=== PATIENT | female | born 1940 | race Caucasian/White ===

== ENCOUNTER 2023-04-16 09:01 | Outpatient (OUT) | payer MEDICARE, SELFPAY ==
--- NOTE | 2023-04-16 09:15 | XR_ITS ---
The [address] [address] Patient Name: JESUS ESTEVEZ MRN: [id number] date: 1940 Sex: F Assigned Patient Location: [facility] Current Patient Location: [facility] Accession/Order Number: [id number] Exam Date: 04/16/2023 09:25 Report Date: 04/16/2023 09:42 At the request of: BETY GARSIA Procedure: XR chest 2V EXAM: XR chest 2V HISTORY: Chronic bronchitis J42, Chronic Cough R05.3 COMPARISON: Chest study dated 03/23/2022 TECHNIQUE: PA and lateral views of the chest were obtained. FINDINGS: Heart and mediastinal contours are unremarkable in appearance. No acute infiltrate or consolidations are seen. No obvious pneumothorax. A few small calcific densities on the left laterally compatible with calcified granulomas. Moderate size hiatal hernia similar to the prior study. Mild degenerative changes in the dorsal spine with mild convexity of the lower dorsal spine to the right. Height loss of lower thoracic and upper lumbar vertebral bodies similar to prior study. XR/XR chest 2V IMPRESSION: No acute process seen in the chest. Electronically authenticated by: RICO BLANCO Date: 04/16/2023 09:42
== END 2023-04-16 09:02 | disposition home or self-care (01) ==
LOC: LAB 09:08 → RAD 09:09
PROVIDERS: PCP Internal Medicine; Visit Provider Physician Assistant
DX: J42 Unspecified chronic bronchitis (principal); R05.3 Chronic cough
CPT/HCPCS: 71046

== ENCOUNTER 2023-11-26 11:20 | Outpatient (OUT) | payer MEDICARE, SELFPAY ==
--- OUTSIDE RECORDS SUMMARY | 2023-11-26 11:36 | XMS_ITS | CCD ---
Author Organization [facility] ion [facility] Care Team Providers Care Physical Therapy Supervisor Name Role Phone ISACC, DR CHOE Consulting Unavailable DEXTER, DR CHOE Primary Care Unavailable DEXTER, DR CHOE Attending Unavailable DEXTER, DR CHOE Admitting Unavailable ZIEBER, DR MERCED Hope Consulting Unavailable DEXTER, DR CHOE Primary Care Unavailable HEMMER, DR LONI Ugarte Attending Unavailable HEMMER, DR LONI Ugarte Admitting Unavailable HEMMER, DR LONI Ugarte Consulting Unavailable WEST, DR MONTSERRAT Bray Admitting Unavailable WEST, DR MONTSERRAT Bray Attending Unavailable DEXTER, DR CHOE Primary Care Unavailable WEST, DR MONTSERRAT Bray Consulting Unavailable ZIEBER, DR MERCED Hope Consulting Unavailable ZIEBER, DR MERCED Hope Consulting Unavailable DEXTER, DR CHOE Primary Care Unavailable HEMMER, DR LONI Ugarte Attending Unavailable HEMMER, DR LONI Ugarte Admitting Unavailable HEMMER, DR LONI Ugarte Consulting Unavailable DEXTER, DR CHOE Consulting Unavailable DEXTER, DR CHOE Primary Care Unavailable DEXTER, DR CHOE Attending Unavailable DEXTER, DR CHOE Admitting Unavailable MISC, DR ROSENTHAL Consulting Unavailable DEXTER, DR CHOE Primary Care Unavailable MISC, DR ROSENTHAL Attending Unavailable MISC, DR ROSENTHAL Admitting Unavailable WEST, DR MONTSERRAT Bray Admitting Unavailable WEST, DR MONTSERRAT Bray Attending Unavailable DEXTER, DR CHOE Primary Care Unavailable WEST, DR MOTNSERRAT Bray Consulting Unavailable WEST, DR MONTSERRAT Bray Admitting Unavailable WEST, DR MONTSERRAT Bray Attending Unavailable DEXTER, DR CHOE Primary Care Unavailable WEST, DR MONTSERRAT Bray Consulting Unavailable WEST, DR MONTSERRAT Bray Admmanuel Unavailable WEST, DR MONTSERRAT Bray Attending Unavailable DEXTER, DR CHOE Primary Care Unavailable WEST, DR MONTSERRAT Bray Consulting Unavailable WEST, DR MONTSERRAT Bray Admmanuel Unavailable WEST, DR MONTSERRAT Bray Attending Unavailable DEXTER, DR CHOE Primary Care Unavailable HEMMER, DR LONI Ugarte Consulting Unavailable HEMMER, DR LONI Ugarte Admitting Unavailable HEMMER, DR LONI Ugarte Attending Unavailable DEXTER, DR CHOE Primary Care Unavailable WEST, DR MONTSERRAT Bray Consulting Unavailable HEMMER, DR LONI Ugarte Consulting Unavailable WEST, DR MONTSERRAT Bray Admitting Unavailable WEST, DR MONTSERRAT Bray Attending Unavailable DEXTER, DR CHOE Primary Care Unavailable WEST, DR MONTSERRAT Bray Consulting Unavailable ZIEBER, DR MERCED Hope Consulting Unavailable WEST, DR MONTSERRAT Bray Consulting Unavailable DEXTER, DR CHOE Primary Care Unavailable WEST, DR MONTSERRAT Bray Attending Unavailable WEST, DR MONTSERRAT Bray Admitting Unavailable DEXTER, DR CHOE Consulting Unavailable DEXTER, DR CHOE Primary Care Unavailable HEMMER, DR LONI Ugarte Attending Unavailable HEMMER, DR LONI Ugarte Admitting Unavailable HEMMER, DR LONI Ugarte Consulting Unavailable PAY, DR SANABRIA Consulting Unavailable PAY, DR SANABRIA Attending Unavailable PAY, DR SANABRIA Admitting Unavailable DEXTER, DR CHOE Primary Care Unavailable FALVO, FAITH Consulting Unavailable WEST, DR MONTSERRAT Bray Admitting Unavailable WEST, DR MONTSERRAT Bray Attending Unavailable DEXTER, DR CHOE Primary Care Unavailable WEST, DR MONTSERRAT Bray Consulting Unavailable ZIEBER, DR MERCED Hope Consulting Unavailable ZIEBER, DR MERCED Hope Consulting Unavailable DEXTER, DR CHOE Primary Care Unavailable HEMMER, DR LONI Ugarte Attending Unavailable HEMMER, DR LONI Ugarte Admitting Unavailable HEMMER, DR LONI Ugarte Consulting Unavailable Dexter, II Quentin Primary Care Provider ROSEANNA Cruz Attending Provider MARGA Garsia Referring Provider [phone] Isacc, II Quentin Primary Care Provider [phone] ROSEANNA Cruz Attending Provider MARGA Garsia Referring Provider [phone] MD Trista Davis Attending Provider Isacc, II Quentin Primary Care Provider ROSEANNA Cruz Attending Provider MD Trista Davis Referring Provider [phone] Isacc, II Quentin Primary Care Provider [phone] MD Trista Davis Attending Provider ROSEANNA Cruz Attending Provider MD Trista Davis Referring Provider DO Alex Lee Admit Provider DO Alex Lee Attending Provider TERRY Rivera Other Provider Unavailable TERRY Keller Other Provider Unavailable TERRY Esquivel Other Provider Unavailable TERRY Mac Other Provider Unavailable TERRY Barrow Other Provider Unavailable TERRY Patterson Other Provider Unavailable MD Karthik Rico Other Provider ROSEANNA Enriquez Other Provider [phone] DO Venessa Taylor Other Provider MD Miguel Izquierdo Other Provider DO Leonidas Pink Other Provider [phone] MD Lucas Serrano Other Provider [phone] MD Maribel Torres Other Provider Shadia, ANP- Tayler Other Provider MD Lori Crespo Other Provider [phone] MD Daniele Burdick Other Provider MD Pepito Jordan Other Provider MD Arsenio Mills Other Provider DO Nestor Loomis Other Provider [phone] MD Rosalia Sol Other Provider MD Aime Ortiz Other Provider CONNIE Cruz Other Provider [phone] MD Levon Cruz Other Provider MD Kwasi Blake Other Provider MD Jose Zarate Other Provider DO Carmen Jade Other Provider DO Ronal Osman Other Provider DO Masoud Hilton Other Provider ROSEANNA Bishop Other Provider DO Adrian Santiago Other Provider MD Medhat Aaron M Other Provider ROSEANNA Wade Other Provider ROSEANNA Spence Other Provider [phone] TERRY Gomez Other Provider Unavailable DO Lisandro Almaraz Other Provider McGuinjosue II, Dr. Geovany Sanchez Attending Unavailable McGuinn II, Dr. Geovany Sanchez Attending Unavailable McGuinn II, Dr. Geovany Sanchez Attending Unavailable McGuinn II, Dr. Geovany Sanchez Attending Unavailable McGuinn II, Dr. Geovany Sanchez Attending Unavailable McGuinn II, Dr. Geovany Sanchez Attending Unavailable McGuinn II, Dr. Geovany Sanchez Attending Unavailable EUGENE Dexter Primary Care Provider MD Geovany Serrano Attending Provider ROSEANNA Cruz Attending Provider MD Trista Davis Referring Provider Qeuntin Dexter Unavailable Unavailable Unavailable Quentin Dexter MD Primary Care Provider EUGENE Dexter Primary Care Provider [phone] MD Trista Davis Referring Provider [phone] MD Suzanne Paredes Attending Provider EUGENE Dexter Primary Care Provider MD Trista Davis Referring Provider MD Suzanne Paredes Attending Provider [phone] Quentin Dexter Primary Care Unavailable Suzanne Paredes Admitting Unavailable Suzanne Paredes Attending Unavailable Trista Davis Referring Unavailable RUIZ HERNANDEZ Attending Unavailable LONI GARSIA Attending Unavailable ALEX LEE Attending Unavailable QUENTIN DEXTER Referring Unavailable RUIZ HERNANDEZ Attending Unavailable МАРИЯ BASHIR Attending Unavailable LONI GARSIA Attending Unavailable RUIZ HERNANDEZ Attending Unavailable LONI GARSIA Attending Unavailable LONI GARSIA Attending Unavailable GEOVANY SERRANO Attending Unavailable QUENTIN DEXTER Primary Care Unavailable GEOVANY SERRANO Attending Unavailable GEOVANY SERRANO Referring Unavailable QUENTIN DEXTER Primary Care Unavailable Allergies Allergy Classification Reported Allergen(s) Allergy Type Date of Onset Reaction(s) Facility (5 sources) Amoxicillin; Translations: [AMOXICILLIN] Drug Allergy 4 Unknown Reaction [facility] (1 source) Sulfamethoxazole / Trimethoprim Drug Allergy 4 [facility] (1 source) Sulfonamides (Antibiotic) Drug allergy (disorder) 4 [facility] (2 sources) Sulfamethoxazole; Translations: [sulfa] Drug Allergy [facility] y 250 DO Work Phone: (1 source) Amoxicillin Drug Allergy 3 Unknown [facility] (2 sources) Doxycycline; Translations: [DOXYCYCLINE] Drug Allergy 3 [facility] Work Phone: (5 sources) Sulfonamides (Antibiotic); Translations: [SULFA (SULFONAMIDE ANTIBIOTICS)] Drug Allergy 3 [facility] Work Phone: (4 sources) Sulfur; Translations: [sulfur] Drug Allergy 4 Unknown Reaction [facility] (1 source) Amoxicillin Drug Allergy 4 [facility] (1 source) Sulfonamides (Antibiotic) Drug allergy (disorder) 4 [facility] Medications Current Medications Medication Drug Class(es) Dates Sig (Normalized) Sig (Original) biotin 10 mg oral capsule (18 sources) Start: 05-12-2022 take 77201 ug by mouth once daily Biotin Active 84472 MCG PO Daily May 12, 2022 1:00am Start: 04-28-2022 End: 05-04-2022 take 1000 ug by mouth once daily Biotin Discontinued 1000 MCG PO Daily April 28, 2022 1:00am May 04, 2022 3:09pm take 1 tablet by jenifer th once daily biotin 10 mg tablet Take 1 tablet (10 mg) by mouth once daily. 0 Active Biotin CAPS 10,0 00 mgs Quantity: 0 Refills: 0 Ordered: 21-Sep-2022 DO Active 120 actuat budesonide 0.16 mg/actuat / formoterol fumarate 0.0048 mg/actuat / glycopyrrolate 0.009 mg/actuat metered dose inhaler (20 sources) Corticosteroid, beta2-Adrenergic Agonist Start: 01-26-2023 take 2 puff(s) by inhalation twice daily Breztri Aerosphere 160-9-4.8 mcg/actuation HFA aerosol inhaler Inhale 2 puffs twice a day. 0 01/26/2023 Active Start: 05-12-2022 Budesonide-Gly copyr-Formoterol (Breztri Aerosphere) 160-9-4.8 mcg/actuation HFA aerosol inhaler Active 2 INH INHALATION Twice daily September 09, 2023 12:00am Start: 04-28-2022 End: 05-04-2022 Crukdytaxs-Vuglnanw-Hcwlctbe ol (Breztri Aerosphere) 160-9-4.8 mcg/actuation Hfa Aerosol Inhaler Discontinued 2 INH INHALATION Twice daily April 28, 2022 1:00am May 04, 2022 3:09pm take 2 puff(s) by inhalation twice daily Breztri Aerosphere 160-9-4.8 MCG/ACT Inhalation Aerosol INHALE 2 PUFFS Twice daily Quantity: 0 Refills: 0 Ordered: 21-Sep-2022 DO Active calcium citrate 1190 mg / cholecalciferol 0.005 mg oral tablet (12 sources) Vitamin D Start: 07-21-2022 take 1 tablet by mouth three times daily Calcium Citrate-Vitamin D3 (Citracal Plus D) 250 mg-5 mcg (200 unit) Tablet Active 1 TAB PO Three times daily July 21, 2022 12:00am Start: 01-13-2017 End: 04-28-2022 take 2 tablets by mouth three times daily Calcium Citrate-Vitamin D3 (Citracal + D Maximum) 315-250 mg-unit Tablet Discontinued 2 TAB PO Three times daily January 13, 2017 12:00am April 28, 2022 3:31pm dofetilide 0.25 mg oral capsule (9 sources) Antiarrhythmic Start: 04-07-2023 End: 04-06-2024 take 1 capsule by mouth every twelve hours dofetilide (Tikosyn) 250 mcg capsule Indications: Paroxysmal atrial fibrillation (CMS/HCC) Take 1 capsule (250 mcg) by mouth every 12 hours. 180 capsule 3 04/07/2023 04/06/2024 Active Start: 07-10-2022 End: 04-07-2023 take 250 ug by mouth twice daily Dofetilide Active 250 MCG PO Twice daily 60 30 July 10, 2022 12:00am take 1 capsule by mo [facility] once daily Dofetilide 250 MCG Oral Capsule TAKE 1 CAPSULE Daily Quantity: 0 Refills: 0 Ordered: 21-Sep-2022 DO Active ferrous sulfate 325 mg oral tablet (11 sources) Start: 12-08-2022 take 1 tablet by mouth every week ferrous sulfate, 325 mg ferrous sulfate, tablet Take 1 tablet by mouth 1 (one) time per week. 0 12/08/2022 Active Start: 04-28-2022 take 325 mg by mouth once richar y Ferrous Sulfate Active 325 MG PO Daily April 28, 2022 1:00am Ferrous Sulfate 325 MG CAPS TAKE 1 CAPSULE Daily Quantity: 0 Refills: 0 Ordered: 21-Sep-2022 DO Active folic acid/multivit-min/lutein (CENTRUM SILVER ORAL) (1 source) take 1 tablet by mouth once daily folic acid/multivit-min/lutein (CENTRUM SILVER ORAL) Take 1 tablet by mouth once daily. 0 Active gabapentin 300 mg oral capsule (11 sources) Anti-epilept ic Agent Start : 04-28 take 1 capsule by mouth three times daily Gabapentin (Neurontin) 300 mg Capsule Active 300 MG PO Three times daily April 28, 2022 1:00am levothyroxine sodium 0.025 m g oral capsule (3 sources) l-Thyroxine Start : 06-30 take 25 ug by mouth once daily Levothyroxine Active 25 MCG PO Daily July 01, 2023 12:00am 24 hr metoprolol succinate 5 0 mg extended release oral tablet (13 sources) beta-Adrener gic Cindy Start : 09-09 End: 04-06 take 50 mg by mouth once daily Metoprolol Succinate Active 50 MG PO Daily September 09, 2022 12:00am Start: 07-10-2022 End: 07-21-2022 take 1 tablet by mouth once daily Metoprolol Succinate (Toprol Xl) 50 mg tablet extended release 24 hr Discontinued 50 MG PO Daily 30 July 10, 2022 12:00am July 21, 2022 2:41pm Multivitamin (Multiple Vitamin) Tablet (3 sources) Start: 04-28-2022 take 1 tablet by mouth once daily Multivitamin (Multiple Vitamin) Tablet Active 1 TAB PO Daily April 28, 2022 12:00am Multivitamin preparation (13 sources) Start: 04-28-2022 take 1 tablet by mouth once daily Multivitamin Active 1 TAB PO Daily April 28, 2022 1:00am Start: 02-20-2019 End: 04-28-2022 take 1 capsule by mouth once daily Multivitamin Discontinued 1 CAP PO Daily February 20, 2019 1:00am April 28, 2022 3:31pm Start: 02-20-2019 End: 04-28-2022 take 1 capsule by mouth once daily Multivitamin Discontinued 1 CAP PO Daily February 20, 2019 12:00am April 28, 2022 2:31pm ondansetron 4 mg oral tablet (4 sources) Serotonin-3 Receptor Antagonist Start: 08-11-2022 take 4 mg by mouth every eight hours Ondansetron Hcl Active 4 MG PO Q8H August 11, 2022 9:43am pantoprazole 40 mg delayed release oral tablet (19 sources) Proton Pump Inhibitor Start: 01-13-2017 End: 04-28-2022 take 40 mg by mouth once daily Pantoprazole Active 40 MG PO Daily April 28, 2022 1:00am rivaroxaban 2.5 mg oral tablet (12 sources) Factor Xa Inhibitor Start: 04-28-2022 End: 04-06-2024 take 1 tablet by mouth twice daily Rivaroxaban (Xarelto) 2.5 mg Tablet Active 2.5 MG PO Twice daily April 28, 2022 1:00am spironolactone 25 mg oral tablet (16 sources) Aldosterone Antagonist Start: 09-29-2022 End: 04-06-2024 take 1 tablet by mouth every other day spironolactone (Aldactone) 25 mg tablet Indications: Primary hypertension Take 1 tablet (25 mg) by mouth every other day. 45 tablet 3 04/07/2023 04/06/2024 Active Start: 09-21-2022 take 1 tablet by jenifer th every other day Spironolactone 25 MG Oral Tablet TAKE 1 TABLET EVERY OTHER DAY Quantity: 90 Refills: 3 Ordered: 21-Sep-2022 Geovany Serrano MD Start : 21-Sep-2022 Active Start: 09-09-2022 take 12.5 mg by mout h once daily Spironolactone Active 12.5 MG PO Daily September 09, 2022 12:00am Start: 07-10-2022 End: 07-21-2022 take 12.5 mg by mouth once daily Spironolactone Discontinued 12.5 MG PO Daily July 10, 2022 12:00am July 21, 2022 2:41pm End: 04-07-2023 take 0.5 tablet by mouth once daily spironolactone (Aldactone) 25 mg tablet Take 0.5 tablets (12.5 mg) by mouth once daily. 0 04/07/2023 Discontinued (Other) verapamil hydrochloride 180 mg extended release oral tablet (12 sources) Calcium Channel Cindy Start: 09-09-2022 take 180 mg by mouth once daily Verapamil Active 180 MG PO Daily September 09, 2022 12:00am Start: 07-10-2022 End: 07-21-2022 take 180 mg by mouth once daily Verapamil Discontinued 180 MG PO Daily July 10, 2022 12:00am July 21, 2022 2:41pm Completed/Discontinued Medications Medication Drug Class(es) Dates Sig (Normalized) Sig (Original) acetaminophen 325 mg / HYDROcodone bitartrate 5 mg oral tablet (13 sources) Opioid Agonist Start: 07-10-2022 End: 07-21-2022 take 1 tablet by mouth every six hours Hydrocodone-Acetami nophen Discontinued 1 TAB PO Q6H 01 11July 10, 2022 July 21, 2022 2:41pm Start: 01-13-2017 End: 02-20-2019 take 1 tablet by mouth twice daily Hydrocodone-Acetaminophen Discontinued 1 TAB PO Twice daily January 13, 2017 12:00am February 20, 2019 12:45pm [id number] 200 actuat albuterol 0.09 mg/actuat metered dose inhaler (12 sources) beta2-Adrenergic Agonist Start: 07-21-2022 End: 09-09-2023 take 1 puff(s) by inhalation four times daily Albuterol Sulfate (Proair Hfa) 90 mcg/actuation Hfa Aerosol Inhaler Discontinued 2 PUFF INHALATION Four times daily July 21, 2022 12:00am September 09, 2023 2:02pm Start: 04-28-2022 End: 05-04-2022 take 1 puff(s) by inhalation every four hours Albuterol Sulfate Discontinued 2 PUFF INHALATION Q4H April 28, 2022 1:00am May 04, 2022 3:09pm Albuterol Sulfate (Proair Hfa) 90 mcg/actuation Hfa Aerosol Inhaler (8 sources) Start: 01-13-2017 End: 04-28-2022 take 1 puff(s) by inhalation every four hours Albuterol Sulfate (Proair Hfa) 90 mcg/actuation Hfa Aerosol Inhaler Discontinued 2 PUFF INHALATION Every 4 hours January 13, 2017 12:00am April 28, 2022 3:31pm Start: 01-13-2017 End: 04-28-2022 take 1 puff(s) by inhalation every four hours Albuterol Sulfate (Proair Hfa) 90 mcg/actuation Hfa Aerosol Inhaler Discontinued 2 PUFF INHALATION Every 4 hours January 12, 2017 11:00pm April 28, 2022 2:31pm aspirin 81 mg delayed release oral tablet (8 sources) Platelet Aggregation Inhibitor, Nonsteroidal Anti-inflammatory Drug Start: 07-10-2022 End: 07-21-2022 take 81 mg by mouth once daily Aspirin Discontinued 81 MG PO Daily July 10, 2022 12:00am July 21, 2022 2:42pm Calcium Phos,Dibas-Ciara min D3 (5 sources) Start: 07-01-2022 End: 07-21-2022 take 2 tablets by mouth once daily Calcium Phos,Dibas-Vitamin D3 Discontinued 2 TAB PO Daily July 01, 2022 12:00am July 21, 2022 2:42pm Start: 07-01-2022 take 2 tablets by mo ut once daily Calcium Phos,Dibas-Vitamin D3 Active 2 TAB PO Daily July 01, 2022 12:00am capecitabine 500 mg oral tablet (20 sources) Nucleoside Metabolic Inhibitor Start: 10-22-2022 End: 04-07-2023 capecitabine (Xeloda) 500 mg tablet Take two (2) tablets (1000mg) by mouth twice daily Wednesday through Wednesday only for 14 days per 21-day cycle; must administer with water 30 minutes after a meal 40 tablet 2 01/15/2023 04/07/2023 Discontinued (Other) Start: 07-22-2022 End: 03-04-2023 take 1 tablet by mouth twice daily 30 minutes after mealtime Capecitabine (Xeloda) 500 mg Tablet Discontinued 1000 MG PO Twice daily 40 March 01, 2023 12:46pm March 04, 2023 10:31am wed-wed only for 14 days per 21-day cycle; must administer with water 30 minutes after a meal take 3 tablets by mo uth twice daily Capecitabine 500 MG Oral Tablet take 3 tablets twice daily five days weekly. Quantity: 0 Refills: 0 Ordered: 21-Sep-2022 DO Active cyclobenzaprine hydrochloride 5 mg oral tablet (13 sources) Muscle Relaxant Start: 07-01-2022 End: 09-09-2022 take 5 mg by mouth at bedtime Cyclobenzaprine Discontinued 5 MG PO Bedtime July 01, 2022 12:00am September 09, 2022 11:23am Start: 04-28-2022 End: 05-04-2022 take 5 mg by mouth twice daily Cyclobenzaprine Discontinued 5 MG PO Twice daily April 28, 2022 1:00am May 04, 2022 3:09pm 1 ml denosumab 60 mg/ml prefilled syringe (12 sources) RANK Ligand Inhibitor Start: 07-21-2022 End: 07-22-2022 Denosumab (Prolia) 60 mg/mL Syringe Discontinued 60 MG SUBCUT EVERY 6 MONTHS July 21, 2022 12:00am July 22, 2022 11:12am Start: 04-28-2022 End: 05-04-2022 Denosumab (Prolia) 60 mg/mL Syringe Discontinued 60 MG SUBCUT EVERY 6 MONTHS April 28, 2022 1:00am May 04, 2022 3:09pm folic acid 1 mg oral tablet (8 sources) Start: 01-13-2017 End: 04-28-2022 take 1 tablet by mouth once daily Folic Acid Discontinued 1 TAB PO Daily January 13, 2017 12:00am April 28, 2022 3:31pm hydroCHLOROthiazide 50 mg / triamterene 75 mg oral tablet (8 sources) Potassium-sparing Diuretic, Thiazide Diuretic Start: 01-13-2017 End: 04-28-2022 take 0.5 tablet by mouth once daily Triamterene-Hydrochlo rothiazid (Maxzide) 75-50 mg Tablet Discontinued 0.5 TAB PO Daily January 13, 2017 12:00am April 28, 2022 3:31pm methylPREDNISolone 4 mg oral tablet (8 sources) Corticosteroid Start: 01-13-2017 End: 04-28-2022 take 1 tablet by mouth once Methylprednisolone Discontinued 1 TAB PO every Wednesday, Wednesday, and Friday January 13, 2017 12:00am April 28, 2022 3:31pm on hold d/t bolus prednisone dosing Multi Vitamin Oral Tablet (2 sources) take 1 tablet by mouth once daily Multi Vitamin Oral Tablet TAKE 1 TABLET DAILY. Quantity: 0 Refills: 0 Ordered: 21-Sep-2022 DO Active potassium chloride 20 meq powder for oral solution (20 sources) Start: 01-26-2023 End: 04-07-2023 take 40 mEq by mouth once daily potassium chloride (Klor-Con) 20 mEq packet Take 40 mEq by mouth once daily. 0 01/26/2023 04/07/2023 Discontinued (Therapy completed) Start: 07-10-2022 End: 07-01-2023 Potassium Chloride (Klor-Con M20) 20 mEq Tablet,Er Particles/Crystals Discontinued 40 MEQ PO Daily 60 30 July 10, 2022 12:00am July 01, 2023 10:52am Start: 04-28-2022 End: 07-12-2022 take 20 mEq by mouth three times daily Potassium Chloride Discontinued 20 MEQ PO Three times daily April 28, 2022 1:00am July 12, 2022 11:39am Start: 04-28-2022 take 2 tablets by mo uth every six hours Potassium Chloride Active 10 MEQ PO As Directed April 28, 2022 12:00am 2 tablets orally q6h Start: 01-13-2017 End: 04-28-2022 Potassium Chloride (Klor-Con 10) 10 mEq Tablet Extended Release Discontinued 10 MEQ PO Four times daily January 13, 2017 12:00am April 28, 2022 3:31pm take 2 tablets by [facility] once daily Potassium Chloride Steffany ER 20 MEQ Oral Tablet Extended Release TAKE 2 TABLET Daily Quantity: 0 Refills: 0 Ordered: 21-Sep-2022 DO Active predniSONE 20 mg oral tablet (8 sources) Start: 02-20-2019 End: 04-28-2022 take 40 mg by mouth once daily Prednisone Discontinued 40 MG PO Daily February 20, 2019 1:00am April 28, 2022 3:31pm pregabalin (8 sources) Start: 01-13-2017 End: 04-28-2022 take 1 capsule by mouth once daily Pregabalin Discontinued 1 CAP PO Daily January 13, 2017 12:00am April 28, 2022 3:31pm Start: 01-13-2017 End: 04-28-2022 take 1 capsule by mouth once daily Pregabalin Discontinued 1 CAP PO Daily January 12, 2017 11:00pm April 28, 2022 2:31pm Risankizumab-Rzaa (8 sources) Start: 04-28-2022 End: 07-12-2022 Risankizumab-Rzaa (Skyrizi) 150 mg/mL Syringe Discontinued 150 MG SUBCUT EVERY 12 WEEKS April 28, 2022 1:00am July 12, 2022 11:39am Start: 04-28-2022 Risankizumab-R zaa (Skyrizi) 150 mg/mL Syringe Active 150 MG SUBCUT EVERY 12 WEEKS April 28, 2022 12:00am torsemide 20 mg oral tablet (12 sources) Loop Diuretic Start: 07-21-2022 End: 07-22-2022 take 20 mg by mouth once daily Torsemide Discontinued 20 MG PO Daily July 21, 2022 12:00am July 22, 2022 11:14am Start: 04-28-2022 End: 07-12-2022 take 20 mg by mouth once daily Torsemide Discontinued 20 MG PO Daily April 28, 2022 1:00am July 12, 2022 11:39am 7 actuat umeclidinium 0.0625 mg/actuat / vilanterol 0.025 mg/actuat dry powder inhaler (8 sources) Anticholinergic, beta2-Adrenergic Agonist Start: 02-20-2019 End: 04-28-2022 Umeclidinium-Vilanterol (Anoro Ellipta) 62.5-25 mcg/actuation Blister With Device Discontinued 1 INH INHALATION Q24H February 20, 2019 1:00am April 28, 2022 3:31pm Vitamin D (Cholecalciferol) CAPS (2 sources) Vitamin D (Regina calciferol) CAPS TAKE 1 CAPSULE Daily Quantity: 0 Refills: 0 Ordered: 21-Sep-2022 DO Active Problems Active Problems Problem Classification Problem Date Documented Da te Episodic/Chronic Administrative/social admission (14 sources) Patient encounter status; Translations: [Other specified counseling] 05-15-2022 Episodic Allergic reactions (10 sources) Acral erythema; Translations: [Localized skin eruption due to drugs and medicaments taken internally] 11-13-2022 Episodic Cancer of colon (20 sources) Malignant tumor of cecum; 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] Onset: 4 07-01-2022 Chronic Cardiac dysrhythmias (20 sources) Multifocal atrial tachycardia; 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] Onset: 3 07-08-2022 Chronic Chronic obstructive pulmonary disease and bronchiectasis (2 sources) Chronic obstructive pulmonary disease with (acute) exacerbation; Translations: [Chronic obstructive pulmonary disease, unspecified] Onset: 2 Chronic Deficiency and other anemia (11 sources) Iron deficiency anemia, unspecified; Translations: [Iron deficiency anemia, unspecified] Onset: 2 Episodic Deficiency and other anemia (7 sources) Iron deficiency anemia; Translations: [Iron deficiency anemia, unspecified] 05-05-2022 Episodic Essential hypertension (7 sources) Benign essential hypertension; Translations: [Benign essential hypertension] Onset: 3 04-07-2023 Chronic Fluid and electrolyte disorders (8 sources) Hypokalemia; Translations: [Hypokalemia] Onset: 2 07-10-2022 Episodic Gout and other crystal arthropathies (7 sources) Acute gout; Translations: [Gout, unspecified] 07-11-2022 Chronic Maintenance chemotherapy; radiotherapy (8 sources) Patient encounter status; Translations: [Encounter for antineoplastic chemotherapy] 07-23-2022 Chronic Menopausal disorders (4 sources) Other primary ovarian failure; Translations: [OTHER PRIMARY OVARIAN FAILURE] Onset: 2 Chronic Osteoporosis (1 source) Age-related osteoporosis without current pathological fracture; Translations: [AGE-REL OSTEOPOR W/O CURR PATH FX] Onset: 2 Chronic Other aftercare (1 source) Treatment changed; Translations: [Other retirement (current) drug therapy] 04-07-2023 Episodic Other and ill-defined heart disease (1 source) Other ill-defined heart diseases; Translations: [OTHER ILL-DEFINED HEART DISEASES] Onset: 2 Chronic Other circulatory disease (1 source) Other specified disorders of arteries and arterioles; Translations: [OTH SPEC D/O ARTERIES AND ARTERIOLES] Onset: 2 Chronic Other circulatory disease (4 sources) Other specified symptoms and signs involving the circulatory and respiratory systems; Translations: [OTH SPEC SX SIGNS INVLV CIRC RS] Onset: 2 Episodic Other connective tissue disease (5 sources) Monoparesis - leg; Translations: [Other symptoms and signs involving the musculoskeletal system] 07-05-2022 Episodic Other connective tissue disease (5 sources) Muscle weakness of limb; Translations: [Other symptoms and signs involving the musculoskeletal system] 07-05-2022 Episodic Other connective tissue disease (4 sources) Other symptoms and signs involving the musculoskeletal system; Translations: [Other musculoskeletal symptoms referable to limbs] 07-12-2022 Episodic Other hematologic conditions (3 sources) H/O: anemia - iron deficient; Translations: [Personal history of diseases of the blood and blood-forming organs and certain disorders involving the immune mechanism] 03-04-2023 Episodic Other hematologic conditions (7 sources) Personal history of diseases of the blood and blood-forming organs and certain disorders involving the immune mechanism; Translations: [Personal history of diseases of blood and blood-forming organs] 07-01-2023 Episodic Other inflammatory condition of skin (4 sources) Psoriasis vulgaris; Translations: [PSORIASIS VULGARIS] Onset: 2 Chronic Other nervous system disorders (1 source) Polyneuropathy, unspecified; Translations: [POLYNEUROPATHY UNSPECIFIED] Onset: 2 Chronic Other nutritional; endocrine; and metabolic disorders (2 sources) Body mass index (BMI) 25.0-25.9, adult; Translations: [Body mass index (BMI) 25.0-25.9, adult] Onset: 4 Episodic Phlebitis; thrombophlebitis and thromboembolism (3 sources) Chronic deep venous thrombosis of lower extremity; Translations: [Chronic venous embolism and thrombosis of deep vessels of distal lower extremity] Onset: 3 03-30-2023 Chronic Phlebitis; thrombophlebitis and thromboembolism (20 sources) Personal history of other venous thrombosis and embolism; Translations: [Phlebitis and thrombophlebitis of superficial vessels of lower extremities, bilateral] Onset: 2 Episodic Residual codes; unclassified (2 sources) Body mass index 20-24 - normal; Translations: [Body Mass Index between 19-24, adult] Episodic Screening and history of mental health and substance abuse codes (5 sources) Personal history of nicotine dependence; Translations: [Ex-smoker] Onset: 2 Episodic Systemic lupus erythematosus and connective tissue disorders (7 sources) Lupus erythematosus; Translations: [Systemic lupus erythematosus, unspecified] 07-01-2022 Chronic Unclassified (1 source) COUGH, UNSPECIFIED; Translations: [COUGH, UNSPECIFIED] Onset: 2 Past or Other Problems Problem Classification Problem Date Documented Da te Episodic/Chronic Other aftercare (3 sources) Other retirement (current) drug therapy; Translations: [OTH CORRECTION CURRENT DRUG THERAPY] Onset: 11-18-2021 Episodic Other aftercare (1 source) detention (current) use of anticoagulants; Translations: [CORRECTION CURRNT USE ANTICOAGULANTS] Onset: 11-14-2021 Episodic Other connective tissue disease (1 source) Myalgia, other site; Translations: [MYALGIA OTHER SITE] Onset: 11-14-2021 Episodic Other diseases of veins and lymphatics (4 sources) Compression of vein; Translations: [COMPRESSION OF VEIN] Onset: 06-04-2021 Episodic Other lower respiratory disease (1 source) Personal history of pneumonia (recurrent); Translations: [PERSONAL HX OF PNEUMONIA RECURRENT] Onset: 11-14-2021 Episodic Other screening for suspected conditions (not mental disorders or infectious disease) (4 sources) Encounter for screening, unspecified; Translations: [ENCOUNTER FOR SCREENING UNSPECIFIED] Onset: 05-12-2021 Episodic Residual codes; unclassified (4 sources) Edema, unspecified; Translations: [EDEMA UNSPECIFIED] Onset: 10-23-2021 Episodic Spondylosis; intervertebral disc disorders; other back problems (4 sources) Cervicalgia; Translations: [CERVICALGIA] Onset: 11-12-2021 Episodic Unclassified (1 source) Onset: 04-07-2023 04-07-2023 Varicose veins of lower extremity (4 sources) Varicose veins of bilateral lower extremities with pain; Translations: [VARICOSE VNS GERRY LOW EXTREM W/PAIN] Onset: 08-11-2021 Episodic Results Test Name Value Interpretation Reference Range Facility Alanine aminotransferase [En zymatic activity/volume] in Serum or PlasmaOrdered By: Suzanne Paredes on 09-06-2023 ALT [Catalytic activity/Vol] 16 U/L Normal 7-52 [facility] Comment on above: Performed By: #### C BC, CMP #### [facility] [address] [place] [address] Albumin [Mass/volume] in Ser um or Plasma by Bromocresol green (BCG) dye binding methoOrdered By: Suzanne Paredes on 09-06-2023 Albumin BCG dye [Mass/Vol] 4.2 g/dL 3.5-5.7 [facility] Alkaline phosphatase [Enzyma tic activity/volume] in Serum or PlasmaOrdered By: Suzanne Paredes on 09-06-2023 ALP [Catalytic activity/Vol] 75 U/L Normal 34-104 [facility] Comment on above: Performed By: #### C BC, CMP #### [facility] [address] [place] [address] Aspartate aminotransferase [ Enzymatic activity/volume] in Serum or PlasmaOrdered By: Suzanne Paredes on 09-06-2023 AST [Catalytic activity/Vol] 24 U/L Normal 13-39 [facility] Comment on above: Performed By: #### C BC, CMP #### [facility] [address] [place] [address] Automated basophil %Ordered By: Suzanne Paredes on 09-06-2023 Basophils/100 WBC (Bld) 1.2 % Normal . [facility] Comment on above: Performed By: #### C BC, CMP #### [address] Automated basophil countOrde red By: Suzanne Reggie on 09-06-2023 Basophils (Bld) [#/Vol] 0.1 10*3/uL Normal 0.0-0.2 [facility] Comment on above: Result Comment: PERF ORMED BY: [place] [id number] PATHOLOGIST [employer] WORKER ROSALEE PICKETT M.D. Performed By: #### C BC, CMP #### [address] Automated blood monocyte cou ntOrdered By: Suzanne Paredes on 09-06-2023 Monocytes (Bld) [#/Vol] 0.5 10*3/uL Normal 0.0-0.8 [facility] Comment on above: Performed By: #### C BC, CMP #### [address] Automated eosinophil %Ordere d By: Suzanne Paredes on 09-06-2023 Eosinophils/100 WBC (Bld) 2.1 % Normal . [facility] Comment on above: Performed By: #### C BC, CMP #### [address] Automated eosinophil countOr dered By: Suzanne Paredes on 09-06-2023 Eosinophils (Bld) [#/Vol] 0.1 10*3/uL Normal 0.0-0.45 [facility] Comment on above: Performed By: #### C BC, CMP #### [address] Automated monocyte %Ordered By: Suzanne Paredes on 09-06-2023 Monocytes/100 WBC (Bld) 9.9 % Normal . [facility] Comment on above: Performed By: #### C BC, CMP #### [address] Automated neutrophil %Ordere d By: Suzanne Paredes on 09-06-2023 Neutrophils/100 WBC (Bld) 60.7 % Normal . [facility] Comment on above: Performed By: #### C BC, CMP #### [address] Bilirubin.total [Mass/volume ] in Serum or PlasmaOrdered By: Suzanne Paredes on 09-06-2023 Bilirubin [Mass/Vol] 0.5 mg/dL Normal 0.3-1.0 [facility] Comment on above: Performed By: #### C BC, CMP #### [address] Calcium [Mass/volume] in Ser um or PlasmaOrdered By: Suzanne Paredes on 09-06-2023 Calcium [Mass/Vol] 9.2 mg/dL Normal 8.6-10.3 [facility] Comment on above: Performed By: #### C BC, CMP #### [address] Carbon dioxide, total [Moles /volume] in Serum or PlasmaOrdered By: Suzanne Paredes on 09-06-2023 CO2 [Moles/Vol] 30.0 mmol/L Normal 21.0-31.0 [facility] Comment on above: Performed By: #### C BC, CMP #### [address] Chloride [Moles/volume] in S abril or PlasmaOrdered By: Suzanne Paredes on 09-06-2023 Chloride [Moles/Vol] 99 mmol/L Normal 98-107 [facility] Comment on above: Performed By: #### C BC, CMP #### [address] Complete Blood Count Auto Di ffon 09-06-2023 Mean Corpuscular HGB Conc 34.1 g/dL Normal 32.0-35.0 [facility] Comment on above: Performed By: #### C BC, CMP #### [address] NRBC% 0.0 /100{WBC} Normal 0-0.5 [facility] Comment on above: Performed By: #### C BC, CMP #### [address] Comprehensive Metabolic Pane estefania 09-06-2023 Albumin [Mass/Vol] 4.2 g/dL Normal 3.5-5.7 [facility] Comment on above: Performed By: #### C BC, CMP #### [address] Creatinine Clr Calc Pharmacy 54.99 Normal [facility] Comment on above: Result Comment: PERF ORMED BY: [place] [id number] PATHOLOGIST [employer] WORKER ROSALEE PICKETT M.D. Performed By: #### C BC, CMP #### [address] GFR/1.73 sq M.predicted MDRD (S/P/Bld) [Vol rate/Area] mL/min/{1.73_m2} Normal [facility] Comment on above: Performed By: #### C BC, CMP #### [address] Creatinine [Mass/volume] in Serum or PlasmaOrdered By: Suzanne Paredes on 09-06-2023 Creatinine [Mass/Vol] 0.79 mg/dL Normal 0.60-1.20 [facility] Comment on above: Performed By: #### C BC, CMP #### [address] Erythrocyte distribution wid th [Ratio] by Automated countOrdered By: Suzanne Paredes on 09-06-2023 Erythrocyte distribution width (RBC) [Ratio] 12.9 % Normal 11.9-15.3 [facility] Comment on above: Performed By: #### C BC, CMP #### [address] Erythrocytes [#/volume] in B lood by Automated countOrdered By: Suzanne Paredes on 09-06-2023 RBC (Bld) [#/Vol] 4.41 10*6/uL Normal 3.60-5.00 [facility] Comment on above: Performed By: #### C KEVAN, CMP #### [address] Glucose [Mass/volume] in Ser um or PlasmaOrdered By: Suzanne Paredes on 09-06-2023 Glucose [Mass/Vol] 99 mg/dL Normal 70-100 [facility] Comment on above: ADA recommended refe rence rangeRandom Glucose Reference Range is dependent on time and content of last meal. Glucose of more than 200 mg/dL in a nonstressed, ambulatory subject supports the diagnosis of Diabetes Mellitus. Result Comment: [place] Glucose Reference Range is dependent on time and content of last meal. Glucose of more than 200 mg/dL in a nonstressed, ambulatory subject supports the diagnosis of Diabetes Mellitus. ADA recommended reference range Performed By: #### C KEVAN, CMP #### [address] Hematocrit [Volume Fraction] of Blood by Automated countOrdered By: Suzanne Paredes on 09-06-2023 Hematocrit (Bld) [Volume fraction] 39.9 % Normal 34.0-46.4 [facility] Comment on above: Performed By: #### C KEVAN, CMP #### [address] Hemoglobin [Mass/volume] in BloodOrdered By: Suzanne Paredes on 09-06-2023 Hemoglobin (Bld) [Mass/Vol] 13.6 g/dL Normal 11.8-15.4 [facility] Comment on above: Performed By: #### C KEVAN, CMP #### [address] Leukocytes [#/volume] correc evelio for nucleated erythrocytes in Blood by Automated counOrdered By: Suzanne Paredes on 09-06-2023 WBC corrected for nucl RBC Auto (Bld) [#/Vol] 5.2 10*3/uL 3.8-11.6 [facility] Leukocytes [#/volume] in Blo od by Automated countOrdered By: Suzanne Paredes on 09-06-2023 WBC (Bld) [#/Vol] 5.2 10*3/uL Normal 3.8-11.6 [facility] Comment on above: Performed By: #### C BC, CMP #### [address] Lymphocytes [#/volume] in Bl ood by Automated countOrdered By: Suzanne Paredes on 09-06-2023 Lymphocytes (Bld) [#/Vol] 1.4 10*3/uL Normal 1.00-4.8 [facility] Comment on above: Performed By: #### C BC, CMP #### [address] Lymphocytes/100 leukocytes i n Blood by Automated countOrdered By: Suzanne Paredes on 09-06-2023 Lymphocytes/100 WBC (Bld) 26.1 % Normal . [facility] Comment on above: Performed By: #### C BC, CMP #### [address] MCH [Entitic mass] by Automa evelio countOrdered By: Suzanne Paredes on 09-06-2023 MCH (RBC) [Entitic mass] 30.9 pg Normal 24.7-34.3 [facility] Comment on above: Performed By: #### C BC, CMP #### [address] MCHC Auto (RBC) [Mass/Vol]Or dered By: Suzanne Paredes on 09-06-2023 MCHC (RBC) [Mass/Vol] 34.1 g/dL 32.0-35.0 [facility] MCV [Entitic volume] by Auto mated countOrdered By: Suzanne Paredes on 09-06-2023 MCV (RBC) [Entitic vol] 90.5 fL Normal 80-[address] [facility] Comment on above: Performed By: #### C BC, CMP #### [address] Neutrophils [#/volume] in Bl ood by Automated countOrdered By: Suzanne Paredes on 09-06-2023 Neutrophils (Bld) [#/Vol] 3.1 10*3/uL Normal 1.8-7.7 [facility] Comment on above: Performed By: #### C BC, CMP #### [address] No Panel InformationOrdered By: Suzanne Paredes on 09-06-2023 Estimated GFR (CKD-EPI) > 60.0 mL/Min [facility] Creatinine Clearance (Chem 54.99 [facility] Nucleated erythrocytes [Pres ence] in Blood by Automated countOrdered By: Suzanne Paredes on 09-06-2023 Nucleated RBC Auto Ql (Bld) 0.0 /100{WBC} 0-0.5 [facility] Platelet mean volume [Entiti c volume] in Blood by Automated countOrdered By: Suzanne Paredes on 09-06-2023 Platelet mean volume (Bld) [Entitic vol] 7.9 fL Normal 6.3-10.7 [facility] Comment on above: Performed By: #### C BC, CMP #### [place] [address] [place] Platelets [#/volume] in Bloo d by Automated countOrdered By: Suzanne Paredes on 09-06-2023 Platelets (Bld) [#/Vol] 176 10*3/uL Normal 150-450 [facility] Comment on above: Performed By: #### C BC, CMP #### [address] Potassium [Moles/volume] in Serum or PlasmaOrdered By: Suzanne Paredes on 09-06-2023 Potassium [Moles/Vol] 3.9 mmol/L Normal 3.5-5.1 [facility] Comment on above: Performed By: #### C BC, CMP #### [place] [address] [place] Protein [Mass/volume] in Ser um or PlasmaOrdered By: Suzanne Paredes on 09-06-2023 Protein [Mass/Vol] 6.6 g/dL Normal 6.4-8.9 [facility] Comment on above: Performed By: #### C BC, CMP #### [address] Serum globulin measurement b y calculation (mass/volume)Ordered By: Suzanne Paredes on 09-06-2023 Globulin (S) [Mass/Vol] 2.4 g/dL Normal [facility] Comment on above: Performed By: #### C BC, CMP #### [facility] [address] Serum or plasma albumin/glob ulin mass ratioOrdered By: Suzanne Paredes on 09-06-2023 Albumin/Globulin [Mass ratio] 1.8 {ratio} Normal [facility] Comment on above: Performed By: #### C BC, CMP #### [facility] [address] Serum or plasma anion gap de terminationOrdered By: Suzanne Paredes on 09-06-2023 Anion gap [Moles/Vol] 9.9 mmol/L Normal 6.0-15.0 [facility] Comment on above: Performed By: #### C BC, CMP #### [place] [address] [place] Sodium [Moles/volume] in Ser um or PlasmaOrdered By: Suzanne Paredes on 09-06-2023 Sodium [Moles/Vol] 135 mmol/L Low 136-145 [facility] Comment on above: Performed By: #### C BC, CMP #### [place] [address] [place] Urea nitrogen [Mass/volume] in Serum or PlasmaOrdered By: Suzanne Paredes on 09-06-2023 Urea nitrogen [Mass/Vol] 13 mg/dL Normal 10-27 [facility] Comment on above: Performed By: #### C BC, CMP #### [facility] [address] [place] [address] [place] Alanine aminotransferase [En zymatic activity/volume] in Serum or PlasmaOrdered By: Suzanne Paredes on 06-29-2023 ALT [Catalytic activity/Vol] 14 U/L Normal [facility] Comment on above: Order Comment: STAT FOR CT Performed By: #### C MP, CBC ####[facility] [address] Albumin [Mass/volume] in Ser um or Plasma by Bromocresol green (BCG) dye binding methoOrdered By: Suzanne Reggie on 06-29-2023 Albumin BCG dye [Mass/Vol] 4.4 g/dL 3.5-5.7 [facility] Alkaline phosphatase [Enzyma tic activity/volume] in Serum or PlasmaOrdered By: Suzanne Reggie on 06-29-2023 ALP [Catalytic activity/Vol] 73 U/L Normal 34-104 [facility] Comment on above: Order Comment: STAT FOR CT Performed By: #### C MP, CBC ####[place] [address] [address] Aspartate aminotransferase [ Enzymatic activity/volume] in Serum or PlasmaOrdered By: Suzanne Paredes on 06-29-2023 AST [Catalytic activity/Vol] 21 U/L Normal 13-39 [facility] Comment on above: Order Comment: STAT FOR CT Performed By: #### C MP, CBC ####[place] [address] Automated basophil %Ordered By: Suzanne Paredes on 06-29-2023 Basophils/100 WBC (Bld) 1.3 % Normal . [facility] Comment on above: Order Comment: STAT FOR CT Performed By: #### C MP, CBC ####[address] Automated basophil countOrde red By: Suzanne Paredes on 06-29-2023 Basophils (Bld) [#/Vol] 0.0 10*3/uL Normal 0.0-0.2 [facility] Comment on above: Order Comment: STAT FOR CT Result Comment: PERF ORMED BY: [facility] [address] [place] [address] PATHOLOGIST [employer] WORKER ROSALEE PICKETT M.D. Performed By: #### C MP, CBC ####[place] [address] Automated blood monocyte cou ntOrdered By: Suzanne Paredes on 06-29-2023 Monocytes (Bld) [#/Vol] 0.4 10*3/uL Normal 0.0-0.8 [facility] Comment on above: Order Comment: STAT FOR CT Performed By: #### C MP, CBC ####[address] Automated eosinophil %Ordere d By: Suzanne Paredes on 06-29-2023 Eosinophils/100 WBC (Bld) 4.2 % Normal . [facility] Comment on above: Order Comment: STAT FOR CT Performed By: #### C MP, CBC ####[address] Automated eosinophil countOr dered By: Suzanne Paredes on 06-29-2023 Eosinophils (Bld) [#/Vol] 0.2 10*3/uL Normal 0.0-0.45 [facility] Comment on above: Order Comment: STAT FOR CT Performed By: #### C MP, CBC ####[address] Automated monocyte %Ordered By: Suzanne Chavirase on 06-29-2023 Monocytes/100 WBC (Bld) 11.6 % Normal . [facility] Comment on above: Order Comment: STAT FOR CT Performed By: #### C MP, CBC ####[address] Automated neutrophil %Ordere d By: Suzanne Paredes on 06-29-2023 Neutrophils/100 WBC (Bld) 52.2 % Normal . [facility] Comment on above: Order Comment: STAT FOR CT Performed By: #### C MP, CBC ####[address] Bilirubin.total [Mass/volume ] in Serum or PlasmaOrdered By: Suzanne Chavirase on 06-29-2023 Bilirubin [Mass/Vol] 0.5 mg/dL Normal 0.3-1.0 [facility] Comment on above: Order Comment: STAT FOR CT Performed By: #### C MP, CBC ####[place] [id number] 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 COMPARISON: CT abdomen and pelvis 11/09/2022 TECHNIQUE: Spiral images were obtained through the abdomen and pelvis following the administration of intravenous contrast. This CT exam was performed using one or more following dose reduction techniques: Automated exposure control, adjustment of the mA and/or kV according to patient size, or use of iterative reconstruction technique. FINDINGS: Lung Bases: [Mild lung scarring.] Organs:Gallbladder has been removed. Subcentimeter low attenuating lesions are seen within the liver, too small for accurate characterization but appear grossly unchanged from the prior study. Splenic granulomas. Pancreas and adrenal glands appear unremarkable. No enhancing renal mass or hydronephrosis. Subcentimeter low attenuating lesions are seen involving the kidneys, too small for accurate characterization. Abdominal aorta appears normal in caliber.[ GI: Moderate size hiatal hernia. Distal stomach is grossly unremarkable. Duodenal diverticulum. Right hemicolectomy changes. Remaining colon demonstrates no acute findings.[ Pelvis:[Partially calcified fibroid uterus. No adnexal mass. Urinary bladder is unremarkable.] Peritoneum/Retroperit oneum:No free air, free fluid or lymphadenopathy.[ Abd wall/Bones:Abdominal wall demonstrates no acute findings. Lower abdominal wall collateral vessels are seen[osseous structures demonstrate degenerative changes. Multilevel compression deformities grossly unchanged from the prior study. Scoliosis. CT/CT abdomen pelvis w con IMPRESSION: No definitive CT evidence of tumor recurrence or metastatic disease. Impression dictated by: Nas Helms Jr. D.OCrisotpher06/29/2023 2:09 PM Dictation Location: [place] [address] Transcribed By: FRANKLIN 06/29/23 1409 Dictated By: Nas Helms Jr, DO 06/29/23 1405 Signed By: 06/29/23 1409 Normal [facility] Calcium [Mass/volume] in Ser um or PlasmaOrdered By: Suzanne Paredes on 06-29-2023 Calcium [Mass/Vol] 9.3 mg/dL Normal 8.6-10.3 [facility] Comment on above: Order Comment: STAT FOR CT Performed By: #### C MP, CBC ####[place] [address] [place] [id number] [facility] Carbon dioxide, total [Moles /volume] in Serum or PlasmaOrdered By: Suzanne Paredes on 06-29-2023 CO2 [Moles/Vol] 32.3 mmol/L High 21.0-31.0 [facility] Comment on above: Order Comment: STAT FOR CT Performed By: #### C MP, CBC ####[place] [id number] [facility] Chloride [Moles/volume] in S abril or PlasmaOrdered By: Suzanne Paredes on 06-29-2023 Chloride [Moles/Vol] 104 mmol/L Normal 98-107 [facility] Comment on above: Order Comment: STAT FOR CT Performed By: #### C MP, CBC ####[place] [id number] [facility] Complete Blood Count Auto Di ffon 06-29-2023 Mean Corpuscular HGB Conc 34.0 g/dL Normal 32.0-35.0 [facility] Comment on above: Order Comment: STAT FOR CT Performed By: #### C MP, CBC ####[place] [address] [place] [id number] [facility] NRBC% 0.2 /100{WBC} Normal 0-0.5 [facility] Comment on above: Order Comment: STAT FOR CT Performed By: #### C MP, CBC ####[place] [id number] [facility] Comprehensive Metabolic Pane estefania 06-29-2023 Albumin [Mass/Vol] 4.4 g/dL Normal 3.5-5.7 [facility] Comment on above: Order Comment: STAT FOR CT Performed By: #### C MP, CBC ####[place] [id number] [facility] Creatinine Clr Calc Pharmacy 55.25 Normal [facility] Comment on above: Order Comment: STAT FOR CT Result Comment: PERF ORMED BY: [facility] [address] [place] [id number] PATHOLOGIST SORT LINE WORKER ROSALEE PICKETT M.D. Performed By: #### C MP, CBC ####[place] [id number] [facility] GFR/1.73 sq M.predicted MDRD (S/P/Bld) [Vol rate/Area] mL/min/{1.73_m2} Normal [facility] Comment on above: Order Comment: STAT FOR CT Performed By: #### C MP, CBC ####[address] Creatinine [Mass/volume] in Serum or PlasmaOrdered By: Suzanne Paredes on 06-29-2023 Creatinine [Mass/Vol] 0.81 mg/dL Normal 0.60-1.20 [facility] Comment on above: Order Comment: STAT FOR CT Performed By: #### C MP, CBC ####[address] Erythrocyte distribution wid th [Ratio] by Automated countOrdered By: Suzanne Paredes on 06-29-2023 Erythrocyte distribution width (RBC) [Ratio] 12.8 % Normal 11.9-15.3 [facility] Comment on above: Order Comment: STAT FOR CT Performed By: #### C MP, CBC ####[place] [id number] [facility] Erythrocytes [#/volume] in B lood by Automated countOrdered By: Suzanne Paredes on 06-29-2023 RBC (Bld) [#/Vol] 4.43 10*6/uL Normal 3.60-5.00 [facility] Comment on above: Order Comment: STAT FOR CT Performed By: #### C MP, CBC ####[place] [id number] [address] Glucose [Mass/volume] in Ser um or PlasmaOrdered By: Suzanne Paredes on 06-29-2023 Glucose [Mass/Vol] 75 mg/dL Normal 70-100 [facility] Comment on above: ADA recommended refe rence rangeRandom Glucose Reference Range is dependent on time and content of last meal. Glucose of more than 200 mg/dL in a nonstressed, ambulatory subject supports the diagnosis of Diabetes Mellitus. Order Comment: STAT FOR CT Result Comment: [place] Glucose Reference Range is dependent on time and content of last meal. Glucose of more than 200 mg/dL in a nonstressed, ambulatory subject supports the diagnosis of Diabetes Mellitus. ADA recommended reference range Performed By: #### C MP, CBC ####[address] Hematocrit [Volume Fraction] of Blood by Automated countOrdered By: Suzanne Paredes on 06-29-2023 Hematocrit (Bld) [Volume fraction] 40.2 % Normal 34.0-46.4 [facility] Comment on above: Order Comment: STAT FOR CT Performed By: #### C MP, CBC ####[address] Hemoglobin [Mass/volume] in BloodOrdered By: Suzanne Paredes on 06-29-2023 Hemoglobin (Bld) [Mass/Vol] 13.7 g/dL Normal 11.8-15.4 [facility] Comment on above: Order Comment: STAT FOR CT Performed By: #### C MP, CBC ####[place] [id number] [facility] Leukocytes [#/volume] correc evelio for nucleated erythrocytes in Blood by Automated counOrdered By: Suzanne Paredes on 06-29-2023 WBC corrected for nucl RBC Auto (Bld) [#/Vol] 3.6 10*3/uL 3.8-11.6 [facility] Leukocytes [#/volume] in Blo od by Automated countOrdered By: Suzanne Paredes on 06-29-2023 WBC (Bld) [#/Vol] 3.6 10*3/uL Low 3.8-11.6 [facility] Comment on above: Order Comment: STAT FOR CT Performed By: #### C MP, CBC ####[address] Lymphocytes [#/volume] in Bl ood by Automated countOrdered By: Suzanne Paredes on 06-29-2023 Lymphocytes (Bld) [#/Vol] 1.1 10*3/uL Normal 1.00-4.8 [facility] Comment on above: Order Comment: STAT FOR CT Performed By: #### C MP, CBC ####[address] Lymphocytes/100 leukocytes i n Blood by Automated countOrdered By: Suzanne Paredes on 06-29-2023 Lymphocytes/100 WBC (Bld) 30.7 % Normal . [facility] Comment on above: Order Comment: STAT FOR CT Performed By: #### C MP, CBC ####[address] MCH [Entitic mass] by Automa evelio countOrdered By: Suzanne Paredes on 06-29-2023 MCH (RBC) [Entitic mass] 30.9 pg Normal 24.7-34.3 [facility] Comment on above: Order Comment: STAT FOR CT Performed By: #### C MP, CBC ####[address] MCHC Auto (RBC) [Mass/Vol]Or dered By: Suzanne Paredes on 06-29-2023 MCHC (RBC) [Mass/Vol] 34.0 g/dL 32.0-35.0 [facility] MCV [Entitic volume] by Auto mated countOrdered By: Suzanne Paredes on 06-29-2023 MCV (RBC) [Entitic vol] 90.7 fL Normal 80-[address] [facility] Comment on above: Order Comment: STAT FOR CT Performed By: #### C MP, CBC ####[address] Neutrophils [#/volume] in Bl ood by Automated countOrdered By: Suzanne Paredes on 06-29-2023 Neutrophils (Bld) [#/Vol] 1.9 10*3/uL Normal 1.8-7.7 [facility] Comment on above: Order Comment: STAT FOR CT Performed By: #### C MP, CBC ####[place] [id number] [facility] No Panel InformationOrdered By: Suzanne Paredes on 06-29-2023 Estimated GFR (CKD-EPI) > 60.0 mL/Min [facility] Creatinine Clearance (Chem 55.25 [facility] Nucleated erythrocytes [Pres ence] in Blood by Automated countOrdered By: Suzanne Paredes on 06-29-2023 Nucleated RBC Auto Ql (Bld) 0.2 /100{WBC} 0-0.5 [facility] Platelet mean volume [Entiti c volume] in Blood by Automated countOrdered By: Suzanne Paredes on 06-29-2023 Platelet mean volume (Bld) [Entitic vol] 7.7 fL Normal 6.3-10.7 [facility] Comment on above: Order Comment: STAT FOR CT Performed By: #### C MP, CBC ####[place] [id number] [place] Platelets [#/volume] in Bloo d by Automated countOrdered By: Suzanne Paredes on 06-29-2023 Platelets (Bld) [#/Vol] 163 10*3/uL Normal 150-450 [facility] Comment on above: Order Comment: STAT FOR CT Performed By: #### C MP, CBC ####[place] [id number] [facility] Potassium [Moles/volume] in Serum or PlasmaOrdered By: Suzanne Paredes on 06-29-2023 Potassium [Moles/Vol] 4.0 mmol/L Normal 3.5-5.1 [facility] Comment on above: Order Comment: STAT FOR CT Performed By: #### C MP, CBC ####[place] [id number] [place] Protein [Mass/volume] in Ser um or PlasmaOrdered By: Suzanne Paredes on 06-29-2023 Protein [Mass/Vol] 7.0 g/dL Normal 6.4-8.9 [facility] Comment on above: Order Comment: STAT FOR CT Performed By: #### C MP, CBC ####[address] Serum globulin measurement b y calculation (mass/volume)Ordered By: Suzanne Paredes on 06-29-2023 Globulin (S) [Mass/Vol] 2.6 g/dL Normal [facility] Comment on above: Order Comment: STAT FOR CT Performed By: #### C MP, CBC ####[address] Serum or plasma albumin/glob ulin mass ratioOrdered By: Suzanne Paredes on 06-29-2023 Albumin/Globulin [Mass ratio] 1.7 {ratio} Normal [facility] Comment on above: Order Comment: STAT FOR CT Performed By: #### C MP, CBC ####[address] Serum or plasma anion gap de terminationOrdered By: Suzanne Paredes on 06-29-2023 Anion gap [Moles/Vol] 7.7 mmol/L Normal 6.0-15.0 [facility] Comment on above: Order Comment: STAT FOR CT Performed By: #### C MP, CBC ####[address] Sodium [Moles/volume] in Ser um or PlasmaOrdered By: Suzanne Paredes on 06-29-2023 Sodium [Moles/Vol] 140 mmol/L Normal 136-145 [facility] Comment on above: Order Comment: STAT FOR CT Performed By: #### C MP, CBC ####[address] Urea nitrogen [Mass/volume] in Serum or PlasmaOrdered By: Suzanne Paredes on 06-29-2023 Urea nitrogen [Mass/Vol] 13 mg/dL Normal 7-25 [facility] Comment on above: Order Comment: STAT FOR CT Performed By: #### C MP, CBC ####[facility] [id number] ECG 12 [place] 04-07-2023 Sinus rhythm with first-degree AV block Left axis deviation Left ventricular hypertrophy with QRS widening Small but notable loss of lateral forces suggestive of lateral infarct QTc 468 ms [facility] Work Phone: Complete Blood Count Auto Di ffon 03-01-2023 Basophils (Bld) [#/Vol] 0.0 10*3/uL Normal 0.0-0.2 [facility] Comment on above: Result Comment: PERF ORMED BY: [place] [id number] PATHOLOGIST SORT LINE WORKER ROSALEE PICKETT M.D. Performed By: #### C MP, CBC #### [address] Basophils/100 WBC (Bld) 1.0 % Normal . T misty [facility] Comment on above: Performed By: #### C MP, CBC #### [address] Eosinophils (Bld) [#/Vol] 0.1 10*3/uL Normal 0.0-0.45 [facility] Comment on above: Performed By: #### C MP, CBC #### [address] Eosinophils/100 WBC (Bld) 2.2 % Normal . [facility] Comment on above: Performed By: #### C MP, CBC #### [address] Erythrocyte distribution width (RBC) [Ratio] 15.2 % Normal 11.9-15.3 [facility] Comment on above: Performed By: #### C MP, CBC #### [address] Hematocrit (Bld) [Volume fraction] 39.7 % Normal 34.0-46.4 [facility] Comment on above: Performed By: #### C MP, CBC #### [place] [address] Hemoglobin (Bld) [Mass/Vol] 13.5 g/dL Normal 11.8-15.4 [facility] Comment on above: Performed By: #### C MP, CBC #### [address] Lymphocytes (Bld) [#/Vol] 1.3 10*3/uL Normal 1.00-4.8 [facility] Comment on above: Performed By: #### C MP, CBC #### [address] Lymphocytes/100 WBC (Bld) 25.6 % Normal . [facility] Comment on above: Performed By: #### C MP, CBC #### [address] MCH (RBC) [Entitic mass] 33.8 pg Normal 24.7-34.3 [facility] Comment on above: Performed By: #### C MP, CBC #### [address] MCV (RBC) [Entitic vol] 99.1 fL Normal 80-100 [facility] Comment on above: Performed By: #### C MP, CBC #### [address] Mean Corpuscular HGB Conc 34.1 g/dL Normal 32.0-35.0 [facility] Comment on above: Performed By: #### C MP, CBC #### [address] Monocytes (Bld) [#/Vol] 0.5 10*3/uL Normal 0.0-0.8 [facility] Comment on above: Performed By: #### C MP, CBC #### [address] Monocytes/100 WBC (Bld) 9.3 % Normal . [facility] Comment on above: Performed By: #### C MP, CBC #### [address] Neutrophils (Bld) [#/Vol] 3.0 10*3/uL Normal 1.8-7.7 [facility] Comment on above: Performed By: #### C MP, CBC #### [address] Neutrophils/100 WBC (Bld) 61.9 % Normal . [facility] Comment on above: Performed By: #### C MP, CBC #### [address] NRBC% 0.1 /100{WBC} Normal 0-0.5 [facility] Comment on above: Performed By: #### C MP, CBC #### [address] Platelet mean volume (Bld) [Entitic vol] 7.9 fL Normal 6.3-10.7 [facility] Comment on above: Performed By: #### C MP, CBC #### [address] Platelets (Bld) [#/Vol] 162 10*3/uL Normal 150-450 [facility] Comment on above: Performed By: #### C MP, CBC #### [address] RBC (Bld) [#/Vol] 4.01 10*6/uL Normal 3.60-5.00 [facility] Comment on above: Performed By: #### C MP, CBC #### [address] WBC (Bld) [#/Vol] 4.9 10*3/uL Normal 3.8-11.6 [facility] Comment on above: Performed By: #### C MP, CBC #### [address] Comprehensive Metabolic Pane estefania 03-01-2023 Albumin [Mass/Vol] 4.3 g/dL Normal 3.5-5.7 [facility] Comment on above: Performed By: #### C MP, CBC #### [address] Albumin/Globulin [Mass ratio] 1.8 {ratio} Normal [facility] Comment on above: Performed By: #### C MP, CBC #### [address] ALP [Catalytic activity/Vol] 69 U/L Normal 34-104 [facility] Comment on above: Performed By: #### C MP, CBC #### [address] ALT [Catalytic activity/Vol] 18 U/L Normal 7-52 [facility] Comment on above: Performed By: #### C MP, CBC #### [address] Anion gap [Moles/Vol] 11.3 mmol/L Normal 6.0-15.0 [facility] Comment on above: Performed By: #### C MP, CBC #### [address] AST [Catalytic activity/Vol] 26 U/L Normal 13-39 [facility] Comment on above: Performed By: #### C MP, CBC #### [address] Bilirubin [Mass/Vol] 0.7 mg/dL Normal 0.3-1.0 [facility] Comment on above: Performed By: #### C MP, CBC #### [address] Calcium [Mass/Vol] 9.2 mg/dL Normal 8.6-10.3 [facility] Comment on above: Performed By: #### C MP, CBC #### [place] [address] [place] Chloride [Moles/Vol] 103 mmol/L Normal 98-107 [facility] Comment on above: Performed By: #### C MP, CBC #### [place] [address] [place] CO2 [Moles/Vol] 26.3 mmol/L Normal 21.0-31.0 [facility] Comment on above: Performed By: #### C MP, CBC #### [address] Creatinine [Mass/Vol] 0.76 mg/dL Normal 0.60-1.20 [facility] Comment on above: Performed By: #### C MP, CBC #### [address] Creatinine Clr Calc Pharmacy 51.63 Normal [facility] Comment on above: Result Comment: PERF ORMED BY: [place] [address] PATHOLOGIST SORT LINE WORKER ROSALEE PICKETT M.D. Performed By: #### C MP, CBC #### [address] GFR/1.73 sq M.predicted MDRD (S/P/Bld) [Vol rate/Area] mL/min/{1.73_m2} Normal [facility] Comment on above: Performed By: #### C MP, CBC #### [address] Globulin (S) [Mass/Vol] 2.4 g/dL Normal T [facility] Comment on above: Performed By: #### C MP, CBC #### [address] Glucose [Mass/Vol] 80 mg/dL Normal 70-100 [facility] Comment on above: Result Comment: [place] Glucose Reference Range is dependent on time and content of last meal. Glucose of more than 200 mg/dL in a nonstressed, ambulatory subject supports the diagnosis of Diabetes Mellitus. ADA recommended reference range Performed By: #### C MP, CBC #### [address] Potassium [Moles/Vol] 4.6 mmol/L Normal 3.5-5.1 [facility] Comment on above: Performed By: #### C MP, CBC #### [place] [id number] [place] Protein [Mass/Vol] 6.7 g/dL Normal 6.4-8.9 [facility] Comment on above: Performed By: #### C MP, CBC #### [address] Sodium [Moles/Vol] 136 mmol/L Normal 136-145 [facility] Comment on above: Performed By: #### C MP, CBC #### [address] Urea nitrogen [Mass/Vol] 12 mg/dL Normal 7-25 [facility] Comment on above: Performed By: #### C MP, CBC #### [address] Complete Blood Count Auto Di ffon 12-21-2022 Basophils (Bld) [#/Vol] 0.1 10*3/uL Normal 0.0-0.2 [facility] Comment on above: Result Comment: PERF ORMED BY: [place] [id number] PATHOLOGIST SORT LINE WORKER ROSALEE PICKETT M.D. Performed By: #### C BC, CMP #### [address] Basophils/100 WBC (Bld) 1.1 % Normal . T misty [facility] Comment on above: Performed By: #### C BC, CMP #### [address] Eosinophils (Bld) [#/Vol] 0.1 10*3/uL Normal 0.0-0.45 [facility] Comment on above: Performed By: #### C BC, CMP #### [address] Eosinophils/100 WBC (Bld) 2.1 % Normal . [facility] Comment on above: Performed By: #### C BC, CMP #### [address] Erythrocyte distribution width (RBC) [Ratio] 16.3 % High 11.9-15.3 [facility] Comment on above: Performed By: #### C BC, CMP #### [address] Hematocrit (Bld) [Volume fraction] 38.7 % Normal 34.0-46.4 [facility] Comment on above: Performed By: #### C BC, CMP #### [address] Hemoglobin (Bld) [Mass/Vol] 13.3 g/dL Normal 11.8-15.4 [facility] Comment on above: Performed By: #### C BC, CMP #### [address] Lymphocytes (Bld) [#/Vol] 1.1 10*3/uL Normal 1.00-4.8 [facility] Comment on above: Performed By: #### C BC, CMP #### [address] Lymphocytes/100 WBC (Bld) 22.3 % Normal . [facility] Comment on above: Performed By: #### C BC, CMP #### [address] MCH (RBC) [Entitic mass] 34.2 pg Normal 24.7-34.3 [facility] Comment on above: Performed By: #### C BC, CMP #### [address] MCV (RBC) [Entitic vol] 99.9 fL Normal 80-100 T [facility] Comment on above: Performed By: #### C BC, CMP #### [address] Mean Corpuscular HGB Conc 34.2 g/dL Normal 32.0-35.0 [facility] Comment on above: Performed By: #### C BC, CMP #### [address] Monocytes (Bld) [#/Vol] 0.6 10*3/uL Normal 0.0-0.8 [facility] Comment on above: Performed By: #### C BC, CMP #### [facility] [address] [place] [address] [place] Monocytes/100 WBC (Bld) 11.2 % Normal . [facility] Comment on above: Performed By: #### C BC, CMP #### [facility] [address] [place] [address] [place] Neutrophils (Bld) [#/Vol] 3.1 10*3/uL Normal 1.8-7.7 [facility] Comment on above: Performed By: #### C BC, CMP #### [facility] [address] [place] [address] [place] Neutrophils/100 WBC (Bld) 63.3 % Normal . [facility] Comment on above: Performed By: #### C BC, CMP #### [facility] [address] [place] [address] [place] NRBC% 0.1 /100{WBC} Normal 0-0.5 [facility] Comment on above: Performed By: #### C BC, CMP #### [facility] [address] [place] [address] [place] Platelet mean volume (Bld) [Entitic vol] 7.5 fL Normal 6.3-10.7 [facility] Comment on above: Performed By: #### C BC, CMP #### [facility] [address] [place] [id number] [place] Platelets (Bld) [#/Vol] 170 10*3/uL Normal 150-450 [facility] Comment on above: Performed By: #### C BC, CMP #### [facility] [address] [place] [address] [place] RBC (Bld) [#/Vol] 3.88 10*6/uL Normal 3.60-5.00 [facility] Comment on above: Performed By: #### C BC, CMP #### [facility] [address] [place] [phone] [place] WBC (Bld) [#/Vol] 4.9 10*3/uL Normal 3.8-11.6 [facility] Comment on above: Performed By: #### C BC, CMP #### [facility] [address] [place] [phone] [facility] Comprehensive Metabolic Pane estefania 12-21-2022 Albumin [Mass/Vol] 4.2 g/dL Normal 3.5-5.7 [facility] Comment on above: Performed By: #### C BC, CMP ####[place] [id number] [facility] Albumin/Globulin [Mass ratio] 1.8 {ratio} Normal [facility] Comment on above: Performed By: #### C BC, CMP ####[place] [phone] [facility] ALP [Catalytic activity/Vol] 87 U/L Normal 34-104 [facility] Comment on above: Performed By: #### C BC, CMP ####[place] [phone] [facility] ALT [Catalytic activity/Vol] 33 U/L Normal 7-52 [facility] Comment on above: Performed By: #### C BC, CMP ####[place] [id number] [facility] Anion gap [Moles/Vol] 6.6 mmol/L Normal 6.0-15.0 [facility] Comment on above: Performed By: #### C BC, CMP ####[place] [id number] [facility] AST [Catalytic activity/Vol] 43 U/L High 13-39 [facility] Comment on above: Performed By: #### C BC, CMP ####[place] [id number] [facility] Bilirubin [Mass/Vol] 0.6 mg/dL Normal 0.3-1.0 [facility] Comment on above: Performed By: #### C BC, CMP ####[place] [id number] [facility] Calcium [Mass/Vol] 9.2 mg/dL Normal 8.6-10.3 [facility] Comment on above: Performed By: #### C BC, CMP ####[address] [facility] Chloride [Moles/Vol] 103 mmol/L Normal 98-107 [facility] Comment on above: Performed By: #### C BC, CMP ####[place] [address] [place] [address] [facility] CO2 [Moles/Vol] 32.9 mmol/L High 21.0-31.0 The [facility] Comment on above: Performed By: #### C BC, CMP ####[address] [facility] Creatinine [Mass/Vol] 0.86 mg/dL Normal 0.60-1.20 [facility] Comment on above: Performed By: #### C BC, CMP ####[address] [facility] Creatinine Clr Calc Pharmacy 48.03 Normal [facility] Comment on above: Result Comment: PERF ORMED BY: [facility] [address] [facility] [place] [address] PATHOLOGIST S[employer] LINE WORKER ROSALEE PICKETT M.D. Performed By: #### C BC, CMP ####[address] [facility] GFR/1.73 sq M.predicted MDRD (S/P/Bld) [Vol rate/Area] mL/min/{1.73_m2} Normal [facility] Comment on above: Performed By: #### C BC, CMP ####[address] [facility] Globulin (S) [Mass/Vol] 2.4 g/dL Normal T [facility] Comment on above: Performed By: #### C BC, CMP ####[place] [id number] [facility] Glucose [Mass/Vol] 73 mg/dL Normal 70-100 [facility] Comment on above: Result Comment: [place] Glucose Reference Range is dependent on time and content of last meal. Glucose of more than 200 mg/dL in a nonstressed, ambulatory subject supports the diagnosis of Diabetes Mellitus. ADA recommended reference range Performed By: #### C BC, CMP ####[address] Potassium [Moles/Vol] 4.5 mmol/L Normal 3.5-5.1 [facility] Comment on above: Performed By: #### C BC, CMP ####[address] Protein [Mass/Vol] 6.6 g/dL Normal 6.4-8.9 [facility] Comment on above: Performed By: #### C BC, CMP ####[address] Sodium [Moles/Vol] 138 mmol/L Normal 136-145 [facility] Comment on above: Performed By: #### C KEVAN, CMP ####[address] Urea nitrogen [Mass/Vol] 10 mg/dL Normal 7-25 [facility] Comment on above: Performed By: #### C KEVAN, CMP ####[address] abdomen pelvis w conon CT abdomen pelvis w con [facility] Main [place] [address] [place] [address] CT Scan Report Signed Patient: Stella Garcia MR#: [id number] : 1940 Acct:[id number] Age/Sex: 82 / F ADM Date: 11/09/22 Loc: Room: [facility] Attending Dr: Bella Cruz APRN Copies to: MD Bella Martinez APRN Ordering Provider: Suzanne Paredes MD Date of Service: 11/09/22 CT/CT abdomen pelvis w con: restaging CT ABDOMEN AND PELVIS WITH INTRAVENOUS CONTRAST: CLINICAL HISTORY: Restage colon cancer COMPARISON: CT abdomen and pelvis 05/12/2022 TECHNIQUE: Spiral images were obtained through the abdomen and pelvis following the administration of intravenous contrast. This CT exam was performed using one or more following dose reduction techniques: Automated exposure control, adjustment of the mA and/or kV according to patient size, or use of iterative reconstruction technique. FINDINGS: Lung Bases: [Calcified granulomas left lower lobe.] Bibasilar scarring Organs:Gallbladder has been removed. Subcentimeter low attenuating lesions are seen within the liver, too small for accurate characterization but appear grossly unchanged from the prior study. Splenic granulomas. Pancreas and adrenal glands appear unremarkable. No enhancing renal mass or hydronephrosis. Abdominal aorta appears normal in caliber.[ GI: Moderate size hiatal hernia. Distal stomach is grossly unremarkable. Duodenal diverticulum. Right hemicolectomy changes. Remaining colon demonstrates no acute findings.[ Pelvis:[Partially calcified fibroid uterus. No adnexal mass. Urinary bladder demonstrates a punctate amount of air seen within its lumen.] Peritoneum/Retroperit oneum:No free air, free fluid or lymphadenopathy.[ Abd wall/Bones:Abdominal wall demonstrates no acute findings. Lower abdominal wall collateral vessels are seen[osseous structures demonstrate degenerative changes. Multilevel compression deformities grossly unchanged from the prior study. Scoliosis. CT/CT abdomen pelvis w con IMPRESSION: No CT evidence of progression disease within the chest, abdomen or pelvis. Punctate amount of intraluminal air seen within the urinary bladder. Correlation with urinalysis is suggested. Impression dictated by: Nas Helms Jr., D.O.11/09/2022 2:20 PM Dictation Location: [place] [address] Transcribed By: [facility] 11/09/22 1420 Dictated By: Nas Helms Jr, DO 11/09/22 1415 Signed By: 11/09/22 1420 Normal [facility] Comprehensive Metabolic Pane estefania 11-09-2022 Albumin [Mass/Vol] 4.4 g/dL Normal 3.5-5.7 [facility] Comment on above: Order Comment: STAT FOR CT Performed By: #### C MP #### [facility] [address] Albumin/Globulin [Mass ratio] 1.6 {ratio} Normal [facility] Comment on above: Order Comment: STAT FOR CT Performed By: #### C MP #### [facility] [address] [place] [id number] [facility] ALP [Catalytic activity/Vol] 74 U/L Normal 34-104 [facility] Comment on above: Order Comment: STAT FOR CT Performed By: #### C MP #### [facility] [address] [place] [id number] [facility] ALT [Catalytic activity/Vol] 17 U/L Normal 7-52 [facility] Comment on above: Order Comment: STAT FOR CT Performed By: #### C MP #### [facility] [address] [place] [id number] [facility] Anion gap [Moles/Vol] 7.7 mmol/L Normal 6.0-15.0 [facility] Comment on above: Order Comment: STAT FOR CT Performed By: #### C MP #### [address] AST [Catalytic activity/Vol] 29 U/L Normal 13-39 [facility] Comment on above: Order Comment: STAT FOR CT Performed By: #### C MP #### [address] Bilirubin [Mass/Vol] 0.6 mg/dL Normal 0.3-1.0 [facility] Comment on above: Order Comment: STAT FOR CT Performed By: #### C MP #### [place] [id number] [place] Calcium [Mass/Vol] 9.3 mg/dL Normal 8.6-10.3 [facility] Comment on above: Order Comment: STAT FOR CT Performed By: #### C MP #### [place] [id number] [place] Chloride [Moles/Vol] 106 mmol/L Normal 98-107 [facility] Comment on above: Order Comment: STAT FOR CT Performed By: #### C MP #### [facility] [address] [place] [address] [place] CO2 [Moles/Vol] 30.2 mmol/L Normal 21.0-31.0 [facility] Comment on above: Order Comment: STAT FOR CT Performed By: #### C MP #### [address] Creatinine [Mass/Vol] 0.81 mg/dL Normal 0.60-1.20 [facility] Comment on above: Order Comment: STAT FOR CT Performed By: #### C MP #### [address] Creatinine Clr Calc Pharmacy 50.99 Normal [facility] Comment on above: Order Comment: STAT FOR CT Result Comment: PERF ORMED BY: [place] [id number] PATHOLOGIST S[employer] LINE WORKER ROSALEE PICKETT M.D. Performed By: #### C MP #### [address] GFR/1.73 sq M.predicted MDRD (S/P/Bld) [Vol rate/Area] mL/min/{1.73_m2} Normal [facility] Comment on above: Order Comment: STAT FOR CT Performed By: #### C MP #### [address] Globulin (S) [Mass/Vol] 2.8 g/dL Normal T [facility] Comment on above: Order Comment: STAT FOR CT Performed By: #### C MP #### [address] Glucose [Mass/Vol] 80 mg/dL Normal 70-100 [facility] Comment on above: Order Comment: STAT FOR CT Result Comment: [place] Glucose Reference Range is dependent on time and content of last meal. Glucose of more than 200 mg/dL in a nonstressed, ambulatory subject supports the diagnosis of Diabetes Mellitus. ADA recommended reference range Performed By: #### C MP #### [address] Potassium [Moles/Vol] 3.9 mmol/L Normal 3.5-5.1 [facility] Comment on above: Order Comment: STAT FOR CT Performed By: #### C MP #### [address] Protein [Mass/Vol] 7.2 g/dL Normal 6.4-8.9 [facility] Comment on above: Order Comment: STAT FOR CT Performed By: #### C MP #### [address] Sodium [Moles/Vol] 140 mmol/L Normal 136-145 [facility] Comment on above: Order Comment: STAT FOR CT Performed By: #### C MP #### [address] Urea nitrogen [Mass/Vol] 10 mg/dL Normal 7-25 [facility] Comment on above: Order Comment: STAT FOR CT Performed By: #### C MP #### [address] Complete Blood Count Auto Di ffon 10-20-2022 Basophils (Bld) [#/Vol] 0.0 10*3/uL Normal 0.0-0.2 [facility] Comment on above: Result Comment: PERF ORMED BY: [place] [id number] PATHOLOGIST S[employer] LINE WORKER ROSALEE PICKETT M.D. Performed By: #### C BC, CMP #### [address] Basophils/100 WBC (Bld) 0.9 % Normal . T [facility]y [facility] Comment on above: Performed By: #### C BC, CMP #### [address] Eosinophils (Bld) [#/Vol] 0.1 10*3/uL Normal 0.0-0.45 [facility] Comment on above: Performed By: #### C BC, CMP #### [place] [address] [place] Eosinophils/100 WBC (Bld) 1.9 % Normal . [facility] Comment on above: Performed By: #### C BC, CMP #### [address] Erythrocyte distribution width (RBC) [Ratio] 21.7 % High 11.9-15.3 [facility] Comment on above: Performed By: #### C BC, CMP #### [address] Hematocrit (Bld) [Volume fraction] 40.2 % Normal 34.0-46.4 [facility] Comment on above: Performed By: #### C BC, CMP #### [address] Hemoglobin (Bld) [Mass/Vol] 13.6 g/dL Normal 11.8-15.4 [facility] Comment on above: Performed By: #### C BC, CMP #### [address] Lymphocytes (Bld) [#/Vol] 1.1 10*3/uL Normal 1.00-4.8 [facility] Comment on above: Performed By: #### C BC, CMP #### [address] Lymphocytes/100 WBC (Bld) 19.8 % Normal . [facility] Comment on above: Performed By: #### C BC, CMP #### [address] MCH (RBC) [Entitic mass] 32.6 pg Normal 24.7-34.3 [facility] Comment on above: Performed By: #### C BC, CMP #### [address] MCV (RBC) [Entitic vol] 96.5 fL Normal 80-100 T [facility] Comment on above: Performed By: #### C BC, CMP #### [address] Mean Corpuscular HGB Conc 33.8 g/dL Normal 32.0-35.0 [facility] Comment on above: Performed By: #### C BC, CMP #### [address] Monocytes (Bld) [#/Vol] 0.5 10*3/uL Normal 0.0-0.8 [facility] Comment on above: Performed By: #### C BC, CMP #### [facility] [address] [place] [address] [place] Monocytes/100 WBC (Bld) 9.0 % Normal . T [facility] Comment on above: Performed By: #### C BC, CMP #### [facility] [address] [place] [address] [place] Neutrophils (Bld) [#/Vol] 3.6 10*3/uL Normal 1.8-7.7 [facility] Comment on above: Performed By: #### C BC, CMP #### [facility] [address] [place] [address] [place] Neutrophils/100 WBC (Bld) 68.4 % Normal . [facility] Comment on above: Performed By: #### C BC, CMP #### [facility] [address] [place] [address] [place] NRBC% 0.1 /100{WBC} Normal 0-0.5 [facility] Comment on above: Performed By: #### C BC, CMP #### [facility] [address] [place] [address] [place] Platelet mean volume (Bld) [Entitic vol] 7.3 fL Normal 6.3-10.7 [facility] Comment on above: Performed By: #### C BC, CMP #### [facility] [address] [place] [address] [place] Platelets (Bld) [#/Vol] 179 10*3/uL Normal 150-450 [facility] Comment on above: Performed By: #### C BC, CMP #### [facility] [address] [place] [address] [place] RBC (Bld) [#/Vol] 4.17 10*6/uL Normal 3.60-5.00 [facility] Comment on above: Performed By: #### C BC, CMP #### [facility] [address] [place] [address] [place] WBC (Bld) [#/Vol] 5.3 10*3/uL Normal 3.8-11.6 [facility] Comment on above: Performed By: #### C BC, CMP #### [address] Comprehensive Metabolic Pane estefania 10-20-2022 Albumin [Mass/Vol] 4.6 g/dL Normal 3.5-5.7 [facility] Comment on above: Performed By: #### C BC, CMP #### [address] Albumin/Globulin [Mass ratio] 2.0 {ratio} Normal [facility] Comment on above: Performed By: #### C BC, CMP #### [address] ALP [Catalytic activity/Vol] 83 U/L Normal 34-104 [facility] Comment on above: Performed By: #### C BC, CMP #### [address] ALT [Catalytic activity/Vol] 12 U/L Normal 7-52 [facility] Comment on above: Performed By: #### C BC, CMP #### [address] Anion gap [Moles/Vol] 9.2 mmol/L Normal 6.0-15.0 [facility] Comment on above: Performed By: #### C BC, CMP #### [address] AST [Catalytic activity/Vol] 20 U/L Normal 13-39 [facility] Comment on above: Performed By: #### C BC, CMP #### [address] Bilirubin [Mass/Vol] 0.6 mg/dL Normal 0.3-1.0 [facility] Comment on above: Performed By: #### C BC, CMP #### [address] Calcium [Mass/Vol] 9.4 mg/dL Normal 8.6-10.3 [facility] Comment on above: Performed By: #### C BC, CMP #### [address] Chloride [Moles/Vol] 102 mmol/L Normal 98-107 [facility] Comment on above: Performed By: #### C BC, CMP #### [facility] [address] CO2 [Moles/Vol] 31.8 mmol/L High 21.0-31.0 [facility] Comment on above: Performed By: #### C BC, CMP #### [address] Creatinine [Mass/Vol] 0.87 mg/dL Normal 0.60-1.20 [facility] Comment on above: Performed By: #### C BC, CMP #### [address] Creatinine Clr Calc Pharmacy 47.48 Normal [facility] Comment on above: Result Comment: PERF ORMED BY: [place] [id number] PATHOLOGIST S[employer] LINE WORKER ROSALEE PICKETT M.D. Performed By: #### C BC, CMP #### [address] GFR/1.73 sq M.predicted MDRD (S/P/Bld) [Vol rate/Area] mL/min/{1.73_m2} Normal [facility] Comment on above: Performed By: #### C BC, CMP #### [place] [address] [place] Globulin (S) [Mass/Vol] 2.3 g/dL Normal T he [facility] Comment on above: Performed By: #### C BC, CMP #### [address] Glucose [Mass/Vol] 88 mg/dL Normal 70-100 [facility] Comment on above: Result Comment: [place] Glucose Reference Range is dependent on time and content of last meal. Glucose of more than 200 mg/dL in a nonstressed, ambulatory subject supports the diagnosis of Diabetes Mellitus. ADA recommended reference range Performed By: #### C BC, CMP #### [facility] [address] Potassium [Moles/Vol] 4.0 mmol/L Normal 3.5-5.1 [facility] Comment on above: Performed By: #### C BC, CMP #### [facility] [address] [place] [id number] [facility] Protein [Mass/Vol] 6.9 g/dL Normal 6.4-8.9 [facility] Comment on above: Performed By: #### C BC, CMP #### [facility] [address] Sodium [Moles/Vol] 139 mmol/L Normal 136-145 [facility] Comment on above: Performed By: #### C BC, CMP #### [facility] [address] Urea nitrogen [Mass/Vol] 13 mg/dL Normal 7-25 [facility] Comment on above: Performed By: #### C BC, CMP #### [facility] [address] Tobacco Screening.on 023 Adult depression screening assessment No [facility] y 250 DO Work Phone: Fall risk assessment a) No falls within the last year [facility] y 250 DO Work Phone: Tobacco use status CP b) No [facility] y 250 DO Work Phone: Alanine aminotransferase [En zymatic activity/volume] in Serum or PlasmaOrdered By: Suzanne Paredes on 09-07-2022 ALT [Catalytic activity/Vol] 11 U/L 7- [facility] Albumin [Mass/volume] in Ser um or Plasma by Bromocresol green (BCG) dye binding methoOrdered By: Suzanne Paredes on 09-07-2022 Albumin BCG dye [Mass/Vol] 3.7 g/dL 3.5-5.7 [facility] Alkaline phosphatase [Enzyma tic activity/volume] in Serum or PlasmaOrdered By: Suzanne Paredes on 09-07-2022 ALP [Catalytic activity/Vol] 74 U/L 34-104 [facility] Aspartate aminotransferase [ Enzymatic activity/volume] in Serum or PlasmaOrdered By: Suzanne Paredes on 09-07-2022 AST [Catalytic activity/Vol] 20 U/L 13-39 [facility] Basophils Auto (Bld) [#/Vol] Ordered By: Suzanne Paredes on 09-07-2022 Basophils (Bld) [#/Vol] 0.0 10*3/uL 0.0-0.2 [facility] Basophils/100 WBC Auto (Bld) Ordered By: Suzanne Paredes on 09-07-2022 Basophils/100 WBC (Bld) 1.3 % . F [facility] Bilirubin.total [Mass/volume ] in Serum or PlasmaOrdered By: Suzanne Paredes on 09-07-2022 Bilirubin [Mass/Vol] 0.7 mg/dL 0.3-1.0 [facility] Calcium [Mass/volume] in Ser um or PlasmaOrdered By: Suzanne Paredes on 09-07-2022 Calcium [Mass/Vol] 8.7 mg/dL 8.6-10.3 [facility] Carbon dioxide, total [Moles /volume] in Serum or PlasmaOrdered By: Suzanne Paredes on 09-07-2022 CO2 [Moles/Vol] 29.3 mmol/L 21.0-31.0 [facility] Chloride [Moles/volume] in S abril or PlasmaOrdered By: Suzanne Paredes on 09-07-2022 Chloride [Moles/Vol] 104 mmol/L 98-107 [facility] Creatinine [Mass/volume] in Serum or PlasmaOrdered By: Suzanne Paredes on 09-07-2022 Creatinine [Mass/Vol] 0.62 mg/dL 0.60-1.20 [facility] Eosinophils Auto (Bld) [#/Vo l]Ordered By: Suzanne Paredes on 09-07-2022 Eosinophils (Bld) [#/Vol] 0.1 10*3/uL 0.0-0.45 [facility] Eosinophils/100 WBC Auto (Bl d)Ordered By: Suzanne Paredes on 09-07-2022 Eosinophils/100 WBC (Bld) 2.2 % . [facility] Erythrocyte distribution wid th Auto (RBC) [Ratio]Ordered By: Suzanne Paredes on 09-07-2022 Erythrocyte distribution width (RBC) [Ratio] 17.7 % 11.9-15.3 [facility] Ferritin [Mass/volume] in Se rum or PlasmaOrdered By: Suzanne Paredes on 09-07-2022 Ferritin [Mass/Vol] 83.7 ng/mL 11.0-306.8 [facility] Globulin Calc (S) [Mass/Vol] Ordered By: Suzanne Paredes on 09-07-2022 Globulin (S) [Mass/Vol] 2.5 g/dL [facility] Glucose [Mass/volume] in Ser um or PlasmaOrdered By: Suzanne Paredes on 09-07-2022 Glucose [Mass/Vol] 64 mg/dL 70-100 [facility] Comment on above: ADA recommended refe rence rangeRandom Glucose Reference Range is dependent on time and content of last meal. Glucose of more than 200 mg/dL in a nonstressed, ambulatory subject supports the diagnosis of Diabetes Mellitus. Hematocrit Auto (Bld) [Volum e fraction]Ordered By: Suzanne Paredes on 09-07-2022 Hematocrit (Bld) [Volume fraction] 34.2 % 34.0-46.4 [facility] Hemoglobin [Mass/volume] in BloodOrdered By: Suzanne Paredes on 09-07-2022 Hemoglobin (Bld) [Mass/Vol] 11.5 g/dL 11.8-15.4 [facility] Iron [Mass/volume] in Serum or PlasmaOrdered By: Suzanne Paredes on 09-07-2022 Iron [Mass/Vol] 178 ug/dL 50-212 [facility] Iron binding capacity [Mass/ volume] in Serum or PlasmaOrdered By: Suzanne Paredes on 09-07-2022 Iron binding capacity [Mass/Vol] 297 ug/dL 255-450 [facility] Iron saturation [Mass Fracti on] in Serum or PlasmaOrdered By: Suzanne Paredes on 09-07-2022 Iron saturation [Mass fraction] 59.9 % 20-50 [facility] Leukocytes [#/volume] correc evelio for nucleated erythrocytes in Blood by Automated counOrdered By: Suzanne Paredes on 09-07-2022 WBC corrected for nucl RBC Auto (Bld) [#/Vol] 3.1 10*3/uL 3.8-11.6 [facility] Lymphocytes Auto (Bld) [#/Vo l]Ordered By: Suzanne Paredes on 09-07-2022 Lymphocytes (Bld) [#/Vol] 0.8 10*3/uL 1.00-4.8 [facility] Lymphocytes/100 WBC Auto (Bl d)Ordered By: Suzanne Paredes on 09-07-2022 Lymphocytes/100 WBC (Bld) 24.7 % . [facility] MCH Auto (RBC) [Entitic mass ]Ordered By: Suzanne Paredes on 09-07-2022 MCH (RBC) [Entitic mass] 30.0 pg 24.7-34.3 [facility] MCHC Auto (RBC) [Mass/Vol]Or dered By: Suzanne Paredes on 09-07-2022 MCHC (RBC) [Mass/Vol] 33.7 g/dL 32.0-35.0 [facility] MCV Auto (RBC) [Entitic vol] Ordered By: Suzanne Paredes on 09-07-2022 MCV (RBC) [Entitic vol] 89.1 fL 80-[address] [facility] Monocytes Auto (Bld) [#/Vol] Ordered By: Suzanne Paredes on 09-07-2022 Monocytes (Bld) [#/Vol] 0.4 10*3/uL 0.0-0.8 [facility] Monocytes/100 WBC Auto (Bld) Ordered By: Suzanne Paredes on 09-07-2022 Monocytes/100 WBC (Bld) 11.8 % . [facility] Neutrophils Auto (Bld) [#/Vo l]Ordered By: Suzanne Paredes on 09-07-2022 Neutrophils (Bld) [#/Vol] 1.9 10*3/uL 1.8-7.7 [facility] Neutrophils/100 WBC Auto (Bl d)Ordered By: Suzanne Paredes on 09-07-2022 Neutrophils/100 WBC (Bld) 60.0 % . [facility] No Panel InformationOrdered By: Suzanne Paredes on 09-07-2022 Estimated GFR (CKD-EPI) > 60.0 mL/Min [facility] Creatinine Clearance (Chem 51.63 [facility] Nucleated erythrocytes [Pres ence] in Blood by Automated countOrdered By: Suzanne Paredes on 09-07-2022 Nucleated RBC Auto Ql (Bld) 0.2 /100{WBC} 0-0.5 [facility] Platelet mean volume Auto (B ld) [Entitic vol]Ordered By: Suzanne Paredes on 09-07-2022 Platelet mean volume (Bld) [Entitic vol] 7.3 fL 6.3-10.7 [facility] Platelets Auto (Bld) [#/Vol] Ordered By: Suzanne Paredes on 09-07-2022 Platelets (Bld) [#/Vol] 156 10*3/uL 150-450 [facility] Potassium [Moles/volume] in Serum or PlasmaOrdered By: Suzanne Paredes on 09-07-2022 Potassium [Moles/Vol] 4.4 mmol/L 3.5-5.1 [facility] Protein [Mass/volume] in Ser um or PlasmaOrdered By: Suzanne Paredes on 09-07-2022 Protein [Mass/Vol] 6.2 g/dL 6.4-8.9 [facility] RBC Auto (Bld) [#/Vol]Ordere d By: Suzanne Paredes on 09-07-2022 RBC (Bld) [#/Vol] 3.84 10*6/uL 3.60-5.00 [facility] Serum or plasma albumin/glob ulin mass ratioOrdered By: Suzanne Paredes on 09-07-2022 Albumin/Globulin [Mass ratio] 1.5 {ratio} [facility] Serum or plasma anion gap de terminationOrdered By: Suzanne Paredes on 09-07-2022 Anion gap [Moles/Vol] 9.1 mmol/L 6.0-15.0 [facility] Sodium [Moles/volume] in Ser um or PlasmaOrdered By: Suzanne Paredes on 09-07-2022 Sodium [Moles/Vol] 138 mmol/L 136-145 [facility] Transferrin [Mass/volume] in Serum or PlasmaOrdered By: Suzanne Paredes on 09-07-2022 Transferrin [Mass/Vol] 212 mg/dL 203-362 [facility] Urea nitrogen [Mass/volume] in Serum or PlasmaOrdered By: Suzanne Paredes on 09-07-2022 Urea nitrogen [Mass/Vol] 11 mg/dL 7- [facility] WBC Auto (Bld) [#/Vol]Ordere d By: Suzanne Paredes on 09-07-2022 WBC (Bld) [#/Vol] 3.1 10*3/uL 3.8-11.6 [facility] Anisocytosis LM Ql (Bld)Orde red By: Bella Cruz on 08-19-2022 Anisocytosis Ql (Bld) Moderate [facility] Microcytes LM Ql (Bld)Ordere d By: Bella Cruz on 08-19-2022 Microcytes Ql (Bld) Moderate [facility] Ovalocyte detectionOrdered B y: Bella Cruz on 08-19-2022 Ovalocytes LM Ql (Bld) Slight Fi [facility] Platelet adequacy [Presence] in Blood by Light microscopyOrdered By: Bella Cruz on 08-19-2022 Platelets LM Ql (Bld) Normal Normal [facility] Platelet morphology finding [Identifier] in BloodOrdered By: Bella Cruz on 08-19-2022 Platelet morphology finding Nom (Bld) Normal Normal [facility] Poikilocytosis [Presence] in Blood by Light microscopyOrdered By: Bella Cruz on 08-19-2022 Poikilocytosis LM Ql (Bld) Slight [facility] RBC morphologyOrdered By: Pati Cruz on 08-19-2022 RBC morphology finding Nom (Bld) N/A [facility] Alanine aminotransferase [En zymatic activity/volume] in Serum or PlasmaOrdered By: Suzanne Paredes on 08-11-2022 ALT [Catalytic activity/Vol] 11 U/L 7-52 [facility] Albumin [Mass/volume] in Ser um or Plasma by Bromocresol green (BCG) dye binding methoOrdered By: Suzanne Paredes on 08-11-2022 Albumin BCG dye [Mass/Vol] 4.0 g/dL 3.5-5.7 [facility] Alkaline phosphatase [Enzyma tic activity/volume] in Serum or PlasmaOrdered By: Suzanne Paredes on 08-11-2022 ALP [Catalytic activity/Vol] 82 U/L 34-104 [facility] Aspartate aminotransferase [ Enzymatic activity/volume] in Serum or PlasmaOrdered By: Suzanne Paredes on 08-11-2022 AST [Catalytic activity/Vol] 21 U/L 13-39 [facility] Basophils Auto (Bld) [#/Vol] Ordered By: Suzanne Paredes on 08-11-2022 Basophils (Bld) [#/Vol] 0.0 10*3/uL 0.0-0.2 [facility] Basophils/100 WBC Auto (Bld) Ordered By: Suzanne Paredes on 08-11-2022 Basophils/100 WBC (Bld) 1.1 % . [facility] Bilirubin.total [Mass/volume ] in Serum or PlasmaOrdered By: Suzanne Paredes on 08-11-2022 Bilirubin [Mass/Vol] 0.5 mg/dL 0.3-1.0 [facility] Calcium [Mass/volume] in Ser um or PlasmaOrdered By: Suzanne Paredes on 08-11-2022 Calcium [Mass/Vol] 8.5 mg/dL 8.6-10.3 [facility] Carbon dioxide, total [Moles /volume] in Serum or PlasmaOrdered By: Suzanne Paredes on 08-11-2022 CO2 [Moles/Vol] 27.1 mmol/L 21.0-31.0 [facility] Chloride [Moles/volume] in S abril or PlasmaOrdered By: Suzanne Paredes on 08-11-2022 Chloride [Moles/Vol] 102 mmol/L 98-107 [facility] Creatinine [Mass/volume] in Serum or PlasmaOrdered By: Suzanne Paredes on 08-11-2022 Creatinine [Mass/Vol] 0.79 mg/dL 0.60-1.20 [facility] Eosinophils Auto (Bld) [#/Vo l]Ordered By: Suzanne Paredes on 08-11-2022 Eosinophils (Bld) [#/Vol] 0.1 10*3/uL 0.0-0.45 [facility] Eosinophils/100 WBC Auto (Bl d)Ordered By: Suzanne Paredes on 08-11-2022 Eosinophils/100 WBC (Bld) 3.3 % . [facility] Erythrocyte distribution wid th Auto (RBC) [Ratio]Ordered By: Suzanne Paredes on 08-11-2022 Erythrocyte distribution width (RBC) [Ratio] 17.1 % 11.9-15.3 [facility] Globulin Calc (S) [Mass/Vol] Ordered By: Suzanne Paredes on 08-11-2022 Globulin (S) [Mass/Vol] 2.3 g/dL [facility] Glucose [Mass/volume] in Ser um or PlasmaOrdered By: Suzanne Paredes on 08-11-2022 Glucose [Mass/Vol] 90 mg/dL 70-100 [facility] Comment on above: ADA recommended refe rence rangeRandom Glucose Reference Range is dependent on time and content of last meal. Glucose of more than 200 mg/dL in a nonstressed, ambulatory subject supports the diagnosis of Diabetes Mellitus. Hematocrit Auto (Bld) [Volum e fraction]Ordered By: Suzanne Paredes on 08-11-2022 Hematocrit (Bld) [Volume fraction] 37.9 % 34.0-46.4 [facility] Hemoglobin [Mass/volume] in BloodOrdered By: Suzanne Paredes on 08-11-2022 Hemoglobin (Bld) [Mass/Vol] 12.5 g/dL 11.8-15.4 [facility] Leukocytes [#/volume] correc evelio for nucleated erythrocytes in Blood by Automated counOrdered By: Suzanne Paredes on 08-11-2022 WBC corrected for nucl RBC Auto (Bld) [#/Vol] 4.2 10*3/uL 3.8-11.6 [facility] Lymphocytes Auto (Bld) [#/Vo l]Ordered By: Suzanne Paredes on 08-11-2022 Lymphocytes (Bld) [#/Vol] 0.9 10*3/uL 1.00-4.8 [facility] Lymphocytes/100 WBC Auto (Bl d)Ordered By: Suzanne Paredes on 08-11-2022 Lymphocytes/100 WBC (Bld) 22.1 % . [facility] MCH Auto (RBC) [Entitic mass ]Ordered By: Suzanne Paredes on 08-11-2022 MCH (RBC) [Entitic mass] 28.0 pg 24.7-34.3 [facility] MCHC Auto (RBC) [Mass/Vol]Or dered By: Suzanne Paredes on 08-11-2022 MCHC (RBC) [Mass/Vol] 32.9 g/dL 32.0-35.0 [facility] MCV Auto (RBC) [Entitic vol] Ordered By: Suzanne Paredes on 08-11-2022 MCV (RBC) [Entitic vol] 85.0 fL 80-[address] [facility] Monocytes Auto (Bld) [#/Vol] Ordered By: Suzanne Paredes on 08-11-2022 Monocytes (Bld) [#/Vol] 0.4 10*3/uL 0.0-0.8 [facility] Monocytes/100 WBC Auto (Bld) Ordered By: Suzanne Paredes on 08-11-2022 Monocytes/100 WBC (Bld) 10.4 % . [facility] Neutrophils Auto (Bld) [#/Vo l]Ordered By: Suzanne Paredes on 08-11-2022 Neutrophils (Bld) [#/Vol] 2.6 10*3/uL 1.8-7.7 [facility] Neutrophils/100 WBC Auto (Bl d)Ordered By: Suzanne Paredes on 08-11-2022 Neutrophils/100 WBC (Bld) 63.1 % . [facility] No Panel InformationOrdered By: Suzanne Paredes on 08-11-2022 Estimated GFR (CKD-EPI) > 60.0 mL/Min [facility] Creatinine Clearance (Chem N/A [facility] Nucleated erythrocytes [Pres ence] in Blood by Automated countOrdered By: Suzanne Paredes on 08-11-2022 Nucleated RBC Auto Ql (Bld) 0.3 /100{WBC} 0-0.5 [facility] Platelet mean volume Auto (B ld) [Entitic vol]Ordered By: Suzanne Paredes on 08-11-2022 Platelet mean volume (Bld) [Entitic vol] 7.8 fL 6.3-10.7 [facility] Platelets Auto (Bld) [#/Vol] Ordered By: Suzanne Paredes on 08-11-2022 Platelets (Bld) [#/Vol] 176 10*3/uL 150-450 [facility] Potassium [Moles/volume] in Serum or PlasmaOrdered By: Suzanne Paredes on 08-11-2022 Potassium [Moles/Vol] 4.0 mmol/L 3.5-5.1 [facility] Protein [Mass/volume] in Ser um or PlasmaOrdered By: Suzanne Paredes on 08-11-2022 Protein [Mass/Vol] 6.3 g/dL 6.4-8.9 [facility] RBC Auto (Bld) [#/Vol]Ordere d By: Suzanne Paredes on 08-11-2022 RBC (Bld) [#/Vol] 4.46 10*6/uL 3.60-5.00 [facility] Serum or plasma albumin/glob ulin mass ratioOrdered By: Suzanne Paredes on 08-11-2022 Albumin/Globulin [Mass ratio] 1.7 {ratio} [facility] Serum or plasma anion gap de terminationOrdered By: Suzanne Paredes on 08-11-2022 Anion gap [Moles/Vol] 11.9 mmol/L 6.0-15.0 [facility] Sodium [Moles/volume] in Ser um or PlasmaOrdered By: Suzanne Paredes on 08-11-2022 Sodium [Moles/Vol] 137 mmol/L 136-145 [facility] Urea nitrogen [Mass/volume] in Serum or PlasmaOrdered By: Suzanne Paredes on 08-11-2022 Urea nitrogen [Mass/Vol] 11 mg/dL 7-25 [facility] WBC Auto (Bld) [#/Vol]Ordere d By: Suzanne Paredes on 08-11-2022 WBC (Bld) [#/Vol] 4.2 10*3/uL 3.8-11.6 [facility] Magnesium [Mass/volume] in S abril or PlasmaOrdered By: Levon Cruz on 07-10-2022 Magnesium [Mass/Vol] 1.6 mg/dL 1.9-2.7 [facility] Anisocytosis LM Ql (Bld)Orde red By: Alex Lee on 07-09-2022 Anisocytosis Ql (Bld) Moderate [facility] Basophils Auto (Bld) [#/Vol] Ordered By: Alex Lee on 07-09-2022 Basophils (Bld) [#/Vol] 0.1 10*3/uL 0.0-0.2 [facility] Basophils/100 WBC Auto (Bld) Ordered By: Alex Lee on 07-09-2022 Basophils/100 WBC (Bld) 1.1 % . [facility] Salix cells [Presence] in Blo od by Light microscopyOrdered By: Alex Lee on 07-09-2022 Salix cells LM Ql (Bld) Slight [facility] Carbon dioxide, total [Moles /volume] in Serum or PlasmaOrdered By: Alex Lee on 07-09-2022 CO2 [Moles/Vol] 27.8 mmol/L 21.0-31.0 [facility] Chloride [Moles/volume] in S abril or PlasmaOrdered By: Alex Lee on 07-09-2022 Chloride [Moles/Vol] 102 mmol/L 98-107 [facility] Creatinine [Mass/volume] in Serum or PlasmaOrdered By: Alex Lee on 07-09-2022 Creatinine [Mass/Vol] 0.51 mg/dL 0.60-1.20 [facility] Eosinophils Auto (Bld) [#/Vo l]Ordered By: Alex Lee on 07-09-2022 Eosinophils (Bld) [#/Vol] 0.3 10*3/uL 0.0-0.45 [facility] Eosinophils/100 WBC Auto (Bl d)Ordered By: Alex Lee on 07-09-2022 Eosinophils/100 WBC (Bld) 5.5 % . [facility] Erythrocyte distribution wid th Auto (RBC) [Ratio]Ordered By: Alex Lee on 07-09-2022 Erythrocyte distribution width (RBC) [Ratio] 21.1 % 11.9-15.3 [facility] Helmet cell detectionOrdered By: Alex Lee on 07-09-2022 Helmet cells LM Ql (Bld) Slight [facility] Hematocrit Auto (Bld) [Volum e fraction]Ordered By: Alex Lee on 07-09-2022 Hematocrit (Bld) [Volume fraction] 30.8 % 34.0-46.4 [facility] Hemoglobin [Mass/volume] in BloodOrdered By: Alex Lee on 07-09-2022 Hemoglobin (Bld) [Mass/Vol] 10.2 g/dL 11.8-15.4 [facility] Leukocytes [#/volume] correc evelio for nucleated erythrocytes in Blood by Automated counOrdered By: Alex Lee on 07-09-2022 WBC corrected for nucl RBC Auto (Bld) [#/Vol] 4.9 10*3/uL 3.8-11.6 [facility] Lymphocytes Auto (Bld) [#/Vo l]Ordered By: Alex Lee on 07-09-2022 Lymphocytes (Bld) [#/Vol] 0.8 10*3/uL 1.00-4.8 [facility] Lymphocytes/100 WBC Auto (Bl d)Ordered By: Alex Lee on 07-09-2022 Lymphocytes/100 WBC (Bld) 16.6 % . [facility] MCH Auto (RBC) [Entitic mass ]Ordered By: Alex Lee on 07-09-2022 MCH (RBC) [Entitic mass] 26.6 pg 24.7-34.3 [facility] MCHC Auto (RBC) [Mass/Vol]Or dered By: Alex Lee on 07-09-2022 MCHC (RBC) [Mass/Vol] 33.2 g/dL 32.0-35.0 [facility] MCV Auto (RBC) [Entitic vol] Ordered By: Alex Lee on 07-09-2022 MCV (RBC) [Entitic vol] 80.1 fL 80-[address] [facility] Microcytes LM Ql (Bld)Ordere d By: Alex Lee on 07-09-2022 Microcytes Ql (Bld) Moderate [facility] Monocytes Auto (Bld) [#/Vol] Ordered By: Alex Lee on 07-09-2022 Monocytes (Bld) [#/Vol] 0.9 10*3/uL 0.0-0.8 [facility] Monocytes/100 WBC Auto (Bld) Ordered By: Alex Lee on 07-09-2022 Monocytes/100 WBC (Bld) 18.3 % . [facility] Neutrophils Auto (Bld) [#/Vo l]Ordered By: Alex Lee on 07-09-2022 Neutrophils (Bld) [#/Vol] 2.9 10*3/uL 1.8-7.7 [facility] Neutrophils/100 WBC Auto (Bl d)Ordered By: Alex Lee on 07-09-2022 Neutrophils/100 WBC (Bld) 58.5 % . [facility] No Panel InformationOrdered By: Alex Lee on 07-09-2022 Estimated GFR (CKD-EPI) > 60.0 mL/Min [facility] Creatinine Clearance (Chem 52.51 [facility] Nucleated erythrocytes [Pres ence] in Blood by Automated countOrdered By: Alex Lee on 07-09-2022 Nucleated RBC Auto Ql (Bld) 0.1 /100{WBC} 0-0.5 [facility] Ovalocyte detectionOrdered B y: Alex Lee on 07-09-2022 Ovalocytes LM Ql (Bld) [facility] Platelet adequacy [Presence] in Blood by Light microscopyOrdered By: Alex Lee on 07-09-2022 Platelets LM Ql (Bld) Normal Normal [facility] Platelet mean volume Auto (B ld) [Entitic vol]Ordered By: Alex Lee on 07-09-2022 Platelet mean volume (Bld) [Entitic vol] 7.5 fL 6.3-10.7 [facility] Platelet morphology finding [Identifier] in BloodOrdered By: Alex Lee on 07-09-2022 Platelet morphology finding Nom (Bld) Normal Normal [facility] Platelets Auto (Bld) [#/Vol] Ordered By: Alex Lee on 07-09-2022 Platelets (Bld) [#/Vol] 244 10*3/uL 150-450 [facility] Poikilocytosis [Presence] in Blood by Light microscopyOrdered By: Alex Lee on 07-09-2022 Poikilocytosis LM Ql (Bld) Slight [facility] Polychromasia [Presence] in Blood by Light microscopyOrdered By: Alex Lee on 07-09-2022 Polychromasia LM Ql (Bld) Moderate [facility] Potassium [Moles/volume] in Serum or PlasmaOrdered By: Alex Lee on 07-09-2022 Potassium [Moles/Vol] 3.5 mmol/L 3.5-5.1 [facility] RBC Auto (Bld) [#/Vol]Ordere d By: Alex Lee on 07-09-2022 RBC (Bld) [#/Vol] 3.85 10*6/uL 3.60-5.00 [facility] RBC morphologyOrdered By: Ramon Lee on 07-09-2022 RBC morphology finding Nom (Bld) N/A [facility] Serum or plasma anion gap de terminationOrdered By: Alex Lee on 07-09-2022 Anion gap [Moles/Vol] 10.7 mmol/L 6.0-15.0 [facility] Sodium [Moles/volume] in Ser um or PlasmaOrdered By: Alex Lee on 07-09-2022 Sodium [Moles/Vol] 137 mmol/L 136-145 [facility] Teardrop cell detectionOrder ed By: Alex Lee on 07-09-2022 Dacrocytes LM Ql (Bld) Slight [facility] Thyrotropin [Units/volume] i n Serum or PlasmaOrdered By: Geovany Serrano on 07-09-2022 TSH Qn 4.04 m[IU]/L 0.45-5.33 [facility] Urea nitrogen [Mass/volume] in Serum or PlasmaOrdered By: Alex Lee on 07-09-2022 Urea nitrogen [Mass/Vol] 9 mg/dL 7-25 [facility] WBC Auto (Bld) [#/Vol]Ordere d By: Alex Lee on 07-09-2022 WBC (Bld) [#/Vol] 4.9 10*3/uL 3.8-11.6 [facility] Automated erythrocytes count in urine sediment (number/area)Ordered By: Alex Lee on 07-06-2022 RBC Auto (Urine sed) [#/Area] 0-1 [HPF] 0-4 [facility] Automated leukocytes count i n urine sediment (number/area)Ordered By: Alex Lee on 07-06-2022 WBC Auto (Urine sed) [#/Area] 0-1 [HPF] 0-4 [facility] Bacterial blood cultureOrder ed By: Alex Lee on 07-06-2022 Bacteria identified Cx Nom (Bld) NO GROWTH 5 DAYS [facility] Bilirubin Test strip Ql (U)O rdered By: Alex Lee on 07-06-2022 Bilirubin Ql (U) Negative Negative [facility] Calcium [Mass/volume] in Ser um or PlasmaOrdered By: Levon Cruz on 07-06-2022 Calcium [Mass/Vol] 8.5 mg/dL 8.6-10.3 [facility] Color Auto (U)Ordered By: Ramon Lee on 07-06-2022 Color (U) Yellow Yellow [facility] Glucose [Mass/volume] in Ser um or PlasmaOrdered By: Levon Cruz on 07-06-2022 Glucose [Mass/Vol] 99 mg/dL 70-100 [facility] Comment on above: ADA recommended refe rence rangeRandom Glucose Reference Range is dependent on time and content of last meal. Glucose of more than 200 mg/dL in a nonstressed, ambulatory subject supports the diagnosis of Diabetes Mellitus. Ketones Auto test strip (U) [Mass/Vol]Ordered By: Alex Lee on 07-06-2022 Ketones (U) [Mass/Vol] 4+ Negative [facility] Laboratory - UrinalysisOrder ed By: Alex Lee on 07-06-2022 Hyaline casts LM Ql (Urine sed) 0-8 [LPF] 0-8 [facility] Nitrite Test strip Ql (U)Ord ered By: Alex Lee on 07-06-2022 Nitrite Ql (U) Negative Negative [facility] Protein Auto test strip (U) [Mass/Vol]Ordered By: Alex Lee on 07-06-2022 Protein (U) [Mass/Vol] 100 mg/dL Negative Fi [facility] Schistocytes [Presence] in B lood by Light microscopyOrdered By: Alex Lee on 07-06-2022 Schistocytes LM Ql (Bld) Slight [facility] Specific gravity Auto test s trip (U) [Rel density]Ordered By: Alex Lee on 07-06-2022 Specific gravity (U) [Rel density] 1.015 1.001-1.030 [facility] Squamous epithelial cells de tection in urine sediment by light microscopyOrdered By: Alex Lee on 07-06-2022 Epithelial cells.squamous LM Ql (Urine sed) 0-1 [HPF] 0-2 [facility] Urate [Mass/volume] in Serum or PlasmaOrdered By: Bg Stockton on 07-06-2022 Urate [Mass/Vol] 2.4 mg/dL 2.3-6.6 [facility] Urine bacteria detection by automated methodOrdered By: Alex Lee on 07-06-2022 Bacteria Auto Ql (U) None seen None Seen [facility] Urine clarity by refractomet ry automatedOrdered By: Alex Lee on 07-06-2022 Clarity Refractometry automated (U) Clear Clear [facility] Urine culture routineOrdered By: Alex Lee on 07-06-2022 Bacteria identified Cx Nom (U) No Growth 2 Days [facility] Urine glucose measurement by automated test strip (mass/volume)Ordered By: Alex Lee on 07-06-2022 Glucose Auto test strip (U) [Mass/Vol] Normal mg/dL Normal [facility] Urine hemoglobin detection b y automated test stripOrdered By: Alex Lee on 07-06-2022 Hemoglobin Auto test strip Ql (U) Trace Negative [facility] Urine leukocyte esterase det ection by automated test stripOrdered By: Alex Lee on 07-06-2022 Leukocyte esterase Auto test strip Ql (U) Negative Negative [facility] Urobilinogen Auto test strip (U) [Mass/Vol]Ordered By: Alex Lee on 07-06-2022 Urobilinogen (U) [Mass/Vol] Normal mg/dL Normal [facility] pH Auto test strip (U)Ordere d By: Alex Lee on 07-06-2022 pH (U) 6.0 [pH] 5.0-9.0 [facility] Cholesterol [Mass/volume] in Serum or PlasmaOrdered By: Jose Zarate on 07-05-2022 Cholesterol [Mass/Vol] 93 mg/dL 140-200 [facility] Comment on above: Chol less than 200 m g/dl low riskChol 201-239 mg/dl borderline riskChol 240 mg/dl and greater high risk Cholesterol in LDL Calc [Mas s/Vol]Ordered By: Jose Zarate on 07-05-2022 Cholesterol in LDL [Mass/Vol] 45 mg/dL 0-100 [facility] Comment on above: LDL ATP III CLASSIFI CATIONLDL less than 100 mg/dL OptimalLDL 100-129 mg/dL Near or above optimalLDL 130-159 mg/dL Borderline highLDL 160-189 mg/dL HighLDL greater than 189 mg/dL Very high Cholesterol in VLDL Calc [Ma ss/Vol]Ordered By: oJse Zarate on 07-05-2022 Cholesterol in VLDL [Mass/Vol] 9 mg/dL [facility] Serum or plasma high density lipoprotein (HDL) cholesterol measurementOrdered By: Jose Zarate on 07-05-2022 Cholesterol in HDL [Mass/Vol] 39 mg/dL 35-85 [facility] Comment on above: HDL CHOL ATP-III CLA SSIFICATION Cardiovascular RiskHDL > or equal to 60 mg/dL LOWHDL < 40 mg/dL HIGH Serum or plasma total choles terol/high density lipoprotein (HDL) cholesterol mass ratOrdered By: Jose Zarate on 07-05-2022 Cholesterol.total/Regina sterol in HDL [Mass ratio] 2.4 {ratio} <5.0 [facility] Triglyceride [Mass/volume] i n Serum or PlasmaOrdered By: Jose Zarate on 07-05-2022 Triglyceride [Mass/Vol] 46 mg/dL 0-149 [facility] Comment on above: TRIG ATP III CLASSIF ICATIONTRIG less than 150 mg/dL NormalTRIG 150-199 mg/dL Borderline highTRIG 200-500 mg/dL High TRIG greater than 500 mg/dL Very highStandard traceable to the Center for Disease Conrtrol and Prevention (CDC) test method. Activated partial thrombopla stin time (aPTT) in platelet poor plasma by coagulation aOrdered By: Kailey Tanner on 07-04-2022 aPTT Coag (PPP) [Time] 37.9 s 25.1-36.5 [facility] Glucose Glucometer (BldC) [M ass/Vol]Ordered By: Alex Lee on 07-04-2022 Glucose [Mass/Vol] 144 mg/dL [facility] Comment on above: Random Glucose Refer ence Range is dependent on time and content of last meal. Glucose of more than 200 mg/dL in a nonstressed, ambulatory subject supports the diagnosis of Diabetes Mellitus. Glucose mean value [Mass/vol ume] in Blood Estimated from glycated hemoglobinOrdered By: Jose Zarate on 07-04-2022 Average glucose Estimated from glycated hemoglobin (Bld) [Mass/Vol] 111 mg/dL [facility] Hemoglobin A1c percentageOrd ered By: Jose Zarate on 07-04-2022 HbA1c (Bld) [Mass fraction] 5.5 % 4.3-5.6 [facility] Comment on above: Increased risk for d iabetes: 5.7 - 6.4diabetes: >6.4glycemic control for adults with diabetes: <7.0 Troponin I.cardiac [Mass/vol ume] in Serum or Plasma by Detection limit <= 0.01 ng/Ordered By: Kailey Tanner on 07-04-2022 Troponin I.cardiac DL <= 0.01 ng/mL [Mass/Vol] 19.3 pg/mL 0.0-15.0 [facility] Anisocytosis LM Ql (Bld)Orde red By: Suzanne Paredes on 06-24-2022 Anisocytosis Ql (Bld) Moderate [facility] Basophils Auto (Bld) [#/Vol] Ordered By: Suzanne Paredes on 06-24-2022 Basophils (Bld) [#/Vol] 0.1 10*3/uL 0.0-0.2 [facility] Basophils/100 WBC Auto (Bld) Ordered By: Suzanne Paredes on 06-24-2022 Basophils/100 WBC (Bld) 1.1 % . [facility] Eosinophils Auto (Bld) [#/Vo l]Ordered By: Suzanne Paredes on 06-24-2022 Eosinophils (Bld) [#/Vol] 0.1 10*3/uL 0.0-0.45 [facility] Eosinophils/100 WBC Auto (Bl d)Ordered By: Suzanne Paredes on 06-24-2022 Eosinophils/100 WBC (Bld) 2.4 % . [facility] Erythrocyte distribution wid th Auto (RBC) [Ratio]Ordered By: Suzanne Paredes on 06-24-2022 Erythrocyte distribution width (RBC) [Ratio] 24.3 % 11.9-15.3 [facility] Hematocrit Auto (Bld) [Volum e fraction]Ordered By: Suzanne Paredes on 06-24-2022 Hematocrit (Bld) [Volume fraction] 37.7 % 34.0-46.4 [facility] Hemoglobin [Mass/volume] in BloodOrdered By: Suzanne Paredes on 06-24-2022 Hemoglobin (Bld) [Mass/Vol] 12.2 g/dL 11.8-15.4 [facility] Leukocytes [#/volume] correc evelio for nucleated erythrocytes in Blood by Automated counOrdered By: Suzanne Paredes on 06-24-2022 WBC corrected for nucl RBC Auto (Bld) [#/Vol] 4.9 10*3/uL 3.8-11.6 [facility] Lymphocytes Auto (Bld) [#/Vo l]Ordered By: Suzanne Paredes on 06-24-2022 Lymphocytes (Bld) [#/Vol] 1.0 10*3/uL 1.00-4.8 [facility] Lymphocytes/100 WBC Auto (Bl d)Ordered By: Suzanne Paredes on 06-24-2022 Lymphocytes/100 WBC (Bld) 20.4 % . [facility] MCH Auto (RBC) [Entitic mass ]Ordered By: Suzanne Paredes on 06-24-2022 MCH (RBC) [Entitic mass] 25.7 pg 24.7-34.3 [facility] MCHC Auto (RBC) [Mass/Vol]Or dered By: Suzanne Paredes on 06-24-2022 MCHC (RBC) [Mass/Vol] 32.5 g/dL 32.0-35.0 [facility] MCV Auto (RBC) [Entitic vol] Ordered By: Suzanne Paredes on 06-24-2022 MCV (RBC) [Entitic vol] 79.1 fL 80-[address] [facility] Microcytes LM Ql (Bld)Ordere d By: Suzanne Paredes on 06-24-2022 Microcytes Ql (Bld) Moderate [facility] Monocytes Auto (Bld) [#/Vol] Ordered By: Suzanne Paredes on 06-24-2022 Monocytes (Bld) [#/Vol] 0.6 10*3/uL 0.0-0.8 [facility] Monocytes/100 WBC Auto (Bld) Ordered By: Suzanne Paredes on 06-24-2022 Monocytes/100 WBC (Bld) 13.0 % . [facility] Neutrophils Auto (Bld) [#/Vo l]Ordered By: Suzanne Paredes on 06-24-2022 Neutrophils (Bld) [#/Vol] 3.1 10*3/uL 1.8-7.7 [facility] Neutrophils/100 WBC Auto (Bl d)Ordered By: Suzanne Paredes on 06-24-2022 Neutrophils/100 WBC (Bld) 63.1 % . [facility] Nucleated erythrocytes [Pres ence] in Blood by Automated countOrdered By: Suzanne Paredes on 06-24-2022 Nucleated RBC Auto Ql (Bld) 0.1 /100{WBC} 0-0.5 [facility] Ovalocyte detectionOrdered B y: Suzanne Paredes on 06-24-2022 Ovalocytes LM Ql (Bld) Slight [facility] Platelet adequacy [Presence] in Blood by Light microscopyOrdered By: Suzanne Paredes on 06-24-2022 Platelets LM Ql (Bld) Normal Normal [facility] Platelet mean volume Auto (B ld) [Entitic vol]Ordered By: Suzanne Paredes on 06-24-2022 Platelet mean volume (Bld) [Entitic vol] 7.3 fL 6.3-10.7 [facility] Platelet morphology finding [Identifier] in BloodOrdered By: Suzanne Paredes on 06-24-2022 Platelet morphology finding Nom (Bld) Normal Normal [facility] Platelets Auto (Bld) [#/Vol] Ordered By: Suzanne Paredes on 06-24-2022 Platelets (Bld) [#/Vol] 222 10*3/uL 150-450 [facility] Platelets Large [Presence] i n Blood by Light microscopyOrdered By: Suzanne Paredes on 06-24-2022 Platelets Large LM Ql (Bld) Slight [facility] Poikilocytosis [Presence] in Blood by Light microscopyOrdered By: Suzanne Paredes on 06-24-2022 Poikilocytosis LM Ql (Bld) Slight [facility] Polychromasia [Presence] in Blood by Light microscopyOrdered By: Suzanne Paredes on 06-24-2022 Polychromasia LM Ql (Bld) Moderate [facility] RBC Auto (Bld) [#/Vol]Ordere d By: Suzanne Paredes on 06-24-2022 RBC (Bld) [#/Vol] 4.76 10*6/uL 3.60-5.00 [facility] RBC morphologyOrdered By: Levy Paredes on 06-24-2022 RBC morphology finding Nom (Bld) N/A [facility] WBC Auto (Bld) [#/Vol]Ordere d By: Suzanne Paredes on 06-24-2022 WBC (Bld) [#/Vol] 4.9 10*3/uL 3.8-11.6 [facility] Absolute reticulocyte countO rdered By: Bella Cruz on 05-15-2022 Reticulocytes (Bld) [#/Vol] N/A [facility] Albumin [Mass/volume] in Ser um or PlasmaOrdered By: Bella Cruz on 05-15-2022 Albumin [Mass/Vol] 3.8 g/dL 3.2-5.5 [facility] Alkaline phosphatase [Enzyma tic activity/volume] in Serum or PlasmaOrdered By: Bella Cruz on 05-15-2022 ALP [Catalytic activity/Vol] 80 U/L 32-92 [facility] Aspartate aminotransferase [ Enzymatic activity/volume] in Serum or PlasmaOrdered By: Bella Cruz on 05-15-2022 AST [Catalytic activity/Vol] 26 U/L 10-42 [facility] Bilirubin.total [Mass/volume ] in Serum or PlasmaOrdered By: Bella Cruz on 05-15-2022 Bilirubin [Mass/Vol] 0.5 mg/dL 0.3-1.2 [facility] Jessee cells [Presence] in Blo od by Light microscopyOrdered By: Bella Cruz on 05-15-2022 Salix cells LM Ql (Bld) Slight Fi [facility] CT biopsyOrdered By: Bella Cruz on 05-15-2022 Transferrin [Mass/Vol] 245 mg/dL 180-380 [facility] Calcium [Mass/volume] in Ser um or PlasmaOrdered By: Bella Cruz on 05-15-2022 Calcium [Mass/Vol] 9.0 mg/dL 8.2-10.2 [facility] Carbon dioxide, total [Moles /volume] in Serum or PlasmaOrdered By: Bella Cruz on 05-15-2022 CO2 [Moles/Vol] 28.6 mmol/L 22.0-30.0 [facility] Chloride [Moles/volume] in S abril or PlasmaOrdered By: Bella Cruz on 05-15-2022 Chloride [Moles/Vol] 102 mmol/L 95-114 [facility] Creatinine and Glomerular fi ltration rate.predicted panel (S/P/Bld)Ordered By: Bella Cruz on 05-15-2022 Creatinine [Mass/Vol] 0.71 mg/dL 0.44-1.03 [facility] Estimated glomerular filtrat ion rate (GFR) non- AmericanOrdered By: Bella Cruz on 05-15-2022 GFR/1.73 sq M.predicted among non-blacks MDRD (S/P/Bld) [Vol rate/Area] > 60 mL/Min [facility] Ferritin [Mass/volume] in Se rum or PlasmaOrdered By: Bella Cruz on 05-15-2022 Ferritin [Mass/Vol] 18.8 ng/mL 11-306.8 [facility] Folate [Mass/volume] in Seru m or PlasmaOrdered By: Bella Cruz on 05-15-2022 Folate [Mass/Vol] ng/mL >5.9 [facility] Comment on above: Folate reference ran ge: >5.9 ng/mlThe WHO technical consultation on folate and vitamin [id number] has determined that folate concentrations lessthan 4 ng/ml are considered deficient. Globulin Calc (S) [Mass/Vol] Ordered By: Bella Cruz on 05-15-2022 Globulin (S) [Mass/Vol] 2.4 g/dL [facility] Glucose [Mass/volume] in Ser um or PlasmaOrdered By: Bella Cruz on 05-15-2022 Glucose [Mass/Vol] 68 mg/dL 70-100 [facility] Comment on above: ADA recommended refe rence rangeRandom Glucose Reference Range is dependent on time and content of last meal. Glucose of more than 200 mg/dL in a nonstressed, ambulatory subject supports the diagnosis of Diabetes Mellitus. Hypochromia LM Ql (Bld)Order ed By: Bella Cruz on 05-15-2022 Hypochromia Ql (Bld) Slight [facility] Iron [Mass/volume] in Serum or PlasmaOrdered By: Bella Cruz on 05-15-2022 Iron [Mass/Vol] 24 ug/dL 40-150 [facility] Iron binding capacity [Mass/ volume] in Serum or PlasmaOrdered By: Bella Cruz on 05-15-2022 Iron binding capacity [Mass/Vol] 343 ug/dL 255-450 [facility] Iron saturation [Mass Fracti on] in Serum or PlasmaOrdered By: Bella Cruz on 05-15-2022 Iron saturation [Mass fraction] 7.0 % 20-50 [facility] Laboratory - Chemistry and C hemistry - challengeOrdered By: Bella Cruz on 05-15-2022 Cobalamin (Vitamin B12) [Mass/Vol] 875 pg/mL 180-914 [facility] No Panel InformationOrdered By: Bella Cruz on 05-15-2022 Estimated GFR () > 60 mL/Min [facility] Comment on above: GFR estimated refere nce range: According to KDOQI guidelines, <60 ml/min/1.73m2 is sufficient to diagnose a patient with chronic kidney disease. Pharmacy Creatinine Clearance (Chem 58.07 [facility] Potassium [Moles/volume] in Serum or PlasmaOrdered By: Bella Cruz on 05-15-2022 Potassium [Moles/Vol] 3.7 mmol/L 3.5-5.1 [facility] Protein [Mass/volume] in Ser um or PlasmaOrdered By: Bella Cruz on 05-15-2022 Protein [Mass/Vol] 6.2 g/dL 6.1-7.9 [facility] Reticulocytes/100 RBC Auto ( Bld)Ordered By: Bella Cruz on 05-15-2022 Reticulocytes/100 RBC (Bld) 1.2 % 0.5-1.5 [facility] Schistocytes [Presence] in B lood by Light microscopyOrdered By: Bella Cruz on 05-15-2022 Schistocytes LM Ql (Bld) Slight [facility] Serum or plasma alanine martel otransferase measurement without P-5'-P (enzymatic activiOrdered By: Bella Cruz on 05-15-2022 ALT No additional P-5'-P [Catalytic activity/Vol] 19 U/L 10-60 [facility] Serum or plasma albumin/glob ulin mass ratioOrdered By: Bella Cruz on 05-15-2022 Albumin/Globulin [Mass ratio] 1.6 {ratio} [facility] Serum or plasma anion gap de terminationOrdered By: Bella Cruz on 05-15-2022 Anion gap [Moles/Vol] 10.1 mmol/L 6.0-15.0 [facility] Sodium [Moles/volume] in Ser um or PlasmaOrdered By: Bella Cruz on 05-15-2022 Sodium [Moles/Vol] 137 mmol/L 136-146 [facility] Urea nitrogen [Mass/volume] in Serum or PlasmaOrdered By: Bella Cruz on 05-15-2022 Urea nitrogen [Mass/Vol] 5 mg/dL 9-23 [facility] Creatinine and Glomerular fi ltration rate.predicted panel (S/P/Bld)Ordered By: Trista Davis on 05-12-2022 Creatinine [Mass/Vol] 0.76 mg/dL 0.44-1.03 [facility] Estimated glomerular filtrat ion rate (GFR) non- AmericanOrdered By: Trista Davis on 05-12-2022 GFR/1.73 sq M.predicted among non-blacks MDRD (S/P/Bld) [Vol rate/Area] > 60 mL/Min [facility] No Panel InformationOrdered By: Trista Davis on 05-12-2022 Estimated GFR () > 60 mL/Min [facility] Comment on above: GFR estimated refere nce range: According to KDOQI guidelines, <60 ml/min/1.73m2 is sufficient to diagnose a patient with chronic kidney disease. Pharmacy Creatinine Clearance (Chem 58.33 [facility] Serum or plasma anion gap de terminationOrdered By: Trista Davis on 05-12-2022 Anion gap [Moles/Vol] 11.9 mmol/L 6.0-15.0 [facility] Serum or plasma calcium lukasz urement (mass/volume)Ordered By: Trista Davis on 05-12-2022 Calcium [Mass/Vol] 8.8 mg/dL 8.2-10.2 [facility] Serum or plasma carcinoembry onic antigen measurement (mass/volume)Ordered By: Trista Davis on 05-12-2022 Carcinoembryonic Ag [Mass/Vol] 1.0 ng/mL 0.0-3.0 [facility] Serum or plasma chloride jose surement (moles/volume)Ordered By: Trista Davis on 05-12-2022 Chloride [Moles/Vol] 102 mmol/L 95-114 [facility] Serum or plasma glucose lukasz urement (mass/volume)Ordered By: [facility] on 05-12-2022 Glucose [Mass/Vol] 91 mg/dL 70-100 [facility] Comment on above: ADA recommended refe rence rangeRandom Glucose Reference Range is dependent on time and content of last meal. Glucose of more than 200 mg/dL in a nonstressed, ambulatory subject supports the diagnosis of Diabetes Mellitus. Serum or plasma potassium me asurement (moles/volume)Ordered By: [facility] on 05-12-2022 Potassium [Moles/Vol] 3.7 mmol/L 3.5-5.1 [facility] Serum or plasma sodium measu rement (moles/volume)Ordered By: [facility] on 05-12-2022 Sodium [Moles/Vol] 136 mmol/L 136-146 [facility] Serum or plasma total carbon dioxide measurement (moles/volume)Ordered By: [facility] on 05-12-2022 CO2 [Moles/Vol] 25.8 mmol/L 22.0-30.0 [facility] Serum or plasma urea nitroge n measurement (mass/volume)Ordered By: [facility] on 05-12-2022 Urea nitrogen [Mass/Vol] 7 mg/dL 9-23 [facility] PRBC LEUKOREDUCEDon 04-02-20 22 ABO and Rh group Nom (Bld) Cross Match Result Compatible Unit Blood Type B Neg Unit Number [id number] Status Information Transfused Product ID Red Blood Cells Product Code [id number] Cross Match Result Compatible Unit Blood Type B Neg Unit Number [id number] Status Information Transfused Product ID Red Blood Cells Product Code [id number] Normal [facility] Comment on above: Performed By: #### P RBC, TNS ####[facility] [id number] [place], [place] [address]IhCristopher Cohen ANTIBODY ID PANELon 03-30-20 22 ANTIBODY ID PANEL Antibody ID Non-specific [facility] Notes [facility] Comment on above: Performed By: #### A BID ####[facility] [id number] [place], [place] [address]MlDr. Kaitlynn Cohen ABO RH RETYPEon 03-25-2022 ABO and Rh group Nom (Bld) DONE Normal [facility] Comment on above: Performed By: #### R ETYPE #### [facility] [address] [place] [address] [address] Kaitlynn Cohen CBC AUTO DIFFon 03-25-2022 BASO # 0.0 103/ul Normal 0.0-0.[address] [facility] Comment on above: Performed By: #### C BC #### [facility] [address] [address] [address] Kaitlynn Cohen Basophils/100 WBC (Bld) 0.8 % Normal 0.2-2.0 [facility] Comment on above: Performed By: #### C BC #### [facility] [address] [address] [address] Kaitlynn Cohen EO # 0.1 103/ul Normal 0.0-0.[address] [facility] Comment on above: Performed By: #### C BC #### [facility] [address] [address] [address] Kaitlynn Cohen Eosinophils/100 WBC (Bld) 2.2 % Normal 0.9-7.[address] [facility] Comment on above: Performed By: #### C BC #### [facility] [address] [address] [address] Kaitlynn Cohen Erythrocyte distribution width (RBC) [Ratio] 15.0 % Normal 11.0-15.[address] [facility] Comment on above: Performed By: #### C BC #### [facility] [address] [address] [address] Kaitlynn Cohen Hematocrit (Bld) [Volume fraction] 22.9 % Critically low 36.0-48.[address] [facility] Comment on above: Performed By: #### C BC #### [facility] [address] [address] [address] Kiatlynn Cohen Hemoglobin (Bld) [Mass/Vol] 6.4 g/dL Critically low 12.0-16.[address] [facility] Comment on above: Performed By: #### C BC #### [facility] [address] [address] [address] Kaitlynn Cohen IG # 0.02 10e3/ul Normal 0.00-0.[address] [facility] Comment on above: Performed By: #### C BC #### [facility] [address] [address] [address] Kaitlynn Cohen IG % 0.4 % Normal 0.0-0.[address] [facility] Comment on above: Performed By: #### C BC #### [facility] [address] [address] [address] Kaitlynn Cohen LYMPH # 1.1 103/ul Critically low 1.2-3.8 [facility] Comment on above: Performed By: #### C BC #### [facility] [address] [place] [address] Dr. Kaitlynn Cohen Lymphocytes/100 WBC (Bld) 21.2 % Normal 20.5-60.[address] [facility] Comment on above: Performed By: #### C BC #### [facility] [address] [place] [address] [address] Kaitlynn Cohen MANUAL DIFF REQ NO Normal [facility] Comment on above: Performed By: #### C BC #### [facility] [address] [place] [address] Dr. Kaitlynn Cohen MCH (RBC) [Entitic mass] 20.1 pg Critically low 26.7-34.[address] [facility] Comment on above: Performed By: #### C BC #### [facility] [address] [place] [address] Dr. Kaitlynn Cohen MCHC (RBC) [Mass/Vol] 27.9 g/dL Critically low 29.9-35.[address] [facility] Comment on above: Performed By: #### C BC #### [facility] [address] [place] [address] Dr. Kaitlynn Cohen MCV (RBC) [Entitic vol] 72.0 fL Critically low 81.0-99. [address] [facility] Comment on above: Performed By: #### C BC #### [facility] [address] [address] [address] Kaitlynn Cohen MONO # 0.5 103/ul Normal 0.3-0.[address] [facility] Comment on above: Performed By: #### C BC #### [facility] [address] [address] [address] Kaitlynn Cohen Monocytes/100 WBC (Bld) 10.2 % Normal 1.7-12.0 [facility] Comment on above: Performed By: #### C BC #### [facility] [address] [place] [address] [address] Kaitlynn Cohen NEUT # 3.3 103/ul Normal 1.4-6.[address] [facility] Comment on above: Performed By: #### C BC #### [facility] [address] [address] [address] Kaitlynn Cohen Neutrophils/100 WBC (Bld) 65.2 % Normal 43.0-75.[address] [facility] Comment on above: Performed By: #### C BC #### [facility] [address] [address] [address] Kaitlynn Cohen Platelet mean volume (Bld) [Entitic vol] 9.3 fL Critically low 9.5-13.[address] [facility] Comment on above: Performed By: #### C BC #### [facility] [address] [place] [address] [address] Kaitlynn Cohen PLT 273 103/ul Normal 150-450 [facility] Comment on above: Performed By: #### C BC #### [facility] [address] [address] [address] Kaitlynn Cohen RBC 3.18 106/ul Critically low 4.20-5.40 [facility] Comment on above: Performed By: #### C BC #### [facility] [address] [address] [address] Kaitlynn Cohen WBC 5.0 103/ul Normal 4.0-11.0 [facility] Comment on above: Performed By: #### C BC #### [facility] [address] [place], [place] [address] Dr. Kaitlynn Cohen TYPE AND SCREENon 03-25-2022 TYPE AND SCREEN Negative Normal [facility] Comment on above: Performed By: #### P RBC, TNS ####[facility] [id number] [place], [place] [address]MwDr. Kaitlynn Cohen XR CHEST 2 Von 03-24-2022 XR CHEST 2 V EXAMINATION: XR CHES T 2 V HISTORY: Chronic obstructive lung disease COMPARISON: XR chest 08/20/2021 FINDINGS: LUNGS: Mild haziness within lateral lung bases. VASCULATURE: No increased pulmonary vasculature. PLEURA: No pneumothorax, effusion, or pleural thickening. CARDIAC: No cardiomegaly or cardiac silhouette abnormality. MEDIASTINUM: No visible mass or adenopathy. BONES: Multilevel moderate marked compression fractures of the lower thoracic spine. OTHER: Negative. IMPRESSION: 1. Trace amount of bibasilar atelectasis or possibly infiltrates. 2. Multilevel moderate-marked lower thoracic compression fractures, not appreciably changed. Electronically authenticated by: MERCED RAMACHANDRAN Date: 2022-03-24 00:[address] [facility] XR DEXA BONE DENSITYon 11-21 XR DEXA BONE DENSITY EXAMINATION: XR DEX A BONE DENSITY, 11/21/2021 12:56 PM EDT HISTORY: Primary ovarian failure COMPARISON: DEXA bone densitometry 11/10/2019 TECHNIQUE: Dual-energy X-ray absorptiometry (DEXA) bone density study performed for the axial skeleton. FINDINGS: FOREARM ANALYSIS: Average bone mineral density is 0.531 g/cm2. T-score (standard deviation relative to young adult mean): -2.6 . +8.3% change since prior study. HIP ANALYSIS: Lowest bone mineral density is within the femoral trochanter, 0.5 x 5 g/cm2. T-score (standard deviation relative to young adult mean): -2.2 . -5.1% change since prior study. IMPRESSION: [employer] Classification: Osteoporosis - High Fracture Risk Electronically authenticated by: MERCED RAMACHANDRAN Date: 2021-11-21 15:[address] [facility] QUANTIFERON TB GOLD PLUSon 0 11-18-2021 QuantiFERON Criteria Comment Normal [facility] Comment on above: Result Comment: Casrto tiFERON-TB Gold Plus is a qualitative indirect test for M tuberculosis infection (including disease) and is intended for use in conjunction with risk assessment, radiography, and other medical and diagnostic evaluations. The QuantiFERON-TB Gold Plus result is determined by subtracting the Nil value from either TB antigen (Ag) value. The Mitogen tube serves as a control for the test. Performed By: #### Q NTTB #### [facility] [address] [place] [address] Dr. Kaitlynn Cohen QuantiFERON Incubation Incubation performed. Normal [facility] Comment on above: Performed By: #### Q NTTB #### [facility] [address] [place] [address] Dr. Kaitlynn Cohen QuantiFERON Mitogen Value 0.50 IU/mL Normal [facility] Comment on above: Performed By: #### Q NTTB #### [facility] [address] [place] [address] Dr. Kaitlynn Cohen QuantiFERON Nil Value 0.09 IU/mL Normal [facility] Comment on above: Performed By: #### Q NTTB #### [facility] [address] [place] [address] Dr. Kaitlynn Cohen QuantiFERON TB1 Ag Value 0.09 IU/mL Normal [facility] Comment on above: Performed By: #### Q NTTB #### [facility] [address] [place] [address] Dr. Kaitlynn Cohen QuantiFERON TB2 Ag Value 0.08 IU/mL Normal [facility] Comment on above: Performed By: #### Q NTTB #### [facility] [address] [place] [address] Dr. Kaitlynn Cohen QuantiFERON-TB Gold Plus Indeterminate Abnormal Negative [facility] Comment on above: Result Comment: Sihvam gen (positive control) gave low response. This may occur due to suboptimal pre-analytical handling. Chemiluminescence immunoassay methodology Performed By: #### Q NTTB #### [facility] [address] [place] [address] Dr. Kaitlynn Cohen CBC AUTO DIFFon 11-12-2021 BASO # 0.0 103/ul Normal 0.0-0.[address] [facility] Comment on above: Performed By: #### C BC #### [facility] [address] [place] [address] [address] Kaitlynn Cohen Basophils/100 WBC (Bld) 0.3 % Normal 0.2-2.0 [facility] Comment on above: Performed By: #### C BC #### [facility] [address] [place] [address] Dr. Kaitlynn Cohen EO # 0.0 103/ul Normal 0.0-0.[address] [facility] Comment on above: Performed By: #### C BC #### [facility] [address] [place] [address] Dr. Kaitlynn Cohen Eosinophils/100 WBC (Bld) 0.1 % Critically low 0.9-7.[address] [facility] Comment on above: Performed By: #### C BC #### [facility] [address] [place] [address] Dr. Kaitlynn Cohen Erythrocyte distribution width (RBC) [Ratio] 14.4 % Normal 11.0-15.[address] [facility] Comment on above: Performed By: #### C BC #### [facility] [address] [place] [address] Dr. Kaitlynn Cohen Hematocrit (Bld) [Volume fraction] 35.9 % Critically low 36.0-48.[address] [facility] Comment on above: Performed By: #### C BC #### [facility] [address] [place] [address] Dr. Kaitlynn Cohen Hemoglobin (Bld) [Mass/Vol] 11.3 g/dL Critically low 12.0-16.[address] [facility] Comment on above: Performed By: #### C BC #### [facility] [address] [place] [address] Dr. Kaitlynn Cohen IG # 0.02 10e3/ul Normal 0.00-0.[address] [facility] Comment on above: Performed By: #### C BC #### [facility] [address] [place] [address] Dr. Kaitlynn Cohen IG % 0.3 % Normal 0.0-0.[address] [facility] Comment on above: Performed By: #### C BC #### [facility] [address] [place] [address] [address] Kaitlynn Cohen LYMPH # 0.6 103/ul Critically low 1.2-3.8 [facility] Comment on above: Performed By: #### C BC #### [facility] [address] [place] [address] [address] Kaitlynn Cohen Lymphocytes/100 WBC (Bld) 8.7 % Critically low 20.5-60.[address] [facility] Comment on above: Performed By: #### C BC #### [facility] [address] [place] [address] [address] Kaitlynn Cohen MANUAL DIFF REQ NO Normal [facility] Comment on above: Performed By: #### C BC #### [facility] [address] [place] [address] Dr. Kaitlynn Cohen MCH (RBC) [Entitic mass] 24.7 pg Critically low 26.7-34.[address] [facility] Comment on above: Performed By: #### C BC #### [facility] [address] [place] [address] Dr. Kaitlynn Cohen MCHC (RBC) [Mass/Vol] 31.5 g/dL Normal 29.9-35.[address] [facility] Comment on above: Performed By: #### C BC #### [facility] [address] [place] [address] Dr. Kaitlynn Cohen MCV (RBC) [Entitic vol] 78.6 fL Critically low 81.0-99. [address] [facility] Comment on above: Performed By: #### C BC #### [facility] [address] [place] [address] [address] Kaitlynn Cohen MONO # 0.8 103/ul Normal 0.3-0.[address] [facility] Comment on above: Performed By: #### C BC #### [facility] [address] [place] [address] Dr. Kaitlynn Cohen Monocytes/100 WBC (Bld) 11.0 % Normal 1.7-12.0 [facility] Comment on above: Performed By: #### C BC #### [facility] [address] [place] [address] Dr. Kaitlynn Cohen NEUT # 5.6 103/ul Normal 1.4-6.[address] [facility] Comment on above: Performed By: #### C BC #### [facility] [address] [place] [address] Dr. Kaitlynn Cohen Neutrophils/100 WBC (Bld) 79.6 % Critically high 43.0-75.[address] [facility] Comment on above: Performed By: #### C BC #### [facility] [address] [place] [address] Dr. Kaitlynn Cohen Platelet mean volume (Bld) [Entitic vol] 9.3 fL Critically low 9.5-13.[address] [facility] Comment on above: Performed By: #### C BC #### [facility] [address] [place] [address] Dr. Kaitlynn Cohen PLT 223 103/ul Normal 150-[address] [facility] Comment on above: Performed By: #### C BC #### [facility] [address] [place] [address] Dr. Kaitlynn Cohen RBC 4.57 106/ul Normal 4.20-5.[address] [facility] Comment on above: Performed By: #### C BC #### [facility] [address] [place] [address] Dr. Kaitlynn Cohen WBC 7.0 103/ul Normal 4.0-11.[address] [facility] Comment on above: Performed By: #### C BC #### [facility] [address] [place] [address] Dr. Kaitlynn Cohen CTA NECK WO W CONon 11-13-19 22 CTA NECK WO W CON EXAMINATION: CTA NEC K WO W CON, CTA HEAD WO W CON HISTORY: HEADACHE, neck pain COMPARISON: None. TECHNIQUE: Contrast enhanced head and neck CT arteriogram was performed. Scanning performed during the arterial phase from the thoracic inlet to the akut[place] of Yun. 3D reconstructions were rendered on a separate 3D workstation to evaluate vascular anatomy. Dose reduction techniques were achieved by using automated exposure control and/or adjustment of mA and/or kV according to patient size and/or use of iterative reconstruction technique. Carotid stenosis was measured utilizing NASCET criteria. FINDINGS: VASCULATURE FINDINGS: Arch AND Subclavian Arteries: Standard three vessel arch. Subclavian arteries are normal bilaterally. Common Carotids: Normal bilaterally. ICAs: Patent bilaterally to the carotid terminus. MCAs: Normal bilaterally. ACAs: Normal bilaterally. P-Comms: Visualized on the left. Vertebral arteries: Normal to the confluence with the basilar artery. Basilar artery: Normal. logistics director: Normal bilaterally. Aneurysm: None. Dural venous sinuses: Patent. NECK FINDINGS: No acute soft tissue abnormalities in the neck. Airway is patent. Visualized lungs are clear. Multilevel cervicothoracic spondylotic changes. No noncontrast CT of head was performed prior to injection of contrast. IMPRESSION: No large vessel arterial occlusion, high-grade narrowing, or substantial luminal irregularity in the head or neck. Electronically authenticated by: FAITH MOSELEY Date: 2021-11-12 13:51 Normal [facility] PROF CHEM 8 (BAS METB)on Anion gap [Moles/Vol] 11.2 mmol/L Normal [facility] Comment on above: Performed By: #### B AURA HSTROPN #### [facility] [address] [place] [address] Dr. Kaitlynn Cohen Calcium [Mass/Vol] 9.2 mg/dL Normal 8.5-10.1 [facility] Comment on above: Performed By: #### B AURA HSTROPN #### [facility] [address] [address] [address] Kaitlynn Cohen Chloride [Moles/Vol] 99 mmol/L Normal 98-[address] [facility] Comment on above: Performed By: #### B AURA HSTROPN #### [facility] [address] [address] [address] Kaitlynn Cohen CO2 [Moles/Vol] 30.0 mmol/L Normal 21.0-32.0 [facility] Comment on above: Performed By: #### B AURA HSTROPN #### [facility] [address] [address] [address] Kaitlynn Cohen Creatinine [Mass/Vol] 0.79 mg/dL Normal 0.55-1.[address] [facility] Comment on above: Performed By: #### B AURA, HSTROPN #### [facility] [address] [address] [address] Kaitlynn Cohen EGFR-AF GUATEMALAN >60 Normal >=60 [facility] Comment on above: Performed By: #### B AURA, HSTROPN #### [facility] [address] [address] [address] Kaitlynn Cohen EGFR-NON AF GUATEMALAN >60 Normal >=[address] [facility] Comment on above: Performed By: #### B AURA, HSTROPN #### [facility] [address] [place] [address] Dr. Kaitlynn Cohen Glucose [Mass/Vol] 134 mg/dL Critically high 74-106 [facility] Comment on above: Performed By: #### B AURA, HSTROPN #### [facility] [address] [address] [address] Kaitlynn Cohen Potassium [Moles/Vol] 3.2 mmol/L Critically low 3.5-5.[address] [facility] Comment on above: Performed By: #### B AURA, HSTROPN #### [facility] [address] [place] [address] Dr. Kaitlynn Cohen Sodium [Moles/Vol] 137 mmol/L Normal 136-145 [facility] Comment on above: Performed By: #### B AURA, HSTROPN #### [facility] [address] [place] [address] Dr. Kaitlynn Cohen Urea nitrogen [Mass/Vol] 9.0 mg/dL Normal 7.0-18.[address] [facility] Comment on above: Performed By: #### B AURA, HSTROPN #### [facility] [address] [place] [address] Dr. Kaitlynn Cohen Urea nitrogen/Creatinine [Mass ratio] 11.4 mg/mg Normal [facility] Comment on above: Performed By: #### B AURA, HSTROPN #### [facility] [address] [place], [place] [address] Dr. Kaitlynn Cohen TROPONIN, HIGH SENSITIVITYon 11-12-2021 HSTROP 9.4 pg/mL Normal 4.0-51.3 [facility] Comment on above: Result Comment: CUT- OFF POINTS HAVE BEEN ESTABLISHED BASED ON THE FOURTH UNIVERSAL DEFINITIONS OF MYOCARDIAL INFARCTION. THE UPPER REFERENCE LIMIT (URL) OF TROPONIN, DEFINED THE 99TH PERCENTILE OF cTnI DISTRIBUTION IN A REFERENCE POPULATION, HAS BEEN CONFIRMED THE DECISION THRESHOLD FOR [place] DIAGNOSIS. Performed By: #### B MP, HSTROPN #### [facility] [address] [place], [place] [address] Dr. Kaitlynn Cohen ECHOCARDIO M/2D COMPLETEon 0 10-23-2021 ECHOCARDIO M/2D COMPLETE Patient: STELLA GARCIA Exam Date: 10/23/2021 : 1940 Gender:F Ordering : DR QUENTIN DEXTER M.D. Admission #: [id number] Family : Order #: [id number] CLICK HERE TO VIEW EXAM ECHOCARDIOGRAM REPORT PROCEDURE: CARDIO PULMONARY ECHOCARDIO M/2D COMP INDICATIONS: Diastolic dysfunction, edema COMPARISON: None. DESCRIPTION: COMPLETE ECHOCARDIOGRAM Real-time transthoracic echocardiography with 2D, M-mode, spectral and color flow Doppler performed. QUALITY: Technical quality was good. 66 175# BP 148/78 HR 81 LEFT VENTRICLE: Normal chamber size. Thickened septal wall. LV EF: Normal left ventricular ejection fraction, (>55%). DIASTOLIC: Grade II diastolic dysfunction. ATRIAL SEPTUM: Inadequately seen. LEFT ATRIUM: Mild dilatation. RIGHT ATRIUM: Mild dilatation. RIGHT VENTRICLE: Normal chamber size. Normal right ventricular systolic function. TRICUSPID VALVE: Normal mobility and thickness. No stenosis with trivial regurgitation. Doppler studies reveal mildly (35-45) elevated right sided pressures. RVSP 40 mmHg MITRAL VALVE: Normal mobility and thickness. No evidence of mitral valve stenosis. There is no mitral annular calcification. Trivial mitral regurgitation. AORTIC VALVE: Normal trileaflet appearance. Mildly calcified aortic valve. Normal leaflet mobility. No evidence of aortic valve stenosis. Trivial aortic regurgitation. AORTIC ROOT: Normal diameter and appearance. Aortic arch is normal in size. PULMONIC VALVE: Normal thickness and mobility. No stenosis. Trivial regurgitation. PERICARDIUM: No evidence of pericardial effusion. IVC: Collapses with inspirations. IVC is normal in size. CONCLUSION: Global left ventricular systolic function is normal; visually estimated ejection fraction 55 to 60%. No significant wall motion abnormalities. Grade 2, moderate diastolic dysfunction. Biatrial enlargement. The right ventricle is normal in size and systolic function. Mildly elevated right-sided pressures. No significant valvular abnormalities. Dictated by: Gerardo Cardenas M.D. on 10/23/2021 at 15:04 Approved by: Gerardo Cardenas M.D. on 10/23/2021 at 15:30 Normal [facility] BNPon 10-07-2021 Natriuretic peptide B (Bld) [Mass/Vol] 321.0 pg/mL Normal <=1,800.0 [facility] Comment on above: Performed By: #### C MP, BNP, TSH ####[facility] [address] [address]Dr. Kaitlynn Cohen CBC AUTO DIFFon 10-07-2021 BASO # 0.1 103/ul Normal 0.0-0.[address] [facility] Comment on above: Performed By: #### C BC ####[facility] [address] [place], [place] [address]Dr. Kaitlynn Cohen Basophils/100 WBC (Bld) 0.7 % Normal 0.2-2.0 [facility] Comment on above: Performed By: #### C BC ####[facility] [address] [place], [place] [address]Dr. Kaitlynn Cohen EO # 0.1 103/ul Normal 0.0-0.[address] [facility] Comment on above: Performed By: #### C BC ####[facility] [address] [place], [place] [address]Dr. Kaitlynn Cohen Eosinophils/100 WBC (Bld) 1.0 % Normal 0.9-7.[address] [facility] Comment on above: Performed By: #### C BC ####[facility] [address] [place], [place] [address]Dr. Kaitlynn Cohen Erythrocyte distribution width (RBC) [Ratio] 13.2 % Normal 11.0-15.[address] [facility] Comment on above: Performed By: #### C BC ####[facility] [address] [address]Dr. Kaitlynn Cohen Hematocrit (Bld) [Volume fraction] 37.3 % Normal 36.0-48.[address] [facility] Comment on above: Performed By: #### C BC ####[facility] [address] [address]Dr. Kaitlynn Cohen Hemoglobin (Bld) [Mass/Vol] 11.5 g/dL Critically low 12.0-16.0 [facility] Comment on above: Performed By: #### C BC ####[facility] [address] [place], [place] [address]Dr. Kaitlynn Cohen IG # 0.02 10e3/ul Normal 0.00-0.[address] [facility] Comment on above: Performed By: #### C BC ####[facility] [address] [place], [place] [address]Dr. Kaitlynn Cohen IG % 0.3 % Normal 0.0-0.5 [facility] Comment on above: Performed By: #### C BC ####[facility] [address] [place], [place] [address]Dr. Kaitlynn Cohen LYMPH # 0.8 103/ul Critically low 1.2-3.8 [facility] Comment on above: Performed By: #### C BC ####[facility] [address] [place], [place] [address]Dr. Kaitlynn Cohen Lymphocytes/100 WBC (Bld) 12.1 % Critically low 20.5-60.0 [facility] Comment on above: Performed By: #### C BC ####[facility] [address] [place], [place] [address]Dr. Kaitlynn Cohen MANUAL DIFF REQ NO Normal [facility] Comment on above: Performed By: #### C BC ####[facility] [address] [place], [place] [address]Dr. Kaitlynn Cohen MCH (RBC) [Entitic mass] 24.5 pg Critically low 26.7-34.0 [facility] Comment on above: Performed By: #### C BC ####[facility] [address] [id number]. Kaitlynn Noel MCHC (RBC) [Mass/Vol] 30.8 g/dL Normal 29.9-35.2 [facility] Comment on above: Performed By: #### C BC ####[facility] [address] [id number]. Kaitlynn Cohen MCV (RBC) [Entitic vol] 79.4 fL Critically low 81.0-99. 0 [facility] Comment on above: Performed By: #### C BC ####[facility] [address] [place], [place] [address]Dr. Kaitlynn Cohen MONO # 1.2 103/ul Critically high 0.3-0.8 [facility] Comment on above: Performed By: #### C BC ####[facility] [address] [place], [place] [address]Dr. Kaitlynn Cohen Monocytes/100 WBC (Bld) 16.5 % Critically high 1.7-12. 0 [facility] Comment on above: Performed By: #### C BC ####[facility] [address] [place], [place] [address]Dr. Yueraffaele Noel NEUT # 4.8 103/ul Normal 1.4-6.5 [facility] Comment on above: Performed By: #### C BC ####[facility] [address] [place], [place] [address]Dr. Kaitlynn Cohen Neutrophils/100 WBC (Bld) 69.4 % Normal 43.0-75.0 [facility] Comment on above: Performed By: #### C BC ####[facility] [address] [place], [place] [address]Dr. Kaitlynn Cohen Platelet mean volume (Bld) [Entitic vol] 9.7 fL Normal 9.5-13.5 [facility] Comment on above: Performed By: #### C BC ####[facility] [address] [place], [place] [address]Dr. Kaitlynn Cohen PLT 245 103/ul Normal 150-450 [facility] Comment on above: Performed By: #### C BC ####[facility] [address] [id number]. Kaitlynn Cohen RBC 4.70 106/ul Normal 4.20-5.[address] [facility] Comment on above: Performed By: #### C BC ####[facility] [address] [id number]. Kaitlynn Cohen WBC 7.0 103/ul Normal 4.0-11.[address] [facility] Comment on above: Performed By: #### C BC ####[facility] [address] [address]Dr. Kaitlynn Cohen PROF 14(COMP METB)on 022 Albumin [Mass/Vol] 4.0 g/dL Normal 3.4-5.0 [facility] Comment on above: Performed By: #### C MP, BNP, TSH ####[facility] [address] [address]Dr. Kaitlynn Cohen Albumin/Globulin [Mass ratio] 1.0 {ratio} Normal [facility] Comment on above: Performed By: #### C MP, BNP, TSH ####[facility] [address] [address]Dr. Kaitlynn Cohen ALP [Catalytic activity/Vol] 113 U/L Normal 46-[address] [facility] Comment on above: Performed By: #### C MP, BNP, TSH ####[facility] [address] [address]Dr. Kaitlynn Cohen ALT [Catalytic activity/Vol] 23 U/L Normal 14-[address] [facility] Comment on above: Performed By: #### C MP, BNP, TSH ####[facility] [address] [address]Dr. Kaitlynn Cohen Anion gap [Moles/Vol] 10.1 mmol/L Normal [facility] Comment on above: Performed By: #### C MP, BNP, TSH ####[facility] [address] [address]Dr. Kaitlynn Cohen AST [Catalytic activity/Vol] 28 U/L Normal 15-[address] [facility] Comment on above: Performed By: #### C MP, BNP, TSH ####[facility] [address] [address]Dr. Kaitlynn Cohen Bilirubin [Mass/Vol] 0.7 mg/dL Normal 0.2-1.[address] [facility] Comment on above: Performed By: #### C MP, BNP, TSH ####[facility] [address] [address]Dr. Kaitlynn Cohen Calcium [Mass/Vol] 9.8 mg/dL Normal 8.5-10.1 [facility] Comment on above: Performed By: #### C MP, BNP, TSH ####[facility] [address] [place], [place] [address]Dr. Kaitlynn Cohen Chloride [Moles/Vol] 89 mmol/L Critically low 98-107 [facility] Comment on above: Performed By: #### C MP, BNP, TSH ####[facility] [address] [place], [place] [address]Dr. Kaitlynn Cohen CO2 [Moles/Vol] 38.1 mmol/L Critically high 21.0-32.0 [facility] Comment on above: Performed By: #### C MP, BNP, TSH ####[facility] [address] [place], [place] [address]Dr. Kaitlynn Cohen Creatinine [Mass/Vol] 1.35 mg/dL Critically high 0.55-1.[address] [facility] Comment on above: Performed By: #### C MP, BNP, TSH ####[facility] [address] [address]Dr. Kaitlynn Cohen EGFR-AF GUATEMALAN 46 mL/min/1.73m2 Critically low >=60 [facility] Comment on above: Performed By: #### C MP, BNP, TSH ####[facility] [address] [address]Dr. Kaitlynn Cohen EGFR-NON AF GUATEMALAN 38 mL/min/1.73m2 Critically low >=60 [facility] Comment on above: Performed By: #### C MP, BNP, TSH ####[facility] [address] [address]Dr. Kaitlynn Cohen Globulin (S) [Mass/Vol] 4.1 g/dL Normal [facility] Comment on above: Performed By: #### C MP, BNP, TSH ####[facility] [address] [address]Dr. Kaitlynn Cohen Glucose [Mass/Vol] 112 mg/dL Critically high 74-106 [facility] Comment on above: Performed By: #### C MP, BNP, TSH ####[facility] [address] [address]Dr. Kaitlynn Cohen Potassium [Moles/Vol] 2.2 mmol/L Critically low 3.5-5.[address] [facility] Comment on above: Performed By: #### C MP, BNP, TSH ####[facility] [address] [address]Dr. Kaitlynn Cohen Protein [Mass/Vol] 8.1 g/dL Normal 6.4-8.2 [facility] Comment on above: Performed By: #### C MP, BNP, TSH ####[facility] [address] [address]Dr. Kaitlynn Cohen Sodium [Moles/Vol] 134 mmol/L Critically low 136-145 [facility] Comment on above: Performed By: #### C MP, BNP, TSH ####[facility] [address] [address]Dr. Kaitlynn Cohen Urea nitrogen [Mass/Vol] 31.0 mg/dL Critically high 7.0-18.[address] [facility] Comment on above: Performed By: #### C MP, BNP, TSH ####[facility] [address] [address]Dr. Kaitlynn Cohen Urea nitrogen/Creatinine [Mass ratio] 23.0 mg/mg Normal [facility] Comment on above: Performed By: #### C MP, BNP, TSH ####[facility] [address] [place], [place] [address]Dr. Kaitlynn Cohen TSHon 10-07-2021 TSH 3.049 uIU/mL Normal 0.358-3.740 [facility] Comment on above: Performed By: #### C MP, BNP, TSH ####[facility] [address] [address]Dr. Kaitlynn Cohen RESPIRATORY PANEL PLUSon Adenovirus Not detected Normal NOT DETECTED [facility] Comment on above: Performed By: #### R SPLUS #### [facility] [address] [place] [address] Dr. Kaitlynn Shields. Parapertusis Not detected Normal NOT DETECTED [facility] Comment on above: Performed By: #### R SPLUS #### [facility] [address] [place] [address] Dr. Kaitlynn Mcgregor Pertussis Not detected Normal NOT DETECTED [facility] Comment on above: Performed By: #### R SPLUS #### [facility] [address] [place] [address] Dr. Kaitlynn Cohen Chlamydia Pneumoniae Not detected Normal NOT DETECTED [facility] Comment on above: Performed By: #### R SPLUS #### [facility] [address] [place] [address] Dr. Kaitlynn Cohen Coronavirus 229E Not detected Normal NOT DETECTED [facility] Comment on above: Performed By: #### R SPLUS #### [facility] [address] [place] [address] Dr. Kaitlynn Cohen Coronavirus HKU1 Not detected Normal NOT DETECTED [facility] Comment on above: Performed By: #### R SPLUS #### [facility] [address] [place] [address] Dr. Kaitlynn Cohen Coronavirus NL63 Not detected Normal NOT DETECTED [facility] Comment on above: Performed By: #### R SPLUS #### [facility] [address] [place] [address] Dr. Kaitlynn Cohen Coronavirus OC43 Not detected Normal NOT DETECTED [facility] Comment on above: Performed By: #### R SPLUS #### [facility] [address] [place] [address] Dr. Kaitlynn Cohen Influenza A H1 2009 Not detected Normal NOT DETECTED [facility] Comment on above: Performed By: #### R SPLUS #### [facility] [address] [address] [address] Kaitlynn Cohen Influenza A H3 Not detected Normal NOT DETECTED [facility] Comment on above: Performed By: #### R SPLUS #### [facility] [address] [place] [address] Dr. Kaitlynn Cohen Influenza B Not detected Normal NOT DETECTED [facility] Comment on above: Performed By: #### R SPLUS #### [facility] [address] [place] [address] Dr. Kaitlynn Cohen Metapneumovirus Not detected Normal NOT DETECTED [facility] Comment on above: Performed By: #### R SPLUS #### [facility] [address] [place] [address] Dr. Kaitlynn Cohen Mycoplas. Pneumoniae Not detected Normal NOT DETECTED [facility] Comment on above: Performed By: #### R SPLUS #### [facility] [address] [place] [address] Dr. Kaitlynn Cohen Parainfluenza 1 Not detected Normal NOT DETECTED [facility] Comment on above: Performed By: #### R SPLUS #### [facility] [address] [place] [address] Dr. Kaitlynn Cohen Parainfluenza 2 Not detected Normal NOT DETECTED [facility] Comment on above: Performed By: #### R SPLUS #### [facility] [address] [place] [address] Dr. Kaitlynn Cohen Parainfluenza 3 Not detected Normal NOT DETECTED [facility] Comment on above: Performed By: #### R SPLUS #### [facility] [address] [place] [address] Dr. Kaitlynn Cohen Parainfluenza 4 Not detected Normal NOT DETECTED [facility] Comment on above: Performed By: #### R SPLUS #### [facility] [address] [place] [address] Dr. Kaitlynn Cohen Rhino/Enterovirus Not detected Normal NOT DETECTED [facility] Comment on above: Performed By: #### R SPLUS #### [facility] [address] [address] [address] Kaitlynn Cohen RP2 Header 1 RESPIRATORY PANEL: VIRUSES Normal [facility] Comment on above: Performed By: #### R SPLUS #### [facility] [address] [address] [address] Kaitlynn Cohen RP2 Header 2 RESPIRATORY PANEL: BACTERIA Normal [facility] Comment on above: Performed By: #### R SPLUS #### [facility] [address] [address] [address] Kaitlynn Cohen RSV Not detected Normal NOT DETECTED [facility] Comment on above: Performed By: #### R SPLUS #### [facility] [address] [place] [address] Dr. Kaitlynn Cohen SARS-CoV-2 (COVID-19) RNA JANE+probe Ql (Unsp spec) Not detected Normal NOT DETECTED [facility] Comment on above: Performed By: #### R SPLUS #### [facility] [address] [place] [address] Dr. Kaitlynn Cohen XR CHEST 2 Von 08-20-2021 XR CHEST 2 V EXAMINATION: XR CHES T 2 V HISTORY: Cough COMPARISON: CT chest 02/07/2019 FINDINGS: LUNGS: Trace amount stranding within right lateral costophrenic angle. VASCULATURE: No increased pulmonary vasculature. PLEURA: No pneumothorax, effusion, or pleural thickening. CARDIAC: No cardiomegaly or cardiac silhouette abnormality. MEDIASTINUM: No visible mass or adenopathy. BONES: Chronic T11 marked compression fracture. OTHER: Negative. IMPRESSION: 1. Low lung volume examination with trace amount of right basilar atelectasis or infiltrates. Electronically authenticated by: MERCED RAMACHANDRAN Date: 2021-08-20 13:16 Normal [facility] VC CONSULT FOLLOWUPon 2021 VC CONSULT FOLLOWUP Patient: STELLA GARCIA Exam Date: 2021 : 1940 Gender:F Ordering : DR MONTSERRAT FAUST M.D. Admission #: [id number] Family : Order #: [id number] CLICK HERE TO VIEW EXAM RADIOLOGY REPORT PROCEDURE: VEIN CENTER CONSULTATION FOLLOWUP VEIN CENTER - OFFICE VISIT FOLLOW UP COMPARISON: VC CONSULT FOLLOWUP, 08/06/2021. VC CONSULT FOLLOWUP, 07/23/2021. PROGRESS NOTES: The patient reports no significant difficulties following micro foam chemical ablation of the right leg. The patient did wear her compression stockings. The patient did not require oral analgesics. The patient has partially followed our recommendations to walk 20-30 minutes once or twice per day since the procedure. The patient reports marked improvement in her initial presenting symptoms, however she does complain of increased swelling in the left leg below the knee. The patient has had asymmetric swelling of the left leg ever since she had deep vein thrombus. Physical exam demonstrates asymmetric swelling of the left leg below the knee most significant along the ankle. I do not feel this is related to venous disease. 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 I counseled the patient on increasing her exercise which she has decreased during these treatments, with no limitations from a vein standpoint. I also encouraged her to wear compression stockings and elevate the legs as necessary. Review of the ultrasound performed the same day demonstrates occlusive thrombus extending throughout the treated right leg varicose veins. Stable 12 cm segment of deep vein thrombus in the left posterior tibial vein with no clot propagation. No acute left deep vein thrombus. Ultrasound demonstrates mildly dilated right accessory great saphenous vein, no reflux could be demonstrated and treatment is not needed. The patient did not want treatment of reticular and spider veins. IMPRESSION: 1. Successful ablation of incompetent right leg varicose veins 2. Persistent bilateral reticular and spider veins, the patient does not want these treated PLAN: Consider follow-up in 1-2 years, sooner if needed Nurse notes, history and physical were reviewed and confirmed, see attached forms. The nurse was present throughout the physical exam and consultation Dictated by: Montserrat Faust MD on 2021 at 12:15 Approved by: Montserrat Faust MD on 2021 at 12:19 [facility] VC EXT VENOUS GERRY LIMITEDon 2021 VC EXT VENOUS GERRY LIMITED Patient: STELLA GARCIA Exam Date: 2021 : 1940 Gender:F Ordering : DR MONTSERRAT FAUST M.D. Admission #: [id number] Family : Order #: [id number] CLICK HERE TO VIEW EXAM RADIOLOGY REPORT PROCEDURE: VEIN CENTER EXTREMITY VENOUS BILATERAL LIMITED COMPARISON: None. INDICATIONS: Phlebitis and thrombophlebitis of superficial veins of bilateral lower extremity I80.03 TECHNIQUE: Lower extremity adame scale and Duplex Doppler evaluation of the deep venous system from the inguinal ligament through the calf veins. FINDINGS: REGION: Right lower extremity. THROMBI: Chemically induced thrombus in multiple varicose veins distal to mid lower leg as well as two perforators in lower medial leg. COMPRESSIBILITY: Noncompressibility corresponding to thrombus FLOW: Absent flow corresponding to thrombus OTHER: Patent possible accessory GSV that arises from GSV/carroting machine operator proximal thigh and extends to the distal lower leg. Measures 4.3 mm distal. REGION: Left lower extremity. THROMBI: Stable chronic thrombus in CFV and distal FV. Stable thrombus in PTV in a 12 cm segment from mid to distal calf. COMPRESSIBILITY: Noncompressibility corresponding to thrombus FLOW: Decreased and absent flow corresponding to thrombus OTHER: No patent varicose veins remain. *Exam performed in accordance with [facility] practice guidelines- Peripheral venous ultrasound, June 29, 2009. CONCLUSION: 1. Post ablation occlusion of right leg varicose veins 2. Stable 12 cm segment of deep vein thrombus left posterior tibial vein Dictated by: Montserrat Faust MD on 2021 at 12:05 Approved by: Montserrat Faust MD on 2021 at 12:[address] [facility] VC CONSULT FOLLOWUPon 2021 VC CONSULT FOLLOWUP Patient: STELLA GARCIA Exam Date: 08/06/2021 : 1940 Gender:F Ordering : DR MONTSERRAT FAUST M.D. Admission #: [id number] Family : Order #: [id number] CLICK HERE TO VIEW EXAM RADIOLOGY REPORT PROCEDURE: VEIN CENTER CONSULTATION FOLLOWUP VEIN CENTER - OFFICE VISIT FOLLOW UP COMPARISON: VC CONSULT FOLLOWUP, 07/23/2021. PROGRESS NOTES: The patient reports no pain or swelling following micro foam chemical ablation of left leg incompetent tributaries/varicose veins. The patient did not require oral analgesics. The patient did wear her compression stockings but has difficulty with mobility and therefore did not walk much. Physical exam demonstrates scattered thrombosed varicose veins. No areas of erythema or warmth to suggest cellulitis or thrombophlebitis. No areas of active ulceration Review of the ultrasound performed the same day demonstrates occlusive thrombus extending throughout the treated left leg varicose veins. There is occlusive deep vein thrombus identified in a 12 cm segment of the mid left posterior tibial vein related to an incompetent carroting machine operator vein connecting the treated veins with a deep vein, the perforating vein is also occluded. This was discussed with the patient and I recommended 325 milligram enteric coated aspirin once per day for 30 days with a follow-up in 10-14 days. The patient expressed a desire to proceed with treatment of right leg incompetent branch saphenous tributaries/varicose veins with micro foam chemical ablation IMPRESSION: 1. Successful ablation left leg incompetent varicose veins 2. Small segment of deep vein thrombus left posterior tibial vein associated with an incompetent carroting machine operator vein PLAN: 1. 325 milligram enteric coated aspirin 1 q.d. For 30 days 2. Follow-up ultrasound 10-14 days 3. Micro foam chemical ablation right leg Nurse notes, history and physical were reviewed and confirmed, see attached forms. The nurse was present throughout the physical exam and consultation Dictated by: Montserrat Faust MD on 08/06/2021 at 12:04 Approved by: Montserrat Faust MD on 08/06/2021 at 12:[address] [facility] VC EXT VENOUS LT LIMITEDon 0 08-06-2021 VC EXT VENOUS LT LIMITED Patient: STELLA GARCIA Exam Date: 08/06/2021 : 1940 Gender:F Ordering : DR MONTSERRAT FAUST M.D. Admission #: [id number] Family : Order #: [id number] CLICK HERE TO VIEW EXAM RADIOLOGY REPORT PROCEDURE: VEIN CENTER EXTREMITY VENOUS LEFT LIMITED COMPARISON: None. INDICATIONS: Phlebitis and thrombophlebitis of superficial veins of left lower extremity I80.02 TECHNIQUE: Lower extremity adame scale and Duplex Doppler evaluation of the deep venous system from the inguinal ligament through the calf veins. FINDINGS: REGION: Left lower extremity. THROMBI: Positive for DVT. Chemically induced thrombus multiple varicose veins distal lower leg/foot/ankle and in the PTV 12 cm segment with associated carroting machine operator. Chronic partial thrombus in distal femoral vein. COMPRESSIBILITY: Noncompressibility corresponding to thrombus. FLOW: Absent flow corresponding to thrombus OTHER: *Exam performed in accordance with [employer] practice guidelines- Peripheral venous ultrasound, June 29, 2009. CONCLUSION: 1. Deep vein thrombus identified in a 12 cm segment of the posterior tibial vein corresponding to a carroting machine operator vein which communicates with treated varicose veins 2. Post ablation occlusion of incompetent branch saphenous tributaries/varicose veins Dictated by: Montserrat Faust MD on 08/06/2021 at 11:51 Approved by: Montserrat Faust MD on 08/06/2021 at 11:[address] [facility] VC INJ FOAM SCLERO W US MLTI on 07-30-2021 VC INJ FOAM SCLERO W US MLTI Patient: STELLA GARCIA Exam Date: 07/30/2021 : 1940 Gender:F Ordering : DR MONTSERRAT FAUST M.D. Admission #: [id number] Family : Order #: [id number] CLICK HERE TO VIEW EXAM RADIOLOGY REPORT PROCEDURE: VEIN CENTER INJECTION FOAM SCLEROSING SOLUTION WITH ULTRASOUND MULTIPLE VEINS COMPARISON: None. Pre-operative Diagnosis: CEAP class C4a venous insufficiency with pain, tenderness, edema and incompetent left great saphenous vein and saphenous tributaries/varicose veins, chronic venous insufficiency left leg secondary to venous incompetence Post-operative Diagnosis: CEAP class C4a venous insufficiency with pain, tenderness, edema and incompetent left great saphenous vein and saphenous tributaries/varicose veins, chronic venous insufficiency left leg secondary to venous incompetence Procedure Performed: 1. Ultrasound-guided microfoam chemical ablation with Varithena(r) 2. Intraoperative ultrasound guidance Physician: Montserrat Faust M.D. Anesthesia: Non Indications for Procedure: 80-year-old female who presents with a 20 year history of lower extremity pain swelling and varicose veins with multiple prior treatments. The patient has multiple episodes of cellulitis requiring IV antibiotics and hospitalization. The patient failed conservative medical therapy including medical compression stockings, exercise and analgesics. No prior procedure at our institution Multiple incompetent varicosities of the left leg. Duplex scan showed reflux and enlarged diameters up to 5 mm. The patient underwent informed consent including management options where the complications of infection, bleeding, pain, and skin injury were discussed. Particular attention was spent discussing thrombus extension and deep vein thrombosis as well as the possibility of pulmonary embolus and treatment with oral or injectable blood thinners. Procedure: The patient walked to the procedure room. All applicable staff donned appropriate apparel. A procedure timeout was performed to confirm correct patient, correct extremity, correct procedure, and correct room set-up including presence of all applicable supplies, devices, and drugs. A duplex ultrasound, performed by myself confirmed the location and incompetence of incompetent left leg varicose veins and their course marked on the skin together with the dilated tributaries. The extent of treatment of the vein and the associated varicosities was determined through ultrasound mapping. The patient was placed on the operating room table. The limb was prepped. The skin was punctured with a butterfly needle through the skin with the venous access needle and advanced under ultrasound guidance. The target limb was positioned at 45 degrees of elevation in relation to the torso utilizing a foam pad. The Varithena(r) canister was activated and the canister was primed and purged as required in the instructions for use. The following injections were made: 8 mL aliquot of Varithena(r) was drawn into a sterile syringe. Injection into a 5 mm varicose vein distal medial lower leg/ankle. This was a tributary of the great saphenous vein inserting at the level of the upper to mid calf 2 mL aliquot of Varithena(r) was drawn into a sterile syringe. Injection into a 3 mm varicose vein medial ankle 2mL aliquot of Varithena(r) was drawn into a sterile syringe. Injection into a 3 mm varicose vein medial foot Varithena(r) was slowly administered at 0.5-1.0 cc/second with close observation by ultrasound of its course in the injected veins. A total volume of 12 mL of Varithena(r) was used. During administration of Varithena(r), the patient was asked to dorsiflex the ankle to limit flow of Varithena(r) into perforating veins. Once appropriate spasm had been confirmed in the treated veins, the vascular catheter was removed from the leg and light pressure was applied over the puncture site for hemostasis The common femoral and deep superficial veins were then evaluated for flow and compressibility prior to dressing placement. The lower extremity was kept elevated at 45 degrees above the horizontal and cording material was applied over the saphenous segments and tributaries to allow for eccentric compression over the target vessels including the targeted saphenous vein(s). A multilayer dressing was applied consisting of foam pads, coban and thigh-high 20-30 mm Hg compression elastic support hose were placed on the patient. The leg was lowered only after compression had been applied and the patient was immediately ambulatory. The patient ambulated 10 minutes under supervision and was without apparent concerns at time of release Post-care instructions include advising patient to keep post-treatment bandages in place and dry for 48 hours, avoid extended periods of inactivity, avoid heavy exercise for one week, wear compression stockings on the treated leg cont (more content not included)... Normal [facility] VC CONSULT FOLLOWUPon 2021 VC CONSULT FOLLOWUP Patient: STELLA GARCIA Exam Date: 07/23/2021 : 1940 Gender:F Ordering : DR MONTSERRAT FAUST M.D. Admission #: [id number] Family : Order #: [id number] CLICK HERE TO VIEW EXAM RADIOLOGY REPORT PROCEDURE: VEIN CENTER CONSULTATION FOLLOWUP VEIN CENTER - OFFICE VISIT FOLLOW UP COMPARISON: None. PROGRESS NOTES: The patient reports tenderness in medial upper right thigh by end of the day, most notable after walking. There has been interval reduction in varicosities. The patient has followed our recommendations to walk 20-30 minutes once or twice per day since the procedure. Physical exam demonstrates decrease in no erythema, swelling, or significant bruising of the upper right leg. Persistent superficial varicosities are identified along the legs bilaterally. Review of the ultrasound performed the same day demonstrates occlusive thrombus extending throughout the treated vein, see separate report, consistent with a successful ablation. No thrombus extending into or beyond the saphenofemoral junction. The patient expressed a desire to proceed with treatment of incompetent branch saphenous varicosities bilaterally. The patient was informed that treatment was a process and would require several procedures/sessions. IMPRESSION: 1. Successful ablation of the right great saphenous vein(s). 2. Persistent incompetent varicose veins and bilateral leg symptoms PLAN: Microfoam chemical ablation of left leg incompetent varicosities followed by right leg. Nurse notes, history and physical were reviewed and confirmed, see attached forms. The nurse was present throughout the physical exam and consultation Dictated by: Merced Ramachandran M.D. on 07/23/2021 at 12:10 Approved by: Merced Ramachandran M.D. on 07/23/2021 at 12:[address] [facility] VC EXT VENOUS RT LIMITEDon 0 07-23-2021 VC EXT VENOUS RT LIMITED Patient: STELLA GARCIA Exam Date: 07/23/2021 : 1940 Gender:F Ordering : DR MONTSERRAT FAUST M.D. Admission #: [id number] Family : Order #: [id number] CLICK HERE TO VIEW EXAM RADIOLOGY REPORT PROCEDURE: VEIN CENTER EXTREMITY VENOUS RIGHT LIMITED COMPARISON: None. INDICATIONS: Phlebitis and thrombophlebitis of superficial veins of right lower extremity I80.01 TECHNIQUE: Lower extremity adame scale and Duplex Doppler evaluation of the deep venous system from the inguinal ligament through the calf veins. FINDINGS: REGION: Right lower extremity. THROMBI: Negative for DVT. Heat induced thrombus in right GSV 4.1 cm from the SFJ and extends to the mid/distal calf. Thrombus in gastroc vein and carroting machine operator proximal calf. COMPRESSIBILITY: Non-compressible segments. FLOW: Areas of no flow. OTHER: *Exam performed in accordance with [facility] practice guidelines- Peripheral venous ultrasound, June 29, 2009. CONCLUSION: 1. Successful post ablation occlusion of right great saphenous vein. Dictated by: Merced Ramachandran M.D. on 07/23/2021 at 12:00 Approved by: Merced Ramachandran M.D. on 07/23/2021 at 12:[address] [facility] VC ENDOVENOUS ABL 1ST V RTon 07-16-2021 VC ENDOVENOUS ABL 1ST V RT Patient: STELLA GARCIA Exam Date: 07/16/2021 : 1940 Gender:F Ordering : DR MONTSERRAT FAUST M.D. Admission #: [id number] Family : Order #: [id number] CLICK HERE TO VIEW EXAM RADIOLOGY REPORT PROCEDURE: VEIN CENTER ENDOVENOUS ABLATION FIRST VEIN RIGHT GREAT SAPHENOUS VEIN COMPARISON: None. INDICATIONS: Pain co-occurrent and due to varicose veins of bilateral legs I83.813 OPERATIVE REPORT: The risks and benefits of the procedure had been previously discussed, and were rediscussed at length. Informed written consent was obtained by and Roberto zavala. Time out procedure was performed. The right lower extremity was prepared and draped in the usual sterile fashion to allow knee flexion in the sterile field. Duplex ultrasound probe was draped in a sterile cover, sterile transmission gel was used. Venous mapping was performed with the areas of dilation and large tributaries marked. The total length was 16 cm from the entry mid thigh to 3 cm below the saphenofemoral junction. The diameter of the greater saphenous vein ranged from 4-16 mm. A 30 gauge needle and 1% buffered lidocaine was used to anesthetize the entry site. A 4 mm incision was made with a scalpel and the saphenous vein was entered percutaneously under direct ultrasound guidance with a micropuncture set, a single stick was successful in gaining access. A micro-guide wire was inserted and the needle removed. A micro-set including a dilator was inserted over the microwire and the needle and dilator were removed. A 0.018 guide wire was inserted through the micro-set and threaded through the saphenous vein to the saphenofemoral junction. The dilator was removed and an introducer sheath was inserted over the wire until the end of the sheath entered the saphenofemoral junction. The dilator and wire were removed and the 600 micron fiber was introduced and placed and positioned so that it extended beyond the sheath and was 3 cm peripheral to the saphenofemoral femoral junction. Final position of the fiber was determined by ultrasound guidance and duplex imaging. Tumescent anesthetic was delivered by ultrasound guidance. 225 cc of fluid was delivered along the entire course of the saphenous vein. The solution consisted of 500 cc of normal saline with 20mL of 1% lidocaine and 10 mL of sodium bicarbonate. A final positioning check was made. The energy source was turned on by means of the foot pedal and the fiber and sheath were withdrawn. The total number of Joules delivered was 1158. The laser was active for 145 seconds under continuous pulse, average laser use of 8 J. Laser start time 12:17 p.m. July 16, 2021. Laser stop time 12:19 p.m. July 16, 2021. A duplex ultrasound revealed compressibility and flow at the saphenofemoral junction immediately after the procedure. Hemostasis at the access site was achieved. The skin incision of the saphenous vein was closed with a 4 x 4. A compression stocking was applied. Postop instructions were given. A follow up appointment was recommended and scheduled. The patient tolerated the procedure well and was discharged in good condition. CONCLUSION: 1. Technically successful endovenous laser ablation of the right great saphenous vein. Dictated by: Montserrat Faust MD on 07/16/2021 at 12:21 Approved by: Montserrat Faust MD on 07/16/2021 at 12:[address] [facility] CREATININEon 06-04-2021 Creatinine [Mass/Vol] 0.95 mg/dL Normal 0.52-1.[address] [facility] Comment on above: Performed By: #### C TORI #### [facility] [address] [address] [address] Kaitlynn Cohen EGFR-AF GUATEMALAN >60 Normal >=60 [facility] Comment on above: Performed By: #### C TORI #### [facility] [address] [place] [address] Dr. Kaitlynn Cohen EGFR-NON AF GUATEMALAN 57 mL/min/1.73m2 Critically low >=[address] [facility] Comment on above: Performed By: #### C TORI #### [facility] [address] [place] [address] Dr. Kaitlynn Cohen CTA ABD/PELVIS WO W CONon CTA ABD/PELVIS WO W CON EXAMINATION: CTA ABD/PELVIS WO W CON HISTORY: Compression of vein ; May-Thurner syndrome, rule out central venous obstruction COMPARISON: No relevant comparison available. TECHNIQUE: Axial, Coronal, and Sagittal CT images without and with IV contrast. Multi-planar/3-D imaging to optimize visualization of vascular anatomy. Dose reduction techniques were achieved by using automated exposure control and/or adjustment of mA and/or kV according to patient size and/or use of iterative reconstruction technique. FINDINGS: AORTA/VASCULAR: No aneurysm or dissection. CELIAC ARTERY: Normal celiac vessels. SMA: Normal mesenteric vessels. RENAL ARTERIES: Normal renal vessels. VEINS: Very small left common and external iliac vein. Markedly dilated collateral vessel within the subcutaneous fat of the lower anterior pelvis connecting the left common femoral vein to the right common femoral vein. LUNG BASES: No visible pulmonary or pleural disease. LIVER: No enlargement, atrophy, abnormal density, or significant focal lesion. BILIARY: Cholecystectomy. PANCREAS: No lesion, fluid collection, ductal dilatation, or atrophy. SPLEEN: No enlargement or focal lesion. ADRENALS: No mass or enlargement. KIDNEYS: Moderate cortical thinning bilaterally. No mass, obstruction, or calcification. BOWEL/MESENTERY: Large hiatal hernia. No visible mass, obstruction, or bowel wall thickening. RETROPERITONEUM: No mass or adenopathy. LYMPH NODES: No adenopathy. URINARY BLADDER: No visible focal wall thickening, lesion, or calculus. PELVIC ORGANS: No visible mass. Pelvic organs appropriate for patient age. ABDOMINAL WALL: No mass or hernia. BONES: Marked scoliosis and degenerative changes of the lumbar spine. Moderate marked compression fractures of T11, L2, and L5. OTHER: Negative. IMPRESSION: 1. 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 Thrombosis and collapse of the vein secondary to external pressure from passing posterior to the right common iliac artery cannot be excluded. There is well-established collateral flow through dilated vessel within the subcutaneous fat of the lower anterior pelvic wall connecting the right and left common femoral veins. 2. Large hiatal hernia with majority of the stomach above the diaphragm. 3. Multilevel compression fractures and marked scoliosis and degenerative changes of the lumbar spine. No prior studies for comparison. Electronically authenticated by: MERCED RAMACHANDRAN Date: 2021-06-04 16:[address] [facility] VC COMP CONSULTATIONon 05-21 VC COMP CONSULTATION Patient: STELLA BLANCHARD. Exam Date: 05/21/2021 : 1940 Gender:F Ordering : DR LONI NAVARRO Admission #: [id number] Family : Order #: [id number] CLICK HERE TO VIEW EXAM RADIOLOGY REPORT PROCEDURE: VC VEIN CENTER CONSULTATION VEIN CENTER - OFFICE VISIT INITIAL COMPARISON: None. PROGRESS NOTES: 80-year-old female who presents with a 20 year history of lower extremity pain swelling and varicose veins. The patient was previously seen by Dr. Pickard in [place] approximately 15 years ago. The patient was previously offered vein stripping which she declined. The patient's symptoms have significantly increased in the past 5 years resulting in 2 episodes cellulitis 1 on the left leg 5 years ago 1 on the right leg 2 years ago both requiring admission to the hospital for IV antibiotics. The patient rates the pain as a 10 on a scale of 1-10. The pain significantly affects her ability to walk, she does walk with a cane. The patient symptoms are exacerbated by prolonged sitting or standing. The patient's symptoms are minimally relieved by rest, leg elevation, over the counter ibuprofen and compression stockings which she has worn for many years. The patient's initial symptoms began after her . The patient denies any signs and symptoms to suggest arterial ischemia. The patient's does exercise daily. Patient has maintained her weight. The patient describes a family history significant for varicose veins in a paternal grandmother. Heart disease in her father. Type 2 diabetes in both parents. The patient does not smoke drink or use any illicit drugs. 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 Past medical history is significant for lap cholecystectomy, right knee replacement, back surgery and left great toe surgery. No history of deep venous thrombus or pulmonary embolus. See separate history and physical for medication list. No prior treatment for varicose or spider veins. Nursing notes were reviewed. After history and physical exam I discussed at length the pathophysiology of venous hypertension and possible treatments, therapies and strategies available. We discussed at length the importance of elevating the lower extremities above the level of the heart, increased physical activity and compression stocking use. We discussed alternatives of conservative therapy with bilateral thigh-high compression stockings. Surgical interventions including ligation and stripping and phlebectomy. We discussed intravenous laser ablation ablation and injection sclerotherapy at length. The risks and benefits were discussed. The patient's questions were answered. Ultrasound venous reflux study performed same day was discussed at length with the patient. The report demonstrates severe right great saphenous vein venous insufficiency. Marked dilation and incompetence in the left epigastric vein. Mild left great saphenous vein venous insufficiency. Bilateral incompetent carroting machine operator veins. Extensive incompetent bilateral branch saphenous tributaries/varicose veins PHYSICAL EXAM: The right leg demonstrates extensive varicose veins most significant along the medial leg extending from the thigh to the ankle. Moderate diffuse reticular, spider and pre hemorrhagic veins. Moderate subcutaneous edema below the knee. Extensive circumferential hemosiderin staining mid to distal calf The left leg demonstrates moderate scattered varicose veins. Moderate diffuse reticular, spider in pre hemorrhagic veins. Moderate subcutaneous edema below the knee. Moderate to extensive circumferential hemosiderin staining mid to distal calf Both thighs, legs and feet were symmetrically warm to the touch. Good posterior tibial and dorsalis pedis pulses were present bilaterally. IMPRESSION: 1. Chronic venous insufficiency . Severe venous insufficiency right great saphenous vein. Moderate venous insufficiency proximal left great saphenous vein 2. Bilateral incompetent carroting machine operator veins 3. Dilated incompetent left epigastric vein, central vein stenosis is suspected 4. Severe right and moderate left varicose veins and pre hemorrhagic veins 5. Moderate bilateral subcutaneous edema 6. Moderate to large amount of bilateral hemosiderin staining, left greater than right 7. No definite 8. CEAP: C4a, Ep, Asp, Pr PLAN: 1. Intravenous laser ablation right great saphenous vein 2. CT angiogram/CT venogram of the abdomen and pelvis to evaluate for central venous occlusion 3. Possible intravenous laser ablation of incompetent carroting machine operator vein 4. Micro foam chemical ablation bilateral incompetent branch saphenous tributaries/varicose veins 5. Injection sclerotherapy bilateral reticular and pre hemorrhagic veins 6. Long-term use of bilateral thigh-high 20-30 mm compre (more content not included)... Normal [facility] VC VENOUS REFLUX GERRY LMTon 0 05-21-2021 VC VENOUS REFLUX GERRY LMT Patient: STELLA GARCIA Exam Date: 05/21/2021 : 1940 Gender:F Ordering : DR LONI GARSIA PA Admission #: [id number] Family : DR MONTSERRAT FAUST M.D. Order #: [id number] CLICK HERE TO VIEW EXAM RADIOLOGY REPORT PROCEDURE: VEIN CENTER ULTRASOUND VENOUS REFLUX BILATERAL LIMTED COMPARISON: None. INDICATIONS: Pain co-occurrent and due to varicose veins of bilateral legs I83.813 TECHNIQUE: Duplex imaging of the lower extremity to assess the deep and superficial venous system for the presence of deep or superficial venous incompetence and to document the location and severity of disease. The study includes evaluation of the great saphenous vein (GSV), anterior accessory saphenous vein (AASV) and small saphenous vein (SSV). Patient scanned in reverse Trendelenburg and standing. FINDINGS: RIGHT LOWER EXTREMITY: Saphenofemoral Junction Reflux: Yes 15.4mm 6.1 sec GSV: Diam (mm) Reflux/ Time (sec) Proximal Thigh 16.0 Yes 5.8 Mid Thigh 8.6 Yes 3.6 Distal Thigh 2.4 No Prox Calf 1.6 No Mid Calf 5.5 Yes 1.0 Saphenopopliteal Junction Reflux: 3.5mm No SSV: Proximal Calf 2.0 No Mid Calf 4.3 No AASV: Proximal Thigh 2.0 No Mid Thigh 2.0 No Distal Thigh Thrombi: None. Compressibility: Normal. Flow: Normal. Preforator: Mid thigh measures 5.7 mm with 2.7 seconds of reflux. Multiple incompetent perforators in calf. Tech Note: Reflux noted in femoral and popliteal veins. Incompetent varicose vein off of GSV mid/distal thigh measures 12.5 mm with 4.2 seconds of reflux. Incompetent varicose vein distal calf medial measures 3.7 mm with 1.0 seconds reflux. Mid calf varicosity off GSV measures 5.2 mm with 2.3 seconds of reflux. LEFT LOWER EXTREMITY: Saphenofemoral Junction Reflux: Yes 12.2 mm 5.9 sec GSV: Diam (mm) Reflux/Time (sec) Proximal Thigh 6.2 Yes 1.1 Mid Thigh 5.2 No Distal Thigh 3.8 No Prox Calf 3.0 No Mid Calf 3.3 No Saphenopopliteal Junction Relux: 2.9 mm No SSV: Proximal Calf 2.2 No Mid Calf 2.3 No AASV: Not present Thrombi: Thrombus peroneal vein mid calf. Compressibility: Non-compressible segement mid calf peroneal. Flow: No flow in area of thrombus. [employer] Field Supervisor: Distal calf measures 4.2 mm with 0.9 seconds reflux. Tech Note: Reflux noted in iliac vein, DFV, femoral vein, and popliteal vein. Incompetent epigastric vein measures 11.0 mm with 3.1 seconds of reflux. Incompetent varicose vein mid/medial calf off carroting machine operator measures 3.3 mm with 1.6 seconds of reflux. Anterior lower leg varicose vein measures 3.2 mm with 0.7 seconds of reflux. CONCLUSION: 1. Moderate to severe venous insufficiency right great saphenous vein 2. Moderate to severe venous insufficiency left epigastric vein 3. Bilateral incompetent carroting machine operator veins 4. 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 Vital Signs Date Time Vital Sign Value Performing Clinician Facility 09-09-2023 13:58-0400 Body temperature 97.8 [degF] II Quentin Dexter Work Phone: [facility] 09-09-2023 13:58-0400 Body weight 71.21 kg II Quentin Dexter Work Phone: [facility] 09-09-2023 13:58-0400 Diastolic blood pressure 67 mm[Hg] II Quentin Dexter Work Phone: [facility] 09-09-2023 13:58-0400 Heart rate 58 /min II Quentin Dexter Work Phone: [facility] 09-09-2023 13:58-0400 Respiratory rate 16 /min II Quentin Dexter Work Phone: [facility] 09-09-2023 13:58-0400 SaO2% (BldA) [Mass fraction] 98 % II Quentin Dexter Work Phone: [facility] 09-09-2023 13:58-0400 Systolic blood pressure 111 mm[Hg] II Quentin Dexter Work Phone: [facility] 07-01-2023 10:53-0400 Body height 167.64 cm II Quentin Dexter Work Phone: [facility] 07-01-2023 10:53-0400 Body mass index (BMI) [Ratio] 25.4 kg/m2 II Quentin Dexter Work Phone: [facility] 07-01-2023 10:53-0400 Body temperature 97.9 [degF] II Quentin Dexter Work Phone: [facility] 07-01-2023 10:53-0400 Body weight 71.66 kg II Quentin Dexter Work Phone: [facility] 07-01-2023 10:53-0400 Diastolic blood pressure 78 mm[Hg] II Quentin Dexter Work Phone: [facility] 07-01-2023 10:53-0400 Heart rate 54 /min II Quentin Dexter Work Phone: [facility] 07-01-2023 10:53-0400 Respiratory rate 16 /min II Quentin Dexter Work Phone: [facility] 07-01-2023 10:53-0400 SaO2% (BldA) [Mass fraction] 98 % II Quentin Dexter Work Phone: [facility] 07-01-2023 10:53-0400 Systolic blood pressure 123 mm[Hg] II Quentin Dexter Work Phone: [facility] 04-07-2023 15:34-0500 Body height 167.6 cm Geovany Serrano MD Work Phone: [facility] 04-07-2023 15:34-0500 Body mass index (BMI) [Ratio] 24.86 kg/m2 Geovany Serrano MD Work Phone: [facility] 04-07-2023 15:34-0500 Body weight 69.85 kg Geovany Serrano MD Work Phone: [facility] 04-07-2023 15:34-0500 Diastolic blood pressure 64 mm[Hg] Geovany Serrano MD Work Phone: [facility] 04-07-2023 15:34-0500 Heart rate 63 /min Geovany Serrano MD Work Phone: [facility] 04-07-2023 15:34-0500 Systolic blood pressure 124 mm[Hg] Geovany Serrano MD Work Phone: [facility] 03-03-2023 14:00-0500 Body temperature 97.8 [degF] II Quentin Dexter Work Phone: [facility] 03-03-2023 14:00-0500 Diastolic blood pressure 57 mm[Hg] II Quentin Dexter Work Phone: [facility] 03-03-2023 14:00-0500 Heart rate 60 /min II Quentindanilo Dexter Work Phone: [facility] 03-03-2023 14:00-0500 Respiratory rate 16 /min II Quentin Dexter Work Phone: [facility] 03-03-2023 14:00-0500 SaO2% (BldA) [Mass fraction] 98 % II Quentin Dexter Work Phone: [facility] 03-03-2023 14:00-0500 Systolic blood pressure 157 mm[Hg] II Quentindanilo Dexter Work Phone: [facility] 09-21-2022 09:24-0400 Body height 167.64 cm Quentin Dexter Work Phone: [facility] 250 DO Work Phone: 09-21-2022 09:24-0400 Body mass index (BMI) [Ratio] 24.53 kg/m2 Quentin Dexter Work Phone: [facility] 250 DO Work Phone: 09-21-2022 09:24-0400 Body surface area Derived from formula 1.78 m2 Quentin Dexter Work Phone: [facility] 250 DO Work Phone: 09-21-2022 09:24-0400 Body weight 68.95 kg Quentin Dexter Work Phone: [facility] 250 DO Work Phone: 09-21-2022 09:24-0400 Diastolic blood pressure 62 mm[Hg] Quentin Dexter Work Phone: [facility] 250 DO Work Phone: 09-21-2022 09:24-0400 Heart rate 60 /min Quentin Dexter Work Phone: [facility] 250 DO Work Phone: 09-21-2022 09:24-0400 Systolic blood pressure 118 mm[Hg] Quentin Dxeter Work Phone: [facility] 250 DO Work Phone: 09-09-2022 11:24-0400 Body temperature 98 [degF] II Quentin Dexter Work Phone: [facility] 09-09-2022 11:24-0400 Body weight 69.12 kg II Quentin Dexter Work Phone: [facility] 09-09-2022 11:24-0400 Diastolic blood pressure 61 mm[Hg] II Quentin Dexter Work Phone: [facility] 09-09-2022 11:24-0400 Heart rate 60 /min II Quentin Dexter Work Phone: [facility] 09-09-2022 11:24-0400 Respiratory rate 20 /min II Quentin Dexter Work Phone: [facility] 09-09-2022 11:24-0400 SaO2% (BldA) [Mass fraction] 96 % II Quentin Dexter Work Phone: [facility] 09-09-2022 11:24-0400 Systolic blood pressure 106 mm[Hg] II Quentin Dexter Work Phone: [facility] 07-12-2022 11:33-0400 Body temperature 98.2 [degF] II Quentin Dexter Work Phone: [facility] 07-12-2022 11:33-0400 Diastolic blood pressure 63 mm[Hg] II Quentin Dexter Work Phone: [facility] 07-12-2022 11:33-0400 Heart rate 80 /min II Quentin Dexter Work Phone: [facility] 07-12-2022 11:33-0400 Respiratory rate 20 /min II Quentin Dexter Work Phone: [facility] 07-12-2022 11:33-0400 SaO2% (BldA) [Mass fraction] 98 % II Quentin Dexter Work Phone: [facility] 07-12-2022 11:33-0400 Systolic blood pressure 115 mm[Hg] II Quentin Dexter Work Phone: [facility] 07-12-2022 06:00-0400 Body weight 68.5 kg II Quentin Dexter Work Phone: [facility] 07-07-2022 16:13-0400 Body height 167.64 cm II Quentin Dexter Work Phone: [facility] 07-05-2022 07:58-0400 Inhaled oxygen flow rate 1 L/min II Quentin Dexter Work Phone: [facility] 07-01-2022 15:59-0400 Body mass index (BMI) [Ratio] 26.1 kg/m2 II Quentin Dexter Work Phone: [facility] 05-15-2022 11:06-0500 Body temperature 97.6 [degF] II Quentin Dexter Work Phone: [facility] 05-15-2022 11:06-0500 Body weight 75 kg II Quentin Dexter Work Phone: [facility] 05-15-2022 11:06-0500 Diastolic blood pressure 82 mm[Hg] II Quentin Dexter Work Phone: [facility] 05-15-2022 11:06-0500 Heart rate 82 /min II Quentin Dexter Work Phone: [facility] 05-15-2022 11:06-0500 Respiratory rate 20 /min II Quentin Dexter Work Phone: [facility] 05-15-2022 11:06-0500 SaO2% (BldA) [Mass fraction] 97 % II Quentin Dexter Work Phone: [facility] 05-15-2022 11:06-0500 Systolic blood pressure 148 mm[Hg] II Quentin Dexter Work Phone: [facility] 05-12-2022 12:30-0500 Diastolic blood pressure 64 mm[Hg] II Quentin Dexter Work Phone: [facility] 05-12-2022 12:30-0500 Heart rate 74 /min II Quentin Dexter Work Phone: [facility] 05-12-2022 12:30-0500 Respiratory rate 18 /min II Quentin Dexter Work Phone: [facility] 05-12-2022 12:30-0500 SaO2% (BldA) [Mass fraction] 98 % II Quentin Dexter Work Phone: [facility] 05-12-2022 12:30-0500 Systolic blood pressure 124 mm[Hg] II Quentin Dexter Work Phone: [facility] 05-12-2022 09:49-0500 Body height 167.64 cm II Quentin Dexter Work Phone: [facility] 05-12-2022 09:49-0500 Body temperature 98 [degF] II Quentin Dexter Work Phone: [facility] 05-12-2022 09:49-0500 Body weight 75.74 kg II Quentin Dexter Work Phone: [facility] 05-04-2022 14:17-0500 Body temperature 97 [degF] II Quentin Dexter Work Phone: [facility] 05-04-2022 14:17-0500 Body weight 76 kg II Quentin Dexter Work Phone: [facility] 05-04-2022 14:17-0500 Diastolic blood pressure 65 mm[Hg] II Quentin Dexter Work Phone: [facility] 05-04-2022 14:17-0500 Heart rate 100 /min II Quentin Dexter Work Phone: [facility] 05-04-2022 14:17-0500 Respiratory rate 20 /min II Quentin Dexter Work Phone: [facility] 05-04-2022 14:17-0500 SaO2% (BldA) [Mass fraction] 100 % II Quentin Dexter Work Phone: [facility] 05-04-2022 14:17-0500 Systolic blood pressure 150 mm[Hg] II Quentin Dexter Work Phone: [facility] 05-04-2022 14:10-0500 Body height 167.64 cm II Quentin Dexter Work Phone: [facility] Encounters Encounter Date Encounter Type Care Provider Facility Start: 11-23-2023 End: 11-23-2023 ambulatory LONI GARSIA Not Available Start: 10-15-2023 End: 10-15-2023 ambulatory RUIZ A MARY Not Available Start: 10-13-2023 End: 10-13-2023 ambulatory [facility] Ambulatory Start: 10-12-2023 End: 10-12-2023 ambulatory LONI GARSIA Not Available Start: 09-13-2023 End: 09-13-2023 ambulatory МАРИЯ BASHIR Not Available Start: 09-09-2023 End: 09-09-2023 Patient encounter procedure II Quentin Dexter [facility] Work Phone: Start: 09-09-2023 Coordination of care plan II Quentin Dexter Work Phone: [facility] Work Phone: Start: 09-09-2023 End: 09-09-2023 ambulatory II Quentin Dexter Work Phone: [facility] Work Phone: Start: 08-16-2023 End: 08-16-2023 ambulatory RUIZ A PETITTI Not Available Start: 07-20-2023 End: 07-20-2023 ambulatory ALEX LEE Not Available Start: 07-01-2023 End: 07-01-2023 ambulatory II Quentin Dexter Work Phone: [facility] Work Phone: Start: 07-01-2023 End: 07-01-2023 Patient encounter procedure II Quentin Dexter Work Phone: [facility] Work Phone: Start: 07-01-2023 Coordination of care plan II Quentin Dexter Work Phone: [facility] Work Phone: Start: 04-13-2023 End: 04-13-2023 ambulatory LONI GARSIA Not Available Start: 04-09-2023 End: 04-09-2023 ambulatory RUIZ HERNANDEZ Not Available Start: 04-07-2023 End: 04-07-2023 Office outpatient visit 25 minutes Geovany Serrano MD Work Phone: [facility] Comment on above: Essential hypertensi on (Primary Dx); Paroxysmal atrial fibrillation (CMS/HCC); Primary hypertension; Medication course changed Start: 04-07-2023 End: 04-07-2023 ambulatory GEOVANY SERRANO [facility] Ambulatory Start: 03-23-2023 End: 03-23-2023 ambulatory LONI GARSIA Not Available Start: 09-21-2022 Office outpatient vi sit 25 minutes Quentin Cronelius Isacc Work Phone: [facility] 250 DO Work Phone: Start: 09-09-2022 End: 09-09-2022 ambulatory II Quentin Dexter Work Phone: [facility] Work Phone: Start: 09-09-2022 End: 09-09-2022 Registered Recurring II Quentin Dexter Work Phone: [facility] Work Phone: Start: 08-11-2022 End: 08-11-2022 Patient encounter procedure II Quentin Dexter Work Phone: [facility] [place] Work Phone: Start: 07-10-[address] Geovany Serrano II Facility:[id number] Start: 04-06-[address] Geovany Serrano II Facility:[id number] Start: 07-08-[address] Geovany Serrano II Facility:[id number] Start: 07-07-[address] Geovany Serrano II Facility:[id number] Start: 07-06-[address] Geovany Serrano II Facility:[id number] Start: 07-05-[address] Geovany Serrano II Facility:[id number] Start: 07-04-[address] Geovany Lowery II Facility:[id number] Start: 07-04-[address] Geovany Serrano II Facility:[id number] Start: 07-01-2022 End: 07-12-2022 Evaluation and management of inpatient II Quentin Dexter Work Phone: [facility] Work Phone: Start: 06-24-2022 Registered Recurring II Quentin Dexter Work Phone: [facility] Work Phone: Start: 05-15-2022 End: 05-15-2022 ambulatory II Quentin Dexter Work Phone: [facility] Work Phone: Start: 05-15-2022 End: 05-15-2022 Registered Recurring II Quentin Dexter Work Phone: [facility] Work Phone: Start: 05-12-2022 End: 05-12-2022 Admission to same day surgery center II Quentindanilo Dexter Work Phone: [facility] Work Phone: Start: 05-12-2022 End: 05-12-2022 ambulatory II Quentin Dexter Work Phone: [facility] Work Phone: Start: 05-04-2022 End: 05-04-2022 ambulatory II Quentin Dexter Work Phone: [facility] Work Phone: Start: 05-04-2022 End: 05-04-2022 Registered Recurring II Quentin Dexter Work Phone: [facility] Work Phone: Start: 05-04-2022 Registered Recurring II Quentin Dexter Work Phone: [facility] Work Phone: Start: 04-01-2022 End: 04-01-[address] QUENTIN DEXTER Facility:H1 Start: 03-23-2022 End: 03-24-[address] MERCED RAMACHANDRAN Facility:H1 Start: 11-21-2021 End: 11-22-[address] MERCED RAMACHANDRAN Facility:H1 Start: 11-14-2021 End: 11-15-[address] DOCTOR VELASCO Facility:H1 Start: 11-12-2021 End: 11-12-[address] DANIELE HUMPHREY Facility:H1 Start: 10-23-2021 End: 10-24-[address] QUENTIN DEXTER Facility:H1 Start: 10-07-2021 End: 10-08-[address] QUENTIN DEXTER Facility:H1 Start: 08-20-2021 End: 08-21-[address] MERCED RAMACHANDRAN Facility:H1 Start: 2021 End: 08-19-[address] MONTSERRAT FAUST Facility:H1 Start: 08-11-2021 End: 08-12-[address] MONTSERRAT FAUST Facility:H1 Start: 08-06-2021 End: 08-07-[address] MONTSERRAT FAUST Facility:H1 Start: 07-30-2021 End: 07-31-[address] MONTSERRAT FAUST Facility:H1 Start: 07-23-2021 End: 07-24-[address] MONTSERRAT FAUST Facility:H1 Start: 07-16-2021 End: 07-17-[address] MONTSERRAT FAUST Facility:[facility]1 Start: 06-04-2021 End: 06-05-[address] MONTSERRAT FAUST Facility:[facility]1 Start: 05-21-2021 End: 05-22-[address] LONI GARSIA Facility:[facility]1 Start: 05-12-2021 End: 05-13-[address] MONTSERRAT FAUST Facility:[facility]1 Procedures Date Procedure Procedure Detail Performing Clinician Start: 06-29-2023 Computed tomography of abdomen and pelvis with contrast II Quentin Dexter Work Phone: Start: 04-07-2023 ECG 12-LEAD GEOVANY LOWERY Start: 04-07-2023 Ecg routine ecg w/le ast 12 lds w/i&r Geovany Serrano MD Work Phone: Start: 11-09-2022 Computed tomography of abdomen and pelvis with contrast II Quentin Dexter Work Phone: Start: 07-06-2022 Duplex scan of lower limb veins II Quentin Dexter Work Phone: Start: 07-06-2022 X-ray of right ankle II Quentin Dexter Work Phone: Start: 07-06-2022 Blood culture for bacteria, including anaerobic screen II Quentin Dexter Work Phone: Start: 07-06-2022 Urine culture II Quentin Dexter Work Phone: Start: 07-06-2022 MRI of head II Quentin Dexter Work Phone: Start: 07-04-2022 Plain X-ray of right hip II Quentin Dexter Work Phone: Start: 07-04-2022 Diagnostic radiograp hy of abdomen II Quentin Dexter Work Phone: Start: 07-04-2022 CT angiography of ne ck vessels II Quentin Dexter Work Phone: Start: 07-04-2022 CT angiography of head II Quentin Dexter Work Phone: Start: 07-04-2022 CT of head without contrast II Quentin Dexter Work Phone: Start: 07-01-2022 Laparoscopic-assiste d right colectomy II Quentin Dexter Work Phone: Start: 05-12-2022 Computed tomography of abdomen and pelvis with contrast II Quentin Dexter Work Phone: Start: 05-12-2022 CT of thorax with contrast II Quentin Dexter Work Phone: Start: 05-12-2022 Screening colonoscopy I I Quentin Dexter Work Phone: Arthroplasty of knee Quentin Dexter Work Phone: Colonoscopy Quentin Dexter Work Phone: Operation on colon Quentin Dexter Work Phone: Operation on gallbladder Quinn iel Cornelius Dexter Work Phone: Plan of Treatment Date Care Activity Detail Author Start: 05-24-2024 DTaP/Tdap/Td Vaccine s (2 - Tdap) DTaP/Tdap/Td Vaccines (2 - Tdap) [facility] Start: 10-13-2023 End: 10-13-2023 Patient encounter procedure 10/13/2023 2:40 PM EDT Office Visit [facility] [address] [place] [address] Geovany Serrano MD [address] [place] [address] [facility] Start: 05-22-2023 End: 04-07-2024 Comprehensive metabolic 2000 panel - Serum or Plasma Comprehensive Metabolic Panel Lab Routine Medication course changed Expected: 05/22/2023 (Approximate), Expires: 04/07/2024 [facility] Service Area Work Phone: Comment on above: Expected: 05/22/2023 (Approximate), Expires: 04/07/2024 Start: 04-07-2023 FUV, Provider: Geovany Serrano, Status: Pen, Time: 3:30 PM FUV, Provider: Geovany Serrano, Status: Lobito, Time: 3:30 PM [facility] 250 DO Work Phone: Start: 12-04-2022 Influenza vaccination Influenza Vacc ine (#1) [facility] Start: 11-10-2022 Screening for osteoporosis Bone Density Scan [facility] Start: 07-12-2022 [facility] Start: 07-07-2022 Administration of prophylactic treatment [facility] Start: 07-04-2022 Referral to neurologist [facility] Start: 07-01-2022 Referral to clinical automatic serging machine operator [facility] Start: 07-01-2022 Inspection of Perito ronal Cavity, Percutaneous Endoscopic Approach Inspection of Peritoneal Cavity, Percutaneous Endoscopic Approach [facility] Start: 07-01-2022 Resection of Right L arge Intestine, Open Approach Resection of Right Large Intestine, Open Approach [facility] Start: 05-12-2022 [facility] Start: 05-12-2022 Computed tomography of abdomen and pelvis with contrast CT abdomen pelvis w [facility] Start: 05-12-2022 CT of thorax with contrast CT chest [facility] Start: 09-03-2020 COVID-19 Vaccine (3 - Pfizer risk series) COVID-19 Vaccine (3 - Pfizer risk series) [facility] Start: [birth year]19-1958 Diabetes mellitus screening Diabetes Screening [facility] Start: 1940 Lipid panel Lipid Panel [facility] Start: 1940 Medicare Annual Well ness Visit Medicare Annual Wellness Visit (AWV) [facility] Blood chemistry [facility] Comprehensive metabo lic 1999 panel - Serum or Plasma [facility] Comprehensive metabo lic 1999 panel - Serum or Plasma [facility] Comprehensive metabo lic 1999 panel - Serum or Plasma [facility] Comprehensive metabo lic 1999 panel - Serum or Plasma [facility] Ferritin [Mass/volum e] in Serum or Plasma [facility] Patient Education Colon Polyps [facility] Work Phone: Patient referral [facility] Work Phone: [facility] Immunizations Immunization Date Immunization Notes Care Provider Kelechi isaacs 01-14-2022 Fluzone High-Dose Quadrivalent 0.7 ML Intramuscular Suspension Prefilled Syringe Quentin Dexter Work Phone: [facility] 01-14-2022 influenza virus vacc ine, unspecified formulation Geovany Serrano MD Work Phone: [facility] Work Phone: 12-28-2020 Fluad Quadrivalent 0 .5 ML Intramuscular Prefilled Syringe [facility]entin Dex[facility] Work Phone: 12-28-2020 Seasonal, trivalent, recombinant, injectable influenza vaccine, preservative free Geovany Serrano MD Work Phone: [facility] Work Phone: 08-06-2020 COVID-19 mRNA, Comir taya (Pfizer) II Quentin Dexter Work Phone: [facility] 07-16-2020 COVID-19 mRNA, Comir taya (Pfizer) II Quentin Dexter Work Phone: [facility] 01-27-2020 Flu vaccine, quadrivalent, high-dose, preservative free, age 65y+ (FLUZONE) Geovany Serrano MD Work Phone: [facility] Work Phone: 01-27-2020 Fluad Quadrivalent 0 .5 ML Intramuscular Prefilled Syringe Quentin Dexter Work Phone: [facility] 250 DO Work Phone: 03-17-2019 Flu vaccine, quadrivalent, high-dose, preservative free, age 65y+ (FLUZONE) Geovany Serrano MD Work Phone: [facility] Work Phone: 03-17-2019 Seasonal, quadrivale nt, recombinant, injectable influenza vaccine, preservative free [facility]entin Dexter [facility] DO Work Phone: 01-31-2018 Flu vaccine, quadrivalent, high-dose, preservative free, age 65y+ (FLUZONE) Geovany Serrano MD Work Phone: [facility] Work Phone: 01-31-2018 influenza, high dose seasonal, preservative-free Quentin Shields Dexter Work Phone: [facility] [employer] DO Work Phone: 01-05-2018 zoster vaccine recombinant Quentin Shields Dexter Work Phone: [facility] 11-01-2017 zoster vaccine recombinant Quentin Shields Dexter Work Phone: [facility] 12-24-2016 Flu vaccine, quadrivalent, high-dose, preservative free, age 65y+ (FLUZONE) Geovany eSrrano MD Work Phone: [facility] Work Phone: 12-24-2016 influenza, high dose seasonal, preservative-free Quentin Cornelius Dexter Work Phone: [place] [address] DO Work Phone: 09-09-2016 pneumococcal conjuga te vaccine, 13 valent Quentin Dexter Work Phone: [facility] 01-03-2016 influenza, injectabl e, quadrivalent, contains preservative Quentin B Isacc Work Phone: [place] [address] DO Work Phone: 01-03-2016 influenza, injectabl e, quadrivalent, preservative free Geovany Serrano MD Work Phone: [facility] Work Phone: 01-15-2015 seasonal influenza, intradermal, preservative free Geovany Serrano MD Work Phone: [facility] Work Phone: 05-24-2014 diphtheria, tetanus toxoids and pertussis vaccine Geovany Serrano MD Work Phone: [facility] Work Phone: 03-16-2014 influenza virus vacc ine, split virus (incl. purified surface antigen) Geovany Serrano MD Work Phone: [facility] Work Phone: 03-06-2014 influenza, high dose seasonal, preservative-free Quentin Dexter Work Phone: [facility] 250 DO Work Phone: 12-27-2009 pneumococcal polysaccharide vaccine, 23 valent Geovany Serrano MD Work Phone: [facility] Work Phone: Payers Date Payer Category Payer Self-pay [id number] 2017 Medicare [employer] [facility] [facility] [employer] [id number] 2017-Present [address] [place] [address] [id number] 1959 Unknown [id number] 1941 Unknown [id number] 2.16.840.1.188556.3.579.2.59 1941 Unknown [id number] 2.16.840.1.087283.3.579.2.593 1941 Unknown [id number] 2.16.840.1.952062.3.579.2.59 1941 Unknown [id number] 2.16.840.1.898263.3.579.2.593 1941 Unknown [id number] 2.16.840.1.820564.3.579.2.59 1941 Unknown [id number] 2.16.840.1.485082.3.579.2.593 1941 Unknown [id number] 2.16.840.1.258479.3.579.2.593 1941 Unknown [id number] 2.16.840.1.640353.3.579.2.593 1941 Unknown [id number] 2.16.840.1.758406.3.579.2.593 1941 Unknown [id number] 2.16.840.1.362907.3.579.2.593 1941 Unknown [id number] 2.16.840.1.615432.3.579.2.593 1941 Unknown [id number] 2.16.840.1.529371.3.579.2.593 1941 Unknown [id number] 2.16.840.1.517940.3.579.2.593 1941 Unknown [id number] 2.16.840.1.287765.3.579.2.593 1941 Unknown [id number] 2..840.1.808221.3.579.2.593 1941 Unknown [id number] 2.16.840.1.316271.3.579.2.593 1941 Unknown [id number] 2.16.840.1.751694.3.579.2.593 1941 Unknown [id number] 2.16.840.1.143296.3.579.2.356 1941 Unknown [id number] 2.16.840.1.438432.3.579.2.356 1941 Unknown [id number] 2.16.840.1.807848.3.579.2.356 1941 Unknown [id number] 2.16.840.1.014023.3.579.2.356 1941 Unknown [id number] 2.16.840.1.122265.3.579.2.356 1941 Unknown [id number] 2.16.840.1.025981.3.579.2.356 1941 Unknown [id number] 2.16.840.1.504806.3.579.2.356 1941 Unknown [id number] 2.16.840.1.940094.3.579.2.356 1941 Unknown [id number] 2.16.840.1.802081.3.579.2.125 9 1941 Unknown [id number] 2.16.840.1.395695.3.579.2.125 9 1941 Unknown [id number] 2.16.840.1.415896.3.579.2.125 9 1941 Unknown [id number] 2.16.840.1.253657.3.579.2.125 9 1941 Unknown [id number] 2.16.840.1.917615.3.579.2.125 9 1941 Unknown [id number] 2.16.840.1.729211.3.579.2.125 9 1941 Unknown [id number] 2.16.840.1.809687.3.579.2.125 9 1941 Unknown [id number] 2.16.840.1.932575.3.579.2.125 9 1941 Unknown [id number] 2.16.840.1.399402.3.579.2.125 9 1941 Unknown [id number] 2.16.840.1.104959.3.579.2.124 4 1941 Unknown [id number] 2.16.840.1.643647.3.579.2.124 4 Unknown [facility] Unknown [id number] 2.16.840.1.791549.3.579.2.531 Social History Date Type Detail Facility Start: 05-04-2022 End: 07-01-2023 Tobacco smoking status NHIS Ex-smoker (finding) [facility] Start: 1940 Sex Assigned At Female F [facility] Start: 04-07-2023 No caffeine use No caffeine use [facility] DO Work Phone: History of tobacco use Current smoker [facility] Work Phone: History of tobacco use Cigarette Smoker [facility] Work Phone: Start: 03-30-2023 Tobacco use and exposure Smokeless tobacco non-user [facility] Work Phone: Start: 04-07-2023 Alcohol intake Lifetime non-d hawa (finding) [facility] Work Phone: Start: 04-07-2023 [facility] use [facility] Work Phone: Start: 1940 Sex Assigned At Not on file [facility] Work Phone: Start: 03-28-2023 End: 04-07-2023 Exposure to SARS-CoV-2 (event) Not sure [facility] Goals Date Patient Goal Desired Activity /State Functional Status Date Assessment Result Facility 07-12-2022 Functional status Patient at Baseline [facility] Work Phone: Mental Status Date Assessment Result Facility 07-12-2022 Cognitive function Cognitive Sta tus Patient at Baseline [facility] Work Phone: Clinical Notes 08-11-2021 to 04-07-2023 Geovany Serrano MD - 04/07/2023 3:30 PM ESTPatient Instructions Note Date & Type Note Facility 04-07-2023 History of Presen t illness Narrative Subjective Stella Garcia is a 82 y.o. female Chief Complaint Follow-up HPI Patient returns in follow-up of problems as noted. In the interim she is done well and she denies angina CHF or arrhythmia symptomatology. Sinus rhythm is well-maintained with dofetilide therapy and her QTc is satisfactory and hence no dosage adjustment is recommended. She is also protected by the use of rivaroxaban. It was as provide actually because of peripheral vascular disease but it does provide some protection. In regards to other matters she is on a baby aspirin while also protecting her from thromboembolic risk. It appears that hypertension is adequately managed and historically her lipids have been favorable hence she is not on a statin. She continues to be active and she was congratulated on her lifestyle and activity level and encouraged to continue. Review of Systems All other systems reviewed and are negative. Visit Vitals BP 124/64 (BP Location: Left arm, Patient Position: Sitting) Pulse 63 Ht 1.676 m (5' 6 ) Wt 69.9 kg (154 lb) BMI 24.86 kg/m Smoking Status Former BSA 1.8 m EKG done in office today Objective Physical Exam Constitutional: Appearance: Normal appearance. She is normal weight. HENT: Nose: Nose normal. Neck: Vascular: No carotid bruit. Cardiovascular: Rate and Rhythm: Normal rate. Pulses: Normal pulses. Heart sounds: Normal heart sounds. Pulmonary: Effort: Pulmonary effort is normal. Abdominal: General: Bowel sounds are normal. Palpations: Abdomen is soft. Genitourinary: Rectum: Normal. Musculoskeletal: General: Normal range of motion. Cervical back: Normal range of motion. Right lower leg: No edema. Left lower leg: No edema. Skin: General: Skin is warm and dry. Neurological: General: No focal deficit present. Mental Status: She is alert. Psychiatric: Mood and Affect: Mood normal. Behavior: Behavior normal. Thought Content: Thought content normal. Judgment: Judgment normal. Current Medications Current Outpatient Medications: aspirin 81 mg EC tablet, Take 1 tablet (81 mg) by mouth once daily., Disp: , Rfl: biotin 10 mg tablet, Take 1 tablet (10 mg) by mouth once daily., Disp: , Rfl: Breztri Aerosphere 160-9-4.8 mcg/actuation HFA aerosol inhaler, Inhale 2 puffs twice a day., Disp: , Rfl: dofetilide (Tikosyn) 250 mcg capsule, Take 1 capsule (250 mcg) by mouth twice a day., Disp: , Rfl: ferrous sulfate, 325 mg ferrous sulfate, tablet, Take 1 tablet by mouth 1 (one) time per week., Disp: , Rfl: folic acid/multivit-min/lutein (CENTRUM SILVER ORAL), Take 1 tablet by mouth once daily., Disp: , Rfl: gabapentin (Neurontin) 300 mg capsule, Take 1 capsule (300 mg) by mouth 3 times a day., Disp: , Rfl: metoprolol succinate XL (Toprol-XL) 50 mg 24 hr tablet, Take 1 tablet (50 mg) by mouth once daily., Disp: , Rfl: pantoprazole (ProtoNix) 40 mg EC tablet, Take 1 tablet (40 mg) by mouth once daily., Disp: , Rfl: potassium chloride (Klor-Con) 20 mEq packet, Take 40 mEq by mouth once daily., Disp: , Rfl: rivaroxaban (Xarelto) 2.5 mg tablet, Take 1 tablet (2.5 mg) by mouth twice a day., Disp: , Rfl: verapamil SR (Calan-SR) 180 mg ER tablet, Take 1 tablet (180 mg) by mouth once daily., Disp: , Rfl: spironolactone (Aldactone) 25 mg tablet, Take 1 tablet (25 mg) by mouth every other day., Disp: , Rfl: No medication list or bottles at visit today. Updated verbally with patient. Assessment/Plan 1. Essential hypertension Well-controlled on current therapy. No adjustments necessary. 2. Paroxysmal atrial fibrillation (CMS/HCC) No recurrence on dofetilide continue same 3. Primary hypertension Good control on current therapy, no adjustments necessary. Scribe Attestation By signing my name below, I, Sara DOWELL , Scribsaba attest that this documentation has been prepared under the direction and in the presence of Geovany Serrano MD. documented in this encounter [facility] Work Phone: 04-07-2023 Instructions Ana Paulson LPN - 04/07/2023 3:30 PM EST Please bring all medicines, vitamins, and herbal supplements with you when you come to the office. Prescriptions will not be filled unless you are compliant with your follow up appointments or have a follow up appointment scheduled as per instruction of your physician. Refills should be requested at the time of your visit. documented in this encounter [facility] Work Phone: 08-20-2022 Progress note Note Date/Time August 19, 2022 3:30p m [facility] at [address] [address] Hem/Onc Follow Up Note - OP Signed Patient: Stella Garcia MR# : [id number] : 1940 Acct:[id number] Age/Sex: 82 / F Type: REG RCR Copies to: MD Trista Flower II, MD Alex Lee,DO~ Subjective Date/Time of Service: Date of Service: 08/19/2022 Time of Service: 15:29 Chief Complaint: Patient is here one month follow up visit and toxicity check for Xeloda. She states so far no problems HPI: 08/19/2022: Stella is here for cycle 1 week 2 Xeloda adjuvant therapy followup. She has no new concerns--denies fatigue, diarrhea, skin rashes, hand/foot pain or redness. She is well healed from surgery. Labs were still pending at the time of her visit: mild anemia, no leukopenia, normal renal and hepatic function. No residual postop pain. Her current dosing is 800mg/m2 and we briefly discussed dose escalation to 1000mg/m2 bid for 14 of each 21 day cycle--we decided against dose escalation due to age >80 and good tolerance currently. Next f/u with OTOLARYNGOLOGY SURGEON in 3 weeks for toxicity check with CBC and CMP--if stable at that time, may defer followups to every 6 weeks. Moderate complexity 30 minute followup. 07/22/2022: Stella is here with her to review pathology after 07/01/2022 laparoscopic converted to open right hemicolectomy for cecal cancer. 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 + for lymphovascular and perineural invasion. pT3 pN1b (2 of 14 lymph nodes + for malignancy). She was noted to have extensive adhesions in gallbladder fossa. She had postoperative atrial fibrillation that was converted medically and is following with Dr. Serrano as an outpatient. --I informed her this is consistent with Stage III colon cancer, recommended foradjuvant therapy. She has baseline neuropathy--given choice between more aggressive FOLFOX vs. capecitabine--she decided on capecitabine alone due to age, neuropathy, and recent atrial fibrillation --Today we reviewed chemotherapy counseling for oral capecitabine. Indication is curative: Common toxicities were reviewed to include allergic reactions, rashes, hand foot syndrome, myelosuppression, fatigue, nausea, vomiting, constipation, diarrhea, mouth sores, and alopecia. Other toxicities may includerare coronary vasospasm, neurologic, hepatic and renal toxicities. The patient signed informed consent and will follow-up as directed. Starting dose about 85%(rounded down) Xeloda 1500mg bid for 14 days on, 7 days off. Will have oral chemo visit on arrival of medications and C1 D8 toxicity f/u for exam and labs. 05/15/2022: Stella is here with her to follow-up results of iron testing and colonoscopy 05/12/[address] Davis with CT abdomen pelvis 05/12/2022 ordered by him after he found a large mass of the ascending colon on colonoscopy. As noted below the patient had noted increased fatigue and generalized malaise since mid February but specifically denied any abdominal pain. She does note that she has had some increased constipation since that time but had not noted any bright red blood per rectum. As noted below she was found to have iron deficiency and CMP Damschroder referred her for colonoscopy for further evaluation. The colonoscopy showed a large mass occupying 50% of the cecal circumference with biopsies reviewed with the patient and her today. 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 CT chest abdomen pelvis imaging andreports were reviewed with the patient showing wall thickening and clips in the ascending colon in the area of mass seen on colonoscopy. There is no evidence of liver lesions, other areas of metastatic disease and small left periaortic and right pelvic lymph nodes. She has known history of multiple compression deformities involving T11 and all of the lumbar vertebrae except L4 which were stable from November 2016 imaging. There was a trace amount of dependent free pelvic fluid. Patient's baseline CEA was 1.0. --I informed the patient that since she has no other significant comorbidities of cardiac disease or pulmonary disease that I would recommend evaluation for surgical resection of colon cancer. I did repeat her CBC today that showed improvement of her hemoglobin from prior 8.8 to now 10.5 on her oral iron therapy. Repeat iron studies showed iron saturation 7% and ferritin now up to 18.8. She had normal B12 and folate studies. I contacted Dr. [facility] of [facility] who agrees to see the patient next Wednesday. She has remained off Xarelto (this was started in August 2021 for DVT diagnosed at [facility]) over the last week and since she is over 6 months from diagnosis of DVT we will not resume her Xarelto therapy prior to planned surgery. We will coordinate follow-up with her 2 weeks after her definitive surgery to review pathology and discuss potential adjuvant chemotherapy. For now she can continue oral iron supplementation but Dr. Lee may refer her back for parenteral iron if he would like her stores repleted with parenteral therapy prior to her upcoming surgery. This is a high complexity 45-minute follow-up to review new diagnosis of colon cancer, staging studies, and to coordinate evaluation by general surgery. ORIGINAL OUTPATIENT CONSULT with TAMMIE Cruz 05/05/2022: Stella Garcia is a very nice 82 year old lady who essentially began to feelmore fatigued than usual with general malaise, beginning in mid February 2022. At that time, she was also diagnosed with a sinus infection and treated appropriately. She did not significantly improve in regards to fatigue and she eventually saw her primary care physician again in mid March 2022. At that time, routine lab work was ordered (03/24/2022) and she was found to be significantly anemic with a hemoglobin level of 6.4 and hematocrit of 22.9. She was given 2 units PRBC's as an outpatient at [facility] on 03/25/2022. She had follow up blood work done on 04/21/2022 that revealed modest improvement of anemia with a hemoglobin level 8.8; Hct - 30.2; elevated RDW and microcytic indices consistent with iron deficiency. Iron studies revealed iron saturation of 5% and ferritin level of 6. She was subsequently started on oral iron 324 mg PO once daily on 04/22/2022, which was approximately 2 weeks ago. She has been referred to our outpatient hematology clinic for evaluation of her newly diagnosed anemia with documented iron deficiency. Past medical history is notable for: GERD, osteoarthritis, lumbosacral spondylitis, migraines, systemic and discoid lupus (currently on Skyrizi for psoriasis/rash), COPD, varicose veins and DVT. She underwent a vascular intervention for varicose veins with Dr.West burgess in August 2021 and reports developing a small blood clot following the procedure and was started on low dose Xarelto by her PCP - dosage is 2.5 mg PO twice daily. She reports no significant past medical history of anemia and/or iron deficiency; but does report having a bone marrow biopsy done by Dr. Brooks at [facility] back in the . It has been so long ago that she cannot recall exactly why this was done, but she does think she was told she wasiron deficient and given pills at that time, but nothing as of recent. She denies any personal history of malignancy. Patient is seen and examined. Clinically, she is feeling tired, but reports significant improvement in her fatigue levels as compared to 1 month ago. She specifically denies any issues with headaches, fever/chills, recent/recurrent infections, unintentional weight loss, night sweats, lymphadenopathy, chest pain, palpitations, abdominal pain, changes in bowel/bladder function, melena, hematochezia, hematuria, bright red blood per rectum, neuropathy or lower extremity edema. She is maintaining once daily iron tablets and reports no significant dyspepsia, nausea or constipation. - Summary of Therapies Summary of Therapies: 1.) Oral Ferrous Sulfate 325 mg PO once daily--resumed post op 07/22/2022 1.) 07/01/2022 laparoscopic converted to open right hemicolectomy for cecal cancer. 2.) 07/22/2022 consented for adjuvant Capecitabine 1500mg (800mg/m2) po twice daily for 14 days on, 7 days off for planned 6 months. cycle 1, day 1: 08/11/2022 ROS Details: All systems reviewed & no additional complaints except as documented Subjective/ROS - Narrative: Constitutional: No fever or chills. No weight loss. Eyes: No visual changes or eye pain. No scleral icterus. Ear, Nose and throat: No congestion, sore throat, sinusitis or ear pain. Cardiovascular: No palpitations, edema, syncope or claudication. Respiratory: Denies dyspnea on exertion. No cough or sputum production. Gastrointestinal: Mild abdominal pain over well approximated surgical incision. No hematemesis, melena, nausea, vomiting, diarrhea, or reflux disease. Genitourinary: No dysuria, urgency, or burning with urination. Musculoskeletal: No muscle or joint pain. No cervical, thoracic or lumbar pain or immobility. Skin: No rash, pruritus, ulcerations. Neurologic: No headache, vertigo, weakness, numbness or tingling. No syncope described. Ambulates independently. Endocrine: No polyuria, polydipsia, heat or cold intolerance. No history of thyroid disease. Psychiatric: No hallucinations, new stressors, or change in sleep patterns. Hematologic: No abnormal bleeding or bruising. No lymphadenopathy noted. + for08/2021 DVT on Xarelto 2.5mg bid. Immunologic: No history of frequent infections or delayed wound healing. [facility] - History Attestation statement: The following information was validated with the patient. Source: Old Records Reviewed - Medical History Medical History: Medical History (Last Reviewed 08/19/22 @ 15:30 by Suzanne Paredes MD) Arthritis Chronic pansinusitis COPD (chronic obstructive pulmonary disease) Cough DVT (deep venous thrombosis) Iron deficiency anemia Jaw pain Lupus Microcytic anemia Migraine headache Recurrent oral ulcers - Surgical History Surgical History: Surgical History (Last Reviewed 08/19/22 @ 15:30 by Suzanne Paredes MD) H/O laminectomy L5 History of cholecystectomy History of total knee arthroplasty right Joint replaced rt knee replacement - Family History Family History: Family History (Last Reviewed 08/19/22 @ 15:30 by Suzanne Paredes MD) Mother Diabetes Father Diabetes Grandparent Goiter - Social History Smoking Status: Former smoker Tobacco Type: cigarettes Substance Use Type: None Home Medications & Allergies Allergies Sulfa (Sulfonamide Antibiotics) Allergy (Verified 08/19/22 15:19) Unknown Reaction Home Medications ferrous sulfate 325 mg (65 mg iron) tablet 325 mg PO DAILY 04/28/22 [History Confirmed 08/19/22] gabapentin 300 mg capsule (Neurontin) 300 mg PO TID 04/28/22 [History Confirmed 08/19/22] multivitamin 1 tab PO DAILY 04/28/22 [History Confirmed 08/19/22] pantoprazole 40 mg tablet,delayed release 40 mg PO DAILY PRN Acid Reflux 04/28/22 [History Confirmed 08/19/22] rivaroxaban 2.5 mg tablet (Xarelto) 2.5 mg PO BID 04/28/22 [History Confirmed 08/19/22] biotin 10,000 mcg capsule 10,000 mcg PO DAILY 05/12/22 [History Confirmed 08/19/22] budesonide 160 mcg-glycopyr 9 mcg-formot 4.8 mcg/actuation HFA inhaler (Breztri Aerosphere) 2 inh inhalation BID 05/12/22 [History Confirmed 08/19/22] cyclobenzaprine 5 mg tablet 5 mg PO HS PRN Muscle Spasm 07/01/22 [History Confirmed 08/19/22] dofetilide 250 mcg capsule 250 mcg PO BID 30 days #60 caps 07/10/22 [Rx Confirmed 08/19/22] potassium chloride 20 mEq tablet,extended release(part/cryst) (Klor-Con M) 40 meq PO DAILY 30 days #60 tabs 07/10/22 [Rx Confirmed 08/19/22] albuterol sulfate 90 mcg/actuation aerosol inhaler (ProAir HFA) 2 puff inhalation QID PRN Cough 07/21/22 [History Confirmed 08/19/22] calcium citrate 250 mg calcium-vitamin D3 5 mcg (200 unit) tablet 1 tab PO TID 07/21/22 [History Confirmed 08/19/22] capecitabine 500 mg tablet (Xeloda) 1,500 mg PO BID #84 tabs 07/22/22 [Rx Confirmed 08/19/22] ondansetron HCl 4 mg tablet 4 mg PO Q8H PRN Nausea #30 tabs 08/11/22 [Rx Confirmed 08/19/22] Objective - Height/Weight Height/Weight: Height 5 ft 6 in Weight 69.853 kg - Vital Signs Vital Signs: 08/19/22 15:20 Temperature 97.8 F Pulse Rate [Right Brachial] 64 Respiratory Rate 16 Blood Pressure [Right Arm] 115/63 02 Sat by Pulse Oximetry 99 Oxygen Delivery Method Room Air Physical Exam Narrative: ECO, Pain: 0/10 GENERAL: Alert, no acute distress. Accompanied by her . HEENT: Head is normocephalic, atraumatic, no scleral icterus. Oral mucosa is pink/moist; no lesions or exudate. Neck is supple without adenopathy or thyromegaly. HEART: RRR; S1 and S2 normal. LUNGS: CTAB; no wheezes or crackles. ABDOMEN: Soft, mildly tender over healing right abdominal incision, no HSM. Bowel sounds present x 4 quadrants. EXTREMITIES: Warm and dry, no edema/clubbing or cyanosis. NEUROLOGICAL: Alert and oriented x 3; no focal or sensory deficits - ECOG Performance Status ECOG Score: 1 Results - Labs Labs: Labs reviewed as per HPI. - Impressions No new imaging for review. Assessment and Plan - TNM Staging Staging: moderate to poorly differentiated colon adenocarcinoma. + for lymphovascular and perineural invasion. pT3 pN1b (2 of 14 lymph nodes + for malignancy). No metastatic disease on staging CT Chest, Abdomen, and Pelvis (1) Cecal cancer 82 year old patient originally referred for iron deficiency anemia. Last colonoscopy normal 5 years ago--found to have cecal mass occupying 50% of lumen. Biopsy with moderately differentiated adenocarcinoma, mismatch repair intact. No obvious metastatic disease on CT abdomen/pelvis with normal CEA --Referred to Dr. Lee General Surgery who performed laparoscopic converted toopen right hemicolectomy for cecal cancer on 07/01/2022. 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 + for lymphovascular and perineural invasion. pT3 pN1b (2 of 14 lymph nodes + for malignancy). No distant metastatic disease on CT CAP preop. She was noted to have extensive adhesions in gallbladder fossa. She had postoperative atrial fibrillation that was converted medically and is following with Dr. Serrano as an outpatient. --We discussed pathologic staging: Stage III colon cancer, recommended for adjuvant therapy. She has baseline neuropathy--given choice between more aggressive FOLFOX vs. capecitabine--she decided on capecitabine alone due to age, neuropathy, and recent atrial fibrillation --We reviewed chemotherapy counseling for oral capecitabine. Ordered 1500mg po bid for 14 days on 7 days off for 6 months. She will return for oral chemotherapy visit on arrival of the medication and 1 week f/u toxicity visit. 08/19/2022: Here for week 2 followup of first cycle Xeloda (cycle 1, day 1 was 08/11/2022) 800mg/m2 (1500mg) bid for 14 of 21 days, plan 6 month adjuvant therapy(8 cycles). No toxicities and stable labs. Decision to continue current dosingwithout escalation. Will f/u with OTOLARYNGOLOGY SURGEON in 3 weeks--if stable at that time, f/u every 6 weeks alternating with MD and OTOLARYNGOLOGY SURGEON. CEA with 6 week f/u, plan restaging at 6 months or sooner if new symptoms. F/u iron studies at 3 months. Moderate complexity 30 min followup visit for Xeloda tolerance/labs, iron deficiency, atrial fibrillation, and DVT management. (2) Iron deficiency anemia Qualifiers: Iron deficiency anemia type: chronic blood loss Qualified Code(s): D50.0 - Iron deficiency anemia secondary to blood loss (chronic) Patient was referred to our outpatient hematology clinic for evaluation of newlydiagnosed, rather acute onset anemia with documented iron deficiency. This is most consistent with blood loss given the drastic drop in her hemoglobin; and microcytic indices consistent with iron deficiency. Potentially GI blood loss incombination with oral anticoagulation (low dose Xarelto) o she has appropriately been referred to gastroenterology and is scheduled for outpatient endoscopy on 05/12/2022. Last colonoscopy was reportedly normal in 2013. o she was started on oral Ferrous Sulfate 324 mg PO once daily ~ 10 days ago (04/22/2022) - thus far, she is tolerating the oral formulation without any significant nausea, dyspepsia or constipation. o continue oral Ferrous sulfate for time being; await results of endoscopy - Xarelto on hold o Recheck iron studies, ferritin, CBC, in 2 months to fully assess response to oral iron - if no significant improvement in iron, hemoglobin, indices, etc. or if oral iron is no longer tolerated we discussed administration of parenteral iron infusions. o will also check retic count, CMP, B12 and folate. 05/15/2022: Improved hemoglobin and iron studies on oral iron, tolerating well. May continue for now, but if Dr. Lee requests parenteral replacement for colectomy, we will coordinate this. She will remain off anticoagulation due to over 6 months of Xarelto therapy for provoked distal leg DVT. 07/22/2022: Resected colon cancer, tolerates oral iron well. Continue 6 month course of ferrous sulfate daily. 08/19/2022: Recheck serum iron profile with ferritin in 3 months to assess response to oral therapy. (3) History of DVT (deep vein thrombosis) Patient reports that she developed a small blood clot in the right lower extremity following a vascular procedure with Dr. Faust for varicose veins back in August of 2021. - she was started on low dose Xarelto 2.5 mg PO twice daily. - PRINT OPERATOR Kishachroder requested outside records/imaging or ultrasound from [facility]. Consistent with distal leg thrombosis and provoked DVT. OK to hold anticoagulation over 6 months duration. (4) Atrial fibrillation Post operative AF chemically converted, will f/u with cardiology. Continue low dose Xeloda 2.5mg bid. (5) Encounter for chemotherapy management 08/11/2022: cycle 1 day 1 oral capecitabine (800mg/m2) 1500mg po bid for 14 days on 7 days off for 6 months. No toxicities at oral chemotherapy cycle 1, 1 week f/u toxicity visit. - Chemo Plan Chemo Plan (Dose, Rate, Freq): 08/11/2022: cycle 1, day 1 oral capecitabine 1500mg po bid for 14 days on 7 days off for 6 months. Number of Cycles: 8 Goal of Treatment: Curative - Time with Patient Time Spent with Patient (Follow Up Visit): 35 minutes - Moderate complexity 30 minute visit to review Xeloda toxicities and labs Coordination of Care & Counseling Time: Greater than 50% of time spent with patient was for coordination of care (as documented) and [id number] counseling of patient and/or family. Dictated By: Suzanne Paredes MD DD/ [id number] Signed By: <Electronically signed by MD Suzanne Paredes> 08/20/[address] [facility] Work Phone: [phone]) 981-133604-20-2023 Progress note Author Suzanne Paredes [facility] July 23, 2022 7:01am Note Date/Time July 22, 2022 11: 19am [facility] [place] [address] Hem/Onc Follow Up Note - OP Signed Patient: Stella Garcia MR# : [id number] : 1940 Acct:[id number] Age/Sex: 81 / F Type: REG RCR Copies to: MD Trista Flower II, MD Paul C Laffay,DO~ Subjective Date/Time of Service: Date of Service: 07/22/2022 Time of Service: 11:18 Chief Complaint: Patient is here today for a 2 month follow up visit and follow up from her surgery HPI: 07/22/2022: Stella is here with her to review pathology after 07/01/2022 laparoscopic converted to open right hemicolectomy for cecal cancer. 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 + for lymphovascular and perineural invasion. pT3 pN1b (2 of 14 lymph nodes + for malignancy). She was noted to have extensive adhesions in gallbladder fossa. She had postoperative atrial fibrillation that was converted medically and is following with Dr. Serrano as an outpatient. --I informed her this is consistent with Stage III colon cancer, recommended foradjuvant therapy. She has baseline neuropathy--given choice between more aggressive FOLFOX vs. capecitabine--she decided on capecitabine alone due to age, neuropathy, and recent atrial fibrillation Today we reviewed chemotherapy counseling for oral capecitabine. Indication is curative: Common toxicities were reviewed to include allergic reactions, rashes, hand foot syndrome, myelosuppression, fatigue, nausea, vomiting, constipation, diarrhea, mouth sores, and alopecia. Other toxicities may includerare coronary vasospasm, neurologic, hepatic and renal toxicities. The patient signed informed consent and will follow-up as directed. Starting dose about 85%(rounded down) Xeloda 1500mg bid for 14 days on, 7 days off. Will have oral chemo visit on arrival of medications and C1 D8 toxicity f/u for exam and labs. 05/15/2022: Stella is here with her to follow-up results of iron testing and colonoscopy 05/12/[address] Davis with [address] abdomen pelvis 05/12/2022 ordered by him after he found a large mass of the ascending colon on colonoscopy. As noted below the patient had noted increased fatigue and generalized malaise since mid February but specifically denied any abdominal pain. She does note that she has had some increased constipation since that time but had not noted any bright red blood per rectum. As noted below she was found to have iron deficiency and CMP Damschroder referred her for colonoscopy for further evaluation. The colonoscopy showed a large mass occupying 50% of the cecal circumference with biopsies reviewed with the patient and her today. 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 CT chest abdomen pelvis imaging andreports were reviewed with the patient showing wall thickening and clips in the ascending colon in the area of mass seen on colonoscopy. There is no evidence of liver lesions, other areas of metastatic disease and small left periaortic and right pelvic lymph nodes. She has known history of multiple compression deformities involving T11 and all of the lumbar vertebrae except L4 which were stable from November 2016 imaging. There was a trace amount of dependent free pelvic fluid. Patient's baseline CEA was 1.0. --I informed the patient that since she has no other significant comorbidities of cardiac disease or pulmonary disease that I would recommend evaluation for surgical resection of colon cancer. I did repeat her CBC today that showed improvement of her hemoglobin from prior 8.8 to now 10.5 on her oral iron therapy. Repeat iron studies showed iron saturation 7% and ferritin now up to 18.8. She had normal B12 and folate studies. I contacted Dr. [facility] of [facility] who agrees to see the patient next Wednesday. She has remained off Xarelto (this was started in August 2021 for DVT diagnosed at [facility]) over the last week and since she is over 6 months from diagnosis of DVT we will not resume her Xarelto therapy prior to planned surgery. We will coordinate follow-up with her 2 weeks after her definitive surgery to review pathology and discuss potential adjuvant chemotherapy. For now she can continue oral iron supplementation but Dr. Lee may refer her back for parenteral iron if he would like her stores repleted with parenteral therapy prior to her upcoming surgery. This is a high complexity 45-minute follow-up to review new diagnosis of colon cancer, staging studies, and to coordinate evaluation by general surgery. ORIGINAL OUTPATIENT CONSULT with [facility] 05/05/2022: Stella Garcia is a very nice 81 year old lady who essentially began to feelmore fatigued than usual with general malaise, beginning in mid February 2022. At that time, she was also diagnosed with a sinus infection and treated appropriately. She did not significantly improve in regards to fatigue and she eventually saw her primary care physician again in mid March 2022. At that time, routine lab work was ordered (03/24/2022) and she was found to be significantly anemic with a hemoglobin level of 6.4 and hematocrit of 22.9. She was given 2 units PRBC's as an outpatient at [facility] on 03/25/2022. She had follow up blood work done on 04/21/2022 that revealed modest improvement of anemia with a hemoglobin level 8.8; Hct - 30.2; elevated RDW and microcytic indices consistent with iron deficiency. Iron studies revealed iron saturation of 5% and ferritin level of 6. She was subsequently started on oral iron 324 mg PO once daily on 04/22/2022, which was approximately 2 weeks ago. She has been referred to our outpatient hematology clinic for evaluation of her newly diagnosed anemia with documented iron deficiency. Past medical history is notable for: GERD, osteoarthritis, lumbosacral spondylitis, migraines, systemic and discoid lupus (currently on Skyrizi for psoriasis/rash), COPD, varicose veins and DVT. She underwent a vascular intervention for varicose veins with Dr.West burgess in August 2021 and reports developing a small blood clot following the procedure and was started on low dose Xarelto by her PCP - dosage is 2.5 mg PO twice daily. She reports no significant past medical history of anemia and/or iron deficiency; but does report having a bone marrow biopsy done by Dr. Brooks at [facility] in the . It has been so long ago that she cannot recall exactly why this was done, but she does think she was told she wasiron deficient and given pills at that time, but nothing as of recent. She denies any personal history of malignancy. Patient is seen and examined. Clinically, she is feeling tired, but reports significant improvement in her fatigue levels as compared to 1 month ago. She specifically denies any issues with headaches, fever/chills, recent/recurrent infections, unintentional weight loss, night sweats, lymphadenopathy, chest pain, palpitations, abdominal pain, changes in bowel/bladder function, melena, hematochezia, hematuria, bright red blood per rectum, neuropathy or lower extremity edema. She is maintaining once daily iron tablets and reports no significant dyspepsia, nausea or constipation. - Summary of Therapies Summary of Therapies: 1.) Oral Ferrous Sulfate 325 mg PO once daily--resumed post op 07/22/2022 1.) 07/01/2022 laparoscopic converted to open right hemicolectomy for cecal cancer. 2.) 07/22/2022 consented for adjuvant Capecitabine 1500mg po twice daily for 14 days on, 7 days off for planned 6 months. ROS Details: All systems reviewed & no additional complaints except as documented Subjective/ROS - Narrative: Constitutional: No fever or chills. No weight loss. Eyes: No visual changes or eye pain. No scleral icterus. Ear, Nose and throat: No congestion, sore throat, sinusitis or ear pain. Cardiovascular: No palpitations, edema, syncope or claudication. Respiratory: Denies dyspnea on exertion. No cough or sputum production. Gastrointestinal: Mild abdominal pain over well approximated surgical incision. No hematemesis, melena, nausea, vomiting, diarrhea, or reflux disease. Genitourinary: No dysuria, urgency, or burning with urination. Musculoskeletal: No muscle or joint pain. No cervical, thoracic or lumbar pain or immobility. Skin: No rash, pruritus, ulcerations. Neurologic: No headache, vertigo, weakness, numbness or tingling. No syncope described. Ambulates independently. Endocrine: No polyuria, polydipsia, heat or cold intolerance. No history of thyroid disease. Psychiatric: No hallucinations, new stressors, or change in sleep patterns. Hematologic: No abnormal bleeding or bruising. No lymphadenopathy noted. + for08/2021 DVT on Xarelto 2.5mg bid. Immunologic: No history of frequent infections or delayed wound healing. FOR[facility] - History Attestation statement: The following information was validated with the patient. Source: Old Records Reviewed - Medical History Medical History: Medical History (Last Reviewed 07/22/22 @ 21:33 by Suzanne Paredes MD) Arthritis Chronic pansinusitis COPD (chronic obstructive pulmonary disease) Cough DVT (deep venous thrombosis) Iron deficiency anemia Jaw pain Lupus Microcytic anemia Migraine headache Recurrent oral ulcers - Surgical History Surgical History: Surgical History (Last Reviewed 07/22/22 @ 21:33 by Suzanne Paredes MD) H/O laminectomy L5 History of cholecystectomy History of total knee arthroplasty right Joint replaced rt knee replacement - Family History Family History: Family History (Last Reviewed 07/22/22 @ 21:33 by Suzanne Paredes MD) Mother Diabetes Father Diabetes Grandparent Goiter - Social History Smoking Status: Former smoker Tobacco Type: cigarettes Substance Use Type: None Home Medications & Allergies Allergies Sulfa (Sulfonamide Antibiotics) Allergy (Verified 07/22/22 11:14) Unknown Reaction Home Medications ferrous sulfate 325 mg (65 mg iron) tablet 325 mg PO DAILY 04/28/22 [History Confirmed 07/01/22] gabapentin 300 mg capsule (Neurontin) 300 mg PO TID 04/28/22 [History Confirmed 07/22/22] multivitamin 1 tab PO DAILY 04/28/22 [History Confirmed 07/22/22] pantoprazole 40 mg tablet,delayed release 40 mg PO DAILY PRN Acid Reflux 04/28/22 [History Confirmed 07/22/22] rivaroxaban 2.5 mg tablet (Xarelto) 2.5 mg PO BID 04/28/22 [History Confirmed 07/22/22] biotin 10,000 mcg capsule 10,000 mcg PO DAILY 05/12/22 [History Confirmed 07/22/22] budesonide 160 mcg-glycopyr 9 mcg-formot 4.8 mcg/actuation HFA inhaler (Breztri [employer]sphere) 2 inh inhalation BID 05/12/22 [History Confirmed 07/22/22] cyclobenzaprine 5 mg tablet 5 mg PO HS PRN Muscle Spasm 07/01/22 [History Confirmed 07/22/22] dofetilide 250 mcg capsule 250 mcg PO BID 30 days #60 caps 07/10/22 [Rx Confirmed 07/22/22] potassium chloride 20 mEq tablet,extended release(part/cryst) (Klor-Con M) 40 meq PO DAILY 30 days #60 tabs 07/10/22 [Rx Confirmed 07/22/22] albuterol sulfate 90 mcg/actuation aerosol inhaler (ProAir HFA) 2 puff inhalation QID PRN Cough 07/21/22 [History Confirmed 07/22/22] calcium citrate 250 mg calcium-vitamin D3 5 mcg (200 unit) tablet 1 tab PO TID 07/21/22 [History Confirmed 07/22/22] capecitabine 500 mg tablet (Xeloda) 1,500 mg PO BID #84 tabs 07/22/22 [Rx] Objective - Height/Weight Height/Weight: Height 5 ft 6 in Weight 67.676 kg - Vital Signs Vital Signs: 07/22/22 11:15 Temperature 98.0 F Pulse Rate [Right Brachial] 69 Respiratory Rate 16 Blood Pressure [Right Arm] 108/67 02 Sat by Pulse Oximetry 99 Oxygen Delivery Method Room Air Physical Exam Narrative: ECO, Pain: 2/10 post op incisional pain. GENERAL: Alert, no acute distress. Accompanied by her . HEENT: Head is normocephalic, atraumatic, no scleral icterus. Oral mucosa is pink/moist; no lesions or exudate. Neck is supple without adenopathy or thyromegaly. HEART: RRR; S1 and S2 normal. LUNGS: CTAB; no wheezes or crackles. ABDOMEN: Soft, mildly tender over healing right abdominal incision, no HSM. Bowel sounds present x 4 quadrants. EXTREMITIES: Warm and dry, no edema/clubbing or cyanosis. NEUROLOGICAL: Alert and oriented x 3; no focal or sensory deficits - ECOG Performance Status ECOG Score: 1 Results - Labs Labs: Diagram of Most Recent CBC and CMP 06/24/22 11:05 05/15/22 12:11 - Impressions CT CHEST, ABDOMEN AND PELVIS WITH INTRAVENOUS CONTRAST: CLINICAL HISTORY: Staging in patient with cecal mass and polyps on colonoscopy. COMPARISON: None TECHNIQUE: Spiral images were obtained through the chest, abdomen and pelvis following oral and intravenous administration of 90 mL of Isovue-300. Images ofthe chest were reviewed using both narrow and wide window settings. This CT exam was performed using one or more following dose reduction techniques: Automated exposure control, adjustment of the mA and/or kV according to patient size, or use of iterative reconstruction technique. FINDINGS: The heart is not enlarged. There is no pericardial effusion. No aortic aneurysm or dissection is seen. There are benign-appearing calcified and noncalcified mediastinal lymph nodes. There are also left hilar calcified granulomas. There is a moderate to large size hiatal hernia. The bony structures are osteopenic. Mild degenerative changes are present. There is slight levoscoliotic curvature. There are are compression deformities at T11 andsuperior endplate of T9 where a hemangioma is also seen. These findings were also seen on plain films from November 2016. There is minor atelectasis or scarring at the lung bases. No additional consolidation is noted. No pleural effusion or pneumothorax is seen. There are calcified left lower lobe granulomas. No soft tissue nodularity is noted. There are tiny hepatic hypodensities which are probably cysts. The gallbladder is surgically absent. Calcified splenic granulomas are seen. The pancreas and adrenal glands show no acute findings. There are symmetric bilateral renal nephrograms, without hydronephrosis. Small renal cysts are present. There is minor atherosclerotic plaque involving a slightly tortuous aorta. There are small retroperitoneal lymph nodes in the left periaortic region. No ascites is seen. The small bowel loops are not dilated. Air is present within the colon. There are radiopaque clip-like structures within the ascending colon which are presumed to indicate the site of the mass seen on colonoscopy. There is slight wall thickening in this area. S-shaped thoracolumbar scoliotic curvature is noted. There is osteopenia. There are multiple compression deformities and Schmorl's nodes involving T11 and all of the lumbar vertebra except L4. These findings were also seen on previous plain films from November 2016. Images through the pelvis show calcifications within a dextroverted uterus suggesting fibroid disease. There are normal caliber small bowel loops. There aissatou low-lying cecum which is decompressed. The appendix shows no signs of inflammation. The distal colon is mostly decompressed. No diverticular disease is identified. The urinary bladder shows no CT abnormalities. There is a trace amount of dependent free pelvic fluid. Collateral vessels are seen within the lower anterior pelvic wall. There are degenerative changes at both hips. There are small lymph nodes within the mesentery near the proximal ascending colon with short axis dimension up to 6 mm. There also a few small external iliac chain nodes. CT/CT chest w con IMPRESSION: MILD ATELECTASIS OR SCARRING. GRANULOMATOUS CHANGES. HIATAL HERNIA. PROBABLE TINY HEPATIC AND RENAL CYSTS. MILD WALL THICKENING AND CLIP-LIKE STRUCTURES ASSOCIATED WITH THE ASCENDING COLON, PRESUMED TO RELATE TO THE MASS SEEN ON COLONOSCOPY. SMALL LEFT PERIAORTIC AND RIGHT PELVIC LYMPH NODES. SUSPECTED FIBROID UTERUS. TRACE AMOUNT OF DEPENDENT FREE PELVIC FLUID. Impression dictated by: Loni Dumont M.D.05/12/2022 4:14 PM BILATERAL LOWER EXTREMITY VENOUS DUPLEX INDICATION: Bilateral ankle pain PROCEDURE: Color-flow duplex scanning is used to interrogate the deep venous system of the right and left lower extremities. The common femoral vein, femoral vein and popliteal vein show good compressibility with normal proximal and distal augmentation. The calf veins are compressible. US/US venous duplex LE BI IMPRESSION: NO EVIDENCE FOR DEEP VEIN THROMBOSIS OR PROXIMAL SUPERFICIAL THROMBOPHLEBITIS INTHE RIGHT OR LEFT LOWER EXTREMITY. Impression dictated by: Jelani Figueroa MD07/08/2022 4:18 PM Assessment and Plan - TNM Staging Staging: moderate to poorly differentiated colon adenocarcinoma. + for lymphovascular and perineural invasion. pT3 pN1b (2 of 14 lymph nodes + for malignancy). No metastatic disease on staging CT Chest, Abdomen, and Pelvis (1) Cecal cancer 81 year old patient originally referred for iron deficiency anemia. Last colonoscopy normal 5 years ago--found to have cecal mass occupying 50% of lumen. Biopsy with moderately differentiated adenocarcinoma, mismatch repair intact. No obvious metastatic disease on CT abdomen/pelvis with normal CEA --Referred to Dr. Lee General Surgery who performed laparoscopic converted toopen right hemicolectomy for cecal cancer on 07/01/2022. 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 + for lymphovascular and perineural invasion. pT3 pN1b (2 of 14 lymph nodes + for malignancy). No distant metastatic disease on CT CAP preop. She was noted to have extensive adhesions in gallbladder fossa. She had postoperative atrial fibrillation that was converted medically and is following with Dr. Serrano as an outpatient. --We discussed pathologic staging: Stage III colon cancer, recommended for adjuvant therapy. She has baseline neuropathy--given choice between more aggressive FOLFOX vs. capecitabine--she decided on capecitabine alone due to age, neuropathy, and recent atrial fibrillation Today we reviewed chemotherapy counseling for oral capecitabine. Ordered 1500mgpo bid for 14 days on 7 days off for 6 months. She will return for oral chemotherapy visit on arrival of the medication and 1 week f/u toxicity visit. High complexity 45 min visit for pathology and imaging review, iron deficiency, atrial fibrillation, DVT management and review of chemotherapy counseling. (2) Iron deficiency anemia Qualifiers: Iron deficiency anemia type: chronic blood loss Qualified Code(s): D50.0 - Iron deficiency anemia secondary to blood loss (chronic) Patient was referred to our outpatient hematology clinic for evaluation of newlydiagnosed, rather acute onset anemia with documented iron deficiency. This is most consistent with blood loss given the drastic drop in her hemoglobin; and microcytic indices consistent with iron deficiency. Potentially GI blood loss incombination with oral anticoagulation (low dose Xarelto) o she has appropriately been referred to gastroenterology and is scheduled for outpatient endoscopy on 05/12/2022. Last colonoscopy was reportedly normal in 2013. o she was started on oral Ferrous Sulfate 324 mg PO once daily ~ 10 days ago (04/22/2022) - thus far, she is tolerating the oral formulation without any significant nausea, dyspepsia or constipation. o continue oral Ferrous sulfate for time being; await results of endoscopy - Xarelto on hold o Recheck iron studies, ferritin, CBC, in 2 months to fully assess response to oral iron - if no significant improvement in iron, hemoglobin, indices, etc. or if oral iron is no longer tolerated we discussed administration of parenteral iron infusions. o will also check retic count, CMP, B12 and folate. 05/15/2022: Improved hemoglobin and iron studies on oral iron, tolerating well. May continue for now, but if Dr. Lee requests parenteral replacement for colectomy, we will coordinate this. She will remain off anticoagulation due to over 6 months of Xarelto therapy for provoked distal leg DVT. 07/22/2022: Resected colon cancer, tolerates oral iron well. Continue 6 month course of ferrous sulfate daily. (3) History of DVT (deep vein thrombosis) Patient reports that she developed a small blood clot in the right lower extremity following a vascular procedure with Dr. Faust for varicose veins back in August of 2021. - she was started on low dose Xarelto 2.5 mg PO twice daily. - VIVI Cruz requested outside records/imaging or ultrasound from [facility]. Consistent with distal leg thrombosis and provoked DVT. OK to hold anticoagulation over 6 months duration. (4) Atrial fibrillation Post operative AF chemically converted, will f/u with cardiology later this month. (5) Encounter for chemotherapy management 07/22/2022: chemotherapy counseling for oral capecitabine. Ordered 1500mg po bidfor 14 days on 7 days off for 6 months. She will return for oral chemotherapy visit on arrival of the medication and 1 week f/u toxicity visit. - Chemo Plan Chemo Plan (Dose, Rate, Freq): 07/22/2022: chemotherapy counseling for oral capecitabine. Ordered 1500mg po bidfor 14 days on 7 days off for 6 months. Number of Cycles: 8 Goal of Treatment: Curative - Time with Patient Time Spent with Patient (Follow Up Visit): 45 minutes or more - High complexity to review colon cancer pathology, CT Abd/Pelvis, consult to Gen Surgery Coordination of Care & Counseling Time: Greater than 50% of time spent with patient was for coordination of care (as documented) and [id number] counseling of patient and/or family. Dictated By: Suzanne Paredes MD DD/ [id number] Signed By: <Electronically signed by MD Suzanne Paredes> 07/23/22 0701 [facility] Work Phone: [phone] Discharge summary Author Alex Lee [facility] July 12, 2022 11:29am Note Date/Time July 10, 2022 8:28 am [facility] [address] [place] [address] Discharge Summary Signed with Addenda Patient: Stella Garcia MR# : [id number] : 1940 Acct:[id number] Age/Sex: 81 / F Adm Date: 3 Loc: Room: [address] [place] [address]: Alex Lee DO Copies to: MD Alex Flower II,~ ADDENDUM1 Actually date of discharge is July 12 as her insurance company was dragging their feet approving her for [facility] facility. Just in the last severaldays she has improved greatly and she wishes to be discharged home instead. Please see my hospital note from today Addendum Documented By: DO Alex Lee 07/12/22 1129 Addendum Signed By: <Electronically signed by DO Alex Lee> 07/12/22 1129 Providers Date of Discharge: 07/10/22 Discharging Provider: Alex Lee Primary Care Provider: Quentin Dexter Consults: 07/01/22 11:32 Consult to Dietitian Routine 07/01/22 15:39 Consult to Occupational Therapy Stat Consult to Physical Therapy Stat 07/01/22 17:00 Consult to Adult Hospitalist Routine 07/04/22 09:43 Consult to Neurology Routine 07/04/22 09:49 Consult to Cardiology Routine Discharge Diagnosis (1) Cecal cancer: (2) Cancer of ascending colon: (3) History of DVT (deep vein thrombosis): (4) Lupus: Final Diagnosis Final Discharge Diagnosis: Cecal cancer Atrial fibrillation and multifocal atrial tachycardia Lower extremity pain improved Urinary retention resolved Summary Hospital Course Hospital course: Patient is female who had an elective colectomy secondary to cecal cancer. She underwent a laparoscopic converted to open surgery. Postoperatively there was a stroke alert which was not a stroke, this was secondary to some lower extremity pain and weakness. Additionally she had atrial fibrillation which converted to a multifocal atrial tachycardia. From a abdominal standpoint she had been well for many days, was eating and having bowel movements. Afebrile incisions look good White blood cell count normal. She did have episode of urinary retention which she had a Graham catheter for period of time and then Graham catheter was removed and that was showing adequatevoids. Cardiology was managing her tachyarrhythmia with medications over periodof time. She also saw neurology and hospitalist during her time at hospital. At the time of discharge she has been stable afebrile all blood cultures etc. have been negative, urinary retention resolved, good GI function. Currently just waiting cardiology final input or management Patient understands medication usage, activity restrictions, incision care. Sheis planning on going to [facility] facility to get continually stronger. Gavi see her in the office in a week to take out fay and she will have oncology referral at that time Time Spent with Patient Time spent providing/coordinating discharge services (# min): 20 Surgeries and Procedures Operation Date: 07/01/22 14:50 Actual Procedures p OR Laparoscopic Right Colectomy CONVERTED TO Open(Right) - Alex Lee, DO Diagnostic Studies Completed and Pending Studies Pending studies at discharge: 07/06/22 17:07 Sputum Culture Routine 07/06/22 19:03 Blood Culture Timed Preliminary micro results at discharge 07/06/22 19:04 Blood Culture - Preliminary Blood - Right Hand No Growth 3 Days 07/06/22 19:03 Blood Culture - Preliminary Blood - Right Antecubital No Growth 3 Days Labs on day of discharge: 07/10/22 04:43: Magnesium 1.6 L 07/09/22 10:31: TSH 3rd Generation 4.04 Exam Physical Exam Vital Signs: Patient feels good. She is not having shortness of breath. She not having any chest pain. She is eating without difficulty. She has had more bowel movements. She is not having any fevers chills or sweats. She does not want togo to [facility] facility. Temp Pulse Resp BP Pulse Ox O2 Del Method O2 Flow Rate 98.0 F 133 H 18 126/79 97 Room Air 1 07/10/22 08:00 07/10/22 08:00 07/10/22 08:00 07/10/22 08:00 07/10/22 08:00 07/10/22 08:00 07/05/22 07:58 Narrative: Patient is in her bed nontoxic in appearance. Heart is irregular rate. Lungs are clear. Abdomen is soft nontender nondistended. Incision is clean dry and intact. Discharge Plan Discharge Plan Patient Disposition: Longterm Facility Additional Instructions: DISCHARGE INSTRUCTIONS FOR GENERAL SURGERY YOUR ACTIVITY MAY INCLUDE: -Going up and down stairs slowly. -Walking around the house or outside if the weather is satisfactory. -No driving until you are seen in office and cleared for driving. -Light housework or light work permitted in 2 weeks. -Heavy lifting permitted 8 weeks At your first office visit we will discuss: Return to work, return to sports, return to exercise, etc. WOUND CARE/INCISION CARE: -Keep incision clean and dry -Showering is okay, no tub baths -Is it common to feel pulling or sharp sticking sensations in the area of incision, these sensations are a part of the normal healing process. -If you develop fever, increasing pain, redness, or swelling around the incision, please notify our office MEDICATION -Resume all previous medications that you were taking for problems unrelated to your surgery, unless informed otherwise. If there are any problems with this, please call the original prescribing doctor. If you have any other questions regarding medications, please call our office. -Over the counter medications such as Acetaminophen, Ibuprofen, Naproxen, and others may be used as directed for pain unless a prescription was provided. Follow-up with Dr. Lee in the office in 1 week, fay will be removed at that time Prescriptions: New hydrocodone-acetaminophen 5-325 mg tablet 1 tab PO Q6H PRN (Reason: pain) 7 Days Qty: 30 0RF Continued multivitamin [Multiple Vitamin] Tablet 1 tab PO DAILY potassium chloride 10 mEq Tablet Extended Release 20 meq PO TID pantoprazole 40 mg Tablet,Delayed Release (Dr/Ec) 40 mg PO DAILY ferrous sulfate 325 mg (65 mg iron) Tablet 325 mg PO DAILY gabapentin [Neurontin] 300 mg Capsule 300 mg PO TID Xarelto 2.5 mg Tablet 2.5 mg PO BID biotin 10,000 mcg Capsule 10,000 mcg PO DAILY Breztri Aerosphere 160-9-4.8 mcg/actuation Hfa Aerosol Inhaler 2 inh INHALATION BID cyclobenzaprine 5 mg tablet 5 mg PO HS PRN (Reason: Muscle Spasm) Patient Comments: take 1 tablet by mouth twice a day if needed Vitamin D (with calcium) 77-400 mg-unit Tablet 2 tab PO DAILY Discontinued Skyrizi 150 mg/mL Syringe 150 mg SUBCUT Q12W No Action torsemide 20 mg Tablet 20 mg PO DAILY PRN (Reason: Edema) Follow Up: Alex Lee DO [Active Staff - D.O.] - Documented By: Alex Lee DO 07/10/22823 Signed By: <Electronically signed by DO Alex Lee> 07/10/22827 [facility] Work Phone: [phone] Progress note Author Alex Lee [facility] July 12, 2022 11:28am Note Date/Time July 12, 2022 11:2 8am [facility] [address] [place] [address] General Surgery Progress Note Signed Patient: Stella Garcia MR# : [id number] : 1940 Acct:[id number] Age/Sex: 81 / F Adm Date: 3 Loc: Room: [address] [place] [address] Type: ADM IN Attending Dr: Alex Lee DO Copies to: ~ Date of Service: 07/12/2022 Subjective Subjective HPI: Patient said that she is doing great. She is ambulating without any difficulty. She feels stronger now than she felt before surgery. She is not having any nausea or vomiting. She is eating. She is having bowel movements without any difficulty. She wants to go home. She does not feel like she needs to go to a [facility] facility. Allergies & Medications Medications and Allergies Allergies Sulfa (Sulfonamide Antibiotics) Allergy (Verified 05/12/22 09:45) Unknown Reaction Home Medications ferrous sulfate 325 mg (65 mg iron) tablet 325 mg PO DAILY 04/28/22 [History Confirmed 07/01/22] gabapentin 300 mg capsule (Neurontin) 300 mg PO TID 04/28/22 [History Confirmed 07/01/22] multivitamin 1 tab PO DAILY 04/28/22 [History Confirmed 07/01/22] pantoprazole 40 mg tablet,delayed release 40 mg PO DAILY 04/28/22 [History Confirmed 07/01/22] potassium chloride 10 mEq tablet,extended release 20 meq PO TID 04/28/22 [History Confirmed 07/01/22] risankizumab-rzaa 150 mg/mL subcutaneous syringe (Skyrizi) 150 mg subcut Q12W 04/28/22 [History Confirmed 07/01/22] rivaroxaban 2.5 mg tablet (Xarelto) 2.5 mg PO BID 04/28/22 [History Confirmed 07/01/22] torsemide 20 mg tablet 20 mg PO DAILY PRN Edema 04/28/22 [History Confirmed 07/01/22] biotin 10,000 mcg capsule 10,000 mcg PO DAILY 05/12/22 [History Confirmed 07/01/22] budesonide 160 mcg-glycopyr 9 mcg-formot 4.8 mcg/actuation HFA inhaler (Breztri Aerosphere) 2 inh inhalation BID 05/12/22 [History Confirmed 07/01/22] calcium phosphate,dibasic 77 mg-vitamin D3 400 unit tablet 2 tab PO DAILY 07/01/22 [History Confirmed 07/01/22] cyclobenzaprine 5 mg tablet 5 mg PO HS PRN Muscle Spasm 07/01/22 [History Confirmed 07/01/22] dofetilide 250 mcg capsule 250 mcg PO BID 30 days #60 caps 07/10/22 [Rx] hydrocodone 5 mg-acetaminophen 325 mg tablet 1 tab PO Q6H PRN pain 7 days #30 tabs 07/10/22 [Rx] metoprolol succinate 50 mg tablet,extended release 24 hr (Toprol XL) 50 mg PO DAILY 30 days #30 tabs 07/10/22 [Rx] potassium chloride 20 mEq tablet,extended release(part/cryst) (Klor-Con M) 40 meq PO DAILY 30 days #60 tabs 07/10/22 [Rx] spironolactone 25 mg tablet 12.5 mg PO DAILY 30 days #15 tabs 07/10/22 [Rx] verapamil 180 mg tablet,extended release 180 mg PO DAILY 30 days #30 tabs 07/10/22 [Rx] Active Medications Hydrocodone Bitart/Acetaminophen (Hydrocodone/Acetaminophen 5-325 Mg Tablet) 2 tab PO Q4H PRN PRN Reason: pain Last Admin: 07/06/22 17:27 Dose: 2 tab Hydrocodone Bitart/Acetaminophen (Hydrocodone/Acetaminophen 5-325 Mg Tablet) 1 tab PO Q4H PRN PRN Reason: Pain Last Admin: 07/09/22 21:02 Dose: 1 tab Albuterol/Ipratropium (Ipratropium/Albuterol 0.5-3 Mg 3 Ml Ampul.Neb) 3 ml INHALATION QID.RESP STEVE Stop: 07/01/23 19:59 Last Admin: 07/12/22 08:34 Dose: 3 ml Aspirin (Aspirin 81 Mg Tablet.Dr) 81 mg PO DAILY STEVE Stop: 07/04/23 17:14 Last Admin: 07/12/22 09:52 Dose: 81 mg Colchicine (Colchicine 0.6 Mg Tablet) 0.6 mg PO BID [facility] Stop: 07/08/23 18:29 Last Admin: 07/12/22 09:51 Dose: 0.6 mg Docusate Sodium (Docusate 100 Mg Capsule) 100 mg PO BID [facility] Stop: 07/07/23 20:59 Last Admin: 07/12/22 08:32 Dose: Not Given Dofetilide (Dofetilide 250 Mcg Capsule) 250 mcg PO BID [facility] Stop: 07/06/23 20:59 Last Admin: 07/12/22 09:51 Dose: 250 mcg Enoxaparin Sodium (Enoxaparin 40 Mg/0.4 Ml Syringe) 40 mg SUBCUT DAILY@1000 [facility] Stop: 07/02/23 09:59 Last Admin: 07/12/22 09:52 Dose: 40 mg Fluticasone Propionate (Fluticasone Propionate 110 120 Puff/12 Gm Inhaler) 1 puff INHALATION BID STEVE Stop: 07/01/23 20:59 Last Admin: 07/12/22 08:34 Dose: 1 puff Magnesium Sulfate (Magnesium Sulf 2gm-*Swfi*) 2 gm in 50 mls @ 25 mls/hr IV DAILY PRN PRN Reason: Hypomagnesemia, Mg <1.7 Stop: 07/06/23 05:39 Last Infusion: 07/10/22 11:30 Dose: Infused Ibuprofen (Ibuprofen 600 Mg Tablet) 600 mg PO Q8H PRN PRN Reason: Pain Stop: 07/11/23 09:18 Metoprolol Tartrate (Metoprolol Tartrate 25 Mg Tablet) 25 mg PO BID [facility] Stop: 07/09/23 10:29 Last Admin: 07/12/22 09:52 Dose: 25 mg Ondansetron HCl (Ondansetron 4 Mg/2 Ml Vial) 4 mg IV-PUSH Q6H PRN PRN Reason: Nausea And Vomiting Stop: 07/01/23 16:59 Last Admin: 07/02/22 09:21 Dose: 4 mg Potassium Chloride (Potassium Chloride Er 20 Meq Tab.Er.Prt) 40 meq PO DAILY PRN PRN Reason: Hypokalemia Stop: 07/07/23 04:59 Last Admin: 07/07/22 09:05 Dose: 40 meq Sodium Chloride (Sodium Chloride 0.9 % 10 Ml Vial.Pf) 10 ml INJECTION PRN PRN PRN Reason: To dilute Pepcid Stop: 07/08/23 21:49 Last Admin: 07/10/22 21:31 Dose: 10 ml Sodium Chloride (Sodium Chloride 0.9 % 10 Ml Syringe) 0 ml IV-PUSH PRN PRN PRN Reason: Flush Stop: 07/08/23 21:49 Last Admin: 07/09/22 21:04 Dose: 10 ml Spironolactone (Spironolactone 12.5 Mg Tablet) 12.5 mg PO DAILY [facility] Stop: 07/10/23 10:59 Last Admin: 07/12/22 09:51 Dose: 12.5 mg Verapamil HCl (Verapamil Er (Sr) 180 Mg Tablet.Er) 180 mg PO DAILY [facility] Stop: 07/09/23 10:29 Last Admin: 07/12/22 09:51 Dose: 180 mg Exam Physical Exam Vital Signs: Temp Pulse Resp BP Pulse Ox O2 Del Method O2 Flow Rate 97.3 F L 93 H 20 121/74 97 Room Air 1 07/12/22 08:00 07/12/22 08:35 07/12/22 08:35 07/12/22 08:00 07/12/22 08:00 07/12/22 08:00 07/05/22 07:58 Narrative: Patient walked around her room without difficulty. Heart is regular rate rhythm. Lungs clear. Abdomen is soft nontender nondistended. Incisions are clean dry and intact. Objective Pain Assessment Abdomen: Pain Description: Constant Pain Intensity: 4 Right Hip: Pain Description: Intermittent and Aching Pain Intensity: 4 Medial Abdomen: Pain Description: Aching and Soreness Pain Intensity: 4 Bilateral Ankle: Pain Description: Aching Pain Intensity: 4 Intake & Output 24 hour I&O: Intake & Output 07/11/22 07/12/22 07/12/22 23:59 07:59 15:59 Intake Total 765 / 1015 400 / 400 Output Total 550 / 650 550 / 550 Balance 215 / 365 -150 / -150 Weight 68.5 kg Labs 07/09/22 04:12 07/09/22 04:12 Microbiology Microbiology 07/06/22 19:04 Blood - Right Hand Blood Culture - Final NO GROWTH 5 DAYS 07/06/22 19:03 Blood - Right Antecubital Blood Culture - Final NO GROWTH 5 DAYS A&P - General Surgery Assessment/Plan (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 Stage III on pathology Urinary retention is resolved Rapid response to multifocal atrial tachycardia/A-fib is resolved. Plan is to discharge home, she is doing well with her activity level and she feels comfortable and confident with that. We discussed incision care, and medication usage, staple removal at the office, follow-up instructions, bathing and activity instructions. Code(s): C18.2 - Malignant neoplasm of ascending colon Status: Acute (3) History of DVT (deep vein thrombosis): Code(s): Z86.718 - Personal history of other venous thrombosis and embolism Status: Chronic (4) Lupus: Code(s): M32.9 - Systemic lupus erythematosus, unspecified Status: Acute Documented By: Alex Lee DO 07/12/22 112 Signed By: <Electronically signed by DO Alex Lee> 07/12/22 1128 [facility] Work Phone: [phone] Progress note Author Lori Crespo [facility] July 11, 2022 6:20pm Note Date/Time July 11, 2022 6:01 pm [facility] [address] [place] [address] Hospitalist Progress Note Signed Patient: Stella Garcia MR# : [id number] : 1940 Acct:[id number] Age/Sex: 81 / F Adm Date: 3 Loc: 4P Room: [address] [place] [address] Type: ADM IN Attending Dr: Alex Lee DO Copies to: ~ Date of Service: 07/11/2022 Subjective Subjective Narrative: Assessment And Plan right ankle pain/gout flare there was warmness warmness and pain in the right ankle she has history of gout . Urice acid is low . XR Ankle shows No acute findings. she was started on indomethacin with PPI for GI Px and colchicine. her swelling and pain improved almost back to baseline. gout flare is likely exacerbate with surgery. PICC was placed the patient is clear for DC form IM standpoint; since she is still waiting for placement she can continue colchicine while she is inpatient. she is to follow up with her PCP. Also, she is to continue ASA for primary prophylaxis. LDL of 45, statin was not recommended by neurology INTERVAL HPI: As Above, Pt resting in bed. feeling better . Denies any chest pain, SOB. her ankle pain is resolved Thank you very much for allowing me to participate in the care of this very pleasant patient. ??? Exam Physical Exam Vital Signs: Temp Pulse Resp BP Pulse Ox O2 Del Method O2 Flow Rate 35.2 C L 97 H 16 111/69 98 Room Air 1 07/11/22 16:00 07/11/22 16:00 07/11/22 16:00 07/11/22 16:00 07/11/22 16:00 07/11/22 16:07/05/22 07:58 Narrative: GEN: NAD, Cooperative LUNGS: CTA CV: nl S1 S2; no M/R/G ABD: Soft, mild tenderness around the surgical site, + BS EXT: no ankle tenderness , no warmness or erythema . No calf muscle tenderness NEURO: ? FND. Objective Lab Results 07/09/22 04:12 07/09/22 04:12 Microbiology Results Microbiology 07/06/22 19:04 Blood - Right Hand Blood Culture - Preliminary No Growth 4 Days 07/06/22 19:03 Blood - Right Antecubital Blood Culture - Preliminary No Growth 4 Days Meds Allergies and Active Meds Allergies Sulfa (Sulfonamide Antibiotics) Allergy (Verified 05/12/22 09:45) Unknown Reaction Active Meds: Active Medications Generic Name Dose Route Start Last Admin Trade Name Freq PRN Reason Stop Dose Admin Hydrocodone Bitart/Acetaminophen 2 tab 07/06/22 10:26 07/06/22 17:27 Hydrocodone/Acetaminophen 5-325 Mg Tablet PO 2 tab Q4H PRN Administration pain Hydrocodone Bitart/Acetaminophen 1 tab 07/06/22 10:26 07/09/22 21:02 Hydrocodone/Acetaminophen 5-325 Mg Tablet PO 1 tab Q4H PRN Administration Pain Albuterol/Ipratropium 3 ml 07/01/22 20:00 07/11/22 15:49 Ipratropium/Albuterol 0.5-3 Mg 3 Ml Ampul.Neb INHALATION 07/01/23 19:59 3 ml QID.RESP STEVE Administration Aspirin 81 mg 07/04/22 17:15 07/11/22 09:42 Aspirin 81 Mg Tablet.Dr PO 07/04/23 17:14 81 mg DAILY STEVE Administration Atorvastatin Calcium 10 mg 07/05/22 21:00 07/10/22 21:31 Atorvastatin 10 Mg Tablet PO 07/05/23 20:59 10 mg QPM STEVE Administration Colchicine 0.6 mg 07/08/22 18:30 07/11/22 09:42 Colchicine 0.6 Mg Tablet PO 07/08/23 18:29 0.6 mg BID STEVE Administration Docusate Sodium 100 mg 07/07/22 21:00 07/11/22 09:40 Docusate 100 Mg Capsule PO 07/07/23 20:59 100 mg BID STEVE Administration Dofetilide 250 mcg 07/06/22 21:00 07/11/22 10:34 Dofetilide 250 Mcg Capsule PO 07/06/23 20:59 250 mcg BID STEVE Administration Enoxaparin Sodium 40 mg 07/02/22 10:00 07/11/22 09:43 Enoxaparin 40 Mg/0.4 Ml Syringe SUBCUT 07/02/23 09:59 40 mg DAILY@1000 STEVE Administration Fluticasone Propionate 1 puff 07/01/22 21:00 07/11/22 12:10 Fluticasone Propionate 110 120 Puff/12 Gm Inhaler INHALATION 07/01/23 20:59 1 puff BID STEVE Administration Magnesium Sulfate 2 gm in 50 mls @ 25 mls/hr 07/06/22 05:40 07/10/22 11:30 Magnesium Sulf 2gm-*Swfi* IV 07/06/23 05:39 Infused DAILY PRN Infusion Hypomagnesemia, Mg <1.7 Ibuprofen 600 mg 07/11/22 09:19 Ibuprofen 600 Mg Tablet PO 07/11/23 09:18 Q8H PRN Pain Metoprolol Tartrate 25 mg 07/09/22 10:30 07/11/22 10:35 Metoprolol Tartrate 25 Mg Tablet PO 07/09/23 10:29 25 mg BID STEVE Administration Ondansetron HCl 4 mg 07/01/22 17:00 07/02/22 09:21 Ondansetron 4 Mg/2 Ml Vial IV-PUSH 07/01/23 16:59 4 mg Q6H PRN Administration Nausea And Vomiting Potassium Chloride 40 meq 07/07/22 05:00 07/07/22 09:05 Potassium Chloride Er 20 Meq Tab.Er.Prt PO 07/07/23 04:59 40 meq DAILY PRN Administration Hypokalemia Sodium Chloride 10 ml 07/08/22 21:50 07/10/22 21:31 Sodium Chloride 0.9 % 10 Ml Vial.Pf INJECTION 07/08/23 21:49 10 ml PRN PRN Administration To dilute Pepcid Sodium Chloride 0 ml 07/08/22 21:50 07/09/22 21:04 Sodium Chloride 0.9 % 10 Ml Syringe IV-PUSH 07/08/23 21:49 10 ml PRN PRN Administration Flush Spironolactone 12.5 mg 07/10/22 11:00 07/11/22 09:41 Spironolactone 12.5 Mg Tablet PO 07/10/23 10:59 12.5 mg DAILY STEVE Administration Verapamil HCl 180 mg 07/09/22 10:30 07/11/22 09:40 Verapamil Er (Sr) 180 Mg Tablet.Er PO 07/09/23 10:29 180 mg DAILY STEVE Administration A&P - Hospitalist Assessment/Plan (1) Gout flare: (2) Atrial fibrillation with rapid ventricular response: Plan . Documented By: Lori Crespo MD 07/11/22 4098 Signed By: <Electronically signed by Lori Crespo MD> 07/11/22 1820 [facility] Work Phone: [phone] Progress note Author Alex Lee [facility] July 11, 2022 9:19am Note Date/Time July 11, 2022 9:19 am [facility] [address] [place] [address] General Surgery Progress Note Signed Patient: Stella Garcia MR# : [id number] : 1940 Acct:[id number] Age/Sex: 81 / F Adm Date: 3 Loc: Room: [address] [place] [address] Type: ADM IN Attending Dr: Alex Lee DO Copies to: ~ Date of Service: 07/11/2022 Subjective Subjective HPI: Patient is feeling better all the time. She is eating without difficulty. She had a bowel movement. She is not having much abdominal pain. She not having any fevers chills or sweats. She not having any shortness of breath or chest pain. She is feeling a lot better with her activity level Allergies & Medications Medications and Allergies Allergies Sulfa (Sulfonamide Antibiotics) Allergy (Verified 05/12/22 09:45) Unknown Reaction Home Medications ferrous sulfate 325 mg (65 mg iron) tablet 325 mg PO DAILY 04/28/22 [History Confirmed 07/01/22] gabapentin 300 mg capsule (Neurontin) 300 mg PO TID 04/28/22 [History Confirmed 07/01/22] multivitamin 1 tab PO DAILY 04/28/22 [History Confirmed 07/01/22] pantoprazole 40 mg tablet,delayed release 40 mg PO DAILY 04/28/22 [History Confirmed 07/01/22] potassium chloride 10 mEq tablet,extended release 20 meq PO TID 04/28/22 [History Confirmed 07/01/22] risankizumab-rzaa 150 mg/mL subcutaneous syringe (Skyrizi) 150 mg subcut Q12W 04/28/22 [History Confirmed 07/01/22] rivaroxaban 2.5 mg tablet (Xarelto) 2.5 mg PO BID 04/28/22 [History Confirmed 07/01/22] torsemide 20 mg tablet 20 mg PO DAILY PRN Edema 04/28/22 [History Confirmed 07/01/22] biotin 10,000 mcg capsule 10,000 mcg PO DAILY 05/12/22 [History Confirmed 07/01/22] budesonide 160 mcg-glycopyr 9 mcg-formot 4.8 mcg/actuation HFA inhaler (Breztri Aerosphere) 2 inh inhalation BID 05/12/22 [History Confirmed 07/01/22] calcium phosphate,dibasic 77 mg-vitamin D3 400 unit tablet 2 tab PO DAILY 07/01/22 [History Confirmed 07/01/22] cyclobenzaprine 5 mg tablet 5 mg PO HS PRN Muscle Spasm 07/01/22 [History Confirmed 07/01/22] colchicine 0.6 mg tablet 0.6 mg PO BID 7 days #14 tabs 07/10/22 [Rx] dofetilide 250 mcg capsule 250 mcg PO BID 30 days #60 caps 07/10/22 [Rx] hydrocodone 5 mg-acetaminophen 325 mg tablet 1 tab PO Q6H PRN pain 7 days #30 tabs 07/10/22 [Rx] metoprolol succinate 50 mg tablet,extended release 24 hr (Toprol XL) 50 mg PO DAILY 30 days #30 tabs 07/10/22 [Rx] potassium chloride 20 mEq tablet,extended release(part/cryst) (Klor-Con M) 40 meq PO DAILY 30 days #60 tabs 07/10/22 [Rx] spironolactone 25 mg tablet 12.5 mg PO DAILY 30 days #15 tabs 07/10/22 [Rx] verapamil 180 mg tablet,extended release 180 mg PO DAILY 30 days #30 tabs 07/10/22 [Rx] Active Medications Hydrocodone Bitart/Acetaminophen (Hydrocodone/Acetaminophen 5-325 Mg Tablet) 2 tab PO Q4H PRN PRN Reason: pain Last Admin: 07/06/22 17:27 Dose: 2 tab Hydrocodone Bitart/Acetaminophen (Hydrocodone/Acetaminophen 5-325 Mg Tablet) 1 tab PO Q4H PRN PRN Reason: Pain Last Admin: 07/09/22 21:02 Dose: 1 tab Albuterol/Ipratropium (Ipratropium/Albuterol 0.5-3 Mg 3 Ml Ampul.Neb) 3 ml INHALATION QID.RESP STEVE Stop: 07/01/23 19:59 Last Admin: 07/11/22 08:08 Dose: 3 ml Aspirin (Aspirin 81 Mg Tablet.Dr) 81 mg PO DAILY STEVE Stop: 07/04/23 17:14 Last Admin: 07/10/22 09:17 Dose: 81 mg Atorvastatin Calcium (Atorvastatin 10 Mg Tablet) 10 mg PO QPM STEVE Stop: 07/05/23 20:59 Last Admin: 07/10/22 21:31 Dose: 10 mg Colchicine (Colchicine 0.6 Mg Tablet) 0.6 mg PO BID STEVE Stop: 07/08/23 18:29 Last Admin: 07/10/22 21:32 Dose: 0.6 mg Docusate Sodium (Docusate 100 Mg Capsule) 100 mg PO BID STEVE Stop: 07/07/23 20:59 Last Admin: 07/10/22 21:33 Dose: Not Given Dofetilide (Dofetilide 250 Mcg Capsule) 250 mcg PO BID STEVE Stop: 07/06/23 20:59 Last Admin: 07/10/22 21:31 Dose: 250 mcg Enoxaparin Sodium (Enoxaparin 40 Mg/0.4 Ml Syringe) 40 mg SUBCUT DAILY@1000 [facility] Stop: 07/02/23 09:59 Last Admin: 07/10/22 09:18 Dose: 40 mg Famotidine (Famotidine/Pf 20 Mg/2 Ml Vial) 20 mg IV-PUSH Q12HR STEVE Stop: 07/01/23 20:59 Last Admin: 07/10/22 21:31 Dose: 20 mg Fluticasone Propionate (Fluticasone Propionate 110 120 Puff/12 Gm Inhaler) 1 puff INHALATION BID STEVE Stop: 07/01/23 20:59 Last Admin: 07/10/22 19:51 Dose: 1 puff Hydromorphone HCl (Hydromorphone 1 Mg/Ml Syringe) 1 mg IV-PUSH Q3H PRN PRN Reason: Pain Scale 6 - 10 Last Admin: 07/07/22 00:09 Dose: 1 mg Hydromorphone HCl (Hydromorphone 0.5 Mg/0.5 Ml Syringe) 0.5 mg IV-PUSH Q3H PRN PRN Reason: Pain Scale 1 - 5 Magnesium Sulfate (Magnesium Sulf 2gm-*Swfi*) 2 gm in 50 mls @ 25 mls/hr IV DAILY PRN PRN Reason: Hypomagnesemia, Mg <1.7 Stop: 07/06/23 05:39 Last Infusion: 07/10/22 11:30 Dose: Infused Metoprolol Tartrate (Metoprolol Tartrate 25 Mg Tablet) 25 mg PO BID [facility] Stop: 07/09/23 10:29 Last Admin: 07/10/22 21:32 Dose: 25 mg Ondansetron HCl (Ondansetron 4 Mg/2 Ml Vial) 4 mg IV-PUSH Q6H PRN PRN Reason: Nausea And Vomiting Stop: 07/01/23 16:59 Last Admin: 07/02/22 09:21 Dose: 4 mg Pantoprazole Sodium (Pantoprazole 40 Mg Tablet.Dr) 40 mg PO DAILY [facility] Stop: 07/08/23 08:59 Last Admin: 07/10/22 09:17 Dose: 40 mg Potassium Chloride (Potassium Chloride Er 20 Meq Tab.Er.Prt) 40 meq PO DAILY PRN PRN Reason: Hypokalemia Stop: 07/07/23 04:59 Last Admin: 07/07/22 09:05 Dose: 40 meq Sodium Chloride (Sodium Chloride 0.9 % 10 Ml Vial.Pf) 10 ml INJECTION PRN PRN PRN Reason: To dilute Pepcid Stop: 07/08/23 21:49 Last Admin: 07/10/22 21:31 Dose: 10 ml Sodium Chloride (Sodium Chloride 0.9 % 10 Ml Syringe) 0 ml IV-PUSH PRN PRN PRN Reason: Flush Stop: 07/08/23 21:49 Last Admin: 07/09/22 21:04 Dose: 10 ml Spironolactone (Spironolactone 12.5 Mg Tablet) 12.5 mg PO DAILY [facility] Stop: 07/10/23 10:59 Last Admin: 07/10/22 12:29 Dose: 12.5 mg Verapamil HCl (Verapamil Er (Sr) 180 Mg Tablet.Er) 180 mg PO DAILY [facility] Stop: 07/09/23 10:29 Last Admin: 07/10/22 09:18 Dose: 180 mg Exam Physical Exam Vital Signs: Temp Pulse Resp BP Pulse Ox O2 Del Method O2 Flow Rate 98.1 F 88 18 113/73 96 Room Air 1 07/11/22 04:00 07/11/22 04:00 07/11/22 04:00 07/11/22 04:00 07/11/22 04:00 07/11/22 04:00 07/05/22 07:58 Narrative: Patient is in her bed nontoxic in appearance. Heart is irregular rate. Lungs are clear. Abdomen is soft nontender nondistended. Incision is clean dry and intact. Objective Pain Assessment Abdomen: Pain Description: Constant Pain Intensity: 4 Right Hip: Pain Description: Intermittent and Aching Pain Intensity: 4 Medial Abdomen: Pain Description: Aching and Soreness Pain Intensity: 4 Bilateral Ankle: Pain Description: Aching Pain Intensity: 4 Intake & Output 24 hour I&O: Intake & Output 07/10/22 07/11/22 07/11/22 23:59 07:59 15:59 Intake Total 375 / 1025 250 / 250 Output Total 650 / 1575 100 / 100 Balance -275 / -550 150 / 150 Weight 70 kg Labs 07/09/22 04:12 07/09/22 04:12 Laboratory Results - Last 48 hrs. 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 Stage III on pathology Urinary retention is resolved Rapid response to multifocal atrial tachycardia/A-fib is resolved. Increase activity, approval for [facility] facility is still pending. It is possible that if she continues to improve might be discharged home Code(s): C18.2 - Malignant neoplasm of ascending colon Status: Acute (3) History of DVT (deep vein thrombosis): Code(s): Z86.718 - Personal history of other venous thrombosis and embolism Status: Chronic (4) Lupus: Code(s): M32.9 - Systemic lupus erythematosus, unspecified Status: Acute Documented By: Alex Lee DO 07/11/22916 Signed By: <Electronically signed by DO Alex Lee> 07/11/2219 [facility] Work Phone: [phone] 183-584904-08-2023 Progress note Author Lori Desiraekole [facility] July 11, 2022 2:34am Note Date/Time July 10, 2022 3:53 pm [facility] [address] [place] [address] Hospitalist Progress Note Signed Patient: Stella Garcia MR# : [id number] : 1940 Acct:[id number] Age/Sex: 81 / F Adm Date: 3 Loc: Room: [address] [place] [address] Type: ADM IN Attending Dr: Alex Lee DO Copies to: ~ Date of Service: 07/10/2022 Subjective Subjective Narrative: Assessment And Plan right ankle pain/gout flare there was warmness warmness and pain in the right ankle she has history of gout Urice acid is low XR Ankle shows No acute findings. she was started on indomethacin with PPI for GI Px and colchicine. her swelling and pain improved almost back to baseline. gout flare is likely exacerbate with surgery. the patient is clear for DC form IM standpoint; she can continue colchicine fora week since the gout flare is almost resolved. she is to follow up with her PCP. Also, she is to continue ASA for primary prophylaxis. LDL of 45, statin was not recommended by neurology INTERVAL HPI: As Above, Pt resting in bed. feeling better . Denies any chest pain, SOB. her ankle pain is resolved Thank you very much for allowing me to participate in the care of this very pleasant patient. ??? Exam Physical Exam Vital Signs: Temp Pulse Resp BP Pulse Ox O2 Del Method O2 Flow Rate 36.1 C L 77 20 106/68 94 L Room Air 1 07/10/22 12:27 07/10/22 15:49 07/10/22 15:49 07/10/22 12:27 07/10/22 12:27 07/10/22 12:30 07/05/22 07:58 Narrative: GEN: NAD, Cooperative LUNGS: CTA CV: nl S1 S2; no M/R/G ABD: Soft, mild tenderness around the surgical site, + BS EXT: no ankle tenderness , no warmness or erythema . No calf muscle tenderness NEURO: ? FND. Objective Lab Results 07/09/22 04:12 07/09/22 04:12 Microbiology Results Microbiology 07/06/22 19:04 Blood - Right Hand Blood Culture - Preliminary No Growth 3 Days 07/06/22 19:03 Blood - Right Antecubital Blood Culture - Preliminary No Growth 3 Days Meds Allergies and Active Meds Allergies Sulfa (Sulfonamide Antibiotics) Allergy (Verified 05/12/22 09:45) Unknown Reaction Active Meds: Active Medications Generic Name Dose Route Start Last Admin Trade Name Freq PRN Reason Stop Dose Admin Hydrocodone Bitart/Acetaminophen 2 tab 07/06/22 10:26 07/06/22 17:27 Hydrocodone/Acetaminophen 5-325 Mg Tablet PO 2 tab Q4H PRN Administration pain Hydrocodone Bitart/Acetaminophen 1 tab 07/06/22 10:26 07/09/22 21:02 Hydrocodone/Acetaminophen 5-325 Mg Tablet PO 1 tab Q4H PRN Administration Pain Albuterol/Ipratropium 3 ml 07/01/22 20:00 07/10/22 15:48 Ipratropium/Albuterol 0.5-3 Mg 3 Ml Ampul.Neb INHALATION 07/01/23 19:59 3 ml QID.RESP STEVE Administration Aspirin 81 mg 07/04/22 17:15 07/10/22 09:17 Aspirin 81 Mg Tablet. PO 07/04/23 17:14 81 mg DAILY STEVE Administration Atorvastatin Calcium 10 mg 07/05/22 21:00 07/09/22 21:01 Atorvastatin 10 Mg Tablet PO 07/05/23 20:59 10 mg QPM STEVE Administration Colchicine 0.6 mg 07/08/22 18:30 07/10/22 09:18 Colchicine 0.6 Mg Tablet PO 07/08/23 18:29 0.6 mg BID STEVE Administration Docusate Sodium 100 mg 07/07/22 21:00 07/10/22 09:17 Docusate 100 Mg Capsule PO 07/07/23 20:59 100 mg BID STEVE Administration Dofetilide 250 mcg 07/06/22 21:00 07/10/22 09:18 Dofetilide 250 Mcg Capsule PO 07/06/23 20:59 250 mcg BID STEVE Administration Enoxaparin Sodium 40 mg 07/02/22 10:00 07/10/22 09:18 Enoxaparin 40 Mg/0.4 Ml Syringe SUBCUT 07/02/23 09:59 40 mg DAILY@1000 STEVE Administration Famotidine 20 mg 07/01/22 21:00 07/10/22 09:18 Famotidine/Pf 20 Mg/2 Ml Vial IV-PUSH 07/01/23 20:59 20 mg Q12HR STEVE Administration Fluticasone Propionate 1 puff 07/01/22 21:00 07/10/22 09:23 Fluticasone Propionate 110 120 Puff/12 Gm Inhaler INHALATION 07/01/23 20:59 1 puff BID STEVE Administration Hydromorphone HCl 1 mg 07/01/22 17:00 07/07/22 00:09 Hydromorphone 1 Mg/Ml Syringe IV-PUSH 1 mg Q3H PRN Administration Pain Scale 6 - 10 Hydromorphone HCl 0.5 mg 07/01/22 17:00 Hydromorphone 0.5 Mg/0.5 Ml Syringe IV-PUSH Q3H PRN Pain Scale 1 - 5 Magnesium Sulfate 2 gm in 50 mls @ 25 mls/hr 07/06/22 05:40 07/10/22 11:30 Magnesium Sulf 2gm-*Swfi* IV 07/06/23 05:39 Infused DAILY PRN Infusion Hypomagnesemia, Mg <1.7 Metoprolol Tartrate 25 mg 07/09/22 10:30 07/10/22 09:18 Metoprolol Tartrate 25 Mg Tablet PO 07/09/23 10:29 25 mg BID STEVE Administration Ondansetron HCl 4 mg 07/01/22 17:00 07/02/22 09:21 Ondansetron 4 Mg/2 Ml Vial IV-PUSH 07/01/23 16:59 4 mg Q6H PRN Administration Nausea And Vomiting Pantoprazole Sodium 40 mg 07/08/22 09:00 07/10/22 09:17 Pantoprazole 40 Mg Tablet. PO 07/08/23 08:59 40 mg DAILY STEVE Administration Potassium Chloride 40 meq 07/07/22 05:00 07/07/22 09:05 Potassium Chloride Er 20 Meq Tab.Er.Prt PO 07/07/23 04:59 40 meq DAILY PRN Administration Hypokalemia Sodium Chloride 10 ml 07/08/22 21:50 07/09/22 21:03 Sodium Chloride 0.9 % 10 Ml Vial.Pf INJECTION 07/08/23 21:49 10 ml PRN PRN Administration To dilute Pepcid Sodium Chloride 0 ml 07/08/22 21:50 07/09/22 21:04 Sodium Chloride 0.9 % 10 Ml Syringe IV-PUSH 07/08/23 21:49 10 ml PRN PRN Administration Flush Spironolactone 12.5 mg 07/10/22 11:00 07/10/22 12:29 Spironolactone 12.5 Mg Tablet PO 07/10/23 10:59 12.5 mg DAILY STEVE Administration Verapamil HCl 180 mg 07/09/22 10:30 07/10/22 09:18 Verapamil Er (Sr) 180 Mg Tablet.Er PO 07/09/23 10:29 180 mg DAILY STEVE Administration Documented By: Lori Crespo MD 07/10/22 1550 Signed By: <Electronically signed by Lori Crespo MD> 07/11/22 0234 [facility] Work Phone: [phone] Progress note Author Geovany Serrano [facility] July 10, 2022 10:58am Note Date/Time July 10, 2022 10:5 5am [facility] [address] [place] [address] Cardiology Progress Note Signed Patient: Stella Garcia MR# : [id number] : 1940 Acct:[id number] Age/Sex: 81 / F Adm Date: 3 Loc: Room: [address] [place] [address] Type: ADM IN Attending Dr: Alex Lee DO Copies to: ~ Date of Service: 07/10/2022 Subjective Principal diagnosis: Paroxysmal atrial fibrillation, multifocal atrial tachycardia Interval history: Patient has some tachyarrhythmia last night but now appears to be in sinus rhythm with good rate control. I believe the combination of dofetilide, verapamil, and metoprolol to be appropriate for management of the atrial tachyarrhythmia. Blood pressure and vitals appear stable. Because of this I believe she is suitable for discharge. Exam Physical Exam Vital Signs: Temp Pulse Resp BP Pulse Ox O2 Del Method O2 Flow Rate 98.0 F 108 H 20 126/79 97 Room Air 1 07/10/22 08:00 07/10/22 09:32 07/10/22 09:32 07/10/22 08:00 07/10/22 08:00 07/10/22 08:50 07/05/22 07:58 HEENT Head: normal to inspection Ears: hearing grossly normal bilaterally Nose: external nose normal and nares normal Face and sinus: normal facial exam Mouth: oral mucosae normal and tongue normal Eyes Conjunctivae: conjunctivae normal Sclera: sclerae normal Neck Neck: normal visual inspection Carotids: normal carotid upstroke Lymphatic: no lymphadenopathy noted Chest Chest palpation & inspection: normal inspection of the chest Resp Effort & Inspection: normal respiratory effort Auscultation: clear to auscultation bilaterally Cardio Rate: regular rate Rhythm: regular rhythm Heart Sounds: S1 normal and S2 normal GI Inspection: normal to inspection Palpation: soft Skin General: no rashes or lesions noted Neuro General: patient alert, patient awake and patient oriented x3 Cognition: normal cognition Motor: muscle tone normal throughout Sensory Exam: no sensory deficits noted Objective Labs 07/09/22 04:12 07/09/22 04:12 Labs: Laboratory Results - last 24 hr 07/09/22 07/10/22 10:31 04:43 Magnesium 1.6 L TSH 3rd Generation 4.04 A&P - Cardiology (1) Multifocal atrial tachycardia: Assessment/Problem Details: Multifocal atrial tachycardia appears to be sufficiently mitigated with verapamil and metoprolol. Continue same Code(s): I47.1 - Supraventricular tachycardia Status: Acute (2) Atrial fibrillation with rapid ventricular response: Assessment/Problem Details: Restored to sinus rhythm with dofetilide. Acceptable QT interval. 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 This may actually get worsewith her bowel surgery. Because of this I would suggest cessation of her outpatient and/or chronic loop diuretic therapy, and the implementation of low-dose chronic spironolactone 12.5 mg a day. I believe this will prevent problemsjohnny has had in the past with anemia, prevent hypokalemia, and hopefully stabilize her atrial arrhythmia Code(s): E87.6 - Hypokalemia Status: Acute Plan As above. We will be happy to see the patient in the office in about 4 to 8 weeks after she is recovered from surgery and is discharged from [facility] Documented By: Geovany Serrano MD [id number] Signed By: <Electronically signed by MD Geovany Serrano> 07/10/22 1053 [facility] Work Phone: 1([phone]) 135-217304-06-2023 Progress note Author Lori Crespo [facility] July 09, 2022 7:05pm Note Date/Time July 09, 2022 6:36 pm [facility] [address] [place] [address] Hospitalist Progress Note Signed Patient: Stella Garcia MR# : [id number] : 1940 Acct:[id number] Age/Sex: 81 / F Adm Date: 3 Loc: Room: [address] [place] [address] Type: ADM IN Attending Dr: Alex Lee DO Copies to: ~ Date of Service: 07/09/2022 Subjective Subjective Narrative: Assessment And Plan right ankle pain/gout flares there was warmness warmness and pain in the right ankle she has history of gout Urice acid is low XR Ankle shows No acute findings. she was started on indomethacin with PPI for GI Px and colchicine. her swelling and pain improved today. gout flare is likely exacerbate with surgery. the patient is clear for DC form IM standpoint she can continue colchicine at home until she follow up with her PCP. INTERVAL HPI: As Above, Pt resting in bed. feeling better . Denies any chest pain, SOB. her ankle pain is better Thank you very much for allowing me to participate in the care of this very pleasant patient. ??? Exam Physical Exam Vital Signs: Temp Pulse Resp BP Pulse Ox O2 Del Method O2 Flow Rate 36.7 C 78 20 130/65 98 Room Air 1 07/09/22 15:46 07/09/22 16:00 07/09/22 16:00 07/09/22 15:46 07/09/22 15:46 07/09/22 16:00 07/05/22 07:58 Narrative: GEN: NAD, Cooperative LUNGS: CTA. normal respiratory effort CV: nl S1 S2; no M/R/G ABD: Soft, mild tenderness around the surgical site, + BS EXT: No peripheral edema, R>L ankle tenderness is better, Right ankle warmness and erythema are better . No calf muscle tenderness NEURO: ? FND. Objective Lab Results 07/09/22 04:12 07/09/22 04:12 Microbiology Results Microbiology 07/06/22 19:04 Blood - Right Hand Blood Culture - Preliminary No Growth 2 Days 07/06/22 19:03 Blood - Right Antecubital Blood Culture - Preliminary No Growth 2 Days Meds Allergies and Active Meds Allergies Sulfa (Sulfonamide Antibiotics) Allergy (Verified 05/12/22 09:45) Unknown Reaction Active Meds: Active Medications Generic Name Dose Route Start Last Admin Trade Name Freq PRN Reason Stop Dose Admin Hydrocodone Bitart/Acetaminophen 2 tab 07/06/22 10:26 07/06/22 17:27 Hydrocodone/Acetaminophen 5-325 Mg Tablet PO 2 tab Q4H PRN Administration pain Hydrocodone Bitart/Acetaminophen 1 tab 07/06/22 10:26 07/09/22 08:56 Hydrocodone/Acetaminophen 5-325 Mg Tablet PO 1 tab Q4H PRN Administration Pain Albuterol/Ipratropium 3 ml 07/01/22 20:00 07/09/22 15:51 Ipratropium/Albuterol 0.5-3 Mg 3 Ml Ampul.Neb INHALATION 07/01/23 19:59 3 ml QID.RESP STEVE Administration Aspirin 81 mg 07/04/22 17:15 07/09/22 08:55 Aspirin 81 Mg Tablet.Dr PO 07/04/23 17:14 81 mg DAILY STEVE Administration Atorvastatin Calcium 10 mg 07/05/22 21:00 07/08/22 21:00 Atorvastatin 10 Mg Tablet PO 07/05/23 20:59 10 mg QPM STEVE Administration Colchicine 0.6 mg 07/08/22 18:30 07/09/22 08:55 Colchicine 0.6 Mg Tablet PO 07/08/23 18:29 0.6 mg BID STEVE Administration Docusate Sodium 100 mg 07/07/22 21:00 07/09/22 08:55 Docusate 100 Mg Capsule PO 07/07/23 20:59 100 mg BID STEVE Administration Dofetilide 250 mcg 07/06/22 21:00 07/09/22 09:10 Dofetilide 250 Mcg Capsule PO 07/06/23 20:59 250 mcg BID STEVE Administration Enoxaparin Sodium 40 mg 07/02/22 10:00 07/09/22 09:26 Enoxaparin 40 Mg/0.4 Ml Syringe SUBCUT 07/02/23 09:59 40 mg DAILY@1000 STEVE Administration Famotidine 20 mg 07/01/22 21:00 07/09/22 08:56 Famotidine/Pf 20 Mg/2 Ml Vial IV-PUSH 07/01/23 20:59 20 mg Q12HR STEVE Administration Fluticasone Propionate 1 puff 07/01/22 21:00 07/09/22 07:25 Fluticasone Propionate 110 120 Puff/12 Gm Inhaler INHALATION 07/01/23 20:59 1 puff BID STEVE Administration Hydromorphone HCl 1 mg 07/01/22 17:00 07/07/22 00:09 Hydromorphone 1 Mg/Ml Syringe IV-PUSH 1 mg Q3H PRN Administration Pain Scale 6 - 10 Hydromorphone HCl 0.5 mg 07/01/22 17:00 Hydromorphone 0.5 Mg/0.5 Ml Syringe IV-PUSH Q3H PRN Pain Scale 1 - 5 Magnesium Sulfate 2 gm in 50 mls @ 25 mls/hr 07/06/22 05:40 Magnesium Sulf 2gm-*Swfi* IV 07/06/23 05:39 DAILY PRN Hypomagnesemia, Mg <1.7 Metoprolol Tartrate 25 mg 07/09/22 10:30 07/09/22 11:35 Metoprolol Tartrate 25 Mg Tablet PO 07/09/23 10:29 25 mg BID STEVE Administration Ondansetron HCl 4 mg 07/01/22 17:00 07/02/22 09:21 Ondansetron 4 Mg/2 Ml Vial IV-PUSH 07/01/23 16:59 4 mg Q6H PRN Administration Nausea And Vomiting Pantoprazole Sodium 40 mg 07/08/22 09:00 07/09/22 08:55 Pantoprazole 40 Mg Tablet. PO 07/08/23 08:59 40 mg DAILY STEVE Administration Potassium Chloride 40 meq 07/07/22 05:00 07/07/22 09:05 Potassium Chloride Er 20 Meq Tab.Er.Prt PO 07/07/23 04:59 40 meq DAILY PRN Administration Hypokalemia Sodium Chloride 10 ml 07/08/22 21:50 Sodium Chloride 0.9 % 10 Ml Vial.Pf INJECTION 07/08/23 21:49 PRN PRN To dilute Pepcid Sodium Chloride 0 ml 07/08/22 21:50 Sodium Chloride 0.9 % 10 Ml Syringe IV-PUSH 07/08/23 21:49 PRN PRN Flush Verapamil HCl 180 mg 07/09/22 10:30 07/09/22 11:35 Verapamil Er (Sr) 180 Mg Tablet.Er PO 07/09/23 10:29 180 mg DAILY STEVE Administration Documented By: Lori Crespo MD 07/09/22 1833 Signed By: <Electronically signed by Lori Crespo MD> 07/09/22 1905 [facility] Work Phone: [phone] 609-268704-06-2023 Progress note Author Alex Lee [facility] July 09, 2022 11:07am Note Date/Time July 09, 2022 11:0 7am [facility] [address] [place] [address] General Surgery Progress Note Signed Patient: Stella Garcia MR# : [id number] : 1940 Acct:[id number] Age/Sex: 81 / F Adm Date: 3 Loc: Room: 6I1101-1 Type: ADM IN Attending Dr: Alex Lee DO Copies to: ~ Date of Service: 07/09/2022 Subjective Subjective HPI: Patient is not having any complaints. She is eating without any difficulty. She did have a hard time getting an IV, that was bothersome to her. She is not having any nausea or vomiting. She not having any abdominal pain. She is not having any shortness of breath or chest pain Allergies & Medications Medications and Allergies Allergies Sulfa (Sulfonamide Antibiotics) Allergy (Verified 05/12/22 09:45) Unknown Reaction Home Medications ferrous sulfate 325 mg (65 mg iron) tablet 325 mg PO DAILY 04/28/22 [History Confirmed 07/01/22] gabapentin 300 mg capsule (Neurontin) 300 mg PO TID 04/28/22 [History Confirmed 07/01/22] multivitamin 1 tab PO DAILY 04/28/22 [History Confirmed 07/01/22] pantoprazole 40 mg tablet,delayed release 40 mg PO DAILY 04/28/22 [History Confirmed 07/01/22] potassium chloride 10 mEq tablet,extended release 20 meq PO TID 04/28/22 [History Confirmed 07/01/22] risankizumab-rzaa 150 mg/mL subcutaneous syringe (Skyrizi) 150 mg subcut Q12W 04/28/22 [History Confirmed 07/01/22] rivaroxaban 2.5 mg tablet (Xarelto) 2.5 mg PO BID 04/28/22 [History Confirmed 07/01/22] torsemide 20 mg tablet 20 mg PO DAILY PRN Edema 04/28/22 [History Confirmed 07/01/22] biotin 10,000 mcg capsule 10,000 mcg PO DAILY 05/12/22 [History Confirmed 07/01/22] budesonide 160 mcg-glycopyr 9 mcg-formot 4.8 mcg/actuation HFA inhaler (Breztri Aerosphere) 2 inh inhalation BID 05/12/22 [History Confirmed 07/01/22] calcium phosphate,dibasic 77 mg-vitamin D3 400 unit tablet 2 tab PO DAILY 07/01/22 [History Confirmed 07/01/22] cyclobenzaprine 5 mg tablet 5 mg PO HS PRN Muscle Spasm 07/01/22 [History Confirmed 07/01/22] Active Medications Hydrocodone Bitart/Acetaminophen (Hydrocodone/Acetaminophen 5-325 Mg Tablet) 2 tab PO Q4H PRN PRN Reason: pain Last Admin: 07/06/22 17:27 Dose: 2 tab Hydrocodone Bitart/Acetaminophen (Hydrocodone/Acetaminophen 5-325 Mg Tablet) 1 tab PO Q4H PRN PRN Reason: Pain Last Admin: 07/09/22 08:56 Dose: 1 tab Albuterol/Ipratropium (Ipratropium/Albuterol 0.5-3 Mg 3 Ml Ampul.Neb) 3 ml INHALATION QID.RESP STEVE Stop: 07/01/23 19:59 Last Admin: 07/09/22 07:24 Dose: 3 ml Aspirin (Aspirin 81 Mg Tablet.Dr) 81 mg PO DAILY STEVE Stop: 07/04/23 17:14 Last Admin: 07/09/22 08:55 Dose: 81 mg Atorvastatin Calcium (Atorvastatin 10 Mg Tablet) 10 mg PO QPM STEVE Stop: 07/05/23 20:59 Last Admin: 07/08/22 21:00 Dose: 10 mg Colchicine (Colchicine 0.6 Mg Tablet) 0.6 mg PO BID STEVE Stop: 07/08/23 18:29 Last Admin: 07/09/22 08:55 Dose: 0.6 mg Docusate Sodium (Docusate 100 Mg Capsule) 100 mg PO BID STEVE Stop: 07/07/23 20:59 Last Admin: 07/09/22 08:55 Dose: 100 mg Dofetilide (Dofetilide 250 Mcg Capsule) 250 mcg PO BID STEVE Stop: 07/06/23 20:59 Last Admin: 07/09/22 09:10 Dose: 250 mcg Enoxaparin Sodium (Enoxaparin 40 Mg/0.4 Ml Syringe) 40 mg SUBCUT DAILY@1000 STEVE Stop: 07/02/23 09:59 Last Admin: 07/09/22 09:26 Dose: 40 mg Famotidine (Famotidine/Pf 20 Mg/2 Ml Vial) 20 mg IV-PUSH Q12HR STEVE Stop: 07/01/23 20:59 Last Admin: 07/09/22 08:56 Dose: 20 mg Fluticasone Propionate (Fluticasone Propionate 110 120 Puff/12 Gm Inhaler) 1 puff INHALATION BID STEVE Stop: 07/01/23 20:59 Last Admin: 07/09/22 07:25 Dose: 1 puff Hydromorphone HCl (Hydromorphone 1 Mg/Ml Syringe) 1 mg IV-PUSH Q3H PRN PRN Reason: Pain Scale 6 - 10 Last Admin: 07/07/22 00:09 Dose: 1 mg Hydromorphone HCl (Hydromorphone 0.5 Mg/0.5 Ml Syringe) 0.5 mg IV-PUSH Q3H PRN PRN Reason: Pain Scale 1 - 5 Magnesium Sulfate (Magnesium Sulf 2gm-*Swfi*) 2 gm in 50 mls @ 25 mls/hr IV DAILY PRN PRN Reason: Hypomagnesemia, Mg <1.7 Stop: 07/06/23 05:39 Metoprolol Tartrate (Metoprolol Tartrate 25 Mg Tablet) 25 mg PO BID [facility] Stop: 07/09/23 10:29 Ondansetron HCl (Ondansetron 4 Mg/2 Ml Vial) 4 mg IV-PUSH Q6H PRN PRN Reason: Nausea And Vomiting Stop: 07/01/23 16:59 Last Admin: 07/02/22 09:21 Dose: 4 mg Pantoprazole Sodium (Pantoprazole 40 Mg Tablet.Dr) 40 mg PO DAILY [facility] Stop: 07/08/23 08:59 Last Admin: 07/09/22 08:55 Dose: 40 mg Potassium Chloride (Potassium Chloride Er 20 Meq Tab.Er.Prt) 40 meq PO DAILY PRN PRN Reason: Hypokalemia Stop: 07/07/23 04:59 Last Admin: 07/07/22 09:05 Dose: 40 meq Sodium Chloride (Sodium Chloride 0.9 % 10 Ml Vial.Pf) 10 ml INJECTION PRN PRN PRN Reason: To dilute Pepcid Stop: 07/08/23 21:49 Sodium Chloride (Sodium Chloride 0.9 % 10 Ml Syringe) 0 ml IV-PUSH PRN PRN PRN Reason: Flush Stop: 07/08/23 21:49 Verapamil HCl (Verapamil Er (Sr) 180 Mg Tablet.Er) 180 mg PO DAILY [facility] Stop: 07/09/23 10:29 Exam Physical Exam Vital Signs: Temp Pulse Resp BP Pulse Ox O2 Del Method O2 Flow Rate 98.3 F 103 H 19 106/64 97 Room Air 1 07/09/22 07:51 07/09/22 07:51 07/09/22 07:51 07/09/22 07:51 07/09/22 07:51 07/09/22 07:51 07/05/22 07:58 Narrative: Patient is in her bed nontoxic in appearance. Heart is irregular rate. Lungs are clear. Abdomen is soft nontender nondistended. Incision is clean dry and intact. Graham catheter is clear yellow Objective Pain Assessment Abdomen: Pain Description: Constant Pain Intensity: 4 Right Hip: Pain Description: Intermittent and Aching Pain Intensity: 4 Medial Abdomen: Pain Description: Aching and Soreness Pain Intensity: 4 Bilateral Ankle: Pain Description: Intermittent, Chronic and Soreness Pain Intensity: 4 Intake & Output 24 hour I&O: Intake & Output 07/08/22 07/09/22 07/09/22 23:59 07:59 15:59 Intake Total 240 / 690 100 / 100 Output Total 300 / 2125 550 / 550 Balance -60 / -1435 -450 / -450 Weight 69 kg Labs 07/09/22 04:12 07/09/22 04:12 Laboratory Results - Last 48 hrs. 07/09/22 04:12: Corrected WBC 4.9, Uncorrected WBC Count 4.9, RBC 3.85, Hgb 10.2L, Hct 30.8 L, MCV 80.1, MCH 26.6, MCHC 33.2, RDW 21.1 H, Plt Count 244, MPV 7.5, Neut % (Auto) 58.5, Lymph % (Auto) 16.6, Reagan % (Auto) 18.3, Eos % (Auto) 5.5, Baso % (Auto) 1.1, Nucleat RBC Rel Count 0.1, Neut # (Auto) 2.9, Lymph # (Auto) 0.8 L, Reagan # (Auto) 0.9 H, Eos # (Auto) 0.3, Baso # (Auto) 0.1, PlateletEstimate Normal, Plt Morphology Comment Normal, RBC Morphology N/A, Polychromasia Moderate, Poikilocytosis Slight, Anisocytosis Moderate, Microcytosis Moderate, Tear Drop Cells Slight, Ovalocytes Slight, Helmet Cells Slight, Crenated Cell Slight 07/09/22 04:12: PHA Creatinine Clear 52.51, Sodium 137, Potassium 3.5, Chloride 102, Carbon Dioxide 27.8, Anion Gap 10.7, BUN 9, Creatinine 0.51 L, Est GFR (CKD-EPI) > 60.0, Magnesium 1.6 L 07/08/22 04:11: Magnesium 1.7 L Microbiology Microbiology 07/06/22 19:04 Blood - Right Hand Blood Culture - Preliminary No Growth 2 Days 07/06/22 19:03 Blood - Right Antecubital Blood Culture - Preliminary No Growth 2 Days 07/06/22 17:55 Straight Catheter Urine Culture - Final No Growth 2 Days A&P - General Surgery Assessment/Plan (1) 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 Stage III on pathology Urinary retention, Graham catheter is in place Discontinue Graham catheter today. Check postvoid residuals and if greater than 250 mL will replace catheter and she will be discharged with the patient has multifocal atrial tachycardia, cardiology is working on rate control and medications. They feel she should be able to go by tomorrow. I discussed with nurse case manager getting precertification for [facility] facility. I discussedwith patient. She understand Code(s): C18.2 - Malignant neoplasm of ascending colon Status: Acute (3) History of DVT (deep vein thrombosis): Code(s): Z86.718 - Personal history of other venous thrombosis and embolism Status: Chronic (4) Lupus: Code(s): M32.9 - Systemic lupus erythematosus, unspecified Status: Acute Documented By: Alex Lee DO 07/09/22 1105 Signed By: <Electronically signed by DO Alex Lee> 07/09/22 1103 [facility] Work Phone: [phone] Progress note Author Geovany Serrano [facility] July 09, 2022 10:19am Note Date/Time July 09, 2022 10:1 9am [facility] [address] [place] [address] Cardiology Progress Note Signed Patient: Stella Garcia MR# : [id number] : 1940 Acct:[id number] Age/Sex: 81 / F Adm Date: 3 Loc: Room: [address] [place] [address] Type: ADM IN Attending Dr: Alex Lee DO Copies to: ~ Date of Service: 07/09/2022 Subjective Principal diagnosis: Paroxysmal atrial fibrillation, multifocal atrial tachycardia Interval history: Patient's progressing nicely from a surgical standpoint. Eating solid food. NoGI symptomatology Control of her arrhythmia is problematic. She really is not having atrial fibrillation anymore. Mostly multifocal atrial tachycardia poorly responsive todiltiazem Because of this we will initiate low-dose metoprolol to tartrate and transition from diltiazem to verapamil. I believe adequate control will be achieved today and if surgery is planning discharge for Wednesday this would be satisfactory from a cardiology standpoint Exam Physical Exam Vital Signs: Temp Pulse Resp BP Pulse Ox O2 Del Method O2 Flow Rate 98.3 F 103 H 19 106/64 97 Room Air 1 07/09/22 07:51 07/09/22 07:51 07/09/22 07:51 07/09/22 07:51 07/09/22 07:51 07/09/22 07:51 07/05/22 07:58 HEENT Head: normal to inspection Ears: hearing grossly normal bilaterally Nose: external nose normal and nares normal Face and sinus: normal facial exam Mouth: oral mucosae normal and tongue normal Eyes Conjunctivae: conjunctivae normal Sclera: sclerae normal Neck Neck: normal visual inspection Carotids: normal carotid upstroke Lymphatic: no lymphadenopathy noted Chest Chest palpation & inspection: normal inspection of the chest Resp Effort & Inspection: normal respiratory effort Auscultation: clear to auscultation bilaterally Cardio Rate: regular rate Rhythm: regular rhythm Heart Sounds: S1 normal and S2 normal GI Inspection: normal to inspection Palpation: soft Skin General: no rashes or lesions noted Neuro General: patient alert, patient awake and patient oriented x3 Cognition: normal cognition Motor: muscle tone normal throughout Sensory Exam: no sensory deficits noted Objective Labs 07/09/22 04:12 07/09/22 04:12 Labs: Laboratory Results - last 24 hr 07/09/22 07/09/22 04:12 04:12 Corrected WBC 4.9 Uncorrected WBC Count 4.9 RBC 3.85 Hgb 10.2 L Hct 30.8 L MCV 80.1 MCH 26.6 MCHC 33.2 RDW 21.1 H Plt Count 244 MPV 7.5 Neut % (Auto) 58.5 Lymph % (Auto) 16.6 Reagan % (Auto) 18.3 Eos % (Auto) 5.5 Baso % (Auto) 1.1 Nucleat RBC Rel Count 0.1 Neut # (Auto) 2.9 Lymph # (Auto) 0.8 L Reagan # (Auto) 0.9 H Eos # (Auto) 0.3 Baso # (Auto) 0.1 Platelet Estimate Normal Plt Morphology Comment Normal RBC Morphology N/A Polychromasia Moderate Poikilocytosis Slight Anisocytosis Moderate Microcytosis Moderate Tear Drop Cells Slight Ovalocytes Slight Helmet Cells Slight Crenated Cell Slight PHA Creatinine Clear 52.51 Sodium 137 Potassium 3.5 Chloride 102 Carbon Dioxide 27.8 Anion Gap 10.7 BUN 9 Creatinine 0.51 L Est GFR (CKD-EPI) > 60.0 Magnesium 1.6 L A&P - Cardiology (1) Multifocal atrial tachycardia: Assessment/Problem Details: Somewhat difficult to control. We will transition away from diltiazem to the preferred agent verapamil. Also add a small dose of metoprolol to tartrate It is my belief that we can achieve adequate rate control today and plan for discharge tomorrow Code(s): I47.1 - Supraventricular tachycardia Status: Acute (2) Atrial fibrillation with rapid ventricular response: Assessment/Problem Details: Restored to sinus rhythm and/or organized atrial activity with dofetilide. Continue same. Code(s): I48.91 - Unspecified atrial fibrillation Status: Acute Plan Continue dofetilide, metoprolol, and verapamil. Probable discharge Wednesday. Documented By: Geovany Serrano MD [id number] Signed By: <Electronically signed by MD Geovany Serrano> 07/09/22 1019 [facility] Work Phone: [phone]) [phone] Progress note Author Lori Crespo [facility] July 09, 2022 1:02am Note Date/Time July 08, 2022 6:01 pm [facility] [address] [place] [address] Hospitalist Progress Note Signed Patient: Stella Garcia MR# : [id number] : 1940 Acct:[id number] Age/Sex: 81 / F Adm Date: 3 Loc: 4P Room: 5X0261-9 Type: ADM IN Attending Dr: Alex Lee DO Copies to: ~ Date of Service: 07/08/2022 Subjective Subjective Narrative: Assessment And Plan right ankle pain /DJD vs rule out gout arthritis there was warmness warmness and pain in the right ankle she has history of gout Urice acid is low XR Ankle shows No acute findings. gout flare is associated with surgery indomethacin with PPI for GI Px the patient still in pain will add colchicine INTERVAL HPI: As Above, Pt resting in bed. feeling the same. Denies any chest pain, SOB her ankle pain is little better to same Thank you very much for allowing me to participate in the care of this very pleasant patient. ??? Exam Physical Exam Vital Signs: Temp Pulse Resp BP Pulse Ox O2 Del Method O2 Flow Rate 37.1 C 117 H 18 107/69 98 Room Air 1 07/08/22 15:47 07/08/22 16:05 07/08/22 16:05 07/08/22 15:47 07/08/22 15:47 07/08/22 15:47 07/05/22 07:58 Narrative: GEN: NAD, Cooperative NECK: ? JVD, supple LUNGS: CTA. normal respiratory effort CV: nl S1 S2; no M/R/G ABD: Soft, mild tenderness around the surgical site, + BS EXT: No peripheral edema, R>L ankle tenderness, Right ankle warmness and erythema. No calf muscle tenderness NEURO: ? FND. Objective Lab Results 07/07/22 04:24 07/07/22 04:24 Microbiology Results Microbiology 07/06/22 17:55 Straight Catheter Urine Culture - Final No Growth 2 Days 07/06/22 19:03 Blood - Right Antecubital Blood Culture - Preliminary No Growth 1 Day 07/06/22 19:04 Blood - Right Hand Blood Culture - Preliminary No Growth 1 Day Meds Allergies and Active Meds Allergies Sulfa (Sulfonamide Antibiotics) Allergy (Verified 05/12/22 09:45) Unknown Reaction Active Meds: Active Medications Generic Name Dose Route Start Last Admin Trade Name Freq PRN Reason Stop Dose Admin Hydrocodone Bitart/Acetaminophen 2 tab 07/06/22 10:26 07/06/22 17:27 Hydrocodone/Acetaminophen 5-325 Mg Tablet PO 2 tab Q4H PRN Administration pain Hydrocodone Bitart/Acetaminophen 1 tab 07/06/22 10:26 Hydrocodone/Acetaminophen 5-325 Mg Tablet PO Q4H PRN Pain Albuterol/Ipratropium 3 ml 07/01/22 20:00 07/08/22 16:06 Ipratropium/Albuterol 0.5-3 Mg 3 Ml Ampul.Neb INHALATION 07/01/23 19:59 3 ml QID.RESP STEVE Administration Aspirin 81 mg 07/04/22 17:15 07/08/22 08:29 Aspirin 81 Mg Tablet. PO 07/04/23 17:14 81 mg DAILY STEVE Administration Atorvastatin Calcium 10 mg 07/05/22 21:00 07/07/22 21:30 Atorvastatin 10 Mg Tablet PO 07/05/23 20:59 10 mg QPM STEVE Administration Diltiazem HCl 60 mg 07/08/22 14:00 07/08/22 14:07 Diltiazem 60 Mg Tablet PO 07/08/23 13:59 60 mg TID STEVE Administration Docusate Sodium 100 mg 07/07/22 21:00 07/08/22 08:29 Docusate 100 Mg Capsule PO 07/07/23 20:59 100 mg BID STEVE Administration Dofetilide 250 mcg 07/06/22 21:00 07/08/22 08:30 Dofetilide 250 Mcg Capsule PO 07/06/23 20:59 250 mcg BID STEVE Administration Enoxaparin Sodium 40 mg 07/02/22 10:00 07/08/22 10:58 Enoxaparin 40 Mg/0.4 Ml Syringe SUBCUT 07/02/23 09:59 Not Given DAILY@1000 STEVE Famotidine 20 mg 07/01/22 21:00 07/08/22 08:29 Famotidine/Pf 20 Mg/2 Ml Vial IV-PUSH 07/01/23 20:59 20 mg Q12HR STEVE Administration Fluticasone Propionate 1 puff 07/01/22 21:00 07/08/22 07:50 Fluticasone Propionate 110 120 Puff/12 Gm Inhaler INHALATION 07/01/23 20:59 1 puff BID STEVE Administration Hydromorphone HCl 1 mg 07/01/22 17:00 07/07/22 00:09 Hydromorphone 1 Mg/Ml Syringe IV-PUSH 1 mg Q3H PRN Administration Pain Scale 6 - 10 Hydromorphone HCl 0.5 mg 07/01/22 17:00 Hydromorphone 0.5 Mg/0.5 Ml Syringe IV-PUSH Q3H PRN Pain Scale 1 - 5 Magnesium Sulfate 2 gm in 50 mls @ 25 mls/hr 07/06/22 05:40 Magnesium Sulf 2gm-*Swfi* IV 07/06/23 05:39 DAILY PRN Hypomagnesemia, Mg <1.7 Ondansetron HCl 4 mg 07/01/22 17:00 07/02/22 09:21 Ondansetron 4 Mg/2 Ml Vial IV-PUSH 07/01/23 16:59 4 mg Q6H PRN Administration Nausea And Vomiting Pantoprazole Sodium 40 mg 07/08/22 09:00 07/08/22 08:29 Pantoprazole 40 Mg Tablet.Dr PO 07/08/23 08:59 40 mg DAILY STEVE Administration Potassium Chloride 40 meq 07/07/22 05:00 07/07/22 09:05 Potassium Chloride Er 20 Meq Tab.Er.Prt PO 07/07/23 04:59 40 meq DAILY PRN Administration Hypokalemia Documented By: Lori Crespo MD 07/08/22 6176 Signed By: <Electronically signed by Lori Crespo MD> 07/09/22 0102 [facility] Work Phone: [phone] 448-872104-05-2023 Progress note Author Alex Lee [facility] July 08, 2022 2:23pm Note Date/Time July 08, 2022 8:47 am [facility] [address] [place] [address] General Surgery Progress Note Signed with Addenda Patient: Stella Garcia MR# : [id number] : 1940 Acct:[id number] Age/Sex: 81 / F Adm Date: 3 Loc: 4P Room: [id number] Type: ADM IN Attending Dr: Alex Lee DO Copies to: ~ ADDENDUM1 Patient worked with therapy today. She is feeling fine. She is feeling weak and not strong enough to go home she did work with therapy and she was told she was doing very well but she knows that she has a long way to go. I discussed with her and her stepdaughter via the phone pathology report etc. atrialfibrillation etc. all issues regarding her care. Addendum Documented By: DO Alex Lee 07/08/221422 Addendum Signed By: <Electronically signed by DO Alex Lee> 07/08/221422 Date of Service: 07/08/2022 Subjective Subjective HPI: Patient is not having as much pain. She is eating without any difficulty. No nausea or vomiting. She is been having bowel movements. She did not get up yesterday secondary to A-fib issues, she is just in the process of getting out of bed today. She is sore with that. Allergies & Medications Medications and Allergies Allergies Sulfa (Sulfonamide Antibiotics) Allergy (Verified 05/12/22 09:45) Unknown Reaction Home Medications ferrous sulfate 325 mg (65 mg iron) tablet 325 mg PO DAILY 04/28/22 [History Confirmed 07/01/22] gabapentin 300 mg capsule (Neurontin) 300 mg PO TID 04/28/22 [History Confirmed 07/01/22] multivitamin 1 tab PO DAILY 04/28/22 [History Confirmed 07/01/22] pantoprazole 40 mg tablet,delayed release 40 mg PO DAILY 04/28/22 [History Confirmed 07/01/22] potassium chloride 10 mEq tablet,extended release 20 meq PO TID 04/28/22 [History Confirmed 07/01/22] risankizumab-rzaa 150 mg/mL subcutaneous syringe (Skyrizi) 150 mg subcut Q12W 04/28/22 [History Confirmed 07/01/22] rivaroxaban 2.5 mg tablet (Xarelto) 2.5 mg PO BID 04/28/22 [History Confirmed 07/01/22] torsemide 20 mg tablet 20 mg PO DAILY PRN Edema 04/28/22 [History Confirmed 07/01/22] biotin 10,000 mcg capsule 10,000 mcg PO DAILY 05/12/22 [History Confirmed 07/01/22] budesonide 160 mcg-glycopyr 9 mcg-formot 4.8 mcg/actuation HFA inhaler (Breztri Aerosphere) 2 inh inhalation BID 05/12/22 [History Confirmed 07/01/22] calcium phosphate,dibasic 77 mg-vitamin D3 400 unit tablet 2 tab PO DAILY 07/01/22 [History Confirmed 07/01/22] cyclobenzaprine 5 mg tablet 5 mg PO HS PRN Muscle Spasm 07/01/22 [History Confirmed 07/01/22] Active Medications Hydrocodone Bitart/Acetaminophen (Hydrocodone/Acetaminophen 5-325 Mg Tablet) 2 tab PO Q4H PRN PRN Reason: pain Last Admin: 07/06/22 17:27 Dose: 2 tab Hydrocodone Bitart/Acetaminophen (Hydrocodone/Acetaminophen 5-325 Mg Tablet) 1 tab PO Q4H PRN PRN Reason: Pain Albuterol/Ipratropium (Ipratropium/Albuterol 0.5-3 Mg 3 Ml Ampul.Neb) 3 ml INHALATION QID.RESP STEVE Stop: 07/01/23 19:59 Last Admin: 07/08/22 07:49 Dose: 3 ml Aspirin (Aspirin 81 Mg Tablet.Dr) 81 mg PO DAILY STEVE Stop: 07/04/23 17:14 Last Admin: 07/08/22 08:29 Dose: 81 mg Atorvastatin Calcium (Atorvastatin 10 Mg Tablet) 10 mg PO QPM STEVE Stop: 07/05/23 20:59 Last Admin: 07/07/22 21:30 Dose: 10 mg Diltiazem HCl (Diltiazem 30 Mg Tablet) 30 mg PO TID STEVE Stop: 07/07/23 21:59 Last Admin: 07/08/22 08:28 Dose: 30 mg Docusate Sodium (Docusate 100 Mg Capsule) 100 mg PO BID STEVE Stop: 07/07/23 20:59 Last Admin: 07/08/22 08:29 Dose: 100 mg Dofetilide (Dofetilide 250 Mcg Capsule) 250 mcg PO BID STEVE Stop: 07/06/23 20:59 Last Admin: 07/08/22 08:30 Dose: 250 mcg Enoxaparin Sodium (Enoxaparin 40 Mg/0.4 Ml Syringe) 40 mg SUBCUT DAILY@1000 [facility] Stop: 07/02/23 09:59 Last Admin: 07/08/22 08:29 Dose: 40 mg Famotidine (Famotidine/Pf 20 Mg/2 Ml Vial) 20 mg IV-PUSH Q12HR [facility] Stop: 07/01/23 20:59 Last Admin: 07/08/22 08:29 Dose: 20 mg Fluticasone Propionate (Fluticasone Propionate 110 120 Puff/12 Gm Inhaler) 1 puff INHALATION BID [facility] Stop: 07/01/23 20:59 Last Admin: 07/08/22 07:50 Dose: 1 puff Hydromorphone HCl (Hydromorphone 1 Mg/Ml Syringe) 1 mg IV-PUSH Q3H PRN PRN Reason: Pain Scale 6 - 10 Last Admin: 07/07/22 00:09 Dose: 1 mg Hydromorphone HCl (Hydromorphone 0.5 Mg/0.5 Ml Syringe) 0.5 mg IV-PUSH Q3H PRN PRN Reason: Pain Scale 1 - 5 Magnesium Sulfate (Magnesium Sulf 2gm-*Swfi*) 2 gm in 50 mls @ 25 mls/hr IV DAILY PRN PRN Reason: Hypomagnesemia, Mg <1.7 Stop: 07/06/23 05:39 Ondansetron HCl (Ondansetron 4 Mg/2 Ml Vial) 4 mg IV-PUSH Q6H PRN PRN Reason: Nausea And Vomiting Stop: 07/01/23 16:59 Last Admin: 07/02/22 09:21 Dose: 4 mg Pantoprazole Sodium (Pantoprazole 40 Mg Tablet.Dr) 40 mg PO DAILY [facility] Stop: 07/08/23 08:59 Last Admin: 07/08/22 08:29 Dose: 40 mg Potassium Chloride (Potassium Chloride Er 20 Meq Tab.Er.Prt) 40 meq PO DAILY PRN PRN Reason: Hypokalemia Stop: 07/07/23 04:59 Last Admin: 07/07/22 09:05 Dose: 40 meq Exam Physical Exam Vital Signs: Temp Pulse Resp BP Pulse Ox O2 Del Method O2 Flow Rate 98.2 F 111 H 18 122/72 94 L Room Air 1 07/08/22 08:00 07/08/22 08:00 07/08/22 08:00 07/08/22 08:00 07/08/22 08:00 07/08/22 08:00 07/05/22 07:58 Narrative: Patient is sitting up at the side of her hospital bed. She is not toxic. She is conversive pleasant lucid. Heart is irregular rates around 110. That is confirmed with clinical research monitor. Abdomen is soft nontender nondistended. Incision is clean dry and intact. Extremities no edema. Graham catheter shows clear yellow urine Objective Pain Assessment Abdomen: Pain Description: Constant Pain Intensity: 4 Right Hip: Pain Description: Intermittent and Aching Pain Intensity: 4 Medial Abdomen: Pain Description: Aching and Soreness Pain Intensity: 0 Bilateral Ankle: Pain Description: Intermittent, Chronic and Soreness Pain Intensity: 0 Intake & Output 24 hour I&O: Intake & Output 07/07/22 07/08/22 07/08/22 23:59 07:59 15:59 Intake Total 770 / 1420 100 / 100 Output Total 325 / 1525 850 / 850 Balance 445 / -105 -750 / -750 Weight 71.2 kg Labs 07/07/22 04:24 07/07/22 04:24 Laboratory Results - Last 48 hrs. 07/08/22 04:11: Magnesium 1.7 L 07/07/22 04:24: Corrected WBC 7.2, Uncorrected WBC Count 7.2, RBC 4.08, Hgb 10.9L, Hct 32.2 L, MCV 78.8 L, MCH 26.7, MCHC 33.9, RDW 21.6 H, Plt Count 235, MPV 7.9, Neut % (Auto) 68.9, Lymph % (Auto) 11.7, Reagan % (Auto) 16.3, Eos % (Auto) 2.3, Baso % (Auto) 0.8, Nucleat RBC Rel Count 0.1, Neut # (Auto) 4.9, Lymph # (Auto) 0.8 L, Reagan # (Auto) 1.2 H, Eos # (Auto) 0.2, Baso # (Auto) 0.1, PlateletEstimate Normal, Plt Morphology Comment Normal, RBC Morphology N/A, Polychromasia Slight, Anisocytosis Marked, Microcytosis Moderate, Ovalocytes Slight 07/07/22 04:24: PHA Creatinine Clear 56.76, Sodium 135 L, Potassium 3.0 L, Chloride 100, Carbon Dioxide 25.4, Anion Gap 12.6, BUN 6 L, Creatinine 0.30 L, Est GFR (CKD-EPI) > 60.0, Magnesium 1.6 L 07/06/22 19:04: Corrected WBC 8.9, Uncorrected WBC Count 8.9, RBC 4.07, Hgb 10.9L, Hct 32.2 L, MCV 79.2 L, MCH 26.8, MCHC 33.8, RDW 21.9 H, Plt Count 231, MPV 7.4, Neut % (Auto) 76.7, Lymph % (Auto) 6.4, Reagan % (Auto) 15.4, Eos % (Auto) 1.0, Baso % (Auto) 0.5, Nucleat RBC Rel Count 0.1, Neut # (Auto) 6.8, Lymph # (Auto) 0.6 L, Reagan # (Auto) 1.4 H, Eos # (Auto) 0.1, Baso # (Auto) 0.0, PlateletEstimate Normal, Plt Morphology Comment Normal, RBC Morphology N/A, Polychromasia Slight, Anisocytosis Slight, Microcytosis Moderate 07/06/22 17:55: Urine Color Yellow, Urine Appearance Clear, Urine pH 6.0, Ur Specific Smoot 1.015, Urine Protein 100 H, Urine Glucose (UA) Normal, Urine Ketones 4+ H, Urine Occult Blood Trace H, Urine Nitrite Negative, Urine Bilirubin Negative, Urine Urobilinogen Normal, Ur Leukocyte Esterase Negative, Urine RBC 0-1, Urine WBC 0- 1, Ur Squamous Epith Cells 0-1, Urine Bacteria None seen, Hyaline Casts 0-8 07/06/22 14:29: Uric Acid 2.4 07/06/22 14:29: PHA Creatinine Clear 56.76, Sodium 135 L, Potassium 3.6, Chloride 100, Carbon Dioxide 27.4, Anion Gap 11.2, BUN 5 L, Creatinine 0.43 L, Est GFR (CKD-EPI) > 60.0, Glucose 99, Calcium 8.5 L, Magnesium 1.6 L 07/04/22 04:07: Estimat Average Glucose 111, Hemoglobin A1c 5.5 Microbiology Microbiology 07/06/22 19:03 Blood - Right Antecubital Blood Culture - Preliminary No Growth 1 Day 07/06/22 19:04 Blood - Right Hand Blood Culture - Preliminary No Growth 1 Day 07/06/22 17:55 Straight Catheter Urine Culture - Preliminary No Growth 1 Day A&P - General Surgery Assessment/Plan (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 Urinary retention, Graham catheter is in place All cultures negative, white blood cell count has been normal and she has been afebrile since her urinary retention was addressed with catheter Atrial fibrillation which is still being worked on by cardiology I did hold Indocin as NSAIDs can have a slight increased risk of anastomotic failure or dehiscence. Continue with [place] for pain control Patient will go to [facility] facility, if cardiac issues are stabilized could go as early as tomorrow Code(s): C18.2 - Malignant neoplasm of ascending colon Status: Acute (3) History of DVT (deep vein thrombosis): Code(s): Z86.718 - Personal history of other venous thrombosis and embolism Status: Chronic (4) Lupus: Code(s): M32.9 - Systemic lupus erythematosus, unspecified Status: Acute Documented By: Alex Lee DO 07/08/22 0842 Signed By: <Electronically signed by DO Alex Lee> 07/08/22 0847 [facility] Work Phone: [phone]) 555-380504-05-2023 Progress note Author Geovany Serrano [facility] July 08, 2022 10:49am Note Date/Time July 08, 2022 10:4 9am [facility] [address] [place] [address] Cardiology Progress Note Signed Patient: Stella Garcia MR# : [id number] : 1940 Acct:[id number] Age/Sex: 81 / F Adm Date: 3 Loc: Room: [id number] Type: ADM IN Attending Dr: Alex Lee DO Copies to: ~ Date of Service: 07/08/2022 Subjective Principal diagnosis: Paroxysmal atrial fibrillation Interval history: Patient with no complaints except easy fatigability some weakness and discouragement I discussed with her her arrhythmia. She has never been known to have an arrhythmia. She has not, though, ever had Holter monitoring done in the past. Because of this it is entirely possible she had arrhythmia problems prior to this hospitalization Her atrial fibrillation has been effectively eliminated. The tachyarrhythmia that we are observing now is actually multifocal atrial tachycardia. Common in people with lung disease. Usually responsive to verapamil or diltiazem. Exam Physical Exam Vital Signs: Temp Pulse Resp BP Pulse Ox O2 Del Method O2 Flow Rate 98.2 F 111 H 18 122/72 94 L Room Air 1 07/08/22 08:00 07/08/22 08:00 07/08/22 08:00 07/08/22 08:00 07/08/22 08:00 07/08/22 08:00 07/05/22 07:58 HEENT Head: normal to inspection Ears: hearing grossly normal bilaterally Nose: external nose normal and nares normal Face and sinus: normal facial exam Mouth: oral mucosae normal and tongue normal Eyes Conjunctivae: conjunctivae normal Sclera: sclerae normal Neck Neck: normal visual inspection Carotids: normal carotid upstroke Lymphatic: no lymphadenopathy noted Chest Chest palpation & inspection: normal inspection of the chest Resp Effort & Inspection: normal respiratory effort Auscultation: clear to auscultation bilaterally Cardio Rate: regular rate Rhythm: regular rhythm Heart Sounds: S1 normal and S2 normal GI Inspection: normal to inspection Palpation: soft Skin General: no rashes or lesions noted Neuro General: patient alert, patient awake and patient oriented x3 Cognition: normal cognition Motor: muscle tone normal throughout Sensory Exam: no sensory deficits noted Objective Labs 07/07/22 04:24 07/07/22 04:24 Labs: Laboratory Results - last 24 hr 07/08/22 04:11 Magnesium 1.7 L A&P - Cardiology (1) Atrial fibrillation with rapid ventricular response: Assessment/Problem Details: Patient clearly had atrial fibrillation on the weekend. Initiation of dofetilide has eliminated the atrial fibrillation. She now, though, has multifocal atrial tachycardia. Code(s): I48.91 - Unspecified atrial fibrillation Status: Acute (2) Multifocal atrial tachycardia: Assessment/Problem Details: A new development. It should respond to calcium channel blockers verapamil or diltiazem. I have elected diltiazem. I started a low-dose yesterday and will increase today Code(s): I47.1 - Supraventricular tachycardia Status: Acute Plan Cardiac status stable overall. Still some multifocal atrial tachycardia. Should improve with intensification of diltiazem Documented By: Geovany Serrano MD [id number] Signed By: <Electronically signed by MD Geovany Serrano> 07/08/22 1049 [facility] Work Phone: [phone] Progress note Author Lori Crespo [facility] July 08, 2022 1:25am Note Date/Time July 07, 2022 7:19 pm [facility] [address] [place] [address] Hospitalist Progress Note Signed Patient: Stella Garcia MR# : [id number] : 1940 Acct:[id number] Age/Sex: 81 / F Adm Date: 3 Loc: Room: [address] [place] [address] Type: ADM IN Attending Dr: Alex Lee DO Copies to: ~ Date of Service: 07/07/2022 Subjective Subjective Narrative: Assessment And Plan right ankle pain /DJD vs rule out gout arthritis there is warmness and pain in the right ankle. no erythema. XR Ankle shows No acute findings. Start indomethacin with PPI for GI Px Fever she has spiked fever up to 38.9C on 07/06. but no leukocytosis no change in her abdominal pain blood Cx negative UA is not suggestive for UTI INTERVAL HPI: As Above, Pt resting in bed. feeling the same. Denies any chest pain, SOB her ankle pain is little better to same Thank you very much for allowing me to participate in the care of this very pleasant patient. ??? Exam Physical Exam Vital Signs: Temp Pulse Resp BP Pulse Ox O2 Del Method O2 Flow Rate 37.2 C 124 H 16 127/79 95 Room Air 1 07/07/22 15:58 07/07/22 16:00 07/07/22 16:00 07/07/22 15:58 07/07/22 15:58 07/07/22 15:58 07/05/22 07:58 Narrative: GEN: NAD, Cooperative NECK: ? JVD, supple LUNGS: CTA. normal respiratory effort CV: nl S1 S2; no M/R/G ABD: Soft, mild tenderness around the surgical site, + BS EXT: No peripheral edema, R>L ankle tenderness, Right ankle warmness . no erthema, No calf muscle tenderness NEURO: ? FND. Objective Lab Results 07/07/22 04:24 07/07/22 04:24 Microbiology Results Microbiology 07/06/22 19:03 Blood - Right Antecubital Blood Culture - Preliminary No Growth 1 Day 07/06/22 19:04 Blood - Right Hand Blood Culture - Preliminary No Growth 1 Day 07/06/22 17:55 Straight Catheter Urine Culture - Preliminary No Growth 1 Day Meds Allergies and Active Meds Allergies Sulfa (Sulfonamide Antibiotics) Allergy (Verified 05/12/22 09:45) Unknown Reaction Active Meds: Active Medications Generic Name Dose Route Start Last Admin Trade Name Freq PRN Reason Stop Dose Admin Hydrocodone Bitart/Acetaminophen 2 tab 07/06/22 10:26 07/06/22 17:27 Hydrocodone/Acetaminophen 5-325 Mg Tablet PO 2 tab Q4H PRN Administration pain Hydrocodone Bitart/Acetaminophen 1 tab 07/06/22 10:26 Hydrocodone/Acetaminophen 5-325 Mg Tablet PO Q4H PRN Pain Albuterol/Ipratropium 3 ml 07/01/22 20:00 07/07/22 15:47 Ipratropium/Albuterol 0.5-3 Mg 3 Ml Ampul.Neb INHALATION 07/01/23 19:59 3 ml QID.RESP STEVE Administration Aspirin 81 mg 07/04/22 17:15 07/07/22 08:24 Aspirin 81 Mg Tablet. PO 07/04/23 17:14 81 mg DAILY STEVE Administration Atorvastatin Calcium 10 mg 07/05/22 21:00 07/06/22 23:58 Atorvastatin 10 Mg Tablet PO 07/05/23 20:59 10 mg QPM STEVE Administration Diltiazem HCl 30 mg 07/07/22 22:00 Diltiazem 30 Mg Tablet PO 07/07/23 21:59 TID STEVE Docusate Sodium 100 mg 07/07/22 21:00 Docusate 100 Mg Capsule PO 07/07/23 20:59 BID STEVE Dofetilide 250 mcg 07/06/22 21:00 07/07/22 08:24 Dofetilide 250 Mcg Capsule PO 07/06/23 20:59 250 mcg BID STEVE Administration Enoxaparin Sodium 40 mg 07/02/22 10:00 07/07/22 11:34 Enoxaparin 40 Mg/0.4 Ml Syringe SUBCUT 07/02/23 09:59 40 mg DAILY@1000 STEVE Administration Famotidine 20 mg 07/01/22 21:00 07/07/22 08:24 Famotidine/Pf 20 Mg/2 Ml Vial IV-PUSH 07/01/23 20:59 20 mg Q12HR STEVE Administration Fluticasone Propionate 1 puff 07/01/22 21:00 07/07/22 08:41 Fluticasone Propionate 110 120 Puff/12 Gm Inhaler INHALATION 07/01/23 20:59 1 puff BID STEVE Administration Hydromorphone HCl 1 mg 07/01/22 17:00 07/07/22 00:09 Hydromorphone 1 Mg/Ml Syringe IV-PUSH 1 mg Q3H PRN Administration Pain Scale 6 - 10 Hydromorphone HCl 0.5 mg 07/01/22 17:00 Hydromorphone 0.5 Mg/0.5 Ml Syringe IV-PUSH Q3H PRN Pain Scale 1 - 5 Magnesium Sulfate 2 gm in 50 mls @ 25 mls/hr 07/06/22 05:40 Magnesium Sulf 2gm-*Swfi* IV 07/06/23 05:39 DAILY PRN Hypomagnesemia, Mg <1.7 Potassium Chloride 40 meq/ 520 mls @ 130 mls/hr 07/07/22 15:30 07/07/22 17:04 Sodium Chloride IV 07/07/22 23:59 130 mls/hr Q4H STEVE Administration Indomethacin 25 mg 07/07/22 17:00 07/07/22 17:03 Indomethacin 25 Mg Capsule PO 07/07/23 16:59 25 mg TID.WITH.MEALS STEVE Administration Ondansetron HCl 4 mg 07/01/22 17:00 07/02/22 09:21 Ondansetron 4 Mg/2 Ml Vial IV-PUSH 07/01/23 16:59 4 mg Q6H PRN Administration Nausea And Vomiting Pantoprazole Sodium 40 mg 07/08/22 09:00 Pantoprazole 40 Mg Tablet. PO 07/08/23 08:59 DAILY STEVE Potassium Chloride 40 meq 07/07/22 05:00 07/07/22 09:05 Potassium Chloride Er 20 Meq Tab.Er.Prt PO 07/07/23 04:59 40 meq DAILY PRN Administration Hypokalemia Documented By: Lori Crespo MD 07/07/22 191 Signed By: <Electronically signed by Lori Crespo MD> 07/08/22 0125 [facility] Work Phone: [phone] Progress note Author Bg Stockton [facility] July 07, 2022 4:16pm Note Date/Time July 07, 2022 4:16 pm [facility] [address] [place] [address] Neurology Progress Note Signed Patient: Stella Garcia MR# : [id number] : 1940 Acct:[id number] Age/Sex: 81 / F Adm Date: 3 Loc: Room: [address] [place] [address] Type: ADM IN Attending Dr: Alex Lee DO Copies to: ~ Date of Service: 07/07/2022 Exam Physical Exam Vital Signs: Temp Pulse Resp BP Pulse Ox O2 Del Method O2 Flow Rate 98.9 F 118 H 18 127/79 95 Room Air 1 07/07/22 15:58 07/07/22 15:58 07/07/22 15:58 07/07/22 15:58 07/07/22 15:58 07/07/22 15:58 07/05/22 07:58 Objective Vital Signs Vital Signs: Vital Signs - 24 hr 07/06/22 16:55 07/06/22 17:25 07/06/22 18:00 Temperature 102.1 F H 99.7 F H Pulse Rate 128 H 137 H 117 H Respiratory Rate 18 18 20 Blood Pressure 131/87 138/68 123/68 02 Sat by Pulse Oximetry 98 98 99 Oxygen Delivery Method Room Air Room Air Room Air 07/06/22 19:30 07/06/22 20:00 07/06/22 20:25 Temperature 98.3 F Pulse Rate 110 H 121 H 112 H Respiratory Rate 18 20 20 Blood Pressure 124/76 02 Sat by Pulse Oximetry 99 Oxygen Delivery Method Room Air 07/06/22 16:55 07/06/22 20:00 07/07/22 00:05 Temperature 98.3 F Pulse Rate 110 H 132 H Respiratory Rate 24 20 Blood Pressure 128/82 141/75 H 02 Sat by Pulse Oximetry 97 95 Oxygen Delivery Method Room Air Room Air 07/06/22 20:00 07/07/22 00:00 07/07/22 04:00 Temperature 99.2 F H Pulse Rate 111 H Respiratory Rate 16 Blood Pressure 129/81 02 Sat by Pulse Oximetry 95 Oxygen Delivery Method Room Air Room Air Room Air 07/07/22 08:00 07/07/22 08:40 07/07/22 08:00 Temperature 98.7 F Pulse Rate 134 H 116 H Respiratory Rate 16 18 Blood Pressure 138/73 02 Sat by Pulse Oximetry 95 Oxygen Delivery Method Room Air Room Air 07/07/22 12:00 07/07/22 11:51 07/07/22 15:58 Temperature 98.5 F 98.9 F Pulse Rate 118 H 120 H 118 H Respiratory Rate 20 18 18 Blood Pressure 131/68 127/79 02 Sat by Pulse Oximetry 99 95 Oxygen Delivery Method Room Air Room Air 07/07/22 15:48 Temperature Pulse Rate 115 H Respiratory Rate 20 Blood Pressure 02 Sat by Pulse Oximetry Oxygen Delivery Method Labs 07/07/22 04:24 07/07/22 04:24 Therapy Recommendations Therapy Recommendations: OT Recommendations OT Recommended Discharge Home with Home Health Location OT Recommended Services at Physical Therapy,Occupational Therapy Discharge PT Recommendations PT Recommended Discharge Longterm Facility Location PT Recommended Services at Physical Therapy,Occupational Therapy Discharge PT Discharge Comment pending progressions, pt still needing heavy assist of 2 PT Discharge DME Wheeled Walker Recommendations Assessment/Plan (1) Weakness of lower extremity: Assessment/Problem Details: CONSULT REASON: Right leg weakness SUBJECTIVE: The right ankle still hurts but not as badly as yesterday. She still feels thatboth legs feel heavy. She feels like she is retaining fluid in her legs. No overnight events. MRI is completed. No symptoms to add to review of systems. EXAMINATION: Reclined in bed in no distress. Venous stasis changes distal to mid shins bilaterally.? Normal work of breathing.? Visualized skin is generally intact andwithout lesions aside from the venous stasis changes and aging related findings.? Affect normal.? Mildly drowsy but remains alert with auditory stimuli.? Attention may be mildly impaired.? Speech is fluent and nondysarthric.? Pupils are equal and reactive.? Ocular motility is full; she has chronic right eye exotropia.? No nystagmus.? Facial sensation is normal.? Hearing is normal.? Facial strength is normal.? Tongue is midline.? Muscle bulk, tone, and strength seem normal in the upper extremities.? Antalgic weakness throughout both lower extremities seemingly equally.? No tremors.? Reflexes hypoactive throughout.? Nopathologic reflexes.? Light touch is normal.? Vibratory sensation is normal.? Nolimb dysmetria with [id number] testing. DATA REVIEW: CT head, CTA head and neck, both unremarkable for any acute process LDL 45, A1c 5.5% Transthoracic echocardiogram unremarkable Uric acid level 2.4 MRI lumbar spine from November [address] back at that time there was multilevel degenerative changes resulting in multilevel central canal stenosis and there were some wedge deformities of several vertebral bodies. ASSESSMENT: 81-year-old woman with history of lupus, hypertension, peripheral vascular disease, lumbar spondylosis status post L5 laminectomy, and recently diagnosed cecal cancer.? Status post right colectomy for the cecal cancer resection on July 01, 2022. 1. Initially with concerns for right unilateral lower extremity weakness which was probably antalgic, she now seems to have very mild diffuse weakness in bilateral lower extremities. She says they just feel heavy. MRI brain is without any evidence of acute cerebrovascular disease. She thinks the legs might beswollen and that is why they feel heavy. Could consider worsening of her chronic lumbar spondylosis but she does not seem to be describing any radicular pain or weakness in a myotomal pattern. PLAN: 1.? Despite no active cerebrovascular disease, I think the aspirin 81 mg daily is justified from a preventative standpoint based on her history of hypertensionand peripheral vascular disease. 2. If her lower extremity strength does not return to baseline, consider repeating lumbar spinal imaging or outpatient EMG studies of the lower extremities 3. No other recommendations at this time Code(s): R29.898 - Other symptoms and signs involving the musculoskeletal system Status: Acute Documented By: Bg Stockton DO 07/07/22 1610 Signed By: <Electronically signed by Bg Stockton DO> 07/07/22 1616 [facility] Work Phone: [phone] Progress note Author Alex Lee [facility] July 07, 2022 1:03pm Note Date/Time July 07, 2022 8:26 am [facility] [address] [place] [address] General Surgery Progress Note Signed with Addenda Patient: Stella Garcia MR# : [id number] : 1940 Acct:[id number] Age/Sex: 81 / F Adm Date: 3 Loc: Room: [address] [place] [address] Type: ADM IN Attending Dr: Alex Lee DO Copies to: ~ ADDENDUM1 Patient is eating without difficulty she is at risk bili does not like any of the food here. She is not having any abdominal pain. She not having any nauseaor vomiting. I discussed with patient pathology report, stage III colon cancer two positive lymph nodes. I discussed with her further oncology evaluation as an outpatient and consideration of medication/chemo depending on her health status and toxicities and interest. In the short-term increasing diet and activity is [place]. Working with therapy. She wants to go to [facility] facility to get stronger before going home which I think is very reasonable. Her family can bring her GI soft diet/low low roughage food from home. Addendum Documented By: DO Alex Lee 07/07/22 1303 Addendum Signed By: <Electronically signed by DO Alex Lee> 07/07/22 1303 Date of Service: 07/07/2022 Subjective Subjective HPI: Patient states she is feeling better today than yesterday. Having had the catheter placed was a big improvement, she is not having the frequency issues that she was having. Her whole abdomen feels better from that standpoint. She not having any abdominal pain. She not having any nausea or vomiting. She had a bowel movement yesterday. She is hungry. She would like to eat something this morning for breakfast. She is not having any fevers chills or sweats. Herlower extremity pain seems to be considerably improved. She not having the moresignificant pain like she had at her ankle. Her leg pain is improving. She wasasking about the results from the x-ray and the venous duplex. She not having any shortness of breath or chest pain. She said that she chronically does get some lower extremity issues with swelling that causes some pain and she takes a diuretic for that an as-needed basis Allergies & Medications Medications and Allergies Allergies Sulfa (Sulfonamide Antibiotics) Allergy (Verified 05/12/22 09:45) Unknown Reaction Home Medications ferrous sulfate 325 mg (65 mg iron) tablet 325 mg PO DAILY 04/28/22 [History Confirmed 07/01/22] gabapentin 300 mg capsule (Neurontin) 300 mg PO TID 04/28/22 [History Confirmed 07/01/22] multivitamin 1 tab PO DAILY 04/28/22 [History Confirmed 07/01/22] pantoprazole 40 mg tablet,delayed release 40 mg PO DAILY 04/28/22 [History Confirmed 07/01/22] potassium chloride 10 mEq tablet,extended release 20 meq PO TID 04/28/22 [History Confirmed 07/01/22] risankizumab-rzaa 150 mg/mL subcutaneous syringe (Skyrizi) 150 mg subcut Q12W 04/28/22 [History Confirmed 07/01/22] rivaroxaban 2.5 mg tablet (Xarelto) 2.5 mg PO BID 04/28/22 [History Confirmed 07/01/22] torsemide 20 mg tablet 20 mg PO DAILY PRN Edema 04/28/22 [History Confirmed 07/01/22] biotin 10,000 mcg capsule 10,000 mcg PO DAILY 05/12/22 [History Confirmed 07/01/22] budesonide 160 mcg-glycopyr 9 mcg-formot 4.8 mcg/actuation HFA inhaler (Breztri Aerosphere) 2 inh inhalation BID 05/12/22 [History Confirmed 07/01/22] calcium phosphate,dibasic 77 mg-vitamin D3 400 unit tablet 2 tab PO DAILY 07/01/22 [History Confirmed 07/01/22] cyclobenzaprine 5 mg tablet 5 mg PO HS PRN Muscle Spasm 07/01/22 [History Confirmed 07/01/22] Active Medications Hydrocodone Bitart/Acetaminophen (Hydrocodone/Acetaminophen 5-325 Mg Tablet) 2 tab PO Q4H PRN PRN Reason: pain Last Admin: 07/06/22 17:27 Dose: 2 tab Hydrocodone Bitart/Acetaminophen (Hydrocodone/Acetaminophen 5-325 Mg Tablet) 1 tab PO Q4H PRN PRN Reason: Pain Albuterol/Ipratropium (Ipratropium/Albuterol 0.5-3 Mg 3 Ml Ampul.Neb) 3 ml INHALATION QID.RESP STEVE Stop: 07/01/23 19:59 Last Admin: 07/06/22 20:14 Dose: 3 ml Aspirin (Aspirin 81 Mg Tablet.Dr) 81 mg PO DAILY STEVE Stop: 07/04/23 17:14 Last Admin: 07/06/22 08:47 Dose: 81 mg Atorvastatin Calcium (Atorvastatin 10 Mg Tablet) 10 mg PO QPM STEVE Stop: 07/05/23 20:59 Last Admin: 07/06/22 23:58 Dose: 10 mg Dofetilide (Dofetilide 250 Mcg Capsule) 250 mcg PO BID STEVE Stop: 07/06/23 20:59 Last Admin: 07/06/22 22:24 Dose: 250 mcg Enoxaparin Sodium (Enoxaparin 40 Mg/0.4 Ml Syringe) 40 mg SUBCUT DAILY@1000 [facility] Stop: 07/02/23 09:59 Last Admin: 07/06/22 09:25 Dose: 40 mg Famotidine (Famotidine/Pf 20 Mg/2 Ml Vial) 20 mg IV-PUSH Q12HR STEVE Stop: 07/01/23 20:59 Last Admin: 07/06/22 23:59 Dose: 20 mg Fluticasone Propionate (Fluticasone Propionate 110 120 Puff/12 Gm Inhaler) 1 puff INHALATION BID STEVE Stop: 07/01/23 20:59 Last Admin: 07/06/22 20:14 Dose: 1 puff Hydromorphone HCl (Hydromorphone 1 Mg/Ml Syringe) 1 mg IV-PUSH Q3H PRN PRN Reason: Pain Scale 6 - 10 Last Admin: 07/07/22 00:09 Dose: 1 mg Hydromorphone HCl (Hydromorphone 0.5 Mg/0.5 Ml Syringe) 0.5 mg IV-PUSH Q3H PRN PRN Reason: Pain Scale 1 - 5 Magnesium Sulfate (Magnesium Sulf 2gm-*Swfi*) 2 gm in 50 mls @ 25 mls/hr IV DAILY PRN PRN Reason: Hypomagnesemia, Mg <1.7 Stop: 07/06/23 05:39 Ondansetron HCl (Ondansetron 4 Mg/2 Ml Vial) 4 mg IV-PUSH Q6H PRN PRN Reason: Nausea And Vomiting Stop: 07/01/23 16:59 Last Admin: 07/02/22 09:21 Dose: 4 mg Potassium Chloride (Potassium Chloride Er 20 Meq Tab.Er.Prt) 40 meq PO DAILY PRN PRN Reason: Hypokalemia Stop: 07/07/23 04:59 Exam Physical Exam Vital Signs: Temp Pulse Resp BP Pulse Ox O2 Del Method O2 Flow Rate 99.2 F H 111 H 16 129/81 95 Room Air 1 07/07/22 04:00 07/07/22 04:00 07/07/22 04:00 07/07/22 04:00 07/07/22 04:00 07/07/22 04:00 07/05/22 07:58 Narrative: Patient is sitting up in her hospital bed. She is not toxic in appearance whatsoever. She is smiling conversive pleasant lucid. Heart is irregular rate around 100. Lungs clear. Abdomen is soft there is no guarding rebound or rigidity. There is no tenderness except around the incision at all. Even with deep abdominal exam there is no tenderness. Incisions are clean dry and intact. Graham catheter shows clear yellow urine. Patient has minimal lower extremity edema, there is no erythema or cellulitis. There are some chronic venous insufficiency changes. She has palpable dorsalis pedis pulses. Objective Pain Assessment Abdomen: Pain Description: Constant Pain Intensity: 4 Right Hip: Pain Description: Intermittent and Aching Pain Intensity: 4 Medial Abdomen: Pain Description: Aching and Soreness Pain Intensity: 0 Bilateral Ankle: Pain Description: Intermittent, Chronic and Soreness Pain Intensity: 0 Intake & Output 24 hour I&O: Intake & Output 07/06/22 07/07/22 07/07/22 23:59 07:59 15:59 Intake Total 520 / 1340 200 / 200 Output Total 1050 / 1875 800 / 800 Balance -530 / -535 -600 / -600 Weight 70.5 kg Labs 07/07/22 04:24 07/07/22 04:24 Laboratory Results - Last 48 hrs. 07/07/22 04:24: Corrected WBC 7.2, Uncorrected WBC Count 7.2, RBC 4.08, Hgb 10.9L, Hct 32.2 L, MCV 78.8 L, MCH 26.7, MCHC 33.9, RDW 21.6 H, Plt Count 235, MPV 7.9, Neut % (Auto) 68.9, Lymph % (Auto) 11.7, Reagan % (Auto) 16.3, Eos % (Auto) 2.3, Baso % (Auto) 0.8, Nucleat RBC Rel Count 0.1, Neut # (Auto) 4.9, Lymph # (Auto) 0.8 L, Reagan # (Auto) 1.2 H, Eos # (Auto) 0.2, Baso # (Auto) 0.1, PlateletEstimate Normal, Plt Morphology Comment Normal, RBC Morphology N/A, Polychromasia Slight, Anisocytosis Marked, Microcytosis Moderate, Ovalocytes Slight 07/07/22 04:24: PHA Creatinine Clear 56.76, Sodium 135 L, Potassium 3.0 L, Chloride 100, Carbon Dioxide 25.4, Anion Gap 12.6, BUN 6 L, Creatinine 0.30 L, Est GFR (CKD-EPI) > 60.0, Magnesium 1.6 L 07/06/22 19:04: Corrected WBC 8.9, Uncorrected WBC Count 8.9, RBC 4.07, Hgb 10.9L, Hct 32.2 L, MCV 79.2 L, MCH 26.8, MCHC 33.8, RDW 21.9 H, Plt Count 231, MPV 7.4, Neut % (Auto) 76.7, Lymph % (Auto) 6.4, Reagan % (Auto) 15.4, Eos % (Auto) 1.0, Baso % (Auto) 0.5, Nucleat RBC Rel Count 0.1, Neut # (Auto) 6.8, Lymph # (Auto) 0.6 L, Reagan # (Auto) 1.4 H, Eos # (Auto) 0.1, Baso # (Auto) 0.0, PlateletEstimate Normal, Plt Morphology Comment Normal, RBC Morphology N/A, Polychromasia Slight, Anisocytosis Slight, Microcytosis Moderate 07/06/22 17:55: Urine Color Yellow, Urine Appearance Clear, Urine pH 6.0, Ur Specific Smoot 1.015, Urine Protein 100 H, Urine Glucose (UA) Normal, Urine Ketones 4+ H, Urine Occult Blood Trace H, Urine Nitrite Negative, Urine Bilirubin Negative, Urine Urobilinogen Normal, Ur Leukocyte Esterase Negative, Urine RBC 0-1, Urine WBC 0- 1, Ur Squamous Epith Cells 0-1, Urine Bacteria None seen, Hyaline Casts 0-8 07/06/22 14:29: Uric Acid 2.4 07/06/22 14:29: PHA Creatinine Clear 56.76, Sodium 135 L, Potassium 3.6, Chloride 100, Carbon Dioxide 27.4, Anion Gap 11.2, BUN 5 L, Creatinine 0.43 L, Est GFR (CKD-EPI) > 60.0, Glucose 99, Calcium 8.5 L, Magnesium 1.6 L 07/06/22 04:24: Corrected WBC 7.6, Uncorrected WBC Count 7.6, RBC 4.36, Hgb 11.4L, Hct 34.7, MCV 79.6 L, MCH 26.1, MCHC 32.8, RDW 21.3 H, Plt Count 212, MPV 7.3, Neut % (Auto) 72.2, Lymph % (Auto) 9.6, Reagan % (Auto) 14.8, Eos % (Auto) 3.0, Baso % (Auto) 0.4, Nucleat RBC Rel Count 0.0, Neut # (Auto) 5.5, Lymph # (Auto) 0.7 L, Reagan # (Auto) 1.1 H, Eos # (Auto) 0.2, Baso # (Auto) 0.0, PlateletEstimate Normal, Plt Morphology Comment Normal, RBC Morphology N/A, Poikilocytosis Slight, Anisocytosis Slight, Microcytosis Slight, Ovalocytes Slight, Crenated Cell Slight, Schistocytes Slight 07/06/22 04:23: Magnesium 1.8 L 07/06/22 04:23: PHA Creatinine Clear 57.89, Sodium 135 L, Potassium 2.9 L*, Chloride 102, Carbon Dioxide 23.1, Anion Gap 12.8, BUN 5 L, Creatinine 0.35 L, Est GFR (CKD-EPI) > 60.0, Glucose 107 H, Calcium 8.3 L 07/04/22 04:07: Estimat Average Glucose 111, Hemoglobin A1c 5.5 A&P - General Surgery Assessment/Plan (1) Cecal cancer: Code(s): C18.0 - Malignant neoplasm of cecum Status: Acute (2) Cancer of ascending colon: Plan: Postop day 6 status post right colectomy secondary to cancer. Isolated elevated temperature, also urinary retention. That and symptoms improved after Graham catheter placement. Urinalysis did not show any obvious infection. Cultures pending. White blood cell count remains normal. Lower extremity venous duplex is negative, x-ray right ankle is negative. Improving lower extremity symptoms. Atrial fibrillation continues. Okay with anticoagulation if necessary as I had communicated through Dr. Pierson this weekend. Placement will likely be necessary secondary to her multiple comorbidities and debility postop. Maintain Graham at present until increasingly active Code(s): C18.2 - Malignant neoplasm of ascending colon Status: Acute (3) History of DVT (deep vein thrombosis): Code(s): Z86.718 - Personal history of other venous thrombosis and embolism Status: Chronic (4) Lupus: Code(s): M32.9 - Systemic lupus erythematosus, unspecified Status: Acute Documented By: Alex Lee DO 07/07/22820 Signed By: <Electronically signed by DO Alex Lee> 07/07/[address] [facility] Work Phone: 1(523) 176-747604-04-2023 Progress note Author Lori Crespo [facility] July 07, 2022 3:12am Note Date/Time July 06, 2022 6:12 pm [facility] [address] [place] [address] Hospitalist Progress Note Signed Patient: Stella Garcia MR# : [id number] : 1940 Acct:[id number] Age/Sex: 81 / F Adm Date: 3 Loc: Room: [address] [place] [address] Type: ADM IN Attending Dr: Alex Lee DO Copies to: ~ Date of Service: 07/06/2022 Subjective Subjective Narrative: Assessment And Plan right ankle pain there is warmness and pain in the right ankle. no erythema. agree with XR Pain control Fever she has spiked fever up to 38.9. no change in her abdominal pain Agree with blood Cx UA pending INTERVAL HPI: As Above, Pt resting in bed. feeling the same. Denies any chest pain, SOB Thank you very much for allowing me to participate in the care of this very pleasant patient. ??? Exam Physical Exam Vital Signs: Temp Pulse Resp BP Pulse Ox O2 Del Method O2 Flow Rate 37.6 C H 117 H 20 123/68 99 Room Air 1 07/06/22 18:00 07/06/22 18:00 07/06/22 18:00 07/06/22 18:00 07/06/22 18:00 07/06/22 18:00 07/05/22 07:58 Narrative: GEN: NAD, Cooperative NECK: ? JVD, supple LUNGS: CTA. normal respiratory effort CV: nl S1 S2; no M/R/G ABD: Soft, mild tenderness around the surgical site, + BS EXT: No peripheral edema, R>L ankle tenderness, Right ankle warmness . no erthema, No calf muscle tenderness NEURO: ? FND. Objective Lab Results 07/06/22 04:24 07/06/22 14:29 Meds Allergies and Active Meds Allergies Sulfa (Sulfonamide Antibiotics) Allergy (Verified 05/12/22 09:45) Unknown Reaction Active Meds: Active Medications Generic Name Dose Route Start Last Admin Trade Name Freq PRN Reason Stop Dose Admin Hydrocodone Bitart/Acetaminophen 2 tab 07/06/22 10:26 07/06/22 17:27 Hydrocodone/Acetaminophen 5-325 Mg Tablet PO 2 tab Q4H PRN Administration pain Hydrocodone Bitart/Acetaminophen 1 tab 07/06/22 10:26 Hydrocodone/Acetaminophen 5-325 Mg Tablet PO Q4H PRN Pain Albuterol/Ipratropium 3 ml 07/01/22 20:00 07/06/22 15:41 Ipratropium/Albuterol 0.5-3 Mg 3 Ml Ampul.Neb INHALATION 07/01/23 19:59 3 ml QID.RESP STEVE Administration Aspirin 81 mg 07/04/22 17:15 07/06/22 08:47 Aspirin 81 Mg Tablet.Dr PO 07/04/23 17:14 81 mg DAILY STEVE Administration Atorvastatin Calcium 10 mg 07/05/22 21:00 07/05/22 20:20 Atorvastatin 10 Mg Tablet PO 07/05/23 20:59 10 mg QPM STEVE Administration Dofetilide 250 mcg 07/06/22 21:00 Dofetilide 250 Mcg Capsule PO 07/06/23 20:59 BID STEVE Enoxaparin Sodium 40 mg 07/02/22 10:00 07/06/22 09:25 Enoxaparin 40 Mg/0.4 Ml Syringe SUBCUT 07/02/23 09:59 40 mg DAILY@1000 STEVE Administration Famotidine 20 mg 07/01/22 21:00 07/06/22 08:48 Famotidine/Pf 20 Mg/2 Ml Vial IV-PUSH 07/01/23 20:59 20 mg Q12HR STEVE Administration Fluticasone Propionate 1 puff 07/01/22 21:00 07/06/22 07:53 Fluticasone Propionate 110 120 Puff/12 Gm Inhaler INHALATION 07/01/23 20:59 1 puff BID STEVE Administration Hydromorphone HCl 1 mg 07/01/22 17:00 07/06/22 11:44 Hydromorphone 1 Mg/Ml Syringe IV-PUSH 1 mg Q3H PRN Administration Pain Scale 6 - 10 Hydromorphone HCl 0.5 mg 07/01/22 17:00 Hydromorphone 0.5 Mg/0.5 Ml Syringe IV-PUSH Q3H PRN Pain Scale 1 - 5 Magnesium Sulfate 2 gm in 50 mls @ 25 mls/hr 07/06/22 05:40 Magnesium Sulf 2gm-*Swfi* IV 07/06/23 05:39 DAILY PRN Hypomagnesemia, Mg <1.7 Sodium Chloride 1,000 mls @ 40 mls/hr 07/06/22 17:15 07/06/22 18:00 0.9% Sodium Chloride 1,000 Ml IV 07/06/23 17:14 40 mls/hr .Q24H STEVE Administration Ondansetron HCl 4 mg 07/01/22 17:00 07/02/22 09:21 Ondansetron 4 Mg/2 Ml Vial IV-PUSH 07/01/23 16:59 4 mg Q6H PRN Administration Nausea And Vomiting Potassium Chloride 40 meq 07/07/22 05:00 Potassium Chloride Er 20 Meq Tab.Er.Prt PO 07/07/23 04:59 DAILY PRN Hypokalemia Documented By: Lori Crespo MD 07/06/22 1808 Signed By: <Electronically signed by Lori Crespo MD> 07/07/222 [facility] Work Phone: [phone] Progress note Author Alex Lee [facility] July 06, 2022 5:42pm Note Date/Time July 06, 2022 5:42 pm [facility] [address] [place] [address] General Surgery Progress Note Signed Patient: Stella Garcia MR# : [id number] : 1940 Acct:[id number] Age/Sex: 81 / F Adm Date: 3 Loc: Room: [address] [place] [address] Type: ADM IN Attending Dr: Alex Lee DO Copies to: ~ Date of Service: 07/06/2022 Subjective Subjective HPI: I was called by nursing the patient had some slight tachycardia more than beforeand temperature of 102. She has not been complaining of any increasing abdominal pain. She not been complaining of abdominal pain. She has not been having any nausea or vomiting. She had a bowel movement earlier today. She atea very large breakfast did not eat as much for lunch. Patient has not been having worsening abdominal pains or abdominal symptoms today. She has been complaining of some urinary frequency. That started last night however was moreso today. She just tried to go and she could not get any urine out. She is nothaving any dysuria but she is having frequency and urgency. She has had urinarytract infections before, that is not very frequent but she has had them previously. She has had urgency with them when she has had them before. She not having any nausea or vomiting. She not having any shortness of breath. [place] having any pain in her calves. Pain is more in her ankle on the right side. Allergies & Medications Medications and Allergies Allergies Sulfa (Sulfonamide Antibiotics) Allergy (Verified 05/12/22 09:45) Unknown Reaction Home Medications ferrous sulfate 325 mg (65 mg iron) tablet 325 mg PO DAILY 04/28/22 [History Confirmed 07/01/22] gabapentin 300 mg capsule (Neurontin) 300 mg PO TID 04/28/22 [History Confirmed 07/01/22] multivitamin 1 tab PO DAILY 04/28/22 [History Confirmed 07/01/22] pantoprazole 40 mg tablet,delayed release 40 mg PO DAILY 04/28/22 [History Confirmed 07/01/22] potassium chloride 10 mEq tablet,extended release 20 meq PO TID 04/28/22 [History Confirmed 07/01/22] risankizumab-rzaa 150 mg/mL subcutaneous syringe (Skyrizi) 150 mg subcut Q12W 04/28/22 [History Confirmed 07/01/22] rivaroxaban 2.5 mg tablet (Xarelto) 2.5 mg PO BID 04/28/22 [History Confirmed 07/01/22] torsemide 20 mg tablet 20 mg PO DAILY PRN Edema 04/28/22 [History Confirmed 07/01/22] biotin 10,000 mcg capsule 10,000 mcg PO DAILY 05/12/22 [History Confirmed 07/01/22] budesonide 160 mcg-glycopyr 9 mcg-formot 4.8 mcg/actuation HFA inhaler (Breztri Aerosphere) 2 inh inhalation BID 05/12/22 [History Confirmed 07/01/22] calcium phosphate,dibasic 77 mg-vitamin D3 400 unit tablet 2 tab PO DAILY 07/01/22 [History Confirmed 07/01/22] cyclobenzaprine 5 mg tablet 5 mg PO HS PRN Muscle Spasm 07/01/22 [History Confirmed 07/01/22] Active Medications Hydrocodone Bitart/Acetaminophen (Hydrocodone/Acetaminophen 5-325 Mg Tablet) 2 tab PO Q4H PRN PRN Reason: pain Last Admin: 07/06/22 17:27 Dose: 2 tab Hydrocodone Bitart/Acetaminophen (Hydrocodone/Acetaminophen 5-325 Mg Tablet) 1 tab PO Q4H PRN PRN Reason: Pain Albuterol/Ipratropium (Ipratropium/Albuterol 0.5-3 Mg 3 Ml Ampul.Neb) 3 ml INHALATION QID.RESP [facility] Stop: 07/01/23 19:59 Last Admin: 07/06/22 15:41 Dose: 3 ml Aspirin (Aspirin 81 Mg Tablet.) 81 mg PO DAILY [facility] Stop: 07/04/23 17:14 Last Admin: 07/06/22 08:47 Dose: 81 mg Atorvastatin Calcium (Atorvastatin 10 Mg Tablet) 10 mg PO QPM [facility] Stop: 07/05/23 20:59 Last Admin: 07/05/22 20:20 Dose: 10 mg Dofetilide (Dofetilide 250 Mcg Capsule) 250 mcg PO BID [facility] Stop: 07/06/23 20:59 Enoxaparin Sodium (Enoxaparin 40 Mg/0.4 Ml Syringe) 40 mg SUBCUT DAILY@1000 [facility] Stop: 07/02/23 09:59 Last Admin: 07/06/22 09:25 Dose: 40 mg Famotidine (Famotidine/Pf 20 Mg/2 Ml Vial) 20 mg IV-PUSH Q12HR [facility] Stop: 07/01/23 20:59 Last Admin: 07/06/22 08:48 Dose: 20 mg Fluticasone Propionate (Fluticasone Propionate 110 120 Puff/12 Gm Inhaler) 1 puff INHALATION BID [facility] Stop: 07/01/23 20:59 Last Admin: 07/06/22 07:53 Dose: 1 puff Hydromorphone HCl (Hydromorphone 1 Mg/Ml Syringe) 1 mg IV-PUSH Q3H PRN PRN Reason: Pain Scale 6 - 10 Last Admin: 07/06/22 11:44 Dose: 1 mg Hydromorphone HCl (Hydromorphone 0.5 Mg/0.5 Ml Syringe) 0.5 mg IV-PUSH Q3H PRN PRN Reason: Pain Scale 1 - 5 Magnesium Sulfate (Magnesium Sulf 2gm-*Swfi*) 2 gm in 50 mls @ 25 mls/hr IV DAILY PRN PRN Reason: Hypomagnesemia, Mg <1.7 Stop: 07/06/23 05:39 Sodium Chloride (0.9% Sodium Chloride 1,000 Ml) 1,000 mls @ 40 mls/hr IV .Q24H [facility] Stop: 07/06/23 17:14 Ondansetron HCl (Ondansetron 4 Mg/2 Ml Vial) 4 mg IV-PUSH Q6H PRN PRN Reason: Nausea And Vomiting Stop: 07/01/23 16:59 Last Admin: 07/02/22 09:21 Dose: 4 mg Potassium Chloride (Potassium Chloride Er 20 Meq Tab.Er.Prt) 40 meq PO DAILY PRN PRN Reason: Hypokalemia Stop: 07/07/23 04:59 Exam Physical Exam Vital Signs: Temp Pulse Resp BP Pulse Ox O2 Del Method O2 Flow Rate 102.1 F H 128 H 18 131/87 98 Room Air 1 07/06/22 16:55 07/06/22 16:55 07/06/22 16:55 07/06/22 16:55 07/06/22 16:55 07/06/22 16:55 07/05/22 07:58 Narrative: Patient is in her hospital bed. She was sore as her Prevena VAC had just been removed. She is not toxic in appearance. Heart is tachycardic. Lungs are clear. Abdomen is soft there is mild tenderness particularly around the incision. Incisions are all clean dry and intact without any seroma or hematomaor cellulitis. There is no guarding rebound or rigidity on abdominal exam. Extremities there is no Homans' sign nor any swelling to the calf or evidence ofany phlebitis. She has good palpable dorsalis pedis pulses bilaterally Objective Pain Assessment Abdomen: Pain Description: Constant Pain Intensity: 4 Right Hip: Pain Description: Intermittent and Aching Pain Intensity: 4 Medial Abdomen: Pain Description: Aching and Soreness Pain Intensity: 0 Bilateral Ankle: Pain Description: Intermittent, Chronic and Soreness Pain Intensity: 0 Intake & Output 24 hour I&O: Intake & Output 07/06/22 07/06/22 07/06/22 07:59 15:59 23:59 Intake Total 100 / 820 720 / 820 Output Total 825 / 825 Balance 100 / -5 -105 / -5 Weight 71.3 kg Labs 07/06/22 04:24 07/06/22 14:29 Laboratory Results - Last 48 hrs. 07/06/22 14:29: Uric Acid 2.4 07/06/22 14:29: PHA Creatinine Clear 56.76, Sodium 135 L, Potassium 3.6, Chloride 100, Carbon Dioxide 27.4, Anion Gap 11.2, BUN 5 L, Creatinine 0.43 L, Est GFR (CKD-EPI) > 60.0, Glucose 99, Calcium 8.5 L, Magnesium 1.6 L 07/06/22 04:24: Corrected WBC 7.6, Uncorrected WBC Count 7.6, RBC 4.36, Hgb 11.4L, Hct 34.7, MCV 79.6 L, MCH 26.1, MCHC 32.8, RDW 21.3 H, Plt Count 212, MPV 7.3, Neut % (Auto) 72.2, Lymph % (Auto) 9.6, Reagan % (Auto) 14.8, Eos % (Auto) 3.0, Baso % (Auto) 0.4, Nucleat RBC Rel Count 0.0, Neut # (Auto) 5.5, Lymph # (Auto) 0.7 L, Reagan # (Auto) 1.1 H, Eos # (Auto) 0.2, Baso # (Auto) 0.0, PlateletEstimate Normal, Plt Morphology Comment Normal, RBC Morphology N/A, Poikilocytosis Slight, Anisocytosis Slight, Microcytosis Slight, Ovalocytes Slight, Crenated Cell Slight, Schistocytes Slight 07/06/22 04:23: Magnesium 1.8 L 07/06/22 04:23: PHA Creatinine Clear 57.89, Sodium 135 L, Potassium 2.9 L*, Chloride 102, Carbon Dioxide 23.1, Anion Gap 12.8, BUN 5 L, Creatinine 0.35 L, Est GFR (CKD-EPI) > 60.0, Glucose 107 H, Calcium 8.3 L 07/05/22 04:53: Magnesium 1.7 L 07/05/22 04:53: PHA Creatinine Clear 57.36, Sodium 138, Potassium 2.8 L*, Chloride 108 H, Carbon Dioxide 20.9 L, Anion Gap 11.9, BUN 5 L, Creatinine 0.41 L, Est GFR (CKD-EPI) > 60.0, Glucose 94, Calcium 7.9 L, Triglycerides 46, Cholesterol 93 L, LDL Cholesterol, Calc 45, VLDL Cholesterol 9, HDL Cholesterol 39, Cholesterol/HDL Ratio 2.4 07/05/22 04:53: Corrected WBC 7.2, Uncorrected WBC Count 7.2, RBC 3.67, Hgb 9.8 L, Hct 29.2 L, MCV 79.6 L, MCH 26.6, MCHC 33.5, RDW 22.3 H, Plt Count 173, MPV 7.9, Neut % (Auto) 75.8, Lymph % (Auto) 8.9, Reagan % (Auto) 13.3, Eos % (Auto) 1.7, Baso % (Auto) 0.3, Nucleat RBC Rel Count 0.0, Neut # (Auto) 5.4, Lymph # (Auto) 0.6 L, Reagan # (Auto) 1.0 H, Eos # (Auto) 0.1, Baso # (Auto) 0.0, PlateletEstimate Normal, Plt Morphology Comment Normal, RBC Morphology N/A, Polychromasia Slight, Anisocytosis Marked, Microcytosis Slight, Ovalocytes Slight 07/04/22 04:07: Estimat Average Glucose 111, Hemoglobin A1c 5.5 A&P - General Surgery Assessment/Plan (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 Unlikely this is secondary to anastomotic leak etc. With patient'sfrequency and urgency of urination and elevated temperature urinary tract infection would be more likely. I ordered urinalysis with straight catheterization and blood cultures and sputum culture and CBC. Okay for dose ofNorco with Tylenol to help decrease temperature at this time. If evidence of UTI will start antibiotic prophylactically. I discussed with patient and her at bedside. Code(s): C18.2 - Malignant neoplasm of ascending colon Status: Acute (3) History of DVT (deep vein thrombosis): Code(s): Z86.718 - Personal history of other venous thrombosis and embolism Status: Chronic (4) Lupus: Code(s): M32.9 - Systemic lupus erythematosus, unspecified Status: Acute Documented By: Alex Lee DO 07/06/22 1738 Signed By: <Electronically signed by DO Alex Lee> 07/06/[address] [facility] Work Phone: [phone]) [phone] Progress note Author Bg Stockton [facility] July 06, 2022 2:37pm Note Date/Time July 06, 2022 12:0 3pm [facility] [address] [place] [address] Neurology Progress Note Signed Patient: Stella Garcia MR# : [id number] : 1940 Acct:[id number] Age/Sex: 81 / F Adm Date: 3 Loc: Room: [address] [place] [address] Type: ADM IN Attending Dr: Alex Lee DO Copies to: ~ Date of Service: 07/06/2022 Exam Physical Exam Vital Signs: Temp Pulse Resp BP Pulse Ox O2 Del Method O2 Flow Rate 98.2 F 108 H 18 154/81 H 99 Room Air 1 07/06/22 11:30 07/06/22 11:30 07/06/22 11:30 07/06/22 11:30 07/06/22 11:30 07/06/22 11:30 07/05/22 07:58 Objective Vital Signs Vital Signs: Vital Signs - 24 hr 07/05/22 12:20 07/05/22 12:21 07/05/22 12:25 Temperature Pulse Rate 84 82 Respiratory Rate 20 20 20 Blood Pressure 02 Sat by Pulse Oximetry Oxygen Delivery Method 07/05/22 15:53 07/05/22 15:53 07/05/22 16:48 Temperature 99.4 F H Pulse Rate 88 101 H Respiratory Rate 20 16 Blood Pressure 130/69 02 Sat by Pulse Oximetry 98 98 Oxygen Delivery Method Room Air Room Air 07/05/22 17:44 07/05/22 20:00 07/05/22 20:20 Temperature 99.2 F H Pulse Rate 93 H 92 H 118 H Respiratory Rate 22 18 Blood Pressure 125/61 136/77 02 Sat by Pulse Oximetry 95 Oxygen Delivery Method Room Air 07/05/22 20:29 07/05/22 20:00 07/06/22 00:00 Temperature 98.0 F Pulse Rate 102 H 105 H Respiratory Rate 20 20 Blood Pressure 149/81 H 02 Sat by Pulse Oximetry 98 Oxygen Delivery Method Room Air Room Air 07/06/22 04:00 07/06/22 07:53 07/06/22 07:53 Temperature 98.5 F Pulse Rate 95 H 101 H Respiratory Rate 20 20 20 Blood Pressure 138/86 02 Sat by Pulse Oximetry 99 Oxygen Delivery Method Room Air 07/06/22 08:04 07/06/22 08:25 07/06/22 11:30 Temperature 98.7 F 98.2 F Pulse Rate 108 H 107 H 108 H Respiratory Rate 18 20 18 Blood Pressure 131/85 154/81 H 02 Sat by Pulse Oximetry 97 99 Oxygen Delivery Method Room Air Room Air Labs 07/06/22 04:24 07/06/22 04:23 Lab Results: 07/04/22 04:07: Hemoglobin A1c 5.5 Therapy Recommendations Therapy Recommendations: OT Recommendations OT Recommended Discharge Home with Home Health Location OT Recommended Services at Physical Therapy,Occupational Therapy Discharge PT Recommendations PT Recommended Discharge Home with Home Health,Longterm Facility Location PT Recommended Services at Physical Therapy,Occupational Therapy Discharge PT Discharge Comment pending progressions PT Discharge DME Wheeled Walker Recommendations Assessment/Plan (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 It hurts to move it. It hurts to be touched. She says she has history of gout. With her lupus, she had been on chronic steroids that had been weaned off rapidly prior to the surgery. She is able to lift her right leg up off the bed. She is not able to lift her left leg up off the bed. She says when she does she gets pain in the proximal part of the left lower extremity and any movement of the legs also somewhat pulls on her incision on the abdomen. No significant overnight events. No significant headache. No vision changes. No loss of vision. No double vision. EXAMINATION: Minimal distress, supine in bed. Appears mildly uncomfortable when trying to move lower extremities. Limbs seem well-perfused. No significant edema. Venousstasis changes distal to mid shins bilaterally. Normal work of breathing. Visualized skin is generally intact and without lesions aside from the venous stasis changes and aging related findings. Affect normal. Mildly drowsy but remains alert with auditory stimuli. Attention may be mildly impaired. Speech is fluent and nondysarthric. Pupils are equal and reactive. Ocular motility isfull; she has chronic right eye exotropia. No nystagmus. Facial sensation is normal. Hearing is normal. Facial strength is normal. Tongue is midline. Muscle bulk, tone, and strength seem normal in the upper extremities. Antalgic weakness throughout both lower extremities, worst at the right ankle which is exquisitely painful and also proximally on the left, pain with hip flexion. No tremors. Reflexes hypoactive throughout. No pathologic reflexes. Light touch is normal. Vibratory sensation is normal. No limb dysmetria with [id number] testing. DATA REVIEW: CT head, CTA head and neck, both unremarkable for any acute process LDL 45, A1c 5.5% Transthoracic echocardiogram unremarkable ASSESSMENT: 81-year-old woman with history of lupus, hypertension, peripheral vascular disease, lumbar spondylosis status post L5 laminectomy, and recently diagnosed cecal cancer. Status post right colectomy for the cecal cancer resection on July 01, 2022. 1. Right leg weakness, seemingly antalgic, noted by her to have started on the morning of July 03. Her pain in that limb is almost completely isolated to theankle joint which feels warm and is painful to light touch. She says she has history of gout. She has been taken off of her chronic steroids. We can see ifthis unmasked a gouty issue. 2. Proximal left lower extremity weakness, also seemingly antalgic, but a new complaint seemingly. 3. Low suspicion that any of her lower extremity symptoms are cerebrovascular in nature; work-up is pending PLAN: 1. MRI brain pending 2. She was started on aspirin; depending on how the MRI looks we can consider the utility of the aspirin long-term 3. Checking a serum uric acid 4. Further recommendations to follow Documented By: Bg Stockton DO 07/06/22 1156 Signed By: <Electronically signed by Bg Stockton DO> 07/06/22 3398 [facility] Work Phone: 1([phone]) [phone] Progress note Author Geovany Serrano [facility] July 06, 2022 12:26pm Note Date/Time July 06, 2022 12:2 6pm [facility] [address] [place] [address] Cardiology Progress Note Signed Patient: Stella Garcia MR# : [id number] : 1940 Acct:[id number] Age/Sex: 81 / F Adm Date: 3 Loc: 4P Room: [address] [place] [address] Type: ADM IN Attending Dr: Alex Lee DO Copies to: ~ Date of Service: 07/06/2022 Subjective Principal diagnosis: Paroxysmal atrial fibrillation Interval history: Patient continues to have brief paroxysms of atrial fibrillation. NG tube is out. She appears improved clinically. Exam Physical Exam Vital Signs: Temp Pulse Resp BP Pulse Ox O2 Del Method O2 Flow Rate 98.2 F 113 H 18 154/81 H 99 Room Air 1 07/06/22 11:30 07/06/22 12:00 07/06/22 12:00 07/06/22 11:30 07/06/22 11:30 07/06/22 11:30 07/05/22 07:58 HEENT Head: normal to inspection Ears: hearing grossly normal bilaterally Nose: external nose normal and nares normal Face and sinus: normal facial exam Mouth: oral mucosae normal and tongue normal Eyes Conjunctivae: conjunctivae normal Sclera: sclerae normal Neck Neck: normal visual inspection Carotids: normal carotid upstroke Lymphatic: no lymphadenopathy noted Chest Chest palpation & inspection: normal inspection of the chest Resp Effort & Inspection: normal respiratory effort Auscultation: clear to auscultation bilaterally Cardio Rate: regular rate Rhythm: regular rhythm Heart Sounds: S1 normal and S2 normal GI Inspection: normal to inspection Palpation: soft Skin General: no rashes or lesions noted Neuro General: patient alert, patient awake and patient oriented x3 Cognition: normal cognition Motor: muscle tone normal throughout Sensory Exam: no sensory deficits noted Objective Labs 07/06/22 04:24 07/06/22 04:23 Labs: Laboratory Results - last 24 hr 07/04/22 07/06/22 07/06/22 04:07 04:23 04:23 Corrected WBC Uncorrected WBC Count RBC Hgb Hct MCV MCH MCHC RDW Plt Count MPV Neut % (Auto) Lymph % (Auto) Reagan % (Auto) Eos % (Auto) Baso % (Auto) Nucleat RBC Rel Count Neut # (Auto) Lymph # (Auto) Reagan # (Auto) Eos # (Auto) Baso # (Auto) Platelet Estimate Plt Morphology Comment RBC Morphology Poikilocytosis Anisocytosis Microcytosis Ovalocytes Crenated Cell Schistocytes PHA Creatinine Clear 57.89 Sodium 135 L Potassium 2.9 L* Chloride 102 Carbon Dioxide 23.1 Anion Gap 12.8 BUN 5 L Creatinine 0.35 L Est GFR (CKD-EPI) > 60.0 Glucose 107 H Estimat Average Glucose 111 Hemoglobin A1c 5.5 Calcium 8.3 L Magnesium 1.8 L 07/06/22 04:24 Corrected WBC 7.6 Uncorrected WBC Count 7.6 RBC 4.36 Hgb 11.4 L Hct 34.7 MCV 79.6 L MCH 26.1 MCHC 32.8 RDW 21.3 H Plt Count 212 MPV 7.3 Neut % (Auto) 72.2 Lymph % (Auto) 9.6 Reagan % (Auto) 14.8 Eos % (Auto) 3.0 Baso % (Auto) 0.4 Nucleat RBC Rel Count 0.0 Neut # (Auto) 5.5 Lymph # (Auto) 0.7 L Reagan # (Auto) 1.1 H Eos # (Auto) 0.2 Baso # (Auto) 0.0 Platelet Estimate Normal Plt Morphology Comment Normal RBC Morphology N/A Poikilocytosis Slight Anisocytosis Slight Microcytosis Slight Ovalocytes Slight Crenated Cell Slight Schistocytes Slight PHA Creatinine Clear Sodium Potassium Chloride Carbon Dioxide Anion Gap BUN Creatinine Est GFR (CKD-EPI) Glucose Estimat Average Glucose Hemoglobin A1c Calcium Magnesium A&P - Cardiology (1) Atrial fibrillation with rapid ventricular response: Assessment/Problem Details: Improved control with dofetilide 125 mcg twice a day. Because of recurrent paroxysms, though, we will intensify the dosage again. Follow EKG daily. Code(s): I48.91 - Unspecified atrial fibrillation Status: Acute Plan Increase dofetilide as above. We will follow. Documented By: Geovany Serrano MD [id number] Signed By: <Electronically signed by MD Geovany Serrano> 07/06/226 [facility] Work Phone: [phone]) 176-188704-03-2023 Progress note Author Alex Lee [facility] July 06, 2022 10:31am Note Date/Time July 06, 2022 10:3 1am [facility] [address] [place] [address] General Surgery Progress Note Signed Patient: Stella Garcia MR# : [id number] : 1940 Acct:[id number] Age/Sex: 81 / F Adm Date: 3 Loc: Room: 8M3466-5 Type: ADM IN Attending Dr: Alex Lee DO Copies to: ~ Date of Service: 07/06/2022 Subjective Subjective HPI: Patient said that she is doing really well. She is eating without any difficulty. She is good and appetite. She is having bowel movements. She not having shortness of breath or fevers chills or sweats. She is not having any numbness or weakness difficulty speaking visual changes chest pain. Her abdominal pain is well controlled with her [employer]. She is using it intermittently. She has had multiple bowel movements. She has chronic pain in her hips howeverthis was more significant starting a couple days ago. She said that the weakness that she had in that leg is much improved and her hip pain is also improved. However she feels it is probably best that she goes to rehab with hermultiple issues. Allergies & Medications Medications and Allergies Allergies Sulfa (Sulfonamide Antibiotics) Allergy (Verified 05/12/22 09:45) Unknown Reaction Home Medications ferrous sulfate 325 mg (65 mg iron) tablet 325 mg PO DAILY 04/28/22 [History Confirmed 07/01/22] gabapentin 300 mg capsule (Neurontin) 300 mg PO TID 04/28/22 [History Confirmed 07/01/22] multivitamin 1 tab PO DAILY 04/28/22 [History Confirmed 07/01/22] pantoprazole 40 mg tablet,delayed release 40 mg PO DAILY 04/28/22 [History Confirmed 07/01/22] potassium chloride 10 mEq tablet,extended release 20 meq PO TID 04/28/22 [History Confirmed 07/01/22] risankizumab-rzaa 150 mg/mL subcutaneous syringe (Skyrizi) 150 mg subcut Q12W 04/28/22 [History Confirmed 07/01/22] rivaroxaban 2.5 mg tablet (Xarelto) 2.5 mg PO BID 04/28/22 [History Confirmed 07/01/22] torsemide 20 mg tablet 20 mg PO DAILY PRN Edema 04/28/22 [History Confirmed 07/01/22] biotin 10,000 mcg capsule 10,000 mcg PO DAILY 05/12/22 [History Confirmed 07/01/22] budesonide 160 mcg-glycopyr 9 mcg-formot 4.8 mcg/actuation HFA inhaler (Breztri Aerosphere) 2 inh inhalation BID 05/12/22 [History Confirmed 07/01/22] calcium phosphate,dibasic 77 mg-vitamin D3 400 unit tablet 2 tab PO DAILY 07/01/22 [History Confirmed 07/01/22] cyclobenzaprine 5 mg tablet 5 mg PO HS PRN Muscle Spasm 07/01/22 [History Confirmed 07/01/22] Active Medications Albuterol/Ipratropium (Ipratropium/Albuterol 0.5-3 Mg 3 Ml Ampul.Neb) 3 ml INHALATION QID.RESP STEVE Stop: 07/01/23 19:59 Last Admin: 07/06/22 07:52 Dose: 3 ml Aspirin (Aspirin 81 Mg Tablet.) 81 mg PO DAILY STEVE Stop: 07/04/23 17:14 Last Admin: 07/06/22 08:47 Dose: 81 mg Atorvastatin Calcium (Atorvastatin 10 Mg Tablet) 10 mg PO QPM STEVE Stop: 07/05/23 20:59 Last Admin: 07/05/22 20:20 Dose: 10 mg Dofetilide (Dofetilide 125 Mcg Capsule) 125 mcg PO BID STEVE Stop: 07/04/23 13:29 Last Admin: 07/06/22 08:47 Dose: 125 mcg Enoxaparin Sodium (Enoxaparin 40 Mg/0.4 Ml Syringe) 40 mg SUBCUT DAILY@1000 STEVE Stop: 07/02/23 09:59 Last Admin: 07/06/22 09:25 Dose: 40 mg Famotidine (Famotidine/Pf 20 Mg/2 Ml Vial) 20 mg IV-PUSH Q12HR STEVE Stop: 07/01/23 20:59 Last Admin: 07/06/22 08:48 Dose: 20 mg Fluticasone Propionate (Fluticasone Propionate 110 120 Puff/12 Gm Inhaler) 1 puff INHALATION BID STEVE Stop: 07/01/23 20:59 Last Admin: 07/06/22 07:53 Dose: 1 puff Hydromorphone HCl (Hydromorphone 1 Mg/Ml Syringe) 1 mg IV-PUSH Q3H PRN PRN Reason: Pain Scale 6 - 10 Hydromorphone HCl (Hydromorphone 0.5 Mg/0.5 Ml Syringe) 0.5 mg IV-PUSH Q3H PRN PRN Reason: Pain Scale 1 - 5 Magnesium Sulfate (Magnesium Sulf 2gm-*Swfi*) 2 gm in 50 mls @ 25 mls/hr IV DAILY PRN PRN Reason: Hypomagnesemia, Mg <1.7 Stop: 07/06/23 05:39 Ondansetron HCl (Ondansetron 4 Mg/2 Ml Vial) 4 mg IV-PUSH Q6H PRN PRN Reason: Nausea And Vomiting Stop: 07/01/23 16:59 Last Admin: 07/02/22 09:21 Dose: 4 mg Potassium Chloride (Potassium Chloride Er 20 Meq Tab.Er.Prt) 40 meq PO DAILY PRN PRN Reason: Hypokalemia Stop: 07/07/23 04:59 Exam Physical Exam Vital Signs: Temp Pulse Resp BP Pulse Ox O2 Del Method O2 Flow Rate 98.7 F 107 H 20 131/85 97 Room Air 1 07/06/22 08:25 07/06/22 08:25 07/06/22 08:25 07/06/22 08:25 07/06/22 08:25 07/06/22 08:25 07/05/22 07:58 Narrative: Patient is sitting up in her hospital bed she is just finished eating breakfast and ate the majority of her food. She is nontoxic in appearance and comfortableand conversant and lucid. Heart is irregular rate between 101-110. Lungs are clear. Abdomen is soft nontender nondistended. Prevena VAC is over the incision. Objective Pain Assessment Abdomen: Pain Description: Constant Pain Intensity: 4 Right Hip: Pain Description: Intermittent and Aching Pain Intensity: 4 Medial Abdomen: Pain Description: Aching and Soreness Pain Intensity: 4 Intake & Output 24 hour I&O: Intake & Output 07/05/22 07/06/22 07/06/22 23:59 07:59 15:59 Intake Total 240 / 2230 100 / 100 Balance 240 / 1580 100 / 100 Weight 71.3 kg Labs 07/06/22 04:24 07/06/22 04:23 Laboratory Results - Last 48 hrs. 07/06/22 04:24: Corrected WBC 7.6, Uncorrected WBC Count 7.6, RBC 4.36, Hgb 11.4L, Hct 34.7, MCV 79.6 L, MCH 26.1, MCHC 32.8, RDW 21.3 H, Plt Count 212, MPV 7.3, Neut % (Auto) 72.2, Lymph % (Auto) 9.6, Reagan % (Auto) 14.8, Eos % (Auto) 3.0, Baso % (Auto) 0.4, Nucleat RBC Rel Count 0.0, Neut # (Auto) 5.5, Lymph # (Auto) 0.7 L, Reagan # (Auto) 1.1 H, Eos # (Auto) 0.2, Baso # (Auto) 0.0, PlateletEstimate Normal, Plt Morphology Comment Normal, RBC Morphology N/A, Poikilocytosis Slight, Anisocytosis Slight, Microcytosis Slight, Ovalocytes Slight, Crenated Cell Slight, Schistocytes Slight 07/06/22 04:23: Magnesium 1.8 L 07/06/22 04:23: PHA Creatinine Clear 57.89, Sodium 135 L, Potassium 2.9 L*, Chloride 102, Carbon Dioxide 23.1, Anion Gap 12.8, BUN 5 L, Creatinine 0.35 L, Est GFR (CKD-EPI) > 60.0, Glucose 107 H, Calcium 8.3 L 07/05/22 04:53: Magnesium 1.7 L 07/05/22 04:53: PHA Creatinine Clear 57.36, Sodium 138, Potassium 2.8 L*, Chloride 108 H, Carbon Dioxide 20.9 L, Anion Gap 11.9, BUN 5 L, Creatinine 0.41 L, Est GFR (CKD-EPI) > 60.0, Glucose 94, Calcium 7.9 L, Triglycerides 46, Cholesterol 93 L, LDL Cholesterol, Calc 45, VLDL Cholesterol 9, HDL Cholesterol 39, Cholesterol/HDL Ratio 2.4 07/05/22 04:53: Corrected WBC 7.2, Uncorrected WBC Count 7.2, RBC 3.67, Hgb 9.8 L, Hct 29.2 L, MCV 79.6 L, MCH 26.6, MCHC 33.5, RDW 22.3 H, Plt Count 173, MPV 7.9, Neut % (Auto) 75.8, Lymph % (Auto) 8.9, Reagan % (Auto) 13.3, Eos % (Auto) 1.7, Baso % (Auto) 0.3, Nucleat RBC Rel Count 0.0, Neut # (Auto) 5.4, Lymph # (Auto) 0.6 L, Reagan # (Auto) 1.0 H, Eos # (Auto) 0.1, Baso # (Auto) 0.0, PlateletEstimate Normal, Plt Morphology Comment Normal, RBC Morphology N/A, Polychromasia Slight, Anisocytosis Marked, Microcytosis Slight, Ovalocytes Slight 07/04/22 04:07: Estimat Average Glucose 111, Hemoglobin A1c 5.5 A&P - General Surgery Assessment/Plan (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 Atrial fibrillation with rapid ventricular response is being managed by cardiology. Appreciate their input. Patient was not in any positions other than supine at the time of surgery to explain her hipsymptoms, perhaps during Graham catheter placement versus just that she is off ofher other medications including her steroids possibly these chronic issues are asomewhat exacerbated. Appreciate neurology work-up and telephone service adviser evaluation as well. We will see what recommendations by physical therapy and possible placement. Patient appreciates update and all care that she is receiving Code(s): C18.2 - Malignant neoplasm of ascending colon Status: Acute (3) History of DVT (deep vein thrombosis): Code(s): Z86.718 - Personal history of other venous thrombosis and embolism Status: Chronic (4) Lupus: Code(s): M32.9 - Systemic lupus erythematosus, unspecified Status: Acute Documented By: Alex Lee DO 07/06/22 1027 Signed By: <Electronically signed by DO Alex Lee> 07/06/22 1031 [facility] Work Phone: 1(421) 791-430504-02-2023 Progress note [facility] July 05, 2022 4:16pm Note Date/Time July 05, 2022 4:14 pm [facility] [address] [place] [address] Hospitalist Progress Note Signed Patient: Stella Garcia MR# : [id number] : 1940 Acct:[id number] Age/Sex: 81 / F Adm Date: 3 Loc: 4 Room: 4M0675-5 Type: ADM IN Attending Dr: Alex Lee DO Copies to: ~ Date of Service: 07/05/2022 Subjective Subjective Narrative: Patient seen and examined. Patient's niece at the bedside. Patient is much more awake and alert. NG tube has been taken out. Niece is feeding her food and she is able to eat well with no nausea, vomiting. She had a bowel movement today. States that she still has pain in her right hip which she attributes to arthritis. She has significant weakness in her legs bilaterally which is likelymultifactorial. She denies any other focal neurological symptoms. Exam Physical Exam Vital Signs: Temp Pulse Resp BP Pulse Ox O2 Del Method O2 Flow Rate 98.3 F 88 20 127/76 98 Room Air 1 07/05/22 10:52 07/05/22 15:53 07/05/22 15:53 07/05/22 10:52 07/05/22 15:53 07/05/22 15:53 07/05/22 07:58 Narrative: General: Awake, alert and is oriented, not in acute HEENT: Normocephalic, atraumatic, PERRLA, normal mucosa Cardiovascular: Regular rate and rhythm , S1-S2 heard, no murmurs or gallops Lungs: No wheezing or rhonchi heard Gastrointestinal: Wound VAC in place, bowel sounds heard Extremities: No edema Neurological: 2/5 strength in left lower extremity, 1-2/5 strength in right lower extremity, sensations intact, speech normal Skin: Dry and warm, no rashes or lesions Psych: Normal mood and affect Objective Lab Results 07/05/22 04:53 07/05/22 04:53 Meds Allergies and Active Meds Allergies Sulfa (Sulfonamide Antibiotics) Allergy (Verified 05/12/22 09:45) Unknown Reaction Active Meds: Active Medications Generic Name Dose Route Start Last Admin Trade Name Freq PRN Reason Stop Dose Admin Albuterol/Ipratropium 3 ml 07/01/22 20:00 07/05/22 15:53 Ipratropium/Albuterol 0.5-3 Mg 3 Ml Ampul.Neb INHALATION 07/01/23 19:59 3 ml QID.RESP STEVE Administration Alvimopan 12 mg 07/02/22 09:00 07/05/22 09:18 Alvimopan 12 Mg Capsule PO 07/08/22 21:01 12 mg Q12HR STEVE Administration Aspirin 81 mg 07/04/22 17:15 07/05/22 09:18 Aspirin 81 Mg Tablet.Dr PO 07/04/23 17:14 81 mg DAILY STEVE Administration Atorvastatin Calcium 10 mg 07/05/22 21:00 Atorvastatin 10 Mg Tablet PO 07/05/23 20:59 QPM STEVE Dofetilide 125 mcg 07/04/22 13:30 07/05/22 09:22 Dofetilide 125 Mcg Capsule PO 07/04/23 13:29 125 mcg BID STEVE Administration Enoxaparin Sodium 40 mg 07/02/22 10:00 07/05/22 09:18 Enoxaparin 40 Mg/0.4 Ml Syringe SUBCUT 07/02/23 09:59 40 mg DAILY@1000 STEVE Administration Famotidine 20 mg 07/01/22 21:00 07/05/22 09:18 Famotidine/Pf 20 Mg/2 Ml Vial IV-PUSH 07/01/23 20:59 20 mg Q12HR STEVE Administration Fluticasone Propionate 1 puff 07/01/22 21:00 07/05/22 07:58 Fluticasone Propionate 110 120 Puff/12 Gm Inhaler INHALATION 07/01/23 20:59 1 puff BID STEVE Administration Hydromorphone HCl 1 mg 07/01/22 17:00 Hydromorphone 1 Mg/Ml Syringe IV-PUSH Q3H PRN Pain Scale 6 - 10 Hydromorphone HCl 0.5 mg 07/01/22 17:00 Hydromorphone 0.5 Mg/0.5 Ml Syringe IV-PUSH Q3H PRN Pain Scale 1 - 5 Sodium Chloride 1,000 mls @ 90 mls/hr 07/01/22 17:00 07/05/22 11:13 0.9% Sodium Chloride 1,000 Ml IV 07/01/23 16:59 Not Given .Q11H7M STEVE Hydromorphone HCl 20 mg/ 50 mls @ 0 mls/hr 07/01/22 17:27 07/04/22 10:42 Sodium Chloride IV 07/01/23 16:59 0 mg/hr .Q0M PRN 0 mls/hr Pain Infusion Protocol 0 MG/HR Ondansetron HCl 4 mg 07/01/22 17:00 07/02/22 09:21 Ondansetron 4 Mg/2 Ml Vial IV-PUSH 07/01/23 16:59 4 mg Q6H PRN Administration Nausea And Vomiting Potassium Chloride 40 meq 07/05/22 18:00 Potassium Chloride Er 20 Meq Tab.Er.Prt PO 07/05/22 18:01 ONCE ONE A&P - Hospitalist Assessment/Plan (1) Cecal cancer: (2) Cancer of ascending colon: (3) History of DVT (deep vein thrombosis): (4) Lupus: (5) Atrial fibrillation with rapid ventricular response: (6) Weakness of lower extremity: Plan S/p open right colectomy Patient is awake and alert today, tolerating diet with no nausea or vomiting. Had a bowel movement today. NG tube has been taken out. Cardiology on board, patient is in sinus rhythm. Cardizem drip discontinued. Tolerating Tikosyn with normal QTc Neurology on board, MRI with and without contrast ordered and is pending. Continue aspirin, low-dose statin as LDL is 45 Hypokalemia noted, replace Manage pain, antiemetics as needed Continue alvimopan Incentive spirometer DVT and GI prophylaxis Documented By: Jose Zarate MD 07/05/22 161 Signed By: <Electronically signed by Jose Zarate MD> 07/05/22 1616 [facility] Work Phone: [phone]) 861-619204-02-2023 Progress note Author Macho Pierson [facility] July 05, 2022 9:46am Note Date/Time July 05, 2022 7:16 am [facility] [address] [place] [address] General Surgery Progress Note Signed Patient: Stella Garcia MR# : [id number] : 1940 Acct:[id number] Age/Sex: 81 / F Adm Date: 3 Loc: 4 Room: [address] [place] [address] Type: ADM IN Attending Dr: Alex Lee DO Copies to: ~ Date of Service: 07/05/2022 Subjective Subjective HPI: Ms. Stella Garcia is an 81F post-op day 4 from laparoscopic converted to open right colectomy secondary to cecal cancer. Acute events: mid-morning yesterday, pt was found to be in AFib and SVT with rate of 180. Pt endorsed right leg weakness and stroke alert was called. CT head negative. Pt states weakness accompanied hip pain that began after surgery; this was not mentioned to me when she described bilateral hip pain similar to what she experiences at home. This morning, pt feels better. She was apparently unaware of cardiac symptoms and denies history of AFib. Hip pain improved today and abdominal pain minimal. Using BRINEYARD SUPERVISOR pump. Tolerated clear liquids all day yesterday without nausea/vomiting. Feels ready to attempt soft foods. No post-op BM but has passed flatus. Denies fever, chills, leg numbness or tingling, warmth or swelling. States today, left leg feels weaker than right. Denies having PT since initial plan of care eval on 07/02. Allergies & Medications Medications and Allergies Allergies Sulfa (Sulfonamide Antibiotics) Allergy (Verified 05/12/22 09:45) Unknown Reaction Home Medications ferrous sulfate 325 mg (65 mg iron) tablet 325 mg PO DAILY 04/28/22 [History Confirmed 07/01/22] gabapentin 300 mg capsule (Neurontin) 300 mg PO TID 04/28/22 [History Confirmed 07/01/22] multivitamin 1 tab PO DAILY 04/28/22 [History Confirmed 07/01/22] pantoprazole 40 mg tablet,delayed release 40 mg PO DAILY 04/28/22 [History Confirmed 07/01/22] potassium chloride 10 mEq tablet,extended release 20 meq PO TID 04/28/22 [History Confirmed 07/01/22] risankizumab-rzaa 150 mg/mL subcutaneous syringe (Skyrizi) 150 mg subcut Q12W 04/28/22 [History Confirmed 07/01/22] rivaroxaban 2.5 mg tablet (Xarelto) 2.5 mg PO BID 04/28/22 [History Confirmed 07/01/22] torsemide 20 mg tablet 20 mg PO DAILY PRN Edema 04/28/22 [History Confirmed 07/01/22] biotin 10,000 mcg capsule 10,000 mcg PO DAILY 05/12/22 [History Confirmed 07/01/22] budesonide 160 mcg-glycopyr 9 mcg-formot 4.8 mcg/actuation HFA inhaler (Breztri Aerosphere) 2 inh inhalation BID 05/12/22 [History Confirmed 07/01/22] calcium phosphate,dibasic 77 mg-vitamin D3 400 unit tablet 2 tab PO DAILY 07/01/22 [History Confirmed 07/01/22] cyclobenzaprine 5 mg tablet 5 mg PO HS PRN Muscle Spasm 07/01/22 [History Confirmed 07/01/22] Active Medications Albuterol/Ipratropium (Ipratropium/Albuterol 0.5-3 Mg 3 Ml Ampul.Neb) 3 ml INHALATION QID.RESP STEVE Stop: 07/01/23 19:59 Last Admin: 07/04/22 20:21 Dose: 3 ml Alvimopan (Alvimopan 12 Mg Capsule) 12 mg PO Q12HR STEVE Stop: 07/08/22 21:01 Last Admin: 07/04/22 21:53 Dose: 12 mg Aspirin (Aspirin 81 Mg Tablet.) 81 mg PO DAILY STEVE Stop: 07/04/23 17:14 Last Admin: 07/04/22 18:08 Dose: 81 mg Atorvastatin Calcium (Atorvastatin 40 Mg Tablet) 40 mg PO QPM STEVE Stop: 07/04/23 20:59 Last Admin: 07/04/22 21:47 Dose: 40 mg Dofetilide (Dofetilide 125 Mcg Capsule) 125 mcg PO BID STEVE Stop: 07/04/23 13:29 Last Admin: 07/04/22 21:46 Dose: 125 mcg Enoxaparin Sodium (Enoxaparin 40 Mg/0.4 Ml Syringe) 40 mg SUBCUT DAILY@1000 STEVE Stop: 07/02/23 09:59 Last Admin: 07/04/22 11:40 Dose: Not Given Famotidine (Famotidine/Pf 20 Mg/2 Ml Vial) 20 mg IV-PUSH Q12HR STEVE Stop: 07/01/23 20:59 Last Admin: 07/04/22 21:46 Dose: 20 mg Fluticasone Propionate (Fluticasone Propionate 110 120 Puff/12 Gm Inhaler) 1 puff INHALATION BID STEVE Stop: 07/01/23 20:59 Last Admin: 07/04/22 20:21 Dose: 1 puff Hydromorphone HCl (Hydromorphone 1 Mg/Ml Syringe) 1 mg IV-PUSH Q3H PRN PRN Reason: Pain Scale 6 - 10 Hydromorphone HCl (Hydromorphone 0.5 Mg/0.5 Ml Syringe) 0.5 mg IV-PUSH Q3H PRN PRN Reason: Pain Scale 1 - 5 Sodium Chloride (0.9% Sodium Chloride 1,000 Ml) 1,000 mls @ 90 mls/hr IV .Q11H7M STEVE Stop: 07/01/23 16:59 Last Admin: 07/05/22 03:33 Dose: 90 mls/hr Hydromorphone HCl 20 mg/ (Sodium Chloride) 50 mls @ 0 mls/hr IV .Q0M PRN; Protocol PRN Reason: Pain Stop: 07/01/23 16:59 Last Infusion: 07/04/22 10:42 Dose: 0 mg/hr, 0 mls/hr Diltiazem HCl (Cardizem) 100 mg in 100 mls @ 10 mls/hr IV .Q10H STEVE; Protocol Stop: 07/04/23 09:59 Last Titration: 07/05/22 05:12 Dose: 5 mg/hr, 5 mls/hr Potassium Chloride 40 meq/ (Sodium Chloride) 520 mls @ 130 mls/hr IV ONCE ONE Stop: 07/05/22 11:14 Ondansetron HCl (Ondansetron 4 Mg/2 Ml Vial) 4 mg IV-PUSH Q6H PRN PRN Reason: Nausea And Vomiting Stop: 07/01/23 16:59 Last Admin: 07/02/22 09:21 Dose: 4 mg Exam Physical Exam Vital Signs: Temp Pulse Resp BP Pulse Ox O2 Del Method O2 Flow Rate 98.2 F 71 18 117/66 95 Room Air 1 07/05/22 00:00 07/05/22 05:12 07/05/22 04:00 07/05/22 05:12 07/05/22 04:00 07/05/22 04:00 07/05/22 00:00 Const General: cooperative and comfortable Orientation: awake Other: Seated in bedside chair, more comfortable than yesterday HEENT Head: normocephalic and atraumatic Face and sinus: normal facial exam Eyes Alignment and Position: alignment normal and position normal Pupils: PERRL Chest Chest palpation & inspection: normal inspection of the chest Resp Effort & Inspection: normal respiratory effort and able to speak in complete sentences Auscultation: clear to auscultation bilaterally Cardio Rate: regular rate Rhythm: abnormal rhythm irregularly irregular GI Inspection: normal to inspection, non-distended and other (Prevena VAC intact with good suction. No output) Skin General: no rashes or lesions noted Neuro General: patient alert and patient oriented x3 Cognition: normal cognition Extrem General: normal to inspection, abnormal ROM and edema (trace pitting edema to bilateral ankles) Other: Equal, bilateral restricted ROM to distal extremities. Poor abduction and flexion at hip with strength 2/5. Ankle strength 5/5 bilaterally with plantar- and dorsiflexion Psych Appearance: grossly normal and well kempt Objective Pain Assessment Abdomen: Pain Description: Constant Pain Intensity: 4 Right Hip: Pain Description: Intermittent and Aching Pain Intensity: 4 Medial Abdomen: Pain Description: Intermittent, Acute, Dull and Aching Pain Intensity: 5 Intake & Output 24 hour I&O: Intake & Output 07/04/22 07/04/22 07/05/22 15:59 23:59 07:59 Intake Total 1315 / 3515 1200 / 3515 100 / 100 Output Total 425 / 800 375 / 800 Balance 890 / 2715 825 / 2715 100 / 100 Labs 07/05/22 04:53 07/05/22 04:53 Laboratory Results - Last 48 hrs. 07/05/22 04:53: PHA Creatinine Clear 57.36, Sodium 138, Potassium 2.8 L*, Chloride 108 H, Carbon Dioxide 20.9 L, Anion Gap 11.9, BUN 5 L, Creatinine 0.41 L, Est GFR (CKD-EPI) > 60.0, Glucose 94, Calcium 7.9 L, Triglycerides 46, Cholesterol 93 L, LDL Cholesterol, Calc 45, VLDL Cholesterol 9, HDL Cholesterol 39, Cholesterol/HDL Ratio 2.4 07/05/22 04:53: Corrected WBC 7.2, Uncorrected WBC Count 7.2, RBC 3.67, Hgb 9.8 L, Hct 29.2 L, MCV 79.6 L, MCH 26.6, MCHC 33.5, RDW 22.3 H, Plt Count 173, MPV 7.9, Neut % (Auto) 75.8, Lymph % (Auto) 8.9, Reagan % (Auto) 13.3, Eos % (Auto) 1.7, Baso % (Auto) 0.3, Nucleat RBC Rel Count 0.0, Neut # (Auto) 5.4, Lymph # (Auto) 0.6 L, Reagan # (Auto) 1.0 H, Eos # (Auto) 0.1, Baso # (Auto) 0.0, PlateletEstimate Normal, Plt Morphology Comment Normal, RBC Morphology N/A, Polychromasia Slight, Anisocytosis Marked, Microcytosis Slight, Ovalocytes Slight 07/04/22 09:50: Troponin I High Sens 19.3 H 07/04/22 09:50: APTT 37.9 H 07/04/22 09:40: POC Glucose 144 07/04/22 04:07: Magnesium 1.6 L 07/04/22 04:07: PHA Creatinine Clear 57.36, Sodium 137, Potassium 2.7 L*, Chloride 104, Carbon Dioxide 20.4 L, Anion Gap 15.3 H, BUN 6 L, Creatinine 0.46 L, Est GFR (CKD-EPI) > 60.0, Glucose 95, Calcium 8.6 07/04/22 04:07: Corrected WBC 11.3, Uncorrected WBC Count 11.3, RBC 4.32, Hgb 11.3 L, Hct 34.5, MCV 79.7 L, MCH 26.1, MCHC 32.7, RDW 22.5 H, Plt Count 185, MPV 7.8, Neut % (Auto) 84.9, Lymph % (Auto) 4.0, Reagan % (Auto) 10.6, Eos % (Auto) 0.1, Baso % (Auto) 0.4, Nucleat RBC Rel Count 0.0, Neut # (Auto) 9.6 H, Lymph # (Auto) 0.5 L, Reagan # (Auto) 1.2 H, Eos # (Auto) 0.0, Baso # (Auto) 0.0, Platelet Estimate Normal, Plt Morphology Comment Normal, RBC Morphology N/A, Polychromasia Moderate, Poikilocytosis Slight, Anisocytosis Moderate, Microcytosis Moderate, Ovalocytes Slight 07/03/22 05:15: PHA Creatinine Clear 57.36, Sodium 136, Potassium 3.0 L, Chloride 99, Carbon Dioxide 24.8, Anion Gap 15.2 H, BUN 8, Creatinine 0.58 L, Est GFR (CKD- EPI) > 60.0, Glucose 110 H, Calcium 8.5 L 07/03/22 05:15: Corrected WBC 9.3, Uncorrected WBC Count 9.3, RBC 4.64, Hgb 12.0, Hct 36.8, MCV 79.3 L, MCH 25.8, MCHC 32.5, RDW 22.3 H, Plt Count 228, MPV 7.6, Neut % (Auto) 79.2, Lymph % (Auto) 10.3, Reagan % (Auto) 9.9, Eos % (Auto) 0.3, Baso % (Auto) 0.3, Nucleat RBC Rel Count 0.1, Neut # (Auto) 7.3, Lymph # (Auto) 1.0, Reagan # (Auto) 0.9 H, Eos # (Auto) 0.0, Baso # (Auto) 0.0, Platelet Estimate Normal, Plt Morphology Comment Normal, RBC Morphology N/A, Polychromasia Slight, Poikilocytosis Slight, Anisocytosis Marked, Microcytosis Moderate, Tear Drop Cells Slight, Ovalocytes Slight A&P - General Surgery Assessment/Plan (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 I have performed the beckham parts of the physical examination, as well as review ofthe history, and pertinent tests. I have formulated the plan of care and made appropriate entries into the patient's chart. 81yo female s/p laparoscopic converted to open right colectomy secondary to cecal cancer. Post-op course complicated by right leg weakness and hip pain beginning 07/03. Imaging negative for stroke. Cardiology recommended against anticoagulation. -CT yesterday shows gaseous distension of small bowel and colon . Patient endorses flatus this morning. -WBC 7.2 this a.m. -Critical potassium and low magnesium unchanged this a.m. from yesterday. Repletion per hospitalist team -Continue analgesia via BRINEYARD SUPERVISOR pump. -Continue Entereg -Continue monitoring Prevena VAC; no output as of this this a.m. -Tolerating clear liquids. Advance to GI soft diet, remove NG tube today. -Encourage activity with PT/OT Documented By: Macho Pierson DO 07/05/22 06 58 Signed By: <Electronically signed by Macho Pierson DO> 07/05/22 0946 <Electronically signed by MD ABRAN Salmeron> 07/05/22 0829 [facility] Work Phone: 1([phone] 903-141204-02-2023 Progress note Author Geovany Serrano [facility] July 05, 2022 8:32am Note Date/Time July 05, 2022 8:32 am [facility] [address] [place] [address] Cardiology Progress Note Signed Patient: Stella Garcia MR# : [id number] : 1940 Acct:[id number] Age/Sex: 81 / F Adm Date: 3 Loc: Room: [address] [place] [address] Type: ADM IN Attending Dr: Alex Lee DO Copies to: ~ Date of Service: 07/05/2022 Subjective Principal diagnosis: Paroxysmal atrial fibrillation Interval history: Patient more alert today. Sinus rhythm restored. QT interval acceptable. At this time she does not appear to require parenteral diltiazem. She denies cardiac symptomatology. Exam Physical Exam Vital Signs: Temp Pulse Resp BP Pulse Ox O2 Del Method O2 Flow Rate 98.4 F 76 20 125/73 97 Room Air 1 07/05/22 07:46 07/05/22 08:05 07/05/22 08:05 07/05/22 07:46 07/05/22 07:58 07/05/22 08:01 07/05/22 07:58 HEENT Other: NG tube in place Eyes Conjunctivae: conjunctivae normal Sclera: sclerae normal Neck Neck: normal visual inspection Carotids: normal carotid upstroke Lymphatic: no lymphadenopathy noted Chest Chest palpation & inspection: normal inspection of the chest Resp Effort & Inspection: normal respiratory effort Auscultation: clear to auscultation bilaterally Cardio Rate: regular rate Rhythm: regular rhythm Heart Sounds: S1 normal and S2 normal GI Other: Status post surgery. Tender. Hypoactive bowel sounds Skin General: no rashes or lesions noted Neuro General: patient alert, patient awake and patient oriented x3 Cognition: normal cognition Motor: muscle tone normal throughout Sensory Exam: no sensory deficits noted Objective Labs 07/05/22 04:53 07/05/22 04:53 Labs: Laboratory Results - last 24 hr 07/04/22 07/04/22 07/04/22 09:40 09:50 09:50 Corrected WBC Uncorrected WBC Count RBC Hgb Hct MCV MCH MCHC RDW Plt Count MPV Neut % (Auto) Lymph % (Auto) Reagan % (Auto) Eos % (Auto) Baso % (Auto) Nucleat RBC Rel Count Neut # (Auto) Lymph # (Auto) Reagan # (Auto) Eos # (Auto) Baso # (Auto) Platelet Estimate Plt Morphology Comment RBC Morphology Polychromasia Anisocytosis Microcytosis Ovalocytes APTT 37.9 H PHA Creatinine Clear Sodium Potassium Chloride Carbon Dioxide Anion Gap BUN Creatinine Est GFR (CKD-EPI) Glucose POC Glucose 144 Calcium Magnesium Troponin I High Sens 19.3 H Triglycerides Cholesterol LDL Cholesterol, Calc VLDL Cholesterol HDL Cholesterol Cholesterol/HDL Ratio 07/05/22 07/05/22 07/05/22 04:53 04:53 04:53 Corrected WBC 7.2 Uncorrected WBC Count 7.2 RBC 3.67 Hgb 9.8 L Hct 29.2 L MCV 79.6 L MCH 26.6 MCHC 33.5 RDW 22.3 H Plt Count 173 MPV 7.9 Neut % (Auto) 75.8 Lymph % (Auto) 8.9 Reagan % (Auto) 13.3 Eos % (Auto) 1.7 Baso % (Auto) 0.3 Nucleat RBC Rel Count 0.0 Neut # (Auto) 5.4 Lymph # (Auto) 0.6 L Reagan # (Auto) 1.0 H Eos # (Auto) 0.1 Baso # (Auto) 0.0 Platelet Estimate Normal Plt Morphology Comment Normal RBC Morphology N/A Polychromasia Slight Anisocytosis Marked Microcytosis Slight Ovalocytes Slight APTT PHA Creatinine Clear 57.36 Sodium 138 Potassium 2.8 L* Chloride 108 H Carbon Dioxide 20.9 L Anion Gap 11.9 BUN 5 L Creatinine 0.41 L Est GFR (CKD-EPI) > 60.0 Glucose 94 POC Glucose Calcium 7.9 L Magnesium 1.7 L Troponin I High Sens Triglycerides 46 Cholesterol 93 L LDL Cholesterol, Calc 45 VLDL Cholesterol 9 HDL Cholesterol 39 Cholesterol/HDL Ratio 2.4 A&P - Cardiology (1) Atrial fibrillation with rapid ventricular response: Assessment/Problem Details: Restored to sinus rhythm with dofetilide. QT interval acceptable. Continue same. Code(s): I48.91 - Unspecified atrial fibrillation Status: Acute Plan Continue dofetilide. Discontinue diltiazem. Follow EKG. Documented By: Geovany Serrano MD 30 Signed By: <Electronically signed by MD Geovany Serrano> 07/05/22 0832 [facility] Work Phone: 1([phone] 557-424604-02-2023 Consult note Author Jasvir Almaraz [facility] July 05, 2022 7:51am Note Date/Time July 05, 2022 7:00 am [facility] [address] [place] [address] Neurology Consult Note Signed Patient: Stella Garcia MR# : [id number] : 1940 Acct:[id number] Age/Sex: 81 / F Adm Date: 3 Loc: Room: [address] [place] [address] Type: ADM IN Attending Dr: Alex Lee DO Copies to: DO Quentin Aiken II, MD Paul C Laffay, DO~ HPI Consult Date: 07/05/22 Fire Prevention Research Engineer: Jasvir Almaraz DO Reason for consult: right leg weakness Consult Narrative HPI: I was asked to see this 81-year-old patient in new patient neurology consultation at the request of the hospitalist service. The patient was noted to have right leg weakness. Apparently the weakness started the day before yesterday. The patient did have a code stroke called yesterday and CT and CT angiogram were obtained and did not reveal any acute pathology and the patient was transferred to a progressive nursing unit for more careful monitoring. Apparently, per notations from the primary team, the patient had noted pain in the right hip since her surgery. The patient has recently undergone laparoscopic converted open colectomy for cecal cancer and felt that thereafter she had more difficulty with her right leg and right hip. The patient was not agreat historian per the primary service as well. Patient is eating clear liquids and hemodynamically stable. The patient did have a stretch of atrial fibrillation and has been started on Tikosyn and cardiology has recommended against anticoagulation at this time. There have been no acute or seizure-like events or further new or different strokelike symptoms overnight. Review of Systems Review of Systems Unobtainable due to mental condition PMFSH Vaccinated for COVID-19?: Yes Medical History (Updated 07/05/22 @ 06:58 by Lisandro Almaraz DO) Arthritis Chronic pansinusitis COPD (chronic obstructive pulmonary disease) Cough DVT (deep venous thrombosis) Iron deficiency anemia Jaw pain Lupus Microcytic anemia Migraine headache Recurrent oral ulcers Surgical History (Updated 07/01/22 @ 11:31 by Loni Cook RN) H/O laminectomy L5 History of cholecystectomy History of total knee arthroplasty right Joint replaced rt knee replacement Family History Mother Diabetes Father Diabetes Grandparent Goiter Social History Smoking Status: Former smoker Tobacco Type: cigarettes Substance Use Type: None Meds Medications and Allergies Allergies Sulfa (Sulfonamide Antibiotics) Allergy (Verified 05/12/22 09:45) Unknown Reaction Home Medications ferrous sulfate 325 mg (65 mg iron) tablet 325 mg PO DAILY 04/28/22 [History Confirmed 07/01/22] gabapentin 300 mg capsule (Neurontin) 300 mg PO TID 04/28/22 [History Confirmed 07/01/22] multivitamin 1 tab PO DAILY 04/28/22 [History Confirmed 07/01/22] pantoprazole 40 mg tablet,delayed release 40 mg PO DAILY 04/28/22 [History Confirmed 07/01/22] potassium chloride 10 mEq tablet,extended release 20 meq PO TID 04/28/22 [History Confirmed 07/01/22] risankizumab-rzaa 150 mg/mL subcutaneous syringe (Skyrizi) 150 mg subcut Q12W 04/28/22 [History Confirmed 07/01/22] rivaroxaban 2.5 mg tablet (Xarelto) 2.5 mg PO BID 04/28/22 [History Confirmed 07/01/22] torsemide 20 mg tablet 20 mg PO DAILY PRN Edema 04/28/22 [History Confirmed 07/01/22] biotin 10,000 mcg capsule 10,000 mcg PO DAILY 05/12/22 [History Confirmed 07/01/22] budesonide 160 mcg-glycopyr 9 mcg-formot 4.8 mcg/actuation HFA inhaler (Breztri Aerosphere) 2 inh inhalation BID 05/12/22 [History Confirmed 07/01/22] calcium phosphate,dibasic 77 mg-vitamin D3 400 unit tablet 2 tab PO DAILY 07/01/22 [History Confirmed 07/01/22] cyclobenzaprine 5 mg tablet 5 mg PO HS PRN Muscle Spasm 07/01/22 [History Confirmed 07/01/22] Exam Physical Exam Vital Signs: Temp Pulse Resp BP Pulse Ox O2 Del Method O2 Flow Rate 98.2 F 71 18 117/66 95 Room Air 1 07/05/22 00:00 07/05/22 05:12 07/05/22 04:00 07/05/22 05:12 07/05/22 04:00 07/05/22 04:00 07/05/22 00:00 Narrative: Narrative: GENERAL EXAM: Done via telehealth Patient is alert and oriented x3. In general the patient is well-appearing. NEURO EXAM: Cranial nerve II. Vision is intact. Pupils are equal Cranial nerve III, IV and . Extraocular muscles are intact. No nystagmus is appreciated Cranial nerve V and VII. No facial asymmetry is appreciated. Temperature and pinprick is equal bilaterally Cranial nerve VIII hearing is intact Cranial nerve IX and X speech is clear fluent. Palate elevates symmetrically Cranial nerve XI head turn side to side full range of motion. Shoulder shrug isequal bilaterally Cranial nerve XII tongue is midline full range of motion MOTOR EXAM: Strength is 5/5 throughout throughout her upper extremities and 2/5 in the lowerextremity. No pronator drift was appreciated Muscle tone and bulk are normal SENSORY EXAM: Denies paresthesias CEREBELLAR EXAM: Alternating movements are intact. Finger to nose normal Gait not assessed Results Laboratory Findings 07/05/22 04:53 07/05/22 04:53 Diagnostic Findings Imaging/Impressions: ITS Impressions Head CT 07/04/22 09:41 IMPRESSION: NO ACUTE INTRACRANIAL ABNORMALITY. Findings were discussed with Lizzy STEWART charge nurse at 10:23 AM 07/04/2022. Impression dictated by: Nas Helms Jr., D.O.07/04/2022 10:24 AM Dictation Location: [facility] Head CTA 07/04/22 09:41 IMPRESSION: No evidence of critical stenosis, aneurysmal dilatation, dissection or occlusion. Impression dictated by: Nas Helms Jr., D.O.07/04/2022 10:38 AM Dictation Location: [facility] Abdomen X-Ray 07/04/22 13:23 IMPRESSION: NG TUBE IN SATISFACTORY POSITION. GASEOUS DISTENTION OF SMALL BOWEL AND COLON POSSIBLY REPRESENTING ILEUS. 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 The onset of symptoms was at least [address] and CT angiogram were checked and found to be unremarkable. The patient did have recent surgery on 07/01/22 for colectomy for her cecal CA as well which would be anexclusion for tPA. There is question as to whether or not the weakness is secondary to pain or neurological deficit. Work-up: CT of the brain without contrast: Unremarkable CT angiogram of the head and neck: No evidence of aneurysm, occlusion or dissection MRI of the brain with and without contrast: Pending 2D echocardiogram: The left ventricular size, thickness and function are normal Ejection Fraction = 55-60%. A variety of Doppler measurements indicate normal left ventricular diastolic function. Mild valvular aortic stenosis. There is trace mitral regurgitation. There is trace tricuspid regurgitation. Hemoglobin A1c: Pending LDL: 45 Plan: I agree with the addition of aspirin as long as this is ok with her surgical team and cardiology based on concern for TIA/stroke and goal of secondary strokeprevention We will follow the aforementioned work-up and intervene as appropriate based on results. Based on the patient's current LDL of 45 I do not believe the patient needs a statin medication from a neurological perspective. However, I asked the primaryteam to review this as there may be indications from a cardiac perspective or otherwise that would mandate the continued utilization of statin. Thank you for consult Documented By: Jasvir Almaraz DO [id number] Signed By: <Electronically signed by Jasvir Almaraz DO> 07/05/22 0751 [facility] Work Phone: 1(375) 230-247704-01-2023 Consult note Author Macho Pierson [facility] July 04, 2022 8:13pm Note Date/Time July 04, 2022 8:31 am [facility] [address] [place] [address] General Surgery Consult Note Signed Patient: Stella Garcia MR# : [id number] : 1940 Acct:[id number] Age/Sex: 81 / F Adm Date: 3 Loc: Room: [address] [place] [address] Type: ADM IN Attending Dr: Alex Lee DO Copies to: MD Macho Flower II, DO Paul C Laffay, DO Rebecca Howard, MD, RES~ History of Present Illness Date of consult: 07/04/2022 Requesting/Attending Provider: Alex Lee DO History of present illness: Ms. Stella Garcia is an 81F post-op day 3 from laparoscopic converted to open right colectomy secondary to cecal cancer. Feeling improved today with better pain control. Endorsing superficial stinging pain at wound VAC site. Using BRINEYARD SUPERVISOR pump. Denies nausea vomiting. Did not attempt oral feeding yesterday but is ready to try clear liquids today. Takes several sips of apple juice during interview without issue. No post-op BM or flatus yet. Review of Systems Review of Systems All other systems reviewed & are negative unless noted below or in HPI PMFSH Vaccinated for COVID-19?: Yes Medical History (Updated 07/04/22 @ 12:48 by Geovany Serrano MD) Arthritis Chronic pansinusitis COPD (chronic obstructive pulmonary disease) Cough DVT (deep venous thrombosis) Iron deficiency anemia Jaw pain Lupus Microcytic anemia Migraine headache Recurrent oral ulcers Surgical History (Updated 07/01/22 @ 11:31 by Loni Cook, TERRY) H/O laminectomy L5 History of cholecystectomy History of total knee arthroplasty right Joint replaced rt knee replacement Family History Mother Diabetes Father Diabetes Grandparent Goiter Social History Smoking Status: Former smoker Tobacco Type: cigarettes Substance Use Type: None Allergies & Medications Medications and Allergies Allergies Sulfa (Sulfonamide Antibiotics) Allergy (Verified 05/12/22 09:45) Unknown Reaction Home Medications ferrous sulfate 325 mg (65 mg iron) tablet 325 mg PO DAILY 04/28/22 [History Confirmed 07/01/22] gabapentin 300 mg capsule (Neurontin) 300 mg PO TID 04/28/22 [History Confirmed 07/01/22] multivitamin 1 tab PO DAILY 04/28/22 [History Confirmed 07/01/22] pantoprazole 40 mg tablet,delayed release 40 mg PO DAILY 04/28/22 [History Confirmed 07/01/22] potassium chloride 10 mEq tablet,extended release 20 meq PO TID 04/28/22 [History Confirmed 07/01/22] risankizumab-rzaa 150 mg/mL subcutaneous syringe (Skyrizi) 150 mg subcut Q12W 04/28/22 [History Confirmed 07/01/22] rivaroxaban 2.5 mg tablet (Xarelto) 2.5 mg PO BID 04/28/22 [History Confirmed 07/01/22] torsemide 20 mg tablet 20 mg PO DAILY PRN Edema 04/28/22 [History Confirmed 07/01/22] biotin 10,000 mcg capsule 10,000 mcg PO DAILY 05/12/22 [History Confirmed 07/01/22] budesonide 160 mcg-glycopyr 9 mcg-formot 4.8 mcg/actuation HFA inhaler (Breztri Aerosphere) 2 inh inhalation BID 05/12/22 [History Confirmed 07/01/22] calcium phosphate,dibasic 77 mg-vitamin D3 400 unit tablet 2 tab PO DAILY 07/01/22 [History Confirmed 07/01/22] cyclobenzaprine 5 mg tablet 5 mg PO HS PRN Muscle Spasm 07/01/22 [History Confirmed 07/01/22] Active Medications Albuterol/Ipratropium (Ipratropium/Albuterol 0.5-3 Mg 3 Ml Ampul.Neb) 3 ml INHALATION QID.RESP STEVE Stop: 07/01/23 19:59 Last Admin: 07/04/22 08:08 Dose: 3 ml Alvimopan (Alvimopan 12 Mg Capsule) 12 mg PO Q12HR [facility] Stop: 07/08/22 21:01 Last Admin: 07/03/22 21:32 Dose: 12 mg Enoxaparin Sodium (Enoxaparin 40 Mg/0.4 Ml Syringe) 40 mg SUBCUT DAILY@1000 [facility] Stop: 07/02/23 09:59 Last Admin: 07/03/22 09:00 Dose: 40 mg Famotidine (Famotidine/Pf 20 Mg/2 Ml Vial) 20 mg IV-PUSH Q12HR [facility] Stop: 07/01/23 20:59 Last Admin: 07/03/22 21:32 Dose: 20 mg Fluticasone Propionate (Fluticasone Propionate 110 120 Puff/12 Gm Inhaler) 1 puff INHALATION BID [facility] Stop: 07/01/23 20:59 Last Admin: 07/04/22 08:09 Dose: 1 puff Hydromorphone HCl (Hydromorphone 1 Mg/Ml Syringe) 1 mg IV-PUSH Q3H PRN PRN Reason: Pain Scale 6 - 10 Hydromorphone HCl (Hydromorphone 0.5 Mg/0.5 Ml Syringe) 0.5 mg IV-PUSH Q3H PRN PRN Reason: Pain Scale 1 - 5 Sodium Chloride (0.9% Sodium Chloride 1,000 Ml) 1,000 mls @ 90 mls/hr IV .Q11H7M [facility] Stop: 07/01/23 16:59 Last Admin: 07/03/22 23:08 Dose: Not Given Hydromorphone HCl 20 mg/ (Sodium Chloride) 50 mls @ 0 mls/hr IV .Q0M PRN; Protocol PRN Reason: Pain Stop: 07/01/23 16:59 Last Infusion: 07/02/22 11:11 Dose: 0 mg/hr, 0 mls/hr Potassium Chloride 40 meq/ (Sodium Chloride) 520 mls @ 130 mls/hr IV ONCE ONE Stop: 07/04/22 10:14 Last Admin: 07/04/22 06:28 Dose: 130 mls/hr Ondansetron HCl (Ondansetron 4 Mg/2 Ml Vial) 4 mg IV-PUSH Q6H PRN PRN Reason: Nausea And Vomiting Stop: 07/01/23 16:59 Last Admin: 07/02/22 09:21 Dose: 4 mg Exam Physical Exam Vital Signs: Temp Pulse Resp BP Pulse Ox O2 Del Method O2 Flow Rate 97.8 F 94 H 22 137/69 100 Room Air 1 07/04/22 04:10 07/04/22 04:10 07/04/22 04:50 07/04/22 04:10 07/04/22 04:10 07/04/22 04:10 07/02/22 19:24 Const General: cooperative and comfortable Orientation: awake Other: Seated in bedside chair, more comfortable than yesterday HEENT Head: normocephalic and atraumatic Eyes Alignment and Position: alignment normal and position normal Pupils: PERRL Chest Chest palpation & inspection: normal inspection of the chest Resp Effort & Inspection: normal respiratory effort Auscultation: clear to auscultation bilaterally Cardio Rate: regular rate Rhythm: regular rhythm GI Inspection: normal to inspection, non-distended and other (wound vac intact withgood suction. No output) Skin General: no rashes or lesions noted Neuro General: patient alert and patient oriented x3 Extrem General: normal to inspection Psych Appearance: grossly normal and well kempt Results Pain Assessment Abdomen: Pain Description: Constant Pain Intensity: 4 Right Hip: Pain Description: Intermittent and Aching Pain Intensity: 4 Intake and Output 24 hour I&O: Intake & Output 07/03/22 07/04/22 07/04/22 23:59 07:59 15:59 Intake Total 120 / 2740 Balance 120 / 2740 Labs 07/04/22 04:07 07/04/22 04:07 Laboratory Results - last 72 hr 07/04/22 04:07: Magnesium 1.6 L 07/04/22 04:07: PHA Creatinine Clear 57.36, Sodium 137, Potassium 2.7 L*, Chloride 104, Carbon Dioxide 20.4 L, Anion Gap 15.3 H, BUN 6 L, Creatinine 0.46 L, Est GFR (CKD-EPI) > 60.0, Glucose 95, Calcium 8.6 07/04/22 04:07: Corrected WBC 11.3, Uncorrected WBC Count 11.3, RBC 4.32, Hgb 11.3 L, Hct 34.5, MCV 79.7 L, MCH 26.1, MCHC 32.7, RDW 22.5 H, Plt Count 185, MPV 7.8, Neut % (Auto) 84.9, Lymph % (Auto) 4.0, Reagan % (Auto) 10.6, Eos % (Auto) 0.1, Baso % (Auto) 0.4, Nucleat RBC Rel Count 0.0, Neut # (Auto) 9.6 H, Lymph # (Auto) 0.5 L, Reagan # (Auto) 1.2 H, Eos # (Auto) 0.0, Baso # (Auto) 0.0, Platelet Estimate Normal, Plt Morphology Comment Normal, RBC Morphology N/A, Polychromasia Moderate, Poikilocytosis Slight, Anisocytosis Moderate, Microcytosis Moderate, Ovalocytes Slight 07/03/22 05:15: PHA Creatinine Clear 57.36, Sodium 136, Potassium 3.0 L, Chloride 99, Carbon Dioxide 24.8, Anion Gap 15.2 H, BUN 8, Creatinine 0.58 L, Est GFR (CKD- EPI) > 60.0, Glucose 110 H, Calcium 8.5 L 07/03/22 05:15: Corrected WBC 9.3, Uncorrected WBC Count 9.3, RBC 4.64, Hgb 12.0, Hct 36.8, MCV 79.3 L, MCH 25.8, MCHC 32.5, RDW 22.3 H, Plt Count 228, MPV 7.6, Neut % (Auto) 79.2, Lymph % (Auto) 10.3, Reagan % (Auto) 9.9, Eos % (Auto) 0.3, Baso % (Auto) 0.3, Nucleat RBC Rel Count 0.1, Neut # (Auto) 7.3, Lymph # (Auto) 1.0, Reagan # (Auto) 0.9 H, Eos # (Auto) 0.0, Baso # (Auto) 0.0, Platelet Estimate Normal, Plt Morphology Comment Normal, RBC Morphology N/A, Polychromasia Slight, Poikilocytosis Slight, Anisocytosis Marked, Microcytosis Moderate, Tear Drop Cells Slight, Ovalocytes Slight 07/02/22 07:20: PHA Creatinine Clear 57.36, Sodium 137, Potassium 4.1, Chloride 106, Carbon Dioxide 20.4 L, Anion Gap 14.7, BUN 8, Creatinine 0.65, Est GFR (CKD-EPI) > 60.0, Glucose 118 H, Calcium 8.9 07/02/22 07:20: Corrected WBC 14.5 H, Uncorrected WBC Count 14.5 H, RBC 5.15 H, Hgb 13.2, Hct 40.6, MCV 78.8 L, MCH 25.7, MCHC 32.6, RDW 22.6 H, Plt Count 187, MPV 8.3, Neut % (Auto) 83.2, Lymph % (Auto) 7.8, Reagan % (Auto) 8.6, Eos % (Auto)0.0, Baso % (Auto) 0.4, Nucleat RBC Rel Count 0.0, Neut # (Auto) 12.0 H, Lymph #(Auto) 1.1, Reagan # (Auto) 1.2 H, Eos # (Auto) 0.0, Baso # (Auto) 0.1, Platelet Estimate Normal, Plt Morphology Comment Normal, RBC Morphology N/A, Polychromasia Moderate, Anisocytosis Marked, Microcytosis Slight, Ovalocytes Slight 07/01/22 19:41: Reference Lab Result [facility] 07/01/22 11:12: Blood Type B Negative, Antibody Screen Positive, Antibody Identification Inconclusive, ÁNGELA, Polyspecific Negative, Crossmatch (AHG) See Detail, Pathology Review Sent to pathology A&P - General Surgery (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 I have performed the beckham parts of the physical examination, as well as review ofthe history, and pertinent tests. I have formulated the plan of care and made appropriate entries into the patient's chart. 81yo female s/p laparoscopic converted to open right colectomy secondary to cecal cancer -WBC 11.3 this a.m. -Critical potassium and low magnesium this a.m. being repleted by hospitalist -Continue analgesia via BRINEYARD SUPERVISOR pump plus scheduled Dilaudid -Monitor drain output; no output as of this this a.m. -Encourage clear liquids as tolerated. NG tube clamped; discontinue tomorrow iforal feeding tolerated well today -Encourage activity with PT/OT Documented By: Macho Pierson DO 07/04/22 08 30 Signed By: <Electronically signed by Macho Pierson DO> 07/04/222012 <Electronically signed by MD ABRAN Salmeron> 07/04/22 0840 [facility] Work Phone: 1(255) 253-627904-01-2023 Progress note Author Macho Pierson [facility] July 04, 2022 8:13pm Note Date/Time July 03, 2022 9:0 2am [facility] [address] [place] [address] General Surgery Progress Note Signed Patient: Stella Garcia MR# : [id number] : 1940 Acct:[id number] Age/Sex: 81 / F Adm Date: 3 Loc: Room: [address] [place] [address] Type: ADM IN Attending Dr: Alex Lee DO Copies to: ~ Date of Service: 07/03/2022 Subjective Subjective HPI: Ms. Stella Garcia is an 81F post-op day 2 from laparoscopic converted to open right colectomy secondary to cecal cancer. Today she is complaining of severe right hip pain; she says this bothers her at home but is new for this admission. Pain is 9/10 and masks abdominal pain. Denies discomfort at surgical site. Using BRINEYARD SUPERVISOR pump. Denies nausea vomiting. Did not attempt oral feeding yesterday and states she is does not feel up to it today. No post-op BMyet. Allergies & Medications Medications and Allergies Allergies Sulfa (Sulfonamide Antibiotics) Allergy (Verified 05/12/22 09:45) Unknown Reaction Home Medications ferrous sulfate 325 mg (65 mg iron) tablet 325 mg PO DAILY 04/28/22 [History Confirmed 07/01/22] gabapentin 300 mg capsule (Neurontin) 300 mg PO TID 04/28/22 [History Confirmed 07/01/22] multivitamin 1 tab PO DAILY 04/28/22 [History Confirmed 07/01/22] pantoprazole 40 mg tablet,delayed release 40 mg PO DAILY 04/28/22 [History Confirmed 07/01/22] potassium chloride 10 mEq tablet,extended release 20 meq PO TID 04/28/22 [History Confirmed 07/01/22] risankizumab-rzaa 150 mg/mL subcutaneous syringe (Skyrizi) 150 mg subcut Q12W 04/28/22 [History Confirmed 07/01/22] rivaroxaban 2.5 mg tablet (Xarelto) 2.5 mg PO BID 04/28/22 [History Confirmed 07/01/22] torsemide 20 mg tablet 20 mg PO DAILY PRN Edema 04/28/22 [History Confirmed 07/01/22] biotin 10,000 mcg capsule 10,000 mcg PO DAILY 05/12/22 [History Confirmed 07/01/22] budesonide 160 mcg-glycopyr 9 mcg-formot 4.8 mcg/actuation HFA inhaler (Breztri Aerosphere) 2 inh inhalation BID 05/12/22 [History Confirmed 07/01/22] calcium phosphate,dibasic 77 mg-vitamin D3 400 unit tablet 2 tab PO DAILY 07/01/22 [History Confirmed 07/01/22] cyclobenzaprine 5 mg tablet 5 mg PO HS PRN Muscle Spasm 07/01/22 [History Confirmed 07/01/22] Active Medications Albuterol/Ipratropium (Ipratropium/Albuterol 0.5-3 Mg 3 Ml Ampul.Neb) 3 ml INHALATION QID.RESP STEVE Stop: 07/01/23 19:59 Last Admin: 03/31/23 07:38 Dose: 3 ml Alvimopan (Alvimopan 12 Mg Capsule) 12 mg PO Q12HR [facility] Stop: 07/08/22 21:01 Last Admin: 07/03/22 08:42 Dose: 12 mg Enoxaparin Sodium (Enoxaparin 40 Mg/0.4 Ml Syringe) 40 mg SUBCUT DAILY@1000 [facility] Stop: 07/02/23 09:59 Last Admin: 07/02/22 11:39 Dose: 40 mg Famotidine (Famotidine/Pf 20 Mg/2 Ml Vial) 20 mg IV-PUSH Q12HR [facility] Stop: 07/01/23 20:59 Last Admin: 07/03/22 08:42 Dose: 20 mg Fluticasone Propionate (Fluticasone Propionate 110 120 Puff/12 Gm Inhaler) 1 puff INHALATION BID [facility] Stop: 07/01/23 20:59 Last Admin: 07/03/22 07:38 Dose: 1 puff Hydromorphone HCl (Hydromorphone 1 Mg/Ml Syringe) 1 mg IV-PUSH Q3H PRN PRN Reason: Pain Scale 6 - 10 Hydromorphone HCl (Hydromorphone 0.5 Mg/0.5 Ml Syringe) 0.5 mg IV-PUSH Q3H PRN PRN Reason: Pain Scale 1 - 5 Sodium Chloride (0.9% Sodium Chloride 1,000 Ml) 1,000 mls @ 90 mls/hr IV .Q11H7M [facility] Stop: 07/01/23 16:59 Last Admin: 07/02/22 14:35 Dose: 90 mls/hr Hydromorphone HCl 20 mg/ (Sodium Chloride) 50 mls @ 0 mls/hr IV .Q0M PRN; Protocol PRN Reason: Pain Stop: 07/01/23 16:59 Last Infusion: 07/02/22 11:11 Dose: 0 mg/hr, 0 mls/hr Ondansetron HCl (Ondansetron 4 Mg/2 Ml Vial) 4 mg IV-PUSH Q6H PRN PRN Reason: Nausea And Vomiting Stop: 07/01/23 16:59 Last Admin: 07/02/22 09:21 Dose: 4 mg Exam Physical Exam Vital Signs: Temp Pulse Resp BP Pulse Ox O2 Del Method O2 Flow Rate 98.4 F 97 H 18 146/82 H 96 Room Air 1 07/03/22 03:16 07/03/22 03:16 07/03/22 05:52 07/03/22 03:16 07/03/22 03:16 07/03/22 07:40 07/02/22 19:24 Const General: cooperative and uncomfortable Orientation: awake Other: Seated in bedside chair, having difficulty finding comfortable position HEENT Head: normocephalic and atraumatic Eyes Alignment and Position: alignment normal and position normal Pupils: PERRL Chest Chest palpation & inspection: normal inspection of the chest Resp Effort & Inspection: normal respiratory effort Auscultation: clear to auscultation bilaterally Cardio Rate: tachycardic Rhythm: regular rhythm GI Inspection: normal to inspection, non-distended and other (wound vac intact withgood suction. No output) Skin General: no rashes or lesions noted Neuro General: patient alert and patient oriented x3 Psych Appearance: grossly normal and well kempt Objective Pain Assessment Abdomen: Pain Description: Constant Pain Intensity: 9 Wound Assessment Wound assessment: No redness, No odor, No drainage and Dressing dry/intact Intake & Output 24 hour I&O: Intake & Output 07/02/22 07/03/22 07/03/22 23:59 07:59 15:59 Intake Total 0 / 2200 0 / 0 Balance 0 / 1000 0 / 0 Weight 73 kg Labs 07/03/22 05:15 07/03/22 05:15 Laboratory Results - Last 48 hrs. 07/03/22 05:15: PHA Creatinine Clear 57.36, Sodium 136, Potassium 3.0 L, Chloride 99, Carbon Dioxide 24.8, Anion Gap 15.2 H, BUN 8, Creatinine 0.58 L, Est GFR (CKD- EPI) > 60.0, Glucose 110 H, Calcium 8.5 L 07/03/22 05:15: Corrected WBC 9.3, Uncorrected WBC Count 9.3, RBC 4.64, Hgb 12.0, Hct 36.8, MCV 79.3 L, MCH 25.8, MCHC 32.5, RDW 22.3 H, Plt Count 228, MPV 7.6 07/02/22 07:20: PHA Creatinine Clear 57.36, Sodium 137, Potassium 4.1, Chloride 106, Carbon Dioxide 20.4 L, Anion Gap 14.7, BUN 8, Creatinine 0.65, Est GFR (CKD-EPI) > 60.0, Glucose 118 H, Calcium 8.9 07/02/22 07:20: Corrected WBC 14.5 H, Uncorrected WBC Count 14.5 H, RBC 5.15 H, Hgb 13.2, Hct 40.6, MCV 78.8 L, MCH 25.7, MCHC 32.6, RDW 22.6 H, Plt Count 187, MPV 8.3, Neut % (Auto) 83.2, Lymph % (Auto) 7.8, Reagan % (Auto) 8.6, Eos % (Auto)0.0, Baso % (Auto) 0.4, Nucleat RBC Rel Count 0.0, Neut # (Auto) 12.0 H, Lymph #(Auto) 1.1, Reagan # (Auto) 1.2 H, Eos # (Auto) 0.0, Baso # (Auto) 0.1, Platelet Estimate Normal, Plt Morphology Comment Normal, RBC Morphology N/A, Polychromasia Moderate, Anisocytosis Marked, Microcytosis Slight, Ovalocytes Slight 07/01/22 19:41: Reference Lab Result [facility] 07/01/22 11:12: Blood Type B Negative, Antibody Screen Positive, Antibody Identification Inconclusive, ÁNGELA, Polyspecific Negative, Crossmatch (AHG) See Detail, Pathology Review Sent to pathology A&P - General Surgery Assessment/Plan (1) 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 I have performed the beckham parts of the physical examination, as well as review ofthe history, and pertinent tests. I have formulated the plan of care and made appropriate entries into the patient's chart. 81yo female s/p laparoscopic converted to open right colectomy secondary to cecal cancer -Leukocytosis improved today; WBC 9.3 this a.m. -Continue analgesia via [employer] -Monitor drain output -Encourage oral feeding as tolerated. NG tube clamped; discontinue tube once oral feeding tolerated -Encourage activity with PT/OT Documented By: Macho Pierson DO 07/03/22 08 52 Signed By: <Electronically signed by Macho Pierson DO> 07/04/222012 <Electronically signed by MD ABRAN Salmeron> 07/03/22 0902 [facility] Work Phone: 1(564) 874-174204-01-2023 Progress note Author Jose Zarate [facility] July 04, 2022 5:08pm Note Date/Time July 04, 2022 4:58 pm [facility] [address] [place] [address] Hospitalist Progress Note Signed with Addenda Patient: Stella Garcia MR# : [id number] : 1940 Acct:[id number] Age/Sex: 81 / F Adm Date: 3 Loc: Room: [address] [place] [address] Type: ADM IN Attending Dr: Alex Lee DO Copies to: ~ ADDENDUM1 Neurology has been consulted. We will start aspirin and statin. We will obtainMRI brain, A1c, lipid panel. Addendum Documented By: Jose Zarate MD 07/04/221707 Addendum Signed By: <Electronically signed by Jose Zarate MD> 07/04/221707 Date of Service: 07/04/2022 Subjective Subjective Narrative: Patient seen and examined. Patient was found to have SVT/A-fib in the morning today and when hospitalist went to check on her she noted that she has weakness in the right leg which has been going on since yesterday. Code stroke was called and stat CT head, CTA head/neck was ordered which showed no acute pathology. Patient has been transferred to PCU for closer monitoring. Upon my questioning, patient noted that she has been having pain in her right hip since she had the surgery and noted that she could not use her right leg as much due to pain in her right hip. She could not lift her left leg either and states that it is causing pain in her right hip. Patient is not a great historian and is difficult to tell if she has weakness because of pain in her right hip or dueto stroke. She is tolerating clear liquids. She denies any nausea, vomiting orabdominal pain. She is hemodynamically stable and is afebrile. She converted to sinus rhythm after starting rate control medications. Exam Physical Exam Vital Signs: Temp Pulse Resp BP Pulse Ox O2 Del Method O2 Flow Rate 98.3 F 79 18 122/69 97 Room Air 1 07/04/22 16:25 07/04/22 16:45 07/04/22 16:45 07/04/22 16:25 07/04/22 16:25 07/04/22 16:25 07/04/22 16:00 Narrative: General: Awake, alert and is oriented, not in acute HEENT: Normocephalic, atraumatic, PERRLA, normal mucosa Cardiovascular: Regular rate and rhythm , S1-S2 heard, no murmurs or gallops Lungs: No wheezing or rhonchi heard Gastrointestinal: Wound VAC in place, bowel sounds heard Extremities: No edema Neurological: 2/5 strength in left lower extremity, 1-2/5 strength in right lower extremity, sensations intact, speech normal Skin: Dry and warm, no rashes or lesions Psych: Normal mood and affect Objective Lab Results 07/04/22 04:07 07/04/22 04:07 Meds Allergies and Active Meds Allergies Sulfa (Sulfonamide Antibiotics) Allergy (Verified 05/12/22 09:45) Unknown Reaction Active Meds: Active Medications Generic Name Dose Route Start Last Admin Trade Name Freq PRN Reason Stop Dose Admin Albuterol/Ipratropium 3 ml 07/01/22 20:00 07/04/22 16:46 Ipratropium/Albuterol 0.5-3 Mg 3 Ml Ampul.Neb INHALATION 07/01/23 19:59 3 ml QID.RESP STEVE Administration Alvimopan 12 mg 07/02/22 09:00 07/04/22 13:05 Alvimopan 12 Mg Capsule PO 07/08/22 21:01 12 mg Q12HR STEVE Administration Dofetilide 125 mcg 07/04/22 13:30 07/04/22 14:37 Dofetilide 125 Mcg Capsule PO 07/04/23 13:29 125 mcg BID STEVE Administration Enoxaparin Sodium 40 mg 07/02/22 10:00 07/04/22 11:40 Enoxaparin 40 Mg/0.4 Ml Syringe SUBCUT 07/02/23 09:59 Not Given DAILY@1000 STEVE Famotidine 20 mg 07/01/22 21:00 07/04/22 12:25 Famotidine/Pf 20 Mg/2 Ml Vial IV-PUSH 07/01/23 20:59 20 mg Q12HR STEVE Administration Fluticasone Propionate 1 puff 07/01/22 21:00 07/04/22 08:09 Fluticasone Propionate 110 120 Puff/12 Gm Inhaler INHALATION 07/01/23 20:59 1 puff BID STEVE Administration Hydromorphone HCl 1 mg 07/01/22 17:00 Hydromorphone 1 Mg/Ml Syringe IV-PUSH Q3H PRN Pain Scale 6 - 10 Hydromorphone HCl 0.5 mg 07/01/22 17:00 Hydromorphone 0.5 Mg/0.5 Ml Syringe IV-PUSH Q3H PRN Pain Scale 1 - 5 Sodium Chloride 1,000 mls @ 90 mls/hr 07/01/22 17:00 07/04/22 12:25 0.9% Sodium Chloride 1,000 Ml IV 07/01/23 16:59 90 mls/hr .Q11H7M STEVE Administration Hydromorphone HCl 20 mg/ 50 mls @ 0 mls/hr 07/01/22 17:27 07/04/22 10:42 Sodium Chloride IV 07/01/23 16:59 0.1 mg/hr .Q0M PRN 0.25 mls/hr Pain Infusion Protocol 0 MG/HR Diltiazem HCl 100 mg in 100 mls @ 10 mls/hr 07/04/22 10:00 07/04/22 10:40 Cardizem IV 07/04/23 09:59 10 mg/hr .Q10H STEVE 10 mls/hr Administration Protocol 10 MG/HR Sodium Chloride 1,000 mls @ 20 mls/hr 07/04/22 10:00 07/04/22 12:25 0.9% Sodium Chloride 1,000 Ml IV 07/04/23 09:59 Not Given .Q24H STEVE Ondansetron HCl 4 mg 07/01/22 17:00 07/02/22 09:21 Ondansetron 4 Mg/2 Ml Vial IV-PUSH 07/01/23 16:59 4 mg Q6H PRN Administration Nausea And Vomiting A&P - Hospitalist Assessment/Plan (1) Cecal cancer: (2) Cancer of ascending colon: (3) History of DVT (deep vein thrombosis): (4) Lupus: (5) Atrial fibrillation with rapid ventricular response: Plan S/p open right colectomy Code stroke was called today in the morning due to right leg weakness. Patient however states that she has this for the past 2 days soon after the surgery, attributes that to right hip pain which started after the surgery. Was found to be in A-fib with RVR and code stroke was called, was started on Cardizem drip, she converted back to sinus rhythm and is in sinus rhythm. Cardiology has been consulted, recommended no anticoagulation as A-fib is short- lived and is back in sinus rhythm. Has been started on Tikosyn to maintain the rhythm. She is tolerating clear liquids. General surgery managing NG tube. Manage pain, antiemetics as needed Continue alvimopan Gentle IV hydration Incentive spirometer DVT and GI prophylaxis Documented By: Jose Zarate MD 07/04/221652 Signed By: <Electronically signed by Jose Zarate MD> 07/04/22 3199 [facility] Work Phone: 1(557) 292-303704-01-2023 Consult note Author Geovany Serrano [facility] July 04, 2022 12:48pm Note Date/Time July 04, 2022 12:4 8pm [facility] [address] [place] [address] Cardiology Consult Note Signed Patient: Stella Garcia MR# : [id number] : 1940 Acct:[id number] Age/Sex: 81 / F Adm Date: 3 Loc: Room: [address] [place] [address] Type: ADM IN Attending Dr: Alex Lee DO Copies to: MD Alex Flower II, DO William Patrick McGuinn, MD~ Cardiology HPI History of Present Illness Consult Date: 07/04/22 Reason for Consult: Atrial fibrillation with a rapid ventricular response HPI: Ms. Garcia is a 81 year old female seen for the above She is an individual who has been hospitalized for bowel surgery. She has been doing well but today in MET was called for narrow complex tachyarrhythmia. It was initially felt to be SVT but it is apparent that is actually atrial fibrillation with a rapid ventricular response. Parenteral rate control medication was started and she demonstrates intermittent sinus rhythm. The patient is somewhat drowsy from pain medicine. She denies a known history of coronary disease heart failure or arrhythmia. She was evaluated for possiblestroke but there appears to be none. It is unclear whether antithrombotic therapy would be well-tolerated. Her duration of atrial fibrillation has been extremely brief, recognized just today. Because of this I believe the implementation of antiarrhythmic therapy could properly restore and maintain sinus rhythm and we could for the moment forego antithrombotic therapy. Review of Systems Review of Systems All other systems reviewed & are negative unless noted below or in HPI Constitutional Constitutional: Reports system reviewed and no additional complaints, except as documented Eyes Eyes: Reports system reviewed and no additional complaints, except as documented ENT Ears, Nose, Mouth, and Throat: Reports system reviewed and no additional complaints, except as documented Cardiovascular Cardiovascular: Reports as per HPI Respiratory Respiratory: Reports system reviewed and no additional complaints, except as documented Gastrointestinal Gastrointestinal: Reports system reviewed and no additional complaints, except as documented Genitourinary Genitourinary: Reports system reviewed and no additional complaints, except as documented Musculoskeletal Musculoskeletal: Reports system reviewed and no additional complaints, except asdocumented Integumentary/Breasts Skin/Breast: Reports system reviewed and no additional complaints, except as documented Neurologic Neurologic: Reports system reviewed and no additional complaints, except as documented Psychiatric Psychiatric: Reports system reviewed and no additional complaints, except as documented Endocrine Endocrine: Reports system reviewed and no additional complaints, except as documented Hematologic/Lymphatic Hematologic/Lymphatic: Reports system reviewed and no additional complaints, except as documented Allergic/Immunologic Allergic/Immunologic: Reports system reviewed and no additional complaints, except as documented PMFSH Vaccinated for COVID-19?: Yes Medical History (Updated 07/04/22 @ 12:48 by Geovany Serrano MD) Arthritis Chronic pansinusitis COPD (chronic obstructive pulmonary disease) Cough DVT (deep venous thrombosis) Iron deficiency anemia Jaw pain Lupus Microcytic anemia Migraine headache Recurrent oral ulcers Surgical History (Updated 07/01/22 @ 11:31 by Loni Cook RN) H/O laminectomy L5 History of cholecystectomy History of total knee arthroplasty right Joint replaced rt knee replacement Family History Mother Diabetes Father Diabetes Grandparent Goiter Social History Smoking Status: Former smoker Tobacco Type: cigarettes Substance Use Type: None Meds Medications and Allergies Allergies Sulfa (Sulfonamide Antibiotics) Allergy (Verified 05/12/22 09:45) Unknown Reaction Home Medications ferrous sulfate 325 mg (65 mg iron) tablet 325 mg PO DAILY 04/28/22 [History Confirmed 07/01/22] gabapentin 300 mg capsule (Neurontin) 300 mg PO TID 04/28/22 [History Confirmed 07/01/22] multivitamin 1 tab PO DAILY 04/28/22 [History Confirmed 07/01/22] pantoprazole 40 mg tablet,delayed release 40 mg PO DAILY 04/28/22 [History Confirmed 07/01/22] potassium chloride 10 mEq tablet,extended release 20 meq PO TID 04/28/22 [History Confirmed 07/01/22] risankizumab-rzaa 150 mg/mL subcutaneous syringe (Skyrizi) 150 mg subcut Q12W 04/28/22 [History Confirmed 07/01/22] rivaroxaban 2.5 mg tablet (Xarelto) 2.5 mg PO BID 04/28/22 [History Confirmed 07/01/22] torsemide 20 mg tablet 20 mg PO DAILY PRN Edema 04/28/22 [History Confirmed 07/01/22] biotin 10,000 mcg capsule 10,000 mcg PO DAILY 05/12/22 [History Confirmed 07/01/22] budesonide 160 mcg-glycopyr 9 mcg-formot 4.8 mcg/actuation HFA inhaler (Breztri Aerosphere) 2 inh inhalation BID 05/12/22 [History Confirmed 07/01/22] calcium phosphate,dibasic 77 mg-vitamin D3 400 unit tablet 2 tab PO DAILY 07/01/22 [History Confirmed 07/01/22] cyclobenzaprine 5 mg tablet 5 mg PO HS PRN Muscle Spasm 07/01/22 [History Confirmed 07/01/22] Exam Physical Exam Vital Signs: Temp Pulse Resp BP Pulse Ox O2 Del Method O2 Flow Rate 97.8 F 78 16 126/76 99 Room Air 2 07/04/22 08:34 07/04/22 12:00 07/04/22 12:41 07/04/22 10:40 07/04/22 10:30 07/04/22 10:30 07/04/22 08:34 Const Other: Somewhat ill-appearing female. She states she can swallow but I am concerned that she can aspirate HEENT Other: NG tube in place. Its been clamped. Eyes Conjunctivae: conjunctivae normal Sclera: sclerae normal Neck Neck: normal visual inspection Carotids: normal carotid upstroke Lymphatic: no lymphadenopathy noted Chest Chest palpation & inspection: normal inspection of the chest Resp Other: Diminished breath sounds Cardio Rate: tachycardic Rhythm: abnormal rhythm GI Other: Hypoactive bowel sounds Skin General: no rashes or lesions noted Neuro General: patient alert, patient awake and patient oriented x3 Cognition: normal cognition Motor: muscle tone normal throughout Sensory Exam: no sensory deficits noted Results Labs 07/04/22 04:07 07/04/22 04:07 Lab results: CBC 07/04/22 Range/Units 04:07 RBC 4.32 (3.60-5.00) X10E6/uL Hgb 11.3 L (11.8-15.4) g/dL Hct 34.5 (34.0-46.4) % Plt Count 185 (150-450) x10E3/uL Neut # (Auto) 9.6 H (1.8-7.7) x10E3/uL Lymph # (Auto) 0.5 L (1.00-4.8) x10E3/uL Reagan # (Auto) 1.2 H (0.0-0.8) x10E3/uL Eos # (Auto) 0.0 (0.0-0.45) x10E3/uL Baso # (Auto) 0.0 (0.0-0.2) x10E3/uL Comprehensive Metabolic Panel 07/04/22 Range/Units 04:07 Sodium 137 (136-145) mmol/L Potassium 2.7 L* (3.5-5.1) mmol/L Chloride 104 (98-107) mmol/L Carbon Dioxide 20.4 L (21.0-31.0) mmol/L BUN 6 L (7-25) mg/dL Creatinine 0.46 L (0.60-1.20) mg/dL Glucose 95 (70-100) mg/dL Calcium 8.6 (8.6-10.3) mg/dL Intake and Output 07/03/22 07/04/22 07/04/22 23:59 07:59 15:59 Intake Total 120 / 2740 1000 / 1500 500 / 1500 Balance 120 / 2740 1000 / 1500 500 / 1500 Intake: IV 1000 / 1500 500 / 1500 Sodium Chloride 0.9% 1,000 ml 1000 / 1500 500 / 1500 500 ml @ 999 mls/hr IV .Q31M ONE Rx#:[id number] Oral 120 / 220 Other: # Unmeasured Voids 1 Date of Last Bowel Movement 07/01/22 Lab 07/04/22 09:50 APTT 37.9 H A&P - Cardiology (1) Atrial fibrillation with rapid ventricular response: Assessment/Problem Details: I believe if we implement antiarrhythmic therapy we can restore and maintain rhythm. We will for the moment forego conventional antithrombotic therapy because of the new onset nature of this arrhythmia Code(s): I48.91 - Unspecified atrial fibrillation Plan Initiate Tikosyn 125 mcg every 12 hours via NG tube. EKG daily Documented By: Geovany Serrano MD [id number] Signed By: <Electronically signed by MD Geovany Serrano> 07/04/22 1248 [facility] Work Phone: 1(609) 632-725904-01-2023 Progress note Author Kailey Tanner [facility] July 04, 2022 10:09am Note Date/Time July 04, 2022 10:0 9am [facility] [address] [place] [address] Event Note Signed Patient: Stella Garcia MR# : [id number] : 1940 Acct:[id number] Age/Sex: 81 / F Adm Date: 3 Loc: 4N Room: [address] [place] [address] Type: ADM IN Attending Dr: Alex Lee DO Copies to: MD Alex Flower II, DO Rafik Massouh, MD~ Event Date & Type DATE OF EVENT: 07/04/22 TIME OF EVENT: 10:03 CRITICAL CARE TIME: 45 EVENT TYPE: Stroke Alert PROCEDURES PERFORMED DURING EVENT: None Event Details I responded to the nursing request to see patient regarding her SVT. Patient was noted to have heart rate of 180. EKG showed SVT. Systolic blood pressure was 115 I came to see the patient upon my evaluation, patient told me that her right legis weak since yesterday morning. I requested to activate stroke alert. Patient denies any prior history of stroke. Patient denies having any prior history of heart disease. Pertinent History Patient is lying in bed, mild distress. She denies any chest pain but reported having post surgical abdominal discomfort. Chest is clear, heart is tachycardic. 150 a minute. Abdomen is soft. Midline surgical scar. Lower extremities trace edema. Neurologically the patient has normal awakeness. She is able to follow commands. Normal speech. Normal upper extremities muscle strength. Patient is able to lift up her right leg proximally but not distally against gravity. Patient is able to lift up the left leg proximally and distally but for less than 5-second Patient had some sensory loss on the right leg Her NIH score is 6. MDM New onset SVT/A-fib with RVR. Right leg weakness and numbness since yesterday morning. Past 24 hours. Patient was given 2 doses of Lopressor IV 20 minutes apart Patient slowed her heart rate down to 100 and converted to sinus rhythm for short period of time but went back to A-fib. I will start patient on Cardizem drip I requested echocardiogram. I requested the stat CT head without contrast as well as CT head and neck with contrast. If CT head is negative she would need to be on antiplatelets and likely on anticoagulation. I consulted neuro and the cardiology team to evaluate their respective portion of her care. I communicated with Dr. Pierson who is covering Dr. Lee. I made him aware of patient change in condition. I also ask him about risk of surgical bleed if patient would need to be on full dose of anticoagulation. He communicated with Dr. Lee about this. Dr. Lee would not have any objection if she would need full dose anticoagulation for stroke prevention and he will monitor for bleed. I will communicate the aforementioned information to my colleague Dr. Zarate whois the primary hospitalist on the case. I will sign off the case. Patient will be handled from this point on by Kenna Clifford, neurology and cardiology team. Please call me back if needed. Spent about 45 minutes in the critical care evaluation, assessment and treatmentof this patient thus far. Documented By: Kailey Tanner MD 07/04/22 1003 Signed By: <Electronically signed by Kailey Tanner MD> 07/04/[address] [facility] Work Phone: 1(119) 400-301003-31-2023 Progress note Author Jose Elliot [facility] July 03, 2022 4:17pm Note Date/Time July 03, 2022 4:1 7pm [facility] [address] [place], [place] [id number] Hospitalist Progress Note Signed Patient: Stella Garcia MR# : [id number] : 1940 Acct:[id number] Age/Sex: 81 / F Adm Date: 3 Loc: 4N Room: [address] [place] [address] Type: ADM IN Attending Dr: Alex Lee DO Copies to: ~ Date of Service: 07/03/2022 Subjective Subjective Narrative: Patient seen and examined. Patient is comfortably sitting in chair when I walked into the room. She denies any nausea, vomiting or abdominal pain. She has good bowel sounds but has not passed flatus yet. She denies any pain in herright hip currently. Denies any fever or chills. Exam Physical Exam Vital Signs: Temp Pulse Resp BP Pulse Ox O2 Del Method O2 Flow Rate 97.5 F L 76 36 H 143/80 H 94 L Room Air 1 07/03/22 11:53 07/03/22 11:53 07/03/22 11:53 07/03/22 11:53 07/03/22 11:53 07/03/22 11:53 07/02/22 19:24 Narrative: General: Awake, alert and is oriented, not in acute HEENT: Normocephalic, atraumatic, PERRLA, normal mucosa Cardiovascular: Regular rate and rhythm , S1-S2 heard, no murmurs or gallops Lungs: No wheezing or rhonchi heard Gastrointestinal: Wound VAC in place, bowel sounds heard Extremities: No edema Neurological: no sensory or motor deficit Skin: Dry and warm, no rashes or lesions Psych: Normal mood and affect Objective Lab Results 07/03/22 05:15 07/03/22 05:15 Meds Allergies and Active Meds Allergies Sulfa (Sulfonamide Antibiotics) Allergy (Verified 05/12/22 09:45) Unknown Reaction Active Meds: Active Medications Generic Name Dose Route Start Last Admin Trade Name Freq PRN Reason Stop Dose Admin Albuterol/Ipratropium 3 ml 07/01/22 20:00 07/03/22 15:46 Ipratropium/Albuterol 0.5-3 Mg 3 Ml Ampul.Neb INHALATION 07/01/23 19:59 3 ml QID.RESP STEVE Administration Alvimopan 12 mg 07/02/22 09:00 07/03/22 08:42 Alvimopan 12 Mg Capsule PO 07/08/22 21:01 12 mg Q12HR STEVE Administration Enoxaparin Sodium 40 mg 07/02/22 10:00 07/03/22 09:00 Enoxaparin 40 Mg/0.4 Ml Syringe SUBCUT 07/02/23 09:59 40 mg DAILY@1000 STEVE Administration Famotidine 20 mg 07/01/22 21:00 07/03/22 08:42 Famotidine/Pf 20 Mg/2 Ml Vial IV-PUSH 07/01/23 20:59 20 mg Q12HR STEVE Administration Fluticasone Propionate 1 puff 07/01/22 21:00 07/03/22 07:38 Fluticasone Propionate 110 120 Puff/12 Gm Inhaler INHALATION 07/01/23 20:59 1 puff BID STEVE Administration Hydromorphone HCl 1 mg 07/01/22 17:00 Hydromorphone 1 Mg/Ml Syringe IV-PUSH Q3H PRN Pain Scale 6 - 10 Hydromorphone HCl 0.5 mg 07/01/22 17:00 Hydromorphone 0.5 Mg/0.5 Ml Syringe IV-PUSH Q3H PRN Pain Scale 1 - 5 Sodium Chloride 1,000 mls @ 90 mls/hr 07/01/22 17:00 07/03/22 14:02 0.9% Sodium Chloride 1,000 Ml IV 07/01/23 16:59 90 mls/hr .Q11H7M STEVE Administration Hydromorphone HCl 20 mg/ 50 mls @ 0 mls/hr 07/01/22 17:27 07/02/22 11:11 Sodium Chloride IV 07/01/23 16:59 0 mg/hr .Q0M PRN 0 mls/hr Pain Infusion Protocol 0 MG/HR Potassium Chloride 20 meq/ 260 mls @ 130 mls/hr 07/03/22 11:30 07/03/22 15:47 Sodium Chloride IV 07/03/22 17:29 130 mls/hr Q2H STEVE Administration Ondansetron HCl 4 mg 07/01/22 17:00 07/02/22 09:21 Ondansetron 4 Mg/2 Ml Vial IV-PUSH 07/01/23 16:59 4 mg Q6H PRN Administration Nausea And Vomiting A&P - Hospitalist Assessment/Plan (1) Cecal cancer: (2) Cancer of ascending colon: (3) History of DVT (deep vein thrombosis): (4) Lupus: Plan S/p open right colectomy Denies any nausea, vomiting or abdominal pain. NG tube clamped yesterday. Plan to start clear liquids today Remains on BRINEYARD SUPERVISOR pump but is not using often Manage pain, antiemetics as needed Gentle IV hydration Incentive spirometer Can start home medications once patient is able to eat DVT and GI prophylaxis Documented By: Jose Zarate MD 07/03/221614 Signed By: <Electronically signed by Jose Zarate MD> 07/03/22 1617 [facility] Work Phone: [phone] 732-922103-30-2023 Progress note Author Jose Zarate [facility] July 02, 2022 3:12pm Note Date/Time July 02, 2022 3:1 2pm [facility] [address] [place] [address] Hospitalist Progress Note Signed Patient: Stella Garcia MR# : [id number] : 1940 Acct:[id number] Age/Sex: 81 / F Adm Date: 3 Loc: 4N Room: [address] [place] [address] Type: ADM IN Attending Dr: Alex Lee DO Copies to: ~ Date of Service: 07/02/2022 Subjective Subjective Narrative: Patient seen and examined. She denies any nausea, vomiting. He is not passing flatus yet. Complaining of abdominal pain at the surgical incision site which is expected. Denies any fever or chills. Exam Physical Exam Vital Signs: Temp Pulse Resp BP Pulse Ox O2 Del Method O2 Flow Rate 98.1 F 93 H 18 162/75 H 100 Nasal Cannula 1 07/02/22 12:05 07/02/22 12:26 07/02/22 12:27 07/02/22 12:05 07/02/22 12:05 07/02/22 12:05 07/02/22 12:05 Narrative: General: Awake, alert and is oriented, not in acute HEENT: Normocephalic, atraumatic, PERRLA, normal mucosa Cardiovascular: Regular rate and rhythm , S1-S2 heard, no murmurs or gallops Lungs: No wheezing or rhonchi heard Gastrointestinal: Wound VAC in place, no bowel sounds, slightly tender to palpation but no guarding, rigidity or rebound tenderness noted Extremities: No edema Neurological: no sensory or motor deficit Skin: Dry and warm, no rashes or lesions Psych: Normal mood and affect Objective Lab Results 07/02/22 07:20 07/02/22 07:20 Meds Allergies and Active Meds Allergies Sulfa (Sulfonamide Antibiotics) Allergy (Verified 05/12/22 09:45) Unknown Reaction Active Meds: Active Medications Generic Name Dose Route Start Last Admin Trade Name Freq PRN Reason Stop Dose Admin Albuterol/Ipratropium 3 ml 07/01/22 20:00 07/02/22 12:25 Ipratropium/Albuterol 0.5-3 Mg 3 Ml Ampul.Neb INHALATION 07/01/23 19:59 3 ml QID.RESP STEVE Administration Alvimopan 12 mg 07/02/22 09:00 07/02/22 09:21 Alvimopan 12 Mg Capsule PO 07/08/22 21:01 12 mg Q12HR STEVE Administration Enoxaparin Sodium 40 mg 07/02/22 10:00 07/02/22 11:39 Enoxaparin 40 Mg/0.4 Ml Syringe SUBCUT 07/02/23 09:59 40 mg DAILY@1000 STEVE Administration Famotidine 20 mg 07/01/22 21:00 07/02/22 09:22 Famotidine/Pf 20 Mg/2 Ml Vial IV-PUSH 07/01/23 20:59 20 mg Q12HR STEVE Administration Fluticasone Propionate 1 puff 07/01/22 21:00 07/02/22 08:19 Fluticasone Propionate 110 120 Puff/12 Gm Inhaler INHALATION 07/01/23 20:59 1 puff BID STEVE Administration Hydromorphone HCl 1 mg 07/01/22 17:00 Hydromorphone 1 Mg/Ml Syringe IV-PUSH Q3H PRN Pain Scale 6 - 10 Hydromorphone HCl 0.5 mg 07/01/22 17:00 Hydromorphone 0.5 Mg/0.5 Ml Syringe IV-PUSH Q3H PRN Pain Scale 1 - 5 Sodium Chloride 1,000 mls @ 90 mls/hr 07/01/22 17:00 07/02/22 14:35 0.9% Sodium Chloride 1,000 Ml IV 07/01/23 16:59 90 mls/hr .Q11H7M STEVE Administration Hydromorphone HCl 20 mg/ 50 mls @ 0 mls/hr 07/01/22 17:27 07/02/22 11:11 Sodium Chloride IV 07/01/23 16:59 0 mg/hr .Q0M PRN 0 mls/hr Pain Infusion Protocol 0 MG/HR Ondansetron HCl 4 mg 07/01/22 17:00 07/02/22 09:21 Ondansetron 4 Mg/2 Ml Vial IV-PUSH 07/01/23 16:59 4 mg Q6H PRN Administration Nausea And Vomiting A&P - Hospitalist Assessment/Plan (1) Cecal cancer: (2) Cancer of ascending colon: (3) History of DVT (deep vein thrombosis): (4) Lupus: Plan S/p open right colectomy Complaining of abdominal pain which is expected but denies any nausea, vomiting. Has not passed flatus yet NG tube clamped Remains on BRINEYARD SUPERVISOR pump but is not using often Manage pain, antiemetics as needed Gentle IV hydration Incentive spirometer Can start home medications once patient is able to eat DVT and GI prophylaxis Documented By: Jose Zarate MD 07/02/22 1508 Signed By: <Electronically signed by Jose Zarate MD> 07/02/22 1512 [facility] Work Phone: [phone] 260-901203-30-2023 Progress note Author Alex Lee [facility] July 02, 2022 10:58am Note Date/Time July 02, 2022 10: 58am [facility] [address] [place] [address] General Surgery Progress Note Signed Patient: Stella Garcia MR# : [id number] : 1940 Acct:[id number] Age/Sex: 81 / F Adm Date: 3 Loc: 4N Room: 4X1731-3 Type: ADM IN Attending Dr: Alex Lee DO Copies to: ~ Date of Service: 07/02/2022 Subjective Subjective HPI: Patient has soreness at her incision, she is out of bed however and she has beendoing some activity. She is using the BRINEYARD SUPERVISOR. She not having any nausea or vomiting. She not having any flatus. She is motivated to get her catheter out today and do what it takes to get better. She not having any shortness of breath or chest pain. Allergies & Medications Medications and Allergies Allergies Sulfa (Sulfonamide Antibiotics) Allergy (Verified 05/12/22 09:45) Unknown Reaction Home Medications ferrous sulfate 325 mg (65 mg iron) tablet 325 mg PO DAILY 04/28/22 [History Confirmed 07/01/22] gabapentin 300 mg capsule (Neurontin) 300 mg PO TID 04/28/22 [History Confirmed 07/01/22] multivitamin 1 tab PO DAILY 04/28/22 [History Confirmed 07/01/22] pantoprazole 40 mg tablet,delayed release 40 mg PO DAILY 04/28/22 [History Confirmed 07/01/22] potassium chloride 10 mEq tablet,extended release 20 meq PO TID 04/28/22 [History Confirmed 07/01/22] risankizumab-rzaa 150 mg/mL subcutaneous syringe (Skyrizi) 150 mg subcut Q12W 04/28/22 [History Confirmed 07/01/22] rivaroxaban 2.5 mg tablet (Xarelto) 2.5 mg PO BID 04/28/22 [History Confirmed 07/01/22] torsemide 20 mg tablet 20 mg PO DAILY PRN Edema 04/28/22 [History Confirmed 07/01/22] biotin 10,000 mcg capsule 10,000 mcg PO DAILY 05/12/22 [History Confirmed 07/01/22] budesonide 160 mcg-glycopyr 9 mcg-formot 4.8 mcg/actuation HFA inhaler (Breztri Aerosphere) 2 inh inhalation BID 05/12/22 [History Confirmed 07/01/22] calcium phosphate,dibasic 77 mg-vitamin D3 400 unit tablet 2 tab PO DAILY 07/01/22 [History Confirmed 03/29/23] cyclobenzaprine 5 mg tablet 5 mg PO HS PRN Muscle Spasm 07/01/22 [History Confirmed 07/01/22] Active Medications Albuterol/Ipratropium (Ipratropium/Albuterol 0.5-3 Mg 3 Ml Ampul.Neb) 3 ml INHALATION QID.RESP [facility] Stop: 07/01/23 19:59 Last Admin: 07/02/22 08:19 Dose: 3 ml Alvimopan (Alvimopan 12 Mg Capsule) 12 mg PO Q12HR STEVE Stop: 07/08/22 21:01 Last Admin: 07/02/22 09:21 Dose: 12 mg Enoxaparin Sodium (Enoxaparin 40 Mg/0.4 Ml Syringe) 40 mg SUBCUT DAILY@1000 [facility] Stop: 07/02/23 09:59 Famotidine (Famotidine/Pf 20 Mg/2 Ml Vial) 20 mg IV-PUSH Q12HR [facility] Stop: 07/01/23 20:59 Last Admin: 07/02/22 09:22 Dose: 20 mg Fluticasone Propionate (Fluticasone Propionate 110 120 Puff/12 Gm Inhaler) 1 puff INHALATION BID STEVE Stop: 07/01/23 20:59 Last Admin: 07/02/22 08:19 Dose: 1 puff Hydromorphone HCl (Hydromorphone 1 Mg/Ml Syringe) 1 mg IV-PUSH Q3H PRN PRN Reason: Pain Scale 6 - 10 Hydromorphone HCl (Hydromorphone 0.5 Mg/0.5 Ml Syringe) 0.5 mg IV-PUSH Q3H PRN PRN Reason: Pain Scale 1 - 5 Sodium Chloride (0.9% Sodium Chloride 1,000 Ml) 1,000 mls @ 90 mls/hr IV .Q11H7M STEVE Stop: 07/01/23 16:59 Last Admin: 07/02/22 04:08 Dose: 100 mls/hr Hydromorphone HCl 20 mg/ (Sodium Chloride) 50 mls @ 0 mls/hr IV .Q0M PRN; Protocol PRN Reason: Pain Stop: 07/01/23 16:59 Last Admin: 07/01/22 18:39 Dose: 0.1 mg/hr, 0.25 mls/hr Ondansetron HCl (Ondansetron 4 Mg/2 Ml Vial) 4 mg IV-PUSH Q6H PRN PRN Reason: Nausea And Vomiting Stop: 07/01/23 16:59 Last Admin: 07/02/22 09:21 Dose: 4 mg Exam Physical Exam Vital Signs: Temp Pulse Resp BP Pulse Ox O2 Del Method O2 Flow Rate 98.4 F 99 H 16 154/81 H 98 Nasal Cannula 1 07/02/22 07:56 07/02/22 08:22 07/02/22 08:23 07/02/22 07:56 07/02/22 07:56 07/02/22 08:00 07/02/22 08:00 Narrative: Patient is comfortable conversive pleasant sitting up in her hospital chair. Heart is regular rate rhythm. Lungs clear. Abdomen is soft nontender nondistended. Prevena VAC is in place there is no drainage. Graham catheter is very clear light yellow Objective Pain Assessment Abdomen: Pain Intensity: 6 Intake & Output 24 hour I&O: Intake & Output 07/01/22 07/02/22 07/02/22 23:59 07:59 15:59 Intake Total 100 / 1100 1000 / 1000 Output Total 1200 / 1200 750 / 750 Balance -1100 / -100 250 / 250 Weight 73 kg Labs 07/02/22 07:20 07/02/22 07:20 Laboratory Results - Last 48 hrs. 07/02/22 07:20: PHA Creatinine Clear 57.36, Sodium 137, Potassium 4.1, Chloride 106, Carbon Dioxide 20.4 L, Anion Gap 14.7, BUN 8, Creatinine 0.65, Est GFR (CKD-EPI) > 60.0, Glucose 118 H, Calcium 8.9 07/02/22 07:20: Corrected WBC 14.5 H, Uncorrected WBC Count 14.5 H, RBC 5.15 H, Hgb 13.2, Hct 40.6, MCV 78.8 L, MCH 25.7, MCHC 32.6, RDW 22.6 H, Plt Count 187, MPV 8.3, Neut % (Auto) 83.2, Lymph % (Auto) 7.8, Reagan % (Auto) 8.6, Eos % (Auto)0.0, Baso % (Auto) 0.4, Nucleat RBC Rel Count 0.0, Neut # (Auto) 12.0 H, Lymph #(Auto) 1.1, Reagan # (Auto) 1.2 H, Eos # (Auto) 0.0, Baso # (Auto) 0.1, Platelet Estimate Normal, Plt Morphology Comment Normal, RBC Morphology N/A, Polychromasia Moderate, Anisocytosis Marked, Microcytosis Slight, Ovalocytes Slight 07/01/22 19:41: Reference Lab Result [facility] 07/01/22 11:12: Blood Type B Negative, Antibody Screen Positive, ÁNGELA, Polyspecific Negative, Crossmatch (AHG) See Detail, Pathology Review N/A A&P - General Surgery Assessment/Plan (1) Cecal cancer: Plan: Postop day 1 status post laparoscopic converted to open right colectomy secondary to cecal cancer. Mild elevation of white blood cell count to be expected postoperatively. Hemoglobin is stable. Would expect that might come down as this is higher than it was preoperatively. There was around 75 to 100 mL of blood loss at surgery. I discussed with patient events of surgery. I discussed with her postoperative care plan. We will discontinue Graham catheter, use incentive spirometer, use BRINEYARD SUPERVISOR as needed I did discontinue basal. We will clamp NG tube and start oral intake if tolerated. If she is tolerating that could be discontinued tomorrow. Can start Lovenox. I discussed all this with nursing. Dr. Pierson will coverme over the weekend Code(s): C18.0 - Malignant neoplasm of cecum Status: Acute Documented By: Alex Lee DO 07/02/22 1055 Signed By: <Electronically signed by DO Alex Lee> 07/02/22 1058 [facility] Work Phone: [phone] 350-631703-29-2023 Consult note Author Jose [facility] July 01, 2022 7:25pm Note Date/Time July 01, 2022 7:2 5pm [facility] [address] [place] [address] Hospitalist Consult Note Signed Patient: Stella Garcia MR# : [id number] : 1940 Acct:[id number] Age/Sex: 81 / F Adm Date: 3 Loc: 4N Room: [address] [place] [address] Type: ADM IN Attending Dr: Alex Lee DO Copies to: MD Quentin Hdz II, MD Paul C Laffay,DO~ HPI DATE OF CONSULTATION: 07/01/22 REQUESTING PROVIDER: Alex Lee Consult Narrative Reason for Consult: Medical management HPI: Patient is a 81-year-old lady past medical history of SLE, hypertension, PVD, recently diagnosed cecal cancer was admitted to hospital for laparoscopic right colectomy which converted to open right colectomy. Hospitalist team has been consulted for postoperative medical management. Patient is drowsy and is in pain from the surgery. She is on BRINEYARD SUPERVISOR pump. States that abdominal pain is 8/10 intensity. She denies any nausea, vomiting. Nasogastric tube in place connected to low intermittent suction. She denies any shortness of breath, cough, chest pain, fever and chills. Review of Systems Review of Systems All other systems reviewed & are negative unless noted below or in HPI PMFSH Vaccinated for COVID-19?: Yes Medical History (Updated 07/01/22 @ 19:22 by Jose Zarate MD) Arthritis Chronic pansinusitis COPD (chronic obstructive pulmonary disease) Cough DVT (deep venous thrombosis) Iron deficiency anemia Jaw pain Lupus Microcytic anemia Migraine headache Recurrent oral ulcers Surgical History (Updated 07/01/22 @ 11:31 by Loni Cook, RN) H/O laminectomy L5 History of cholecystectomy History of total knee arthroplasty right Joint replaced rt knee replacement Family History Mother Diabetes Father Diabetes Grandparent Goiter Social History Smoking Status: Former smoker Tobacco Type: cigarettes Substance Use Type: None Meds Medications and Allergies Allergies Sulfa (Sulfonamide Antibiotics) Allergy (Verified 05/12/22 09:45) Unknown Reaction Home Medications ferrous sulfate 325 mg (65 mg iron) tablet 325 mg PO DAILY 04/28/22 [History Confirmed 07/01/22] gabapentin 300 mg capsule (Neurontin) 300 mg PO TID 04/28/22 [History Confirmed 07/01/22] multivitamin 1 tab PO DAILY 04/28/22 [History Confirmed 07/01/22] pantoprazole 40 mg tablet,delayed release 40 mg PO DAILY 04/28/22 [History Confirmed 07/01/22] potassium chloride 10 mEq tablet,extended release 20 meq PO TID 04/28/22 [History Confirmed 07/01/22] risankizumab-rzaa 150 mg/mL subcutaneous syringe (Skyrizi) 150 mg subcut Q12W 04/28/22 [History Confirmed 07/01/22] rivaroxaban 2.5 mg tablet (Xarelto) 2.5 mg PO BID 04/28/22 [History Confirmed 07/01/22] torsemide 20 mg tablet 20 mg PO DAILY PRN Edema 04/28/22 [History Confirmed 07/01/22] biotin 10,000 mcg capsule 10,000 mcg PO DAILY 05/12/22 [History Confirmed 07/01/22] budesonide 160 mcg-glycopyr 9 mcg-formot 4.8 mcg/actuation HFA inhaler (Breztri [employer]za Pharmaceuticalsphere) 2 inh inhalation BID 05/12/22 [History Confirmed 07/01/22] calcium phosphate,dibasic 77 mg-vitamin D3 400 unit tablet 2 tab PO DAILY 07/01/22 [History Confirmed 07/01/22] cyclobenzaprine 5 mg tablet 5 mg PO HS PRN Muscle Spasm 07/01/22 [History Confirmed 07/01/22] Active Medications: Active Medications Generic Name Dose Route Start Last Admin Trade Name Freq PRN Reason Stop Dose Admin Albuterol/Ipratropium 3 ml 07/01/22 20:00 Ipratropium/Albuterol 0.5-3 Mg 3 Ml Ampul.Neb INHALATION 07/01/23 19:59 QID.RESP STEVE Alvimopan 12 mg 07/02/22 09:00 Alvimopan 12 Mg Capsule PO 07/08/22 21:01 Q12HR STEVE Enoxaparin Sodium 40 mg 07/02/22 10:00 Enoxaparin 40 Mg/0.4 Ml Syringe SUBCUT 07/02/23 09:59 DAILY@1000 STEVE Famotidine 20 mg 07/01/22 21:00 Famotidine/Pf 20 Mg/2 Ml Vial IV-PUSH 07/01/23 20:59 Q12HR STEVE Fluticasone Propionate 1 puff 07/01/22 21:00 Fluticasone Propionate 110 120 Puff/12 Gm Inhaler INHALATION 07/01/23 20:59 BID STEVE Hydromorphone HCl 1 mg 07/01/22 17:00 Hydromorphone 1 Mg/Ml Syringe IV-PUSH Q3H PRN Pain Scale 6 - 10 Hydromorphone HCl 0.5 mg 07/01/22 17:00 Hydromorphone 0.5 Mg/0.5 Ml Syringe IV-PUSH Q3H PRN Pain Scale 1 - 5 Lactated Ringer's 1,000 mls @ 20 mls/hr 07/01/22 10:36 07/01/22 16:10 Lactated Ringers IV 07/02/22 10:35 20 mls/hr .Q24H ONE Infusion Sodium Chloride 1,000 mls @ 100 mls/hr 07/01/22 17:00 07/01/22 18:39 0.9% Sodium Chloride 1,000 Ml IV 07/01/23 16:59 100 mls/hr .Q10H STEVE Administration Hydromorphone HCl 20 mg/ 50 mls @ 0.25 mls/hr 07/01/22 17:27 07/01/22 18:39 Sodium Chloride IV 07/01/23 16:59 0.1 mg/hr .Q24H PRN 0.25 mls/hr Pain Administration Protocol 0.1 MG/HR Ondansetron HCl 4 mg 07/01/22 17:00 Ondansetron 4 Mg/2 Ml Vial IV-PUSH 07/01/23 16:59 Q6H PRN Nausea And Vomiting Sodium Chloride 10 ml 07/01/22 17:00 Sodium Chloride 0.9 % 10 Ml Vial.Pf INJECTION 07/01/23 16:59 PRN PRN To dilute Pepcid Exam Physical Exam Vital Signs: Temp Pulse Resp BP Pulse Ox O2 Del Method O2 Flow Rate 97.8 F 72 12 164/74 H 97 Nasal Cannula 3 07/01/22 16:32 07/01/22 16:32 07/01/22 16:32 07/01/22 16:32 07/01/22 16:32 07/01/22 16:32 07/01/22 16:32 Narrative: General: Drowsy but is easily arousable, oriented HEENT: Normocephalic, atraumatic, PERRLA, normal mucosa Cardiovascular: Regular rate and rhythm , S1-S2 heard, no murmurs or gallops Lungs: No wheezing or rhonchi heard Gastrointestinal: Surgical incision intact Extremities: No edema Neurological: no sensory or motor deficit Skin: Dry and warm, no rashes or lesions Psych: Normal mood and affect Results Lab Results Labs: Laboratory Results - last 72 hr 07/01/22 11:12: Blood Type B Negative, Antibody Screen Positive, Crossmatch (AHG) See Detail A&P - Hospitalist Assessment/Plan (1) Cecal cancer: (2) Cancer of ascending colon: (3) History of DVT (deep vein thrombosis): (4) Lupus: Plan S/p open right colectomy Patient is slightly drowsy but is easily arousable and answers questions She is on BRINEYARD SUPERVISOR pump, monitor for side effects Manage pain, antiemetics as needed NG tube in place, connected to low intermittent suction Can start home medications once patient is able to eat DVT and GI prophylaxis Documented By: Jose Zarate MD 07/01/221915 Signed By: <Electronically signed by Jose Zarate MD> 07/01/2219[address] [facility] Work Phone: 1(232) 364-693302-11-2023 Progress note Author Suzanne Paredes [facility] May 15, 2022 11:12pm Note Date/Time May 15, 2022 11:13am [facility] [place] [address] Hem/Onc Follow Up Note - OP Signed Patient: Stella Garcia MR# : [id number] : 1940 Acct:[id number] Age/Sex: 81 / F Type: REG RCR Copies to: MD Trista Flower II, MD Paul C Laffay,DO~ Subjective Date/Time of Service: Date of Service: 05/15/2022 Time of Service: 11:12 Chief Complaint: Patient is here for a 10 day follow up. Initially seen by Bella. Patient had colonoscopy and CT scans 05/12/2022. HPI: 05/15/2022: Stella is here with her to follow-up results of iron testing and colonoscopy 05/12/[address] Davis with CT abdomen pelvis 05/12/2022 ordered by him after he found a large mass of the ascending colon on colonoscopy. As noted below the patient had noted increased fatigue and generalized malaise since mid February but specifically denied any abdominal pain. She does note that she has had some increased constipation since that time but had not noted any bright red blood per rectum. As noted below she was found to have iron deficiency and TAMMIE Cruz referred her for colonoscopy for further evaluation. The colonoscopy showed a large mass occupying 50% of the cecal circumference with biopsies reviewed with the patient and her today. 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 CT chest abdomen pelvis imaging andreports were reviewed with the patient showing wall thickening and clips in the ascending colon in the area of mass seen on colonoscopy. There is no evidence of liver lesions, other areas of metastatic disease and small left periaortic and right pelvic lymph nodes. She has known history of multiple compression deformities involving T11 and all of the lumbar vertebrae except L4 which were stable from November 2016 imaging. There was a trace amount of dependent free pelvic fluid. Patient's baseline CEA was 1.0. --I informed the patient that since she has no other significant comorbidities of cardiac disease or pulmonary disease that I would recommend evaluation for surgical resection of colon cancer. I did repeat her CBC today that showed improvement of her hemoglobin from prior 8.8 to now 10.5 on her oral iron therapy. Repeat iron studies showed iron saturation 7% and ferritin now up to 18.8. She had normal B12 and folate studies. I contacted Dr. Lee of [facility] who agrees to see the patient next Wednesday. She has remained off Xarelto (this was started in August 2021 for DVT diagnosed at [facility]) over the last week and since she is over 6 months from diagnosis of DVT we will not resume her Xarelto therapy prior to planned surgery. We will coordinate follow-up with her 2 weeks after her definitive surgery to review pathology and discuss potential adjuvant chemotherapy. For now she can continue oral iron supplementation but Dr. Lee may refer her back for parenteral iron if he would like her stores repleted with parenteral therapy prior to her upcoming surgery. This is a high complexity 45-minute follow-up to review new diagnosis of colon cancer, staging studies, and to coordinate evaluation by general surgery. ORIGINAL OUTPATIENT CONSULT with TAMMIE Cruz 05/05/2022: Stella Garcia is a very nice 81 year old lady who essentially began to feelmore fatigued than usual with general malaise, beginning in mid February 2022. At that time, she was also diagnosed with a sinus infection and treated appropriately. She did not significantly improve in regards to fatigue and she eventually saw her primary care physician again in mid March 2022. At that time, routine lab work was ordered (03/24/2022) and she was found to be significantly anemic with a hemoglobin level of 6.4 and hematocrit of 22.9. She was given 2 units PRBC's as an outpatient at [facility] on 03/25/2022. She had follow up blood work done on 04/21/2022 that revealed modest improvement of anemia with a hemoglobin level 8.8; Hct - 30.2; elevated RDW and microcytic indices consistent with iron deficiency. Iron studies revealed iron saturation of 5% and ferritin level of 6. She was subsequently started on oral iron 324 mg PO once daily on 04/22/2022, which was approximately 2 weeks ago. She has been referred to our outpatient hematology clinic for evaluation of her newly diagnosed anemia with documented iron deficiency. Past medical history is notable for: GERD, osteoarthritis, lumbosacral spondylitis, migraines, systemic and discoid lupus (currently on Skyrizi for psoriasis/rash), COPD, varicose veins and DVT. She underwent a vascular intervention for varicose veins with Dr.West burgess in August 2021 and reports developing a small blood clot following the procedure and was started on low dose Xarelto by her PCP - dosage is 2.5 mg PO twice daily. She reports no significant past medical history of anemia and/or iron deficiency; but does report having a bone marrow biopsy done by Dr. Brooks at [facility] in the . It has been so long ago that she cannot recall exactly why this was done, but she does think she was told she wasiron deficient and given pills at that time, but nothing as of recent. She denies any personal history of malignancy. Patient is seen and examined. Clinically, she is feeling tired, but reports significant improvement in her fatigue levels as compared to 1 month ago. She specifically denies any issues with headaches, fever/chills, recent/recurrent infections, unintentional weight loss, night sweats, lymphadenopathy, chest pain, palpitations, abdominal pain, changes in bowel/bladder function, melena, hematochezia, hematuria, bright red blood per rectum, neuropathy or lower extremity edema. She is maintaining once daily iron tablets and reports no significant dyspepsia, nausea or constipation. - Summary of Therapies Summary of Therapies: 1.) Oral Ferrous Sulfate 325 mg PO once daily ROS Details: All systems reviewed & no additional complaints except as documented Subjective/ROS - Narrative: Constitutional: No fever or chills. No weight loss. Eyes: No visual changes or eye pain. No scleral icterus. Ear, Nose and throat: No congestion, sore throat, sinusitis or ear pain. Cardiovascular: No palpitations, edema, syncope or claudication. Respiratory: Denies dyspnea on exertion. No coughor sputum production. Gastrointestinal: No abdominal pain, hematemesis, melena, nausea, vomiting, diarrhea, or reflux disease. Genitourinary: No dysuria, urgency, or burning with urination. Musculoskeletal: No muscle or joint pain. No cervical, thoracic or lumbar pain or immobility. Skin: No rash, pruritus, ulcerations. Neurologic: No headache, vertigo, weakness, numbness or tingling. No syncope described. Ambulates independently. Endocrine: No polyuria, polydipsia, heat or cold intolerance. No history of thyroid disease. Psychiatric: No hallucinations, new stressors, or change in sleep patterns. Hematologic: No abnormal bleeding or bruising. No lymphadenopathy noted. + for08/2021 DVT on Xarelto 2.5mg bid (on hold 1 week for colonoscopy). Immunologic: No history of frequent infections or delayed wound healing. PMF - History Attestation statement: The following information was validated with the patient. Source: Old Records Reviewed - Medical History Medical History: Medical History (Last Reviewed 05/15/22 @ 21:23 by Suzanne Paredes MD) Arthritis Chronic pansinusitis COPD (chronic obstructive pulmonary disease) Cough DVT (deep venous thrombosis) Iron deficiency anemia Jaw pain Lupus Microcytic anemia Migraine headache Recurrent oral ulcers - Surgical History Surgical History: Surgical History (Last Reviewed 05/15/22 @ 21:23 by Suzanne Paredes MD) H/O laminectomy L5 History of cholecystectomy History of total knee arthroplasty right Joint replaced - Family History Family History: Family History (Last Reviewed 05/15/22 @ 21:23 by Suzanne Paredes MD) Mother Diabetes Father Diabetes Grandparent Goiter - Social History Smoking Status: Former smoker Tobacco Type: cigarettes Substance Use Type: None Home Medications & Allergies Allergies Sulfa (Sulfonamide Antibiotics) Allergy (Verified 05/12/22 09:45) Unknown Reaction Home Medications ferrous sulfate 325 mg (65 mg iron) tablet 325 mg PO DAILY 04/28/22 [History Confirmed 05/15/22] gabapentin 300 mg capsule (Neurontin) 300 mg PO TID 04/28/22 [History Confirmed 05/15/22] multivitamin 1 tab PO DAILY 04/28/22 [History Confirmed 05/15/22] pantoprazole 40 mg tablet,delayed release 40 mg PO DAILY 04/28/22 [History Confirmed 05/15/22] potassium chloride 10 mEq tablet,extended release 20 meq PO TID 04/28/22 [History Confirmed 05/15/22] risankizumab-rzaa 150 mg/mL subcutaneous syringe (Skyrizi) 150 mg subcut Q12W 04/28/22 [History Confirmed 05/15/22] rivaroxaban 2.5 mg tablet (Xarelto) 2.5 mg PO BID 04/28/22 [History Confirmed 05/15/22] torsemide 20 mg tablet 20 mg PO DAILY 04/28/22 [History Confirmed 05/15/22] biotin 10,000 mcg capsule 10,000 mcg PO DAILY 05/12/22 [History Confirmed 05/15/22] budesonide 160 mcg-glycopyr 9 mcg-formot 4.8 mcg/actuation HFA inhaler (Breztri Aerosphere) 2 inh inhalation BID 05/12/22 [History Confirmed 05/15/22] Objective - Height/Weight Height/Weight: Height 5 ft 6 in Weight 75 kg - Vital Signs Vital Signs: 05/15/22 11:06 Temperature 97.6 F Pulse Rate [Right Brachial] 82 Respiratory Rate 20 Blood Pressure [Right Arm] 148/82 H 02 Sat by Pulse Oximetry 97 Oxygen Delivery Method Room Air Physical Exam Narrative: ECO, Pain: 0/10 GENERAL: Alert, no acute distress. Accompanied by her . HEENT: Head is normocephalic, atraumatic, no scleral icterus. Oral mucosa is pink/moist; no lesions or exudate. Neck is supple without adenopathy or thyromegaly. HEART: RRR; S1 and S2 normal. LUNGS: CTAB; no wheezes or crackles. ABDOMEN: Soft, non tender, no HSM. Bowel sounds present x 4 quadrants. EXTREMITIES: Warm and dry, no edema/clubbing or cyanosis. NEUROLOGICAL: Alert and oriented x 3; no focal or sensory deficits - ECOG Performance Status ECOG Score: 1 Results - Labs Labs: 05/15/2022: WBC 3600, Hg 10.5, Hct 34.3, Platelets 188,000; ANC 2200 Na 137, K 3.7, BUN 5, Creat 0.71, Glu 68, Ca 9, TP 6.2, Alb 3.8, AP 80, ALT 19, AST 26, TB 0.5 Iron 24, Iron Saturation 7%, Ferritin 18.8 - Impressions CT CHEST, ABDOMEN AND PELVIS WITH INTRAVENOUS CONTRAST: CLINICAL HISTORY: Staging in patient with cecal mass and polyps on colonoscopy. COMPARISON: None TECHNIQUE: Spiral images were obtained through the chest, abdomen and pelvis following oral and intravenous administration of 90 mL of Isovue-300. Images ofthe chest were reviewed using both narrow and wide window settings. This CT exam was performed using one or more following dose reduction techniques: Automated exposure control, adjustment of the mA and/or kV according to patient size, or use of iterative reconstruction technique. FINDINGS: The heart is not enlarged. There is no pericardial effusion. No aortic aneurysm or dissection is seen. There are benign-appearing calcified and noncalcified mediastinal lymph nodes. There are also left hilar calcified granulomas. There is a moderate to large size hiatal hernia. The bony structures are osteopenic. Mild degenerative changes are present. There is slight levoscoliotic curvature. There are are compression deformities at T11 andsuperior endplate of T9 where a hemangioma is also seen. These findings were also seen on plain films from November 2016. There is minor atelectasis or scarring at the lung bases. No additional consolidation is noted. No pleural effusion or pneumothorax is seen. There are calcified left lower lobe granulomas. No soft tissue nodularity is noted. There are tiny hepatic hypodensities which are probably cysts. The gallbladder is surgically absent. Calcified splenic granulomas are seen. The pancreas and adrenal glands show no acute findings. There are symmetric bilateral renal nephrograms, without hydronephrosis. Small renal cysts are present. There is minor atherosclerotic plaque involving a slightly tortuous aorta. There are small retroperitoneal lymph nodes in the left periaortic region. No ascites is seen. The small bowel loops are not dilated. Air is present within the colon. There are radiopaque clip-like structures within the ascending colon which are presumed to indicate the site of the mass seen on colonoscopy. There is slight wall thickening in this area. S-shaped thoracolumbar scoliotic curvature is noted. There is osteopenia. There are multiple compression deformities and Schmorl's nodes involving T11 and all of the lumbar vertebra except L4. These findings were also seen on previous plain films from November 2016. Images through the pelvis show calcifications within a dextroverted uterus suggesting fibroid disease. There are normal caliber small bowel loops. There aissatou low-lying cecum which is decompressed. The appendix shows no signs of inflammation. The distal colon is mostly decompressed. No diverticular disease is identified. The urinary bladder shows no CT abnormalities. There is a trace amount of dependent free pelvic fluid. Collateral vessels are seen within the lower anterior pelvic wall. There are degenerative changes at both hips. There are small lymph nodes within the mesentery near the proximal ascending colon with short axis dimension up to 6 mm. There also a few small external iliac chain nodes. CT/CT chest w con IMPRESSION: MILD ATELECTASIS OR SCARRING. GRANULOMATOUS CHANGES. HIATAL HERNIA. PROBABLE TINY HEPATIC AND RENAL CYSTS. MILD WALL THICKENING AND CLIP-LIKE STRUCTURES ASSOCIATED WITH THE ASCENDING COLON, PRESUMED TO RELATE TO THE MASS SEEN ON COLONOSCOPY. SMALL LEFT PERIAORTIC AND RIGHT PELVIC LYMPH NODES. SUSPECTED FIBROID UTERUS. TRACE AMOUNT OF DEPENDENT FREE PELVIC FLUID. Impression dictated by: Loni Dumont M.D.05/12/2022 4:14 PM - Other Results Results/Comments: Procedure: Colonoscopy Indication: 81-year-old female here for screening colonoscopy Pre-operative diagnosis: Colon cancer screening Post-operative diagnosis: Cecal mass, colonic polyps. Sedation: propofol per anesthesia dept O2 oximetry, hemodynamic monitoring was performed pre, during, and post procedure. Patient was identified, H&P completed, patient was given full explanation of the procedure as well as associated risks and written consent wasobtained prior to procedure. Patient expressed complete understanding of the procedure as well as alternatives to the procedure and to anesthesia and agreed to proceed with the procedure as indicated. Patient was immediately reassessed prior to IV sedation. Under IV sedation, patient was placed in the left lateral decubitus position. Digital rectal exam was performed and normal. Colonoscope was inserted and passed proximally to the cecum, which was identified by the ileocecal valve, appendiceal orifice and cecal floor. Colonoscope was slowly withdrawn with the findings as below. Annona bowel prep score was good. Findings: Cecum: A large mass occupying 50% of the cecal circumference, biopsies were doneusing jumbo biopsy. Ascending colon: Normal. Hepatic flexure: Normal. Transverse colon: A 1.5 cm polyp removed piecemeal using hot snare, 2 clips wereplaced at the polypectomy site to prevent post polypectomy bleeding. A 2.5 cm polyp removed piecemeal using hot snare, 2 clips were placed at the polypectomy site to prevent post polypectomy bleeding Splenic flexure: Normal. Descending colon: A 1.2 cm polyp removed using hot snare, 2 clips were placed atthe polypectomy site to prevent post polypectomy bleeding. Sigmoid colon: Normal. Rectum: Normal. Retroflexed views: Rectum did not show internal hemorrhoids. Biopsy taken: Yes Complications: None EBL: Minimal Recommendations: -Repeat colonoscopy based on pathology and clinical course. -We will get CT chest abdomen pelvis and check CEA then we will arrange for colorectal surgery referral oncology referral accordingly. -Follow up pathology -Follow up with PCP Assessment and Plan - TNM Staging Staging: Colon cancer pending surgery. No obvious metastatic disease (1) Cancer of ascending colon Patient referred for iron deficiency anemia. Last colonoscopy normal 5 years ago--found to have cecal mass occupying 50% of lumen. Biopsy with moderately differentiated adenocarcinoma, mismatch repair intact. No obvious metastatic disease on CT abdomen/pelvis with normal CEA 1. Referring to Dr. [facility] who was contacted today and agreed to see next week. Will hold anticoagulation due to over 6 months of therapy for DVT and iron deficiency anemia. She will f/u with me 2 weeks post op to review surgical staging and potential adjuvant chemotherapy options. High complexity 45 min visit for pathology and imaging review, iron deficiency and DVT management and coordination of care. (2) Iron deficiency anemia Qualifiers: Iron deficiency anemia type: chronic blood loss Qualified Code(s): D50.0 - Iron deficiency anemia secondary to blood loss (chronic) Patient has been referred to our outpatient hematology clinic for evaluation of newly diagnosed, rather acute onset anemia with documented iron deficiency. Thisis most consistent with blood loss in some fashion given the drastic drop in herhemoglobin; and microcytic indices consistent with iron deficiency. Potentially GI blood loss in combination with oral anticoagulation (low dose Xarelto) o she has appropriately been referred to gastroenterology and is scheduled for outpatient endoscopy on 05/12/2022. Last colonoscopy was reportedly normal in 2013. o she was started on oral Ferrous Sulfate 324 mg PO once daily ~ 10 days ago (04/22/2022) - thus far, she is tolerating the oral formulation without any significant nausea, dyspepsia or constipation. o continue oral Ferrous sulfate for time being; await results of endoscopy - Xarelto on hold o Recheck iron studies, ferritin, CBC, in 2 months to fully assess response to oral iron - if no significant improvement in iron, hemoglobin, indices, etc. or if oral iron is no longer tolerated we discussed administration of parenteral iron infusions. o will also check retic count, CMP, B12 and folate. 05/15/2022: Improved hemoglobin and iron studies on oral iron, tolerating well. May continue for now, but if Dr. Lee requests parenteral replacement for colectomy, we will coordinate this. She will remain off anticoagulation due to over 6 months of Xarelto therapy for provoked distal leg DVT. (3) History of DVT (deep vein thrombosis) Patient reports that she developed a small blood clot in the right lower extremity following a vascular procedure with Dr. Faust for varicose veins back in August of 2021. - she was started on low dose Xarelto 2.5 mg PO twice daily. - VIVI Cruz requested outside records/imaging or ultrasound from [facility]. Consistent with distal leg thrombosis and provoked DVT. OK to hold anticoagulation over 6 months duration. (4) Encounter for coordination of complex care Coordination of surgery evaluation, return 2 weeks post op to review pathology. - Time with Patient Time Spent with Patient (Follow Up Visit): 45 minutes or more - High complexity to review colon cancer pathology, CT Abd/Pelvis, consult to Gen Surgery Coordination of Care & Counseling Time: Greater than 50% of time spent with patient was for coordination of care (as documented) and [id number] counseling of patient and/or family. Dictated By: Suzanne Paredes MD DD/ 1112 Signed By: <Electronically signed by MD Suzanne Paredes> 05/15/22 2312 [facility] Work Phone: [phone]) 488-835202-07-2023 History and physical note Author Trista Davis [facility] May 12, 2022 10:58am Note Date/Time May 12, 2022 1 0:58am [facility] [address] [place] [address] Gastroenterology H&P Signed Patient: Stella Garcia MR# : [id number] : 1940 Acct:[id number] Age/Sex: 81 / F Adm Date: 3 Loc: Room: Type: [facility] Attending Dr: Trista Davis MD Copies to: MD Trista Flower II, MD~ Date of Service: 05/12/2022 HISTORY & PHYSICAL: Patient's history with special attention to the cardiovascular, pulmonary systems and the current problem was reviewed with the patient immediately prior to the procedure. Present medications and doses reviewed in the EMR. Allergies and pertinent laboratory tests were also reviewedat this time in the EMR. The physical examination, as below, was then performed. Indication, assessment and HPI: 81-year-old female here for screening colonoscopy Family history of GI malignancy? Yes(Aunt) PHYSICAL EXAMINATION Mouth and Pharynx : [moist mucus membranes, normal dentition] Cardiac: [regular rate, regular rhythm] Pulmonary: [clear to auscultation bilaterally, no wheezing] Neurological: [alert and oriented x3, no focal deficits noted] Abdomen: [Abdomen soft, non-tender] REVIEW OF SYSTEMS Constitutional: Denies malaise, fevers Cardiovascular: Denies chest pain, palpitations Respiratory: Denies shortness of breath, wheezing Gastrointestinal: Per HPI Genitourinary: Denies dysuria, polyuria Musculoskeletal: Denies joint swelling, joint stiffness Neurological: Denies numbness, tingling Integumentary: Denies rashes, skin lesions Endocrine: Denies fatigue, weight loss Written informed consent obtained from the [patient]. Risks (including but not limited to perforation, infection, bloating, bleeding, need for emergent surgery and loss of life), benefits and alternatives explained and questions answered. The [patient] verbalized understanding. Based on history patient is an appropriate candidate for the procedure. Trista Davis M.D. Documented By: Trista Davis MD 05/12/22 1051 Signed By: <Electronically signed by Trista Davis MD> 05/12/[address] [facility] Work Phone: [phone]) 547-869202-07-2023 Procedure [facility]02-01-2023 Consult note Author Bella Cruz [facility] May 06, 2022 11:30am Note Date/Time May 05, 2022 8 :42pm [facility] [place] [address] Hem/Onc Consult Note - OP Signed Patient: Stella Garcia MR# : [id number] : 1940 Acct:[id number] Age/Sex: 81 / F Type: REG RCR Copies to: MD Loni Flower II, [place] [facility]~ HPI Date/Time of Service: Date of Service: 05/04/2022 Time of Service: 14:30 Referring Provider/PCP: Referring Provider: Loni Garsia PA-C PCP: Quentin Dexter II, MD - History of Present Illness Reason for Consultation: Iron deficiency anemia Chief Complaint: New patient visit for Iron deficiency anemia, patient has been on oral Iron for two weeks. Has colonoscopy May 12. HPI: Dear RAMON Garsia, I have seen your patient in consultation and would like to thank you for the courtesy of your referral. As you, Stella Garcia is a very nice 81 year oldlady who essentially began to feel more fatigued than usual with general malaise, beginning in mid February 2022. At that time, she was also diagnosed with a sinus infection and treated appropriately. She did not significantly improve in regards to fatigue and she eventually saw her primary care physician again in mid March 2022. At that time, routine lab work was ordered (03/24/2022) and she was found to be significantly anemic with a hemoglobin level of 6.4 and hematocrit of 22.9. She was given 2 units PRBC's as an outpatient at [facility] on 03/25/2022. She had follow up blood work done on 04/21/2022 that revealed modest improvement of anemia with a hemoglobin level 8.8; Hct - 30.2; elevated RDW and microcytic indices consistent with iron deficiency. Iron studies revealed iron saturation of 5% and ferritin level of 6.She was subsequently started on oral iron 324 mg PO once daily on 04/22/2022, which was approximately 2 weeks ago. She has been referred to our outpatient hematology clinic for evaluation of her newly diagnosed anemia with documented iron deficiency. Past medical history is notable for: GERD, osteoarthritis, lumbosacral spondylitis, migraines, systemic and discoid lupus (currently on Skyrizi for psoriasis/rash), COPD, varicose veins and DVT. She underwent a vascular intervention for varicose veins with Dr.West burgess in August 2021 and reports developing a small blood clot following the procedure and was started on low dose Xarelto by her PCP - dosage is 2.5 mg PO twice daily. She reports no significant past medical history of anemia and/or iron deficiency; but does report having a bone marrow biopsy done by Dr. Brooks at [facility] in the . It has been so long ago that she cannot recall exactly why this was done, but she does think she was told she wasiron deficient and given pills at that time, but nothing as of recent. She denies any personal history of malignancy. Patient is seen and examined. Clinically, she is feeling tired, but reports significant improvement in her fatigue levels as compared to 1 month ago. She specifically denies any issues with headaches, fever/chills, recent/recurrent infections, unintentional weight loss, night sweats, lymphadenopathy, chest pain, palpitations, abdominal pain, changes in bowel/bladder function, melena, hematochezia, hematuria, bright red blood per rectum, neuropathy or lower extremity edema. She is maintaining once daily iron tablets and reports no significant dyspepsia, nausea or constipation. [facility] - Medical History Medical History: Medical History (Last Reviewed 05/04/22 @ 14:13 by Suzanne Tucker RN) Arthritis Chronic pansinusitis COPD (chronic obstructive pulmonary disease) Cough DVT (deep venous thrombosis) Iron deficiency anemia Jaw pain Lupus Microcytic anemia Migraine headache Recurrent oral ulcers - Surgical History Surgical History: Surgical History (Last Reviewed 05/04/22 @ 14:13 by Suzanne Tucker RN) H/O laminectomy L5 History of cholecystectomy History of total knee arthroplasty right Joint replaced - Family History Family History: Family History (Last Reviewed 05/04/22 @ 14:13 by Suzanne Tukcer RN) Mother Diabetes Father Diabetes Grandparent Goiter - Social History Smoking Status: Former smoker Tobacco Type: cigarettes Substance Use Type: None Home Medications & Allergies Allergies Sulfa (Sulfonamide Antibiotics) Allergy (Verified 02/20/19 11:43) Unknown Reaction Home Medications ferrous sulfate 325 mg (65 mg iron) tablet 325 mg PO DAILY 04/28/22 [History Confirmed 05/04/22] gabapentin 300 mg capsule (Neurontin) 300 mg PO TID 04/28/22 [History Confirmed 05/04/22] multivitamin 1 tab PO DAILY 04/28/22 [History Confirmed 05/04/22] pantoprazole 40 mg tablet,delayed release 40 mg PO DAILY 04/28/22 [History Confirmed 05/04/22] potassium chloride 10 mEq tablet,extended release 10 meq PO DIRECTED 04/28/22[History Confirmed 05/04/22] risankizumab-rzaa 150 mg/mL subcutaneous syringe (Skyrizi) 150 mg subcut Q12W 04/28/22 [History Confirmed 05/04/22] rivaroxaban 2.5 mg tablet (Xarelto) 2.5 mg PO BID 04/28/22 [History Confirmed 05/04/22] torsemide 20 mg tablet 20 mg PO DAILY 04/28/22 [History Confirmed 05/04/22] Subjective Data - Diagnosis DIAGNOSIS: 1.) Iron deficiency anemia - Summary of Therapies Summary of Therapies: 1.) Oral Ferrous Sulfate 325 mg PO once daily Subjective/ROS - Narrative: As per the HPI, otherwise 10 point review of systems is negative. Objective - Resuscitation Status Resuscitation Status: Full Code - Height/Weight Height/Weight: Height 5 ft 6 in Weight 76 kg Physical Exam Narrative: ECO Pain: 0/10 GENERAL: Alert, no acute distress. Accompanied by her . HEENT: Head is normocephalic, atraumatic, no scleral icterus. Oral mucosa is pink/moist; no lesions or exudate. Neck is supple without adenopathy or thyromegaly. HEART: RRR; S1 and S2 normal. LUNGS: CTAB; no wheezes or crackles. ABDOMEN: Soft, non tender, no HSM. Bowel sounds present x 4 quadrants. EXTREMITIES: Warm and dry, no edema/clubbing or cyanosis. NEUROLOGICAL: Alert and oriented x 3; no focal or sensory deficits - ECOG Performance Status ECOG Score: 0 Assessment and Plan (1) Iron deficiency anemia Patient has been referred to our outpatient hematology clinic for evaluation of newly diagnosed, rather acute onset anemia with documented iron deficiency. Thisis most consistent with blood loss in some fashion given the drastic drop in herhemoglobin; and microcytic indices consistent with iron deficiency. Potentially GI blood loss in combination with oral anticoagulation (low dose Xarelto) o she has appropriately been referred to gastroenterology and is scheduled for outpatient endoscopy on 05/12/2022. Last colonoscopy was reportedly normal in 2013. o she was started on oral Ferrous Sulfate 324 mg PO once daily ~ 10 days ago (04/22/2022) - thus far, she is tolerating the oral formulation without any significant nausea, dyspepsia or constipation. o continue oral Ferrous sulfate for time being; await results of endoscopy - Xarelto on hold o Recheck iron studies, ferritin, CBC, in 2 months to fully assess response to oral iron - if no significant improvement in iron, hemoglobin, indices, etc. or if oral iron is no longer tolerated we discussed administration of parenteral iron infusions. o will also check retic count, CMP, B12 and folate. As noted below, we will request further records and clarification regarding history of DVT and need for continuation of anticoagulation; await GI recs, as well. Follow up [facility] patient in ~ 2-2.5 months. (2) History of DVT (deep vein thrombosis) Patient reports that she developed a small blood clot in the right lower extremity following a vascular procedure with Dr. Faust for varicose veins back in August of 2021. - she was started on low dose Xarelto 2.5 mg PO twice daily. - [facility] records[facility] [facility] to determine location of clot; especially as the patient thinks this may have been close to surface. This sounds like it was surrounding her surgical or vascular intervention and was likely provoked. This would determine course of anticoagulation - which is typically 6 months duration. - Time with Patient Coordination of Care & Counseling Time: Greater than 50% of time spent with patient was for coordination of care (as documented) and [id number] counseling of patient and/or family. Dictated By: Bella Cruz APRN DD/ 41 Signed By: <Electronically signed by ROSEANNA Cruz> 05/06/[address] [facility] Work Phone: [phone] 704-321305-09-2022 NoteRADIOLOGY REPORT PROCEDURE: VEIN CENTER INJECTION FOAM SCLEROSING SOLUTION WITH ULTRASOUND MULTIPLE VEINS COMPARISON: None. Pre-operative Diagnosis: CEAP class C4a venous insufficiency with pain, tenderness, edema and incompetent branch saphenous vein, chronic venous insufficiency right leg secondary to venous incompetence Post-operative Diagnosis: CEAP class C4a venous insufficiency with pain, tenderness, edema and incompetent branch saphenous vein, chronic venous insufficiency right leg secondary to venous incompetence Procedure Performed: 1. Ultrasound-guided microfoam chemical ablation with Varithena(r) 2. Intraoperative ultrasound guidance Physician: Merced Ramachandran M.D. Anesthesia: None. Indications for Procedure: 80 year old female. Symptoms including chronic lower extremity swelling, pain, dilated varicose veins for many years despite conservative medical therapy including medical compression stockings, exercise and analgesics. Prior procedures include: Microfoam chemical ablation. Multiple incompetent varicosities of the right leg. Duplex scan showed reflux and enlarged diameters up to 4 mm. The patient has undergone informed consent including management options where the complications of infection, bleeding, pain, and skin injury were discussed. Particular attention was spent discussing thrombus extension and deep vein thrombosis as well as the possibility of pulmonary embolus and treatment with oral or injectable blood thinners. Procedure: The patient walked to the procedure room. All applicable staff donned appropriate apparel. A procedure timeout was performed to confirm correct patient, correct extremity, correct procedure, and correct room set-up including presence of all applicable supplies, devices, and drugs. A duplex ultrasound, performed by myself confirmed the location and incompetence of branch saphenous varicosities and their course was marked on the skin together with the dilated tributaries. The extent of treatment of the veins and the associated varicosities was determined through ultrasound mapping. The skin was prepped and then punctured with a butterfly needle and advanced under ultrasound guidance. The Varithena(r) canister was activated and the canister was primed and purged as required in the instructions for use. Varithena(r) was drawn into a sterile syringe. Varithena(r) was slowly administered at 0.5-1.0 cc/second with close observation by ultrasound of its course in the vessels. Total volume utilized was: 5 mL within a 4 mm incompetent branch saphenous varicosity of the right distal medial lower leg. Following administration of Varithena(r), the leg was elevated and the patient was asked to repeatedly dorsiflex the ankle to limit flow of Varithena(r) into perforating veins. Once appropriate spasm had been confirmed in the treated veins, the vascular catheter was removed from the leg and light pressure was applied over the puncture site for hemostasis The common femoral and deep superficial veins were then evaluated for flow and compressibility prior to dressing placement. The lower extremity was kept elevated at 45 degrees above the horizontal and cording material was applied over the saphenous segments and tributaries to allow for eccentric compression over the target vessels including the targeted saphenous vein(s). A multilayer dressing was applied consisting of foam pads, coban and thigh-high 20-30 mm Hg compression elastic support hose were placed on the patient. The leg was lowered only after compression had been applied and the patient was immediately ambulatory. The patient ambulated 10 minutes under supervision and was without apparent concerns at time of release Post-care instructions include advising patient to keep post-treatment bandages in place and dry for 48 hours, avoid extended periods of inactivity, avoid heavy exercise for one week, wear compression stockings on the treated leg continuously for two weeks, to walk daily for 10 minutes over the next month. The patient was instructed to take an anti-inflammatory medicine as needed and to follow up for color duplex scan of the Saphenous veins, the treated branch saphenous varicosities, the adjacent deep veins, and additional treatment within 7 days. PERSONNEL: Roberto Graham R.N. Dictated by: Merced Ramachandran M.D. on 08/11/2021 at 14:58 Approved by: Merced Ramachandran M.D. on 08/11/2021 at 15:04 Patient: STELLA GARCIA Exam Date: 08/11/2021 : 1940 Gender:F Ordering : DR MONTSERRAT FAUST M.D. Admission #: [id number] Family : Order #: [id number] CLICK HERE TO VIEW EXAM The [address] [id number] Patient: STELLA GARCIA Exam Date: 08/11/2021 : 1940 Gender:F Ordering : DR MONTSERRAT FAUST M.D. Admission #: [id number] Family (more content not included)...[facility] noteNo assessment information available[facility] Work Phone: Evaluation note* Diagnosis Onset Date Resolution Status History of DVT (deep vein thrombosis) acute Iron deficiency anemia acute [facility] Work Phone: Evaluation note* Diagnosis Onset Date Resolution Status Cancer of ascending colon ac nenana Encounter for coordination of complex care acute History of DVT (deep vein thrombosis) chronic Iron deficiency anemia chron ic Atrial fibrillation with rapid ventricular response acute Cancer of ascending colon ac nenana Cecal cancer acute Gout flare acute Hypokalemia acute Lupus acute Multifocal atrial tachycardia acute Right leg weakness acute Weakness of lower extremity acute History of DVT (deep vein thrombosis) chronic [facility] Work Phone: Evaluation note* Diagnosis Onset Date Resolution Status Atrial fibrillation with rapid ventricular response acute Gout flare acute Hypokalemia acute Lupus acute Multifocal atrial tachycardia acute Right leg weakness acute Weakness of lower extremity acute Cancer of ascending colon ch ronic Cecal cancer chronic History of DVT (deep vein thrombosis) chronic Atrial fibrillation acute Encounter for coordination of complex care acute Cancer of ascending colon ch ronic Cecal cancer chronic Encounter for chemotherapy management chronic History of DVT (deep vein thrombosis) chronic Iron deficiency anemia chron ic [facility] Work Phone: Evaluation note* Diagnosis Essential hypertension- Primary Unspecified essential hypertension Paroxysmal atrial fibrillation (CMS/HCC) Atrial fibrillation Primary hypertension Unspecified essential hypertension Medication course changed documented in this encounter [facility] Work Phone: Evaluation note* Diagnosis Onset Date Resolution Status Encounter for coordination of complex care acute Atrial fibrillation chronic Cancer of ascending colon ch ronic Cecal cancer chronic Encounter for chemotherapy management chronic History of DVT (deep vein thrombosis) chronic History of iron deficiency anemia chronic Iron deficiency anemia resol sunita Palmar plantar dysesthesia r esolved [facility] Work Phone: Evaluation note* Diagnosis Onset Date Resolution Status Encounter for coordination of complex care acute Atrial fibrillation chronic Cecal cancer chronic History of DVT (deep vein thrombosis) chronic History of iron deficiency anemia chronic Palmar plantar dysesthesia r esolved Encounter for coordination of complex care acute Atrial fibrillation chronic Cancer of ascending colon ch ronic Cecal cancer chronic Encounter for chemotherapy management chronic History of DVT (deep vein thrombosis) chronic History of iron deficiency anemia chronic Iron deficiency anemia resol sunita Palmar plantar dysesthesia r esolved Encounter for coordination of complex care acute Atrial fibrillation chronic Cecal cancer chronic History of DVT (deep vein thrombosis) chronic History of iron deficiency anemia chronic Palmar plantar dysesthesia r esolved [facility] Work Phone: History of Present illness NarrativePatient returns in follow-up of problems as noted. This is the first time we have seen her in the office. She was seen in consultation at the hospital for a paroxysm of atrial fibrillation which wentaway with the initiation of antiarrhythmic therapy. She has had no recurrent arrhythmia symptomatology since. She is chronically anticoagulated by her primary care physician for history of deep vein thrombosis and because of this we will continue that agent as before in combination with Tikosyn which I believe will mitigate risk of atrial fib and/or stroke risk. She was encouraged to call if problems arise or occur if she thinks she is having arrhythmia problems. We note that her blood pressureis well controlled today and hence we will not adjust her blood pressure medicine. She is, though, having difficulty cutting spironolactone in half and because of this we suggest that she take it every other day for its potassium sparing benefit (which has been a problem for in the past).-[facility] DO Work Phone: History of Present illness NarrativePatient returns in follow-up of problems as noted. This is the first time we have seen her in the office. She was seen in consultation at the hospital for a paroxysm of atrial fibrillation which wentaway with the initiation of antiarrhythmic therapy. She has had no recurrent arrhythmia symptomatology since. She is chronically anticoagulated by her primary care physician for history of deep vein thrombosis and because of this we will continue that agent as before in combination with Tikosyn which I believe will mitigate risk of atrial fib and/or stroke risk. She was encouraged to call if problems arise or occur if she thinks she is having arrhythmia problems. We note that her blood pressureis well controlled today and hence we will not adjust her blood pressure medicine. She is, though, having difficulty cutting spironolactone in half and because of this we suggest that she take it every other day for its potassium sparing benefit (which has been a problem for in the past).-[facility] Ale[facility]andro Bucio DO Work Phone: Hospital Discharge instructions Additional Instructions DISCHARGE INSTRUCTIONS FOR COLONOSCOPY WHAT TO EXPECT: - You may feel full, gassy or cramping after your procedure. In some cases, this may be from a few hours to a day. Walking may help relieve the discomfort. - If you have polyp(s) removed you may note some minor bloody discharge after your first bowel movements. - You should begin to recover from anesthesia within 1 hour of the procedure, however may feel groggy for the next 24 hours. DO's AND DON'Ts: - Call your doctor right away if you have a hard abdomen, severe pain, are passing lots of bright red blood or clots. - Call your doctor if you develop any rashes, hives or difficulty breathing. - Let your doctor know if you have not had a bowel movement by 3 days after your procedure. - If you take 81 mg aspirin for your heart it is safe to resume this medication. - If you take other blood thinner medications your doctor will instruct you when these can safely be resumed. - Do NOT drive for 24 hours. - Do NOT operate machinery such as power tools, lawn mowers, snow blowers, sewing machines, etc. for 24 hours. - Avoid alcoholic beverages and drugs for allergies, nerves, or sleep. - Do NOT stay alone. Do NOT leave your child unattended. - Do NOT make important personal or business decisions or sign any legal documents. - Eat solid foods and drink liquids in smaller amounts than usual until normal appetite returns. If you should experience an upset stomach, liquids high in sugar content (soda, Narayan-Aid, non-acid juices) are recommended. - You can resume normal activities tomorrow. FOLLOW UP & RECOMMENDATIONS: -Will arrange for CT chest abdomen and pelvis and check CEA -Will arrange for colorectal surgery and oncology referral -Notify the doctor if you have any problems. -Follow up with PCP. -Office number [phone]. [facility] Work Phone: Hospital Discharge instructions Additional Instructions DISCHARGE INSTRUCTIONS FOR GENERAL SURGERY YOUR ACTIVITY MAY INCLUDE: -Going up and down stairs slowly. -Walking around the house or outside if the weather is satisfactory. -No driving until you are seen in office and cleared for driving. -Light housework or light work permitted in 2 weeks. -Heavy lifting permitted 8 weeks At your first office visit we will discuss: Return to work, return to sports, return to exercise, etc. WOUND CARE/INCISION CARE: -Keep incision clean and dry -Showering is okay, no tub baths -Is it common to feel pulling or sharp sticking sensations in the area of incision, these sensations are a part of the normal healing process. -If you develop fever, increasing pain, redness, or swelling around the incision, please notify our office MEDICATION -Resume all previous medications that you were taking for problems unrelated to your surgery, unless informed otherwise. If there are any problems with this, please call the original prescribing doctor. If you have any other questions regarding medications, please call our office. -Over the counter medications such as Acetaminophen, Ibuprofen, Naproxen, and others may be used as directed for pain unless a prescription was provided. Please call the office of Dr. Lee tomorrow morning to get an appointment for the end of this week, fay will be removed at that time Do not take Skyrizi or any steroids until cleared at the [facility] Work Phone: Hospital Discharge instructionsAmbulatory Orders* [facility] Time Frame: 08/12/23, Location: Determined By Patient [facility] Work Phone: Summary Purpose Family History No Family History Records Found Relationship Condition Age at Onset Recorded Date/T kirk Not Specified Diabetes mellitus Unknown father Diabetes mellitus Unknown grandparent Goiter Unknown Unknown Family Member Name Dates Details Family history of cardiomega ly: Father(V17.49, Z82.49) Status:Active Unknown Family Member Name Dates Details Family history of cardiomega ly: Father(V17.49, Z82.49) Status:Active Relationship Condition Age at Onset Recorded Date/T kirk Not Specified Diabetes mellitus Unknown father Diabetes mellitus Unknown grandparent Goiter Unknown brother Unknown Unknown family member Unknown grandparent Unknown Not Specified Unknown Diabetes mellitus Unknown Advance Directives No Advanced Directives Records Found Advance Directive Response Recorded Date/ Time Advance Directives No January 11, 2017 3:03pm Advance Directive Response Recorded Date/ Time Advance Directives No January 11, 2017 4:03pm Chief Complaint and Reason for Visit Chief Complaint Iron Deficiency Anem ia Chief Complaint Iron Deficiency Anem ia Screening Reason for Visit History of DVT (deep vein thrombosis) Iron deficiency anemia Chief Complaint Screening cecum mass, RACHEL Reason for Visit History of DVT (deep vein thrombosis) Iron deficiency anemia Chief Complaint Screening cecum mass, RACHEL Colon Mass Reason for Visit Cancer of ascending colon Encounter for coordination of complex care History of DVT (deep vein thrombosis) Iron deficiency anemia Atrial fibrillation with rapid ventricular response Cancer of ascending colon Cecal cancer Gout flare Hypokalemia Lupus Multifocal atrial tachycardia Right leg weakness Weakness of lower extremity History of DVT (deep vein thrombosis) Chief Complaint Colon Mass E87.6/D50.9 cecum mass, RACHEL Reason for Visit Atrial fibrillation with rapid ventricular response Gout flare Hypokalemia Lupus Multifocal atrial tachycardia Right leg weakness Weakness of lower extremity Cancer of ascending colon Cecal cancer History of DVT (deep vein thrombosis) Atrial fibrillation Encounter for coordination of complex care Cancer of ascending colon Cecal cancer Encounter for chemotherapy management History of DVT (deep vein thrombosis) Iron deficiency anemia Chief Complaint cecum mass, RACHEL Reason for Visit Encounter for [facility] complex care Atrial fibrillation Cancer of ascending colon Cecal cancer Encounter for chemotherapy management History of DVT (deep vein thrombosis) History of iron deficiency anemia Iron deficiency anemia Palmar plantar dysesthesia Chief Complaint cecum mass, RACHEL 3 Month Follow Up Reason for Visit Encounter for [facility] complex care Atrial fibrillation Cecal cancer History of DVT (deep vein thrombosis) History of iron deficiency anemia Palmar plantar dysesthesia Encounter for coordination of complex care Atrial fibrillation Cancer of ascending colon Cecal cancer Encounter for chemotherapy management History of DVT (deep vein thrombosis) History of iron deficiency anemia Iron deficiency anemia Palmar plantar dysesthesia Encounter for coordination of complex care Atrial fibrillation Cecal cancer History of DVT (deep vein thrombosis) History of iron deficiency anemia Palmar plantar dysesthesia Reason for Referral Specialty Diagnoses / Procedures Referred By Contac t Referred To Contact Diagnoses Paroxysmal atrial fibrillation (CMS/HCC) Procedures ECG 12 Lead Geovany Serrano MD [address] [place] [address] 2, [address] [address] Referral ID Status Reason Start Date Expiration Date V isits Requested Visits Authorized [id number] Pending Review 04/07/2023 04/06/2024 1 1 Specialty Diagnoses / Procedures Referred By Contac t Referred To Contact Cardiology Diagnoses Essential hypertension Paroxysmal atrial fibrillation (CMS/HCC) Primary hypertension Procedures Follow Up In Cardiology Geovany Serrano MD [address] [place] [address] 2, [facility] [address] [place] [address] Geovany Serrano MD [address] [place] [address] 2, [facility] [address] [place] [address] Referral ID Status Reason Start Date Expiration Date V isits Requested Visits Authorized [id number] Authorized 04/07/2023 04/06/2024 1 1 Additional Source Comments INFORMATION SOURCE (unrecogn ized section and content) DATE CREATED AUTHOR 04/02/2022 [facility] DATE CREATED AUTHOR AUTHOR'S ORGANIZ ATION 07/16/2022 [facility] DATE CREATED AUTHOR AUTHOR'S ORGANIZ ATION 09/10/2023 [facility] DATE CREATED AUTHOR AUTHOR'S ORGANIZ ATION 11/25/2023 [facility] EPIC DATE CREATED AUTHOR AUTHOR'S ORGANIZ ATION 11/25/2023 [facility] Director Process Engineering Teams (unrecognized sec tion and content) Team Status: Active Member Role Status Dates Quentin Dexter II MD Primary Care Provider Active Team Status: Inactive Member Role Status Dates Quentin Dexter II MD Primary Care Provider Active Start: July 01, 2023 End: July 01, 2023 Suzanne Paredes MD Attending Provider Active Start: July 01, 2023 End: July 01, 2023 Team Status: Active Member Role Status Dates Quentin Dexter II MD Primary Care Provider Active Start: September 09, 2023 Bella Cruz APRN Active Start: September 09, 2023 Trista Davis MD Referring Provider Active Start: September 09, 2023 Suzanne Paredes MD Attending Provider Active Start: September 09, 2023 Mayra Epsteinke , SOLUTIONS SALES CONSULTANT Active Start: September 09, 2023 Team Status: Inactive Member Role Status Dates Quentin Dexter II MD Primary Care Provider Active Start: September 09, 2023 End: September 09, 2023 Suzanne Paredes MD Attending Provider Active Start: September 09, 2023 End: September 09, 2023 Team Status: Active Member Role Status Dates Quentin Dexter II MD Primary Care Provider Active Bella Cruz APRN Attending Provider Active Trista Davis MD Referring Provider Active Team Status: Inactive Member Role Status Dates Quentin Dexter II MD Primary Care Provider Active Trista Davis MD Attending Provider Active Team Status: Inactive Member Role Status Dates Quentin Dexter II MD Primary Care Provider Active Alex Lee , Admit Provider, Attending Provider Ac shylave Zuly Rivera , TERRY Other Provider Active Haley Keller , TERRY Other Provider Active Lu Esquivel , TERRY Other Provider Active Jeana Mac , TERRY Other Provider Active Mita Barrow , TERRY Other Provider Active Justine Patterson , TERRY Other Provider Active Karthik Rico MD Other Provider Active Janet Enriquez , SOLUTIONS SALES CONSULTANT Other Provider Active Venessa Taylor , DO Other Provider Active Miguel Izquierdo MD Other Provider Active Leonidas Pink , DO Other Provider Active Lucas Serrano MD Other Provider Active Maribel Torres MD Other Provider Active Tayler Reno , ANP-BC Other Provider Active Lori Crespo MD Other Provider Active Daniele Burdick MD Other Provider Active Pepito Jordan MD Other Provider Active Arsenio Mills MD Other Provider Active Nestor Loomis , DO Other Provider Active Rosalia Sol MD Other Provider Active Aime Ortiz MD Other Provider Active Suzanne Cruz , OTOLARYNGOLOGY SURGEON-C Other Provider Active Levon Cruz MD Other Provider Active Kwasi Blake MD Other Provider Active Jose Zarate MD Other Provider Active Carmen Jade , DO Other Provider Active Ronal Osman , DO Other Provider Active Masoud Hilton , DO Other Provider Active Lisa Bishop , SOLUTIONS SALES CONSULTANT Other Provider Active Adrian Santiago , DO Other Provider Active Medhat Aaron MD Other Provider Active Libby Wade APRN Other Provider Active Paula Spence APRN Other Provider Active Yeni Gomez , TERRY Other Provider Active Lisandro Almaraz DO Other Provider Active Team Status: Active Member Role Status Dates Quentin Dexter II MD Primary Care Provider Active Bella Cruz APRN Attending Provider Active Loni Garsia PA-C Referring Provider Active Team Status: Inactive Member Role Status Dates Quentin Dexter II MD Primary Care Provider Active Geovany Serrano MD Attending Provider Active Physical Therapy Supervisor Relationship Specialty Start Date End Date Quentin Dexter MD [address] [facility] [address] [place] [address] PCP - General 09/21/22 Team Status: Active Member Role Status Dates Quentin Dexter II MD Primary Care Provider Active Start: July 01, 2023 Bella Cruz APRN Active Start: July 01, 2023 Trista Davis MD Referring Provider Active Start: July 01, 2023 Suzanne Paredes MD Attending Provider Active Start: July 01, 2023 Sarahicasandra Oneill APRN Active Start: July 01, 2023 Goals (unrecognized section and content) Goals may be documented in a n alternate sectionGoals may be documented in an alternate sectionGoals may be documented in an alternate sectionGoals may be documented in an alternate section Reason for Visit (unrecogniz ed section and content) Reason Comments Follow-up 6 months Specialty Diagnoses / Procedures Referred By Contac t Referred To Contact Diagnoses Paroxysmal atrial fibrillation ([facility]) Procedures ECG 12 Lead Geovany Serrano MD [address] [facility] [address], [address] [place] [address] Referral ID Status Reason Start Date Expiration Date V isits Requested Visits Authorized [id number] Pending Review 04/07/2023 04/06/202404 05 FOR RECORDS PERTAINING TO PATIENTS WHO ARE OR HAVE BEEN ENROLLED IN A CHEMICAL DEPENDENCY/SUBSTANCEABUSE PROGRAM, SOME INFORMATION MAY BE OMITTED. This clinical summary was aggregated from multiple sources. Caution should be exercised in using it in the provision of clinical care. This summary normalizes information from multiple sources, and as a consequence, information in this document may materially change the coding, format and clinical context of patient data. In addition, data may be omitted in some cases. CLINICAL DECISIONS SHOULD BE BASED ON THE PRIMARY CLINICAL RECORDS. [facility] [facility]. provides no warranty or guarantee of the accuracy or completeness of information in this document.
--- NOTE | 2023-11-26 11:42 | XR_ITS ---
The [address] [address] Patient Name: JESUS ESTEVEZ MRN: [id number] date: 1940 Sex: F Assigned Patient Location: [facility] Current Patient Location: [facility] Accession/Order Number: [id number] Exam Date: 11/26/2023 11:30 Report Date: 11/26/2023 12:32 At the request of: BETY GARISA Procedure: XR DEXA axial skeleton EXAMINATION: XR DEXA axial skeleton, 11/26/2023 11:30 AM EDT HISTORY: Estrogen Deficiency E28.39 COMPARISON: 2021, 2019, 2013 TECHNIQUE: Dual-energy X-ray absorptiometry (DEXA) bone density study performed for the axial skeleton. FINDINGS: Bone mineral density bilateral femoral trochanters measures 0.498 g/sq cm. T score -3.1. Osteoporosis. Lowest bone mineral density is in the left forearm radius measuring 0.415 g/sq cm. T score -4.2. Osteoporosis XR/XR DEXA axial skeleton IMPRESSION: Osteoporosis. High fracture risk Pharmacologic treatment recommendations * No uniform recommendation applies to all patients. Management plans must be individualized. * Consider initiating pharmacologic treatment in postmenopausal women and men >= 50 years of age who have the following: Primary fracture prevention: * T-score <= - 2.5 at the femoral neck, total hip, lumbar spine, 33% radius (some uncertainty with existing data) by DXA. * Low bone mass (osteopenia: T-score between - 1.0 and - 2.5) at the femoral neck or total hip by DXA with a 10-year hip fracture risk >= 3% or a 10-year major osteoporosis-related fracture risk >= 20% (i.e., clinical vertebral, hip, forearm, or proximal humerus) based on the [place]-adapted FRAXregistered model. Secondary fracture prevention: * Fracture of the hip or vertebra regardless of BMD [4, 5]. * Fracture of proximal humerus, pelvis, or distal forearm in persons with low bone mass (osteopenia: T-score between - 1.0 and - 2.5). The decision to treat should be individualized in persons with a fracture of the proximal humerus, pelvis, or distal forearm who do not have osteopenia or low BMD [12, 13]. [place] MS, El SL, Tami KL, Gui EM, Jm KG, Keyes AJ, Sohail ES. The clinician's guide to prevention and treatment of osteoporosis. Osteoporos Int. 2021;33(10):2491-6001. doi: 10.1007/i75669-054-29723-k. Epub 2021Jul 31. Erratum in: Osteoporos Int. 2021Oct 30;: PMID: [id number]; PMCID: [id number]. Electronically authenticated by: MONTSERRAT SEGURA Date: 11/26/2023 12:32
== END 2023-11-26 11:21 | disposition home or self-care (01) ==
LOC: RAD 11:20
PROVIDERS: PCP Internal Medicine; Visit Provider Physician Assistant
DX: E28.39 Other primary ovarian failure (principal); M81.0 Age-related osteoporosis without current pathological fracture
CPT/HCPCS: 77080

== ENCOUNTER 2024-05-17 12:09 | Outpatient (OUT) | payer MEDICARE, SELFPAY ==
--- NOTE | 2024-05-17 12:26 | XR_ITS ---
The [address] [address] Patient Name: JESUS ESTEVEZ MRN: [id number] date: 1940 Sex: F Assigned Patient Location: [facility] Current Patient Location: [facility] Accession/Order Number: [id number] Exam Date: 05/17/2024 12:18 Report Date: 05/17/2024 13:16 At the request of: MILVIA GUZMÁN Procedure: XR foot RT min 3V PROCEDURE: XR foot RT min 3V COMPARISON: None. HISTORY: Right Foot Pain FINDINGS: BONES:No acute fracture or dislocation. Moderate hallux valgus. Moderate degenerative changes most significant first metatarsal-phalangeal joint. Enthesopathic spurring of the calcaneus SOFT TISSUES:Negative. No visible soft tissue swelling. EFFUSION:None visible. OTHER: Negative. XR/XR foot RT min 3V IMPRESSION: Moderate degenerative changes. Electronically authenticated by: MONTSERRAT SEGURA Date: 05/17/2024 13:16
== END 2024-05-17 12:10 | disposition home or self-care (01) ==
LOC: RAD 12:10
PROVIDERS: PCP Internal Medicine; Visit Provider Podiatrist Foot & Ankle Surgery
DX: M79.671 Pain in right foot (principal); M20.11 Hallux valgus (acquired), right foot
CPT/HCPCS: 73630